=== PATIENT | female | born 1945 | race Caucasian/White ===

== ENCOUNTER 2024-02-08 17:16 | Emergency (ER) | payer MEDICARE, SELFPAY ==
[2024-02-08 17:19] VITALS: BP 188/59; PULSE 62; TEMP 36.7; O2SAT 97; BMI 28.9
--- NOTE | 2024-02-08 17:23 | CT_ITS ---
[facility] [id number] Patient Name: JUAN HERNANDEZ MRN: [id number] date: 1945 Sex: F Assigned Patient Location: ED.MAIN Current Patient Location: ED.MAIN Accession/Order Number: [id number] Exam Date: 02/08/2024 17:35 Report Date: 02/08/2024 18:24 At the request of: MELANIE LOGAN Procedure: CT abdomen pelvis wo con CT ABDOMEN/PELVIS WITHOUT IV CONTRAST. INDICATION: small bowel obstruction symptoms COMPARISON: There are no other studies available for comparison. TECHNIQUE: Contiguous axial images were obtained from the lung bases to the pelvic floor without intravenous or oral contrast. Coronal and sagittal reformations are provided. FINDINGS: Somewhat limited evaluation due to motion. LOWER LUNGS: Clear. LIVER/BILIARY TREE: No discrete lesion. No intrahepatic ductal dilatation. GALLBLADDER: No significant gallbladder wall thickening. No radiopaque stone. CBD: Normal CBD. SPLEEN: Normal in size. PANCREAS: No appreciable peripancreatic fluid. No pancreatic ductal dilatation. No discrete lesion. ADRENALS: Normal. KIDNEYS: No hydronephrosis. No radiopaque calculus. STOMACH AND BOWEL: There is a small hiatal hernia. No dilated bowel loops. No bowel wall thickening. There is oral contrast in the colon and rectum. APPENDIX: Not well-visualized. PERITONEAL CAVITY: No fluid. No fat stranding. ABDOMINAL WALL: No subcutaneous stranding. No subcutaneous fluid collection. LYMPH NODES: No mesenteric or retroperitoneal lymphadenopathy by CT criteria. ABDOMINAL AORTA: No aneurysm. PELVIS: No acute abnormality. Vaginal pessary noted. MUSCULOSKELETAL: No acute osseous abnormality. CT/CT abdomen pelvis wo con IMPRESSION: No acute abnormality in the abdomen or pelvis. No bowel obstruction. Electronically authenticated by: STEPHANI DODGE Date: 02/08/2024 18:24
--- NOTE | 2024-02-08 17:55 | ED.ABDPAIN1 ---
HPI - Abdominal Pain General Chief Complaint: Abdominal Pain Stated Complaint: NO BM 10 DAYS Time Seen by Provider: 02/08/24 17:23 Source: patient Mode of arrival: ambulance Limitations: no limitations History of Present Illness HPI narrative: Patient is coming to us with 10 days history of no bowel movement, he denies any abdominal pain she mentioned that she had a left upper and lower extremity weakness after she had a stroke in the last few months, and that is why she is in nursing home facility because she is bedbound, the patient have no chest pain no abdominal pain she had no nausea but she vomited once and she has been having sand sensation in her tongue as well as the food was regurgitating to her mouth, her last meal was few hours before arrival The patient denies any other complaint Related Data Home Medications ?Medication ?Instructions ?Recorded ?Confirmed Biotene Dry Mouth 1 spray Not Applicable QID 02/08/24 02/08/24 acetaminophen 325 mg capsule 650 mg PO .Q 8 hours 02/08/24 02/08/24 (Tylenol) aluminum-mag hydroxide-simethicone 10 ml PO Q6H PRN dyspepsia 02/08/24 02/08/24 200 mg-200 mg-20 mg/5 mL oral susp (Gretchen-Mox Antacid-Antigas) amlodipine 5 mg tablet 10 mg PO DAILY 02/08/24 02/08/24 aspirin 81 mg chewable tablet 81 mg PO DAILY 02/08/24 02/08/24 atorvastatin 40 mg tablet 40 mg PO DAILY 02/08/24 02/08/24 baclofen 10 mg tablet 10 mg PO BID 02/08/24 02/08/24 buspirone 5 mg tablet 5 mg PO BID 02/08/24 02/08/24 calcium carbonate (Antacid 200 mg PO TID PRN dyspepsia 02/08/24 02/08/24 (calcium carbonate)) chlorthalidone 25 mg tablet 25 mg PO DAILY 02/08/24 02/08/24 clopidogrel 75 mg tablet 75 mg PO DAILY 02/08/24 02/08/24 diclofenac sodium 1 % topical gel 2 g topical QID PRN pain 02/08/24 02/08/24 (Arthritis Pain (diclofenac)) docusate sodium 100 mg capsule 100 mg PO BID PRN constipation 02/08/24 02/08/24 (Colace) hydralazine 25 mg tablet 25 mg PO QID 02/08/24 02/08/24 levothyroxine 50 mcg tablet 50 mcg PO DAILY 02/08/24 02/08/24 (Euthyrox) lidocaine 4 % topical patch 2 patch topical DAILY 02/08/24 02/08/24 (Aspercreme (lidocaine)) losartan 100 mg tablet (Cozaar) 100 mg PO DAILY 02/08/24 02/08/24 melatonin 5 mg tablet 5 mg PO DAILY 02/08/24 02/08/24 ondansetron HCl 4 mg tablet 4 mg PO Q6H PRN nausea and vomiting 02/08/24 02/08/24 polyethylene glycol 3350 17 17 g PO DAILY 02/08/24 02/08/24 gram/dose oral powder (ClearLax) quaifenesin 600 mg PO BID PRN cough 02/08/24 02/08/24 tramadol 50 mg tablet 50 mg PO DAILY PRN pain 02/08/24 02/08/24 trazodone 50 mg tablet 50 mg PO DAILY PRN sleep 02/08/24 02/08/24 Previous Rx's ?Medication ?Instructions ?Recorded famotidine 20 mg tablet (Pepcid) 20 mg PO BID #20 tabs 02/08/24 nystatin 100,000 unit/mL oral 400,000 unit (4 mL) buccal QID 14 02/08/24 suspension days #224 mL pantoprazole 40 mg tablet,delayed 40 mg PO DAILY #30 tabs 02/08/24 release (Protonix) Allergies Allergy/AdvReac Type Severity Reaction Status Date / Time meperidine [From Demerol] Allergy Unknown Unknown Verified 02/08/24 17:50 Review of Systems ROS Status of ROS 10 or more systems reviewed and unremarkable except as noted in history and below Exam Narrative Exam Narrative: Nurses notes and vital signs reviewed and patient is not hypoxic. General: Well-appearing and in no apparent distress. Skin: Warm, dry, no pallor noted. No rash. Head: Normocephalic, atraumatic. Neck: Supple, non-tender. Eye: Pupils are equal, round and EOMI. No scleral icterus. Ears, Nose, Mouth, and Throat: TM are clear, no nasal mucosal hypertrophy. Dry mucous membrane with a mouth rash in the posterior of the pharynx as well as the tongue, no posterior oropharynx erythema, uvula is mid-line Cardiovascular: Regular Rate and Rhythm without murmur, gallop or rub. Respiratory: No accessory muscle use or respiratory distress. Lungs are clear to auscultation, no wheezing, rales or rhonchi Chest Wall: no tenderness Back: No midline thoracic or lumbar vertebral tenderness. No CVA tenderness Musculoskeletal: normal ROM, no calf or popliteal tenderness, no lower extremity edema/swelling GI: Abdomen is soft,,distended No masses appreciated. No tenderness to palpation. No rebound, guarding, or rigidity noted. Neurological: A&O x4. There is a left upper lower extremity weakness with atrophy of the left upper extremity and flexion, right upper and lower extremity shows no weakness Psychiatric: Cooperative and interactive. Normal mood and affect. Constitutional Vital Signs, click to edit/add: Last Vital Signs Temp 98.1 F 02/08/24 17:19 Pulse 62 02/08/24 17:19 Resp 18 02/08/24 17:19 BP 188/59 H 02/08/24 17:19 Pulse Ox 97 02/08/24 17:19 O2 Del Method Room Air 02/08/24 17:19 Course Vital Signs Vital signs: Vital Signs Temperature 98.1 F 02/08/24 17:19 Pulse Rate 62 02/08/24 17:19 Respiratory Rate 18 02/08/24 17:19 Blood Pressure 188/59 H 02/08/24 17:19 Pulse Oximetry 97 02/08/24 17:19 Oxygen Delivery Method Room Air 02/08/24 17:19 Temperature 98.1 F 02/08/24 17:19 Pulse Rate 62 02/08/24 17:19 Respiratory Rate 18 02/08/24 17:19 Blood Pressure 188/59 H 02/08/24 17:19 Pulse Oximetry 97 02/08/24 17:19 Oxygen Delivery Method Room Air 02/08/24 17:19 MDM - Abdominal Pain MDM Narrative Medical decision making narrative: The patient presented with a picture of possible small bowel obstruction or constipation Patient CBC and chemistry showed no acute pathology The patient CAT scan of the abdomen pelvis showed no acute pathology as well there is no significant amount of stool and the patient just had a study with contrast in the last few days and that why the CAT scan today without contrast showing stool with contrast The patient does have a mouth rash and she was started nystatin mouthwash Omeprazole was changed from 20 to 40 mg Pepcid was added Her constipation was getting treated with the Dulcolax as well as MiraLAX and that was adequate Mild thrush will be treated with nystatin the patient need to follow-up with gastroenterology as outpatient as well as evaluation for nutrition will be done in the care home The patient son was at the bedside and he understand the plan The patient is to follow up with primary care physician in next 2-3 days or to return to the emergency department should any of the signs or symptoms worsen or new symptoms develop. The patient agrees with the following Diagnosis and Treatment plan and the patient will be discharged home. Lab Data Labs: Lab Results 02/08/24 Range/Units 17:39 WBC 7.8 (4.0-11.0) 10^3/uL RBC 3.70 L (4.20-5.40) 10^6/uL Hgb 11.6 L (12.0-16.0) g/dL Hct 34.0 L (36.0-48.0) % MCV 91.9 (81.0-99.0) fL MCH 31.4 (26.7-34.0) pg MCHC 34.1 (29.9-35.2) g/dL RDW 13.1 (11.0-15.0) % Plt Count 309 (150-450) 10^3/uL MPV 10.2 (9.5-13.5) fL Neut % (Auto) 51.6 (43.0-75.0) % Lymph % (Auto) 34.7 (20.5-60.0) % Hancock % (Auto) 7.7 (1.7-12.0) % Eos % (Auto) 4.5 (0.9-7.0) % Baso % (Auto) 1.2 (0.2-2.0) % Neut # (Auto) 4.0 (1.4-6.5) 10^3/uL Lymph # (Auto) 2.7 (1.2-3.8) 10^3/uL Hancock # (Auto) 0.6 (0.3-0.8) 10^3/uL Eos # (Auto) 0.4 (0.0-0.7) 10^3/uL Baso # (Auto) 0.1 (0.0-0.1) 10^3/uL Abs Immat Gran (auto) 0.02 (0.00-0.03) 10^3/uL Imm/Tot Granulo (auto) 0.3 (0.0-0.5) % Sodium 139 (136-145) mmol/L Potassium 3.4 L (3.5-5.1) mmol/L Chloride 101 (98-107) mmol/L Carbon Dioxide 28.4 (21.0-32.0) mmol/L Anion Gap 13.0 BUN 45.0 H (7.0-18.0) mg/dL Creatinine 1.56 H (0.55-1.02) mg/dL Est GFR ( Amer) 39 L (>=60) Est GFR (Non-Af Amer) 32 L (>=60) BUN/Creatinine Ratio 28.8 Glucose 121 H (74-106) mg/dL Calcium 9.1 (8.5-10.1) mg/dL Total Bilirubin 0.5 (0.2-1.0) mg/dL AST 19 (15-37) U/L ALT 33 (14-59) U/L Alkaline Phosphatase 73 (46-116) U/L Total Protein 6.9 (6.4-8.2) g/dL Albumin 4.0 (3.4-5.0) g/dL Globulin 2.9 g/dL Albumin/Globulin Ratio 1.4 Discharge Plan Discharge Stand Alone Forms: Work/School Release, Portal Instructions Chief Complaint: Abdominal Pain Clinical Impression: Tabatha, oral, Constipation, Hiatal hernia with GERD Patient Disposition: Home, Self-Care Time of Disposition Decision: 19:04 Condition: Good Prescriptions / Home Meds: New pantoprazole [Protonix] 40 mg tablet,delayed release (DR/EC) 40 mg PO DAILY Qty: 30 0RF famotidine [Pepcid] 20 mg tablet 20 mg PO BID Qty: 20 0RF nystatin 100,000 unit/mL suspension 400,000 unit buccal QID 14 Days Qty: 224 0RF Rx Instructions: administer 1/2 of dose in each side of the mouth Discontinued omeprazole 20 mg capsule,delayed release(DR/EC) 20 mg PO DAILY No Action amlodipine 5 mg tablet 10 mg PO DAILY aspirin 81 mg tablet,chewable 81 mg PO DAILY atorvastatin 40 mg tablet 40 mg PO DAILY chlorthalidone 25 mg tablet 25 mg PO DAILY clopidogrel 75 mg tablet 75 mg PO DAILY hydralazine 25 mg tablet 25 mg PO QID acetaminophen [Tylenol] 325 mg capsule 650 mg PO .Q 8 hours levothyroxine [Euthyrox] 50 mcg tablet 50 mcg PO DAILY losartan [Cozaar] 100 mg tablet 100 mg PO DAILY melatonin 5 mg tablet 5 mg PO DAILY Rx Instructions: HS polyethylene glycol 3350 [ClearLax] 17 gram/dose powder 17 g PO DAILY lidocaine [Aspercreme (lidocaine)] 4 % adhesive patch,medicated 2 patch topical DAILY Rx Instructions: may leave on for up to 12 hrs calcium carbonate [Antacid (calcium carbonate)] 200 mg calcium (500 mg) tablet,chewable 200 mg PO TID PRN (Reason: dyspepsia) baclofen 10 mg tablet 10 mg PO BID buspirone 5 mg tablet 5 mg PO BID alum-mag hydroxide-simeth [Gretchen-Mox Antacid-Antigas] 200-200-20 mg/5 mL suspension 10 ml PO Q6H PRN (Reason: dyspepsia) Rx Instructions: 400-400-40 Biotene Dry Mouth 1 spray Not Applicable QID Rx Instructions: For dry mouth docusate sodium [Colace] 100 mg capsule 100 mg PO BID PRN (Reason: constipation) diclofenac sodium [Arthritis Pain (diclofenac)] 1 % gel 2 g topical QID PRN (Reason: pain) Rx Instructions: apply to single elbow, wrist or hand; for hand includes palm/fingers/back of hand trazodone 50 mg tablet 50 mg PO DAILY PRN (Reason: sleep) quaifenesin 600 mg PO BID PRN (Reason: cough) ondansetron HCl 4 mg tablet 4 mg PO Q6H PRN (Reason: nausea and vomiting) tramadol 50 mg tablet 50 mg PO DAILY PRN (Reason: pain) Rx Instructions: Pain 7-10 Print Language: Citizen Of [place] Instructions: Hiatal Hernia (DC), Constipation (ED), Oral Candidiasis (ED) Referrals: Physician,Non-Staff, MD [Primary Care Provider] - 1 week
[2024-02-08 18:19] LABS: Basophils Absolute Auto 0.1 10^3/uL (0.0-0.1); Basophils Percent Auto 1.2 % (0.2-2.0); Eosinophils Absolute Auto 0.4 10^3/uL (0.0-0.7); Eosinophils Percent Auto 4.5 % (0.9-7.0); Hemoglobin 11.6 g/dL (12.0-16.0); Immature Granulocytes Abs Auto 0.02 10^3/uL (0.00-0.03); Immature Granulocytes Pct Auto 0.3 % (0.0-0.5); Lymphocytes Absolute Auto 2.7 10^3/uL (1.2-3.8); Lymphocytes Percent Auto 34.7 % (20.5-60.0); Mean Corpuscular HGB Conc 34.1 g/dL (29.9-35.2); Mean Corpuscular Hemoglobin 31.4 pg (26.7-34.0); Mean Corpuscular Volume 91.9 fL (81.0-99.0); Mean Platelet Volume 10.2 fL (9.5-13.5); Monocytes Absolute Auto 0.6 10^3/uL (0.3-0.8); Monocytes Percent Auto 7.7 % (1.7-12.0); Neutrophils Percent Auto 51.6 % (43.0-75.0); Platelet Count 309 10^3/uL (150-450); Red Cell Distribution Width 13.1 % (11.0-15.0); White Blood Count 7.8 10^3/uL (4.0-11.0)
[2024-02-08 18:36] LABS: Alanine Aminotransferase 33 U/L (14-59); Albumin Globulin Ratio 1.4; Alkaline Phosphatase 73 U/L (46-116); Aspartate Amino Transferase 19 U/L (15-37); BUN Creatinine Ratio 28.8; Bilirubin Total 0.5 mg/dL (0.2-1.0); Calcium 9.1 mg/dL (8.5-10.1); Carbon Dioxide 28.4 mmol/L (21.0-32.0); Chloride 101 mmol/L (98-107); Estimated GFR (African America 39 (>=60); Estimated GFR (Non-African Ame 32 (>=60); Globulin 2.9 g/dL; Glucose 121 mg/dL (74-106); Potassium 3.4 mmol/L (3.5-5.1); Sodium 139 mmol/L (136-145); Total Protein 6.9 g/dL (6.4-8.2)
[2024-02-08] MEDS: FAMOTIDINE/PF 20 MG/2 ML VIAL IV (19:18)
[2024-02-08 19:54] VITALS: BP 161/68; O2SAT 96
--- NOTE | 2024-02-08 20:09 | PC.NURSE ---
Report called to the [facility] at this time
== END 2024-02-08 22:14 | disposition home or self-care (01) ==
PROVIDERS: Emergency Provider Emergency Medicine
DX: K59.00 Constipation, unspecified (principal); K21.9 Gastro-esophageal reflux disease without esophagitis; K44.9 Diaphragmatic hernia without obstruction or gangrene; B37.0 Candidal stomatitis; Z86.73 Personal history of transient ischemic attack (TIA), and cerebral infarction without residual deficits; Z74.01 Bed confinement status
CPT/HCPCS: 36415; 74176; 80053; 85025; 96374; 99285

== ENCOUNTER 2024-03-28 09:09 | Emergency (ER) | payer MEDICARE, SELFPAY ==
[2024-03-28 09:13] VITALS: BP 150/66; PULSE 65; TEMP 36.8; O2SAT 97; BMI 26.6
--- NOTE | 2024-03-28 09:21 | CT_ITS ---
[address] [id number] Patient Name: JUAN HERNANDEZ MRN: [facility]:[id number] date: 1945 Sex: F Assigned Patient Location: ER Current Patient Location: ER Accession/Order Number: [id number] Exam Date: 03/28/2024 09:57 Report Date: 03/28/2024 10:59 At the request of: MELANIE LOGAN Procedure: CT abdomen pelvis wo con EXAMINATION: CT abdomen pelvis wo con HISTORY: sbo concern COMPARISON: 02/08/2024 TECHNIQUE: Axial, Coronal, and Sagittal images were created without IV contrast. Dose reduction techniques were achieved by using automated exposure control and/or adjustment of mA and/or kV according to patient size and/or use of iterative reconstruction technique. FINDINGS: LUNG BASES: Scattered subcentimeter pulmonary nodules largest measuring 8 mm in the right lower lobe, axial image 4. LIVER: No enlargement, atrophy, abnormal density, or significant focal lesion. BILIARY: No dilatation or calcification. PANCREAS: No lesion, fluid collection, ductal dilatation, or atrophy. SPLEEN: No enlargement or focal lesion. ADRENALS: No mass or enlargement. KIDNEYS: No mass, obstruction, or calcification. BOWEL/MESENTERY: Moderate to large amount of stool identified throughout the colon and rectum with an overall nonobstructive bowel gas pattern. AORTA/VASCULAR: No aortic aneurysm. Moderate calcific atherosclerosis RETROPERITONEUM: No mass or adenopathy. LYMPH NODES: No adenopathy. URINARY BLADDER: No visible focal wall thickening, lesion, or calculus. PELVIC ORGANS: The uterus is prominent in size with coarse calcifications suggesting fibroids. Presence of a pessary. ABDOMINAL WALL: No mass or hernia. BONES: No bony lesion or fracture. OTHER: Negative. CT/CT abdomen pelvis wo con IMPRESSION: Moderate amount of stool throughout the colon and rectum with an overall nonobstructive bowel gas pattern Electronically authenticated by: PRADEEP GRAHAM Date: 03/28/2024 10:59
--- OUTSIDE RECORDS SUMMARY | 2024-03-28 09:44 | XMS_ITS | CCD ---
Author Organization [facility] Care Team Providers Care Tomb Maker Helper Name Role Phone Steve Heard MD Primary Care Provider YOLIS, SAROJ L Attending Unavailable YOLIS, SAROJ L Primary Care Unavailable PRESTON BRENNER Attending Unavailable TWIN BUI Admitting Unavailable PALLAVI MOYA Consulting Unavailable JUANITA KRAUS Consulting Unavailable ELIU NARANJO Referring Unavailable YOLIS, SAROJ L Primary Care Unavailable ABBEY FOWLER Referring Unavailable YOLIS, SAROJ L Primary Care Unavailable PRESZLERDAVID Referring Unavailable YOLIS, SAROJ L Primary Care Unavailable PRESZLERDAVID Referring Unavailable YOLIS, SAROJ L Primary Care Unavailable PRESZLER, DAVID Referring Unavailable YOLIS, SAROJ L Primary Care Unavailable PASCUAL PETERS Referring Unavailable YOLIS, SAROJ L Primary Care Unavailable TWIN BUI Attending Unavailable TWIN BUI Referring Unavailable YOLIS, SAROJ L Primary Care Unavailable PASCUAL PETERS Referring Unavailable YOLIS, SAROJ L Primary Care Unavailable USMAN BHARDWAJ Referring Unavailable YOLIS, SAROJ L Primary Care Unavailable SALMA MIJARES Referring Unavailable YOLIS, SAROJ L Primary Care Unavailable NO FAMILY, PHYSICIAN Primary Care Provider Unava ilable MD Kris Marquez Admit Provider MD Kris Marquez Attending Provider BEBO Fernandez Other Provider Unavailable BEBO Shi Other Provider Unavailable BEBO Love Other Provider Unavailable BEBO Milan Other Provider Unavailable BEBO Thurman Other Provider Unavailable MD Gilma Llanes Other Provider DO Edin Lomas Other Provider MD Jeff Hollis Other Provider DO Andrew Brown Other Provider MD Renzo Chin Other Provider MD Janine Rosa Other Provider MD Doug Avelar Other Provider Unavailable ODILON Moralez Other Provider MD Debora Crook Other Provider MD Brayan Matt Other Provider MD Abel Phan Other Provider MD Lyubov Aecvedo Other Provider DO Armando Miller Other Provider [phone] MD Dayna Leigh Other Provider MD Kristopher Hernandez Other Provider ANNA Berkowitz-C Jessica Guerrero Other Provider ODILON Reveles M Other Provider Unavailable MD Jon Alcala Other Provider MD Sonu Cherry Other Provider MD Stanford Romero Other Provider MD Amber Rothman Other Provider Unavailable MD Antione Cuevas Other Provider DO Joya Will Other Provider DO Kirby Wooten Other Provider ODILON Victor Other Provider DO Zay Jasmine Other Provider [phone] MD Paul Muse Other Provider ODILON Peraza Other Provider ODILON Rodrigues Other Provider MD Fatoumata Randhawa Other Provider MD Jose Roberto Neves Other Provider DO Davidson Esequiel T Other Provider GaudencioDO Siegel Other Provider MD Felix Romero P Other Provider MD Roger Fields Other Provider ODILON Hackett Other Provider MD Dada Horn Other Provider MD Keven Chaparro Other Provider BEBO Blank Other Provider Unavailable ODILON Walker Emergency Provider DO Jose Roberto Hernandez A Primary Care Provider [phone] MD Keven Chaparro Admit Provider MD Keven Chaparro Attending Provider [phone] ODILON Walker Emergency Provider DO Jose Roberto Hernandez A Primary Care Provider MD Keven Chaparro Admit Provider DO Di Trejo Other Provider [phone] MD Dada Horn Attending Provider Dada Cole Attending Unavailable JOSE ROBERTO HERNANDEZ Primary Care Physician YOLIS, SAROJ L Primary Care Unavailable MARCELLA, ELIU Attending Unavailable MARCELLA, ELIU Attending Unavailable MRACELLA, ELIU Referring Unavailable YOLIS, SAROJ L Primary Care Unavailable MARCELLA, ELIU Attending Unavailable MARCELLA, ELIU Referring Unavailable YOLIS, SAROJ L Primary Care Unavailable MARCELLA, ELIU Attending Unavailable MARCELLA, ELIU Referring Unavailable YOLIS, SAROJ L Primary Care Unavailable SADIE ESPINOSA Primary Care Unavailable Kris Marquez Admitting UnavailKris Vieira Attending Unavaila ble NO FAMILY, PHYSICIAN Primary Care Unavailable Serena Fernandez Consulting Unavailable Kaya Shi Consulting Unavailable Denslow, Ayah Consulting Unavailable Myrna Milan Consulting Unavailable Alexsandra Thurman Consulting Unavailable Gilma Llanes Consulting Unavailable Edin Lomas Consulting Unavailable Jeff Hollis Consulting Unavailable Andrew Brown Consulting UnavailRenzo Rebollar Consulting Unavailable Janine Rosa Consulting Unavailable Doug Avelar Consulting Unavailable Carlotta Moralez Consulting UnavailDebora Hodges Consulting Unavailable Brayan Matt Consulting Unavailable Abel Phan Consulting Unavailable Lyubov Acevedo Consulting Unavailable Armando Miller Consulting Unavailable Dayna Leigh Consulting Unavailable Kristopher Hernandez Consulting Unavailable Jessica Berkowitz Consulting Unavailable Annalee Reveles Consulting Unavailable Jon Alcala Consulting UnavailSonu Urrutia Consulting Unavailable Stanford Romero Consulting Unavailable Amber Rothman Consulting Unavailable Antione Cuevas Consulting Unavailable Joya Will Consulting Unavailable Kirby Wooten Consulting Unavailable ObAlysha hinds Consulting Unavailable Zay Jasmine Consulting Unavailable Daromar Obaytu Taylor Consulting Unavailable Airam Peraza Consulting Unavailable Emiliana Rodrigues Consulting Unavailable Fatoumata Randhawa Consulting Unavailable Jose Roberto Neves Consulting Unavailable Esequiel Cedeño Consulting Unavailable Christal Ratliff Consulting Unavailable Felix Romero Consulting Unavailable Roger Fields Consulting Unava ilable Felicita Hackett Consulting Unavailable Dada Horn Consulting Unavailable Keven Chaparro Consulting Unavailable Solange Blank Consulting Unavailable Dada Horn Attending Unavailable Di Trejo Consulting Unavailable Kveen Chaparro Admitting Unavailable Jose Roberto Hernandez Primary Care Unavailable DO SADIE ESPINOSA Attending Unavailable SADIE ESPINOSA Primary Care Unavailable Allergies Allergy Classification Reported Allergen(s) Allergy Type Date of Onset Reaction(s) Facility (5 sources) Meperidine; Translations: [MEPERIDINE] Drug Allergy 9 [facility] (1 source) Meperidine Drug Allergy 4 [facility] Repository (1 source) Meperidine; Translations: [Demerol] Drug Allergy [facility] Repository Medications Current Medications Medication Drug Class(es) Dates Sig (Normalized) Sig (Original) acetaminophen 325 mg oral tablet (3 sources) Start: 01-23-2024 take 2 tablets by mouth three times daily Acetaminophen (Tylenol) 325 mg Tablet Active 650 MG PO Three times daily 0 January 23, 2024 12:00am amLODIPine 10 mg oral tablet (6 sources) Dihydropyridine Calcium Channel Tracy Start: 01-04-2024 take 10 mg by mouth once daily Amlodipine Active 10 MG PO Daily January 04, 2024 12:00am Start: 08-03-2023 take 1 tablet by stacy th in the morning amLODIPine (NORVASC) 10 mg tablet Take 1 tablet (10 mg total) by mouth in the morning. 30 tablet 0 08/03/2023 Active Start: 05-16-2022 End: 08-03-2023 take 2 tablets by mouth in the morning amLODIPine (NORVASC) 5 mg tablet Take 2 tablets (10 mg total) by mouth in the morning. 180 tablet 2 05/16/2022 08/03/2023 Discontinued (Reorder) aspirin 81 mg delayed release oral tablet (3 sources) Platelet Aggregation Inhibitor, Nonsteroidal Anti-inflammatory Drug Start: 01-04-2024 take 1 tablet by mouth once daily Aspirin (Adult Aspirin Regimen) 81 mg tablet,delayed release (DR/EC) Active 81 MG PO Daily January 04, 2024 12:00am atorvastatin 40 mg oral tablet (3 sources) HMG-CoA Reductase Inhibitor Start: 01-04-2024 take 40 mg by mouth once daily Atorvastatin Active 40 MG PO Daily January 04, 2024 12:00am baclofen 10 mg oral tablet (2 sources) gamma-Aminobutyric Acid-ergic Agonist Start: 02-23-2024 take 10 mg by mouth twice daily Baclofen Active 10 MG PO Twice daily February 23, 2024 12:00am bisoprolol fumarate 5 mg oral tablet (2 sources) beta-Adrenergic Tracy Start: 05-08-2023 take 1 tablet by mouth in the morning bisoprolol (ZEBETA) 5 mg tablet Indications: Primary hypertension TAKE 1 TABLET(5 MG) BY MOUTH IN THE MORNING 30 tablet 0 05/08/2023 Active busPIRone hydrochloride 5 mg oral tablet (2 sources) Start: 02-23-2024 take 5 mg by mouth twice daily Buspirone Active 5 MG PO Twice daily February 23, 2024 12:00am chlorthalidone 25 mg oral tablet (3 sources) Thiazide-like Diuretic Start: 01-23-2024 take 25 mg by mouth once daily in the morning Chlorthalidone Active 25 MG PO Every morning 0 January 23, 2024 12:00am clopidogrel 75 mg oral tablet (5 sources) P2Y12 Platelet Inhibitor Start: 01-04-2024 take 75 mg by mouth once daily Clopidogrel Active 75 MG PO Daily January 04, 2024 12:00am Start: 10-17-2022 take 1 tablet by stacy th in the morning clopidogreL (PLAVIX) 75 mg tablet TAKE 1 TABLET(75 MG) BY MOUTH IN THE MORNING 90 tablet 0 10/17/2022 Active diclofenac sodium 0.01 mg/mg topical gel (3 sources) Nonsteroidal Anti-inflammatory Drug Start: 01-04-2024 apply 2 g topically four times daily Diclofenac Sodium Active 2 GM TOPICAL Four times daily January 04, 2024 12:00am apply to single elbow, wrist or hand; for hand includes palm/fingers/back of hand docusate sodium 100 mg oral capsule (5 sources) Start: 01-23-2024 End: 02-23-2024 take 1 capsule by mouth twice daily Docusate Sodium (Colace) 100 mg capsule Active 100 MG PO Twice daily February 23, 2024 12:00am estradiol 0.1 mg/ml vaginal cream (2 sources) Estrogen Start: 09-20-2022 estradioL (ESTRACE) 0.01 % (0.1 mg/gram) vaginal cream Indications: Uterovaginal prolapse, unspecified , Vaginal ulcer Insert 1 g into the vagina in the morning. 42.5 g 1 09/20/2022 Active famotidine 10 mg oral tablet (2 sources) Histamine-2 Receptor Antagonist Start: 02-23-2024 take 10 mg by mouth once daily Famotidine Active 10 MG PO Daily February 23, 2024 12:00am furosemide 40 mg oral tablet (2 sources) Loop Diuretic Start: 05-08-2023 take 1 tablet by mouth once daily as needed furosemide (LASIX) 40 mg tablet Indications: Leg edema TAKE 1 TABLET(40 MG) BY MOUTH DAILY NEEDED FOR LEG SWELLING 30 tablet 0 05/08/2023 Active hydrALAZINE hydrochloride 25 mg oral tablet (3 sources) Arteriolar Vasodilator Start: 01-23-2024 take 25 mg by mouth four times daily Hydralazine Active 25 MG PO Four times daily 0 January 23, 2024 12:00am levothyroxine sodium 0.05 mg oral tablet (3 sources) l-Thyroxine Start: 01-04-2024 take 50 ug by mouth once daily Levothyroxine Active 50 MCG PO Daily at 0630 January 04, 2024 12:00am lidocaine 0.04 mg/mg medicated patch (5 sources) Antiarrhythmic, Amide Local Anesthetic Start: 01-23-2024 End: 02-23-2024 apply 1 dose topically once daily Lidocaine (Aspercreme (Lidocaine)) 4 % adhesive patch,medicated Active 2 PATCH TOPICAL Daily February 23, 2024 12:00am may leave on for up to 12 hrs losartan potassium 100 mg oral tablet (3 sources) Angiotensin 2 Receptor Tracy Start: 01-04-2024 take 100 mg by mouth once daily Losartan Active 100 MG PO Daily January 04, 2024 12:00am melatonin 5 mg oral tablet (5 sources) Start: 01-23-2024 End: 02-23-2024 take 5 mg by mouth once daily at bedtime Melatonin Active 5 MG PO Daily at bedtime February 24, 2024 12:00am menthol 0.02 mg/mg topical gel (5 sources) Start: 01-23-2024 End: 02-23-2024 Menthol (Ice Blue Gel) 2 % gel Active 1 APPLIC TOPICAL Twice daily February 24, 2024 12:00am multivitamin capsule (2 sources) multivitamin cap desean Take 1 capsule by mouth in the morning. ESSENTIAL 1 . 0 Active NON FORMULARY (4 sources) NON FORMULARY Th yr aid 0 Active NON FORMULARY BP ACTIVATE 800MG 0 Active nystatin 306497 unt/ml oral suspension (2 sources) Polyene Antifungal Start: 02-24-2024 take 1 mL by mouth four times daily Nystatin Active 4 ML PO Four times daily February 24, 2024 12:00am ondansetron 4 mg disintegrating oral tablet (2 sources) Serotonin-3 Receptor Antagonist Start: 02-24-2024 take 4 mg by mouth every six hours Ondansetron Active 4 MG PO Every 6 hours February 24, 2024 12:00am pantoprazole 40 mg delayed release oral tablet (2 sources) Proton Pump Inhibitor Start: 02-24-2024 take 40 mg by mouth once daily Pantoprazole Active 40 MG PO Daily February 24, 2024 12:00am polyethylene glycol 3350 81154 mg powder for oral solution (5 sources) Osmotic Laxative Start: 01-04-2024 End: 02-23-2024 Polyethylene Glycol 3350 (Miralax) 17 gram/dose powder Active 17 GM PO Daily February 24, 2024 12:00am Saliva Stimulant Comb. No.3 (Biotene Moisturizing Mouth) spray,non-aerosol (2 sources) Start: 02-23-2024 take 1 spray(s) by mouth four times daily Saliva Stimulant Comb. No.3 (Biotene Moisturizing Mouth) spray,non-aerosol Active 1 APPLIC MUCOUS MEM Four times daily February 23, 2024 12:00am traZODone hydrochloride 50 mg oral tablet (5 sources) Serotonin Reuptake Inhibitor Start: 01-23-2024 End: 02-23-2024 take 50 mg by mouth at bedtime Trazodone Active 50 MG PO Bedtime February 24, 2024 12:00am UNABLE TO FIND (2 sources) take 1 tablet into the eye(s) twice daily UNABLE TO FIND Med Name: ULTIMATE EYE SUPPORT WITH ASTAXANTHIN TAKING 1 TABLET BID 0 Active Completed/Discontinued Medications Medication Drug Class(es) Dates Sig (Normalized) Sig (Original) 0.4 ml enoxaparin sodium 100 mg/ml prefilled syringe (3 sources) Low Molecular Weight Heparin Start: 01-23-2024 End: 02-23-2024 Enoxaparin (Lovenox) 40 mg/0.4 mL Syringe Discontinued 40 MG SUBCUT DAILY@1000 0 January 23, 2024 12:00am February 23, 2024 11:04pm 12 hr guaiFENesin 600 mg extended release oral tablet (3 sources) Start: 01-23-2024 End: 02-23-2024 take 1 tablet by mouth twice daily, then take 1 tablet by mouth every twelve hours Guaifenesin (Mucinex) 600 mg Tablet Extended Release 12hr Discontinued 600 MG PO Twice daily 0 January 23, 2024 12:00am February 23, 2024 11:04pm methocarbamol 500 mg oral tablet (3 sources) Muscle Relaxant Start: 01-04-2024 End: 02-23-2024 take 500 mg by mouth every eight hours Methocarbamol Discontinued 500 MG PO Every 8 hours January 04, 2024 12:00am February 23, 2024 11:04pm Problems Active Problems Problem Classification Problem Date Documented Da te Episodic/Chronic Abdominal pain (3 sources) Abdominal pain; Translations: [Unspecified abdominal pain] Onset: 4 02-24-2024 Episodic Acute and unspecified renal failure (3 sources) Acute renal failure syndrome; Translations: [Acute kidney failure, unspecified] Onset: 4 02-24-2024 Episodic Acute cerebrovascular disease (15 sources) Cerebrovascular accident; Translations: [Cerebral infarction, unspecified] Onset: 1 07-09-2020 Chronic Acute cerebrovascular disease (1 source) Acute cerebrovascular disease Onset: 4 Administrative/social admission (7 sources) Other reduced mobility; Translations: [Impaired mobility and activities of daily living] Onset: 4 01-05-2024 Episodic Chronic kidney disease (1 source) Chronic kidney disease, unspecified; Translations: [Chronic kidney disease, unspecified] Onset: 4 Chronic Diseases of white blood cells (3 sources) Leukocytosis; Translations: [Elevated white blood cell count, unspecified] Onset: 4 02-24-2024 Chronic Disorders of lipid metabolism (11 sources) Hypercholesterolemia; Translations: [Pure hypercholesterolemia, unspecified] Onset: 9 03-13-2019 Chronic Esophageal disorders (3 sources) Gastroesophageal reflux disease; Translations: [Gastro-esophageal reflux disease without esophagitis] Onset: 4 02-24-2024 Chronic Essential hypertension (11 sources) Hypertensive disorder; Translations: [Essential (primary) hypertension] Onset: 9 03-13-2019 Chronic Fluid and electrolyte disorders (4 sources) Dehydration; Translations: [Dehydration] 02-23-2024 Episodic Mycoses (10 sources) Candidiasis of mouth and esophagus; Translations: [Candidal esophagitis] Onset: 4 01-11-2024 Episodic Nonspecific chest pain (1 source) Chest pain, unspecified; Translations: [Chest pain, unspecified] Onset: 4 Episodic Nutritional deficiencies (1 source) Deficiency of macronutrients; Translations: [Unspecified severe protein-calorie malnutrition] 03-01-2024 Chronic Occlusion or stenosis of precerebral arteries (5 sources) Right carotid artery stenosis; Translations: [Occlusion and stenosis of right carotid artery] Onset: 1 07-30-2020 Chronic Other and ill-defined cerebrovascular disease (2 sources) Cerebrovascular disease; Translations: [Cerebrovascular disease, unspecified] Onset: 1 08-25-2020 Chronic Other and ill-defined cerebrovascular disease (1 source) Cerebrovascular disease, unspecified; Translations: [Cerebrovascular disease, unspecified] Onset: 1 Chronic Other circulatory disease (1 source) History of cerebrovascular accident; Translations: [Personal history of transient ischemic attack (TIA), and cerebral infarction without residual deficits] 02-24-2024 Episodic Other circulatory disease (2 sources) Personal history of transient ischemic attack (TIA), and cerebral infarction without residual deficits; Translations: [Personal history of transient ischemic attack (TIA), and cerebral infarction without residual deficits] Onset: 4 03-01-2024 Episodic Other connective tissue disease (1 source) Unspecified symptoms and signs involving the nervous system; Translations: [Unspecified symptoms and signs involving the nervous system] Onset: 4 Episodic Other gastrointestinal disorders (4 sources) Dysphagia; Translations: [Dysphagia, unspecified] Onset: 4 01-05-2024 Episodic Other gastrointestinal disorders (5 sources) Dysphagia, unspecified; Translations: [Dysphagia, unspecified] Onset: 4 01-23-2024 Episodic Other gastrointestinal disorders (3 sources) Constipation; Translations: [Constipation, unspecified] Onset: 4 02-23-2024 Episodic Other gastrointestinal disorders (4 sources) Constipation, unspecified; Translations: [Constipation, unspecified] Onset: 4 02-23-2024 Episodic Other gastrointestinal disorders (1 source) Other constipation; Translations: [Other constipation] Onset: 4 Episodic Other nutritional; endocrine; and metabolic disorders (2 sources) Body mass index 30+ - obesity; Translations: [Obesity, unspecified] Onset: 1 10-26-2020 Chronic Paralysis (10 sources) Right hemiparesis; Translations: [Hemiplegia, unspecified affecting right dominant side] Onset: 4 01-05-2024 Chronic Prolapse of female genital organs (2 sources) Uterovaginal prolapse; Translations: [Uterovaginal prolapse, unspecified] Onset: 0 06-27-2019 Chronic Residual codes; unclassified (3 sources) Congestion of throat; Translations: [Other general symptoms and signs] 01-19-2024 Episodic Residual codes; unclassified (4 sources) Other general symptoms and signs; Translations: [Other symptoms involving head and neck] Onset: 4 01-23-2024 Episodic Residual codes; unclassified (2 sources) Unable to perform personal care activity; Translations: [Other specified health status] 02-23-2024 Episodic Residual codes; unclassified (3 sources) Other specified health status; Translations: [Other specified conditions influencing health status] Onset: 4 02-23-2024 Episodic Residual codes; unclassified (1 source) Disturbance in sleep behavior; Translations: [Sleep disorder, unspecified] 02-24-2024 Episodic Residual codes; unclassified (1 source) Delirium; Translations: [Disorientation, unspecified] 02-24-2024 Episodic Residual codes; unclassified (2 sources) Disorientation, unspecified; Translations: [Other alteration of consciousness] Onset: 4 03-01-2024 Episodic Residual codes; unclassified (2 sources) Sleep disorder, unspecified; Translations: [Sleep disturbance, unspecified] Onset: 4 03-01-2024 Episodic Thyroid disorders (12 sources) Hypothyroidism; Translations: [Hypothyroidism, unspecified] Onset: 9 03-13-2019 Chronic Unclassified (1 source) Focal Motor Weakness Onset: 4 Unclassified (1 source) Facial Droop Onset: 4 Unclassified (1 source) 78 y/o Female Transfer from [place] Stroke Coming for CT perfusion and admission BP 188/81, Hr 56, 98% on RA Eta 10-12 mins Stroke alert [place] Dr. Crespo (stroke team) Juan Sueky 78F [address] perfusion recommended on arrival Coming by ground, ETA to [place] is 1 hour [facility] 2 - Onset: 4 Unclassified (1 source) Facial Droop, Slurred Speech Onset: 4 Past or Other Problems Problem Classification Problem Date Documented Da te Episodic/Chronic Mood disorders (2 sources) Mood disorders Onset: 02-21-2022 02-21-2022 Other and unspecified benign neoplasm (2 sources) Leiomyoma; Translations: [Benign neoplasm of connective and other soft tissue, unspecified] Onset: 03-13-2019 03-13-2019 Episodic Results Test Name Value Interpretation Reference Range Facility [facility] 03-25-2024 Outside Records [id number][facility] n 03-21-2024 XR ABDOMEN COMP DECUB ERECT XR ABDOMEN COMP DECUB ERECT EXAM: XR ABDOMEN COMP DECUB ERECT CLINICAL INFORMATION: constipation. COMPARISON: None. FINDINGS: There is a nonobstructive bowel gas pattern. There is no evidence of pneumatosis or free air. Fecal loading is noted within the colon; clinical correlation for symptoms attributable to constipation is recommended. IMPRESSION: 1. Nonobstructive bowel gas pattern. 2. Fecal loading is noted within the colon; clinical correlation for symptoms attributable to constipation is recommended. Finalized by Vijay Caputo MD on 03/21/2024 12:38 PM Normal [facility] 03-20-2024 Outside Records [id number]# [facility] [id number]# [facility] [id number]# [facility] [id number]# [facility] [id number]# [facility] [id number]# [facility] [id number]# 1.00[facility] Patient Handouton 03-20-2024 Patient Handout [id number]#1 .00[facility] Patient Provided Health Data on 03-20-2024 Patient Provided Health Data [id number]#1 .00[facility] Automated basophil %Ordered By: Keven Chaparro on 03-01-2024 Basophils/100 WBC (Bld) 1.2 % Normal . F [facility] Comment on above: Performed By: #### [address] #### [address] Automated basophil countOrde red By: Keven Chaparro on 03-01-2024 Basophils (Bld) [#/Vol] 0.1 10*3/uL Normal 0.0-0.2 [facility] Comment on above: Result Comment: PERF ORMED BY: [place] [address] PATHOLOGIST PHLEBOTOMIST SUPERVISOR/INSTRUCTOR KIERSTEN STEVEN M.D. Performed By: #### [address] #### [facility] [address] [place] [address] Automated blood monocyte cou ntOrdered By: Keven Chaparro on 03-01-2024 Monocytes (Bld) [#/Vol] 0.7 10*3/uL Normal 0.0-0.8 [facility] Comment on above: Performed By: #### [address] #### [facility] [address] Automated eosinophil %Ordere d By: Keven Chaparro on 03-01-2024 Eosinophils/100 WBC (Bld) 4.2 % Normal . [facility] Comment on above: Performed By: #### [address] #### [address] Automated eosinophil countOr dered By: Keven Chaparro on 03-01-2024 Eosinophils (Bld) [#/Vol] 0.2 10*3/uL Normal 0.0-0.45 [facility] Comment on above: Performed By: #### [address] #### [address] Automated monocyte %Ordered By: Keven Chaparro on 03-01-2024 Monocytes/100 WBC (Bld) 13.2 % Normal . F [facility] Comment on above: Performed By: #### [address] #### [address] Automated neutrophil %Ordere d By: Keven Chaparro on 03-01-2024 Neutrophils/100 WBC (Bld) 60.0 % Normal . [facility] Comment on above: Performed By: #### [address] #### [address] Complete Blood Count Auto Di ffon 03-01-2024 Mean Corpuscular HGB Conc 34.6 g/dL Normal 32.0-35.0 [facility] Comment on above: Performed By: #### [address] #### [address] NRBC% 0.1 /100{WBC} Normal 0-0.5 [facility] Comment on above: Performed By: #### [address] [address] #### [address] Erythrocyte distribution wid th [Ratio] by Automated countOrdered By: Keven Chaparro on 03-01-2024 Erythrocyte distribution width (RBC) [Ratio] 14.6 % Normal 11.9-15.3 [facility] Comment on above: Performed By: #### [address] #### [address] Erythrocytes [#/volume] in B lood by Automated countOrdered By: Keven Chaparro on 03-01-2024 RBC (Bld) [#/Vol] 3.23 10*6/uL Low 3.60-5.00 [facility] Comment on above: Performed By: #### C [address] #### [address] Hematocrit [Volume Fraction] of Blood by Automated countOrdered By: Keven Chaparro on 03-01-2024 Hematocrit (Bld) [Volume fraction] 29.6 % Low 34.0-46.4 [facility] Comment on above: Performed By: #### C [address] #### [address] Hemoglobin [Mass/volume] in BloodOrdered By: Keven Chaparro on 03-01-2024 Hemoglobin (Bld) [Mass/Vol] 10.2 g/dL Low 11.8-15.4 [facility] Comment on above: Performed By: #### C [address] #### [address] Leukocytes [#/volume] correc mary for nucleated erythrocytes in Blood by Automated counOrdered By: Keven Chaparro on 03-01-2024 WBC corrected for nucl RBC Auto (Bld) [#/Vol] 5.4 10*3/uL 3.8-11.6 [facility] Leukocytes [#/volume] in Blo od by Automated countOrdered By: Keven Chaparro on 03-01-2024 WBC (Bld) [#/Vol] 5.4 10*3/uL Normal 3.8-11.6 [facility] Comment on above: Performed By: #### C [address] #### [address] Lymphocytes [#/volume] in Bl ood by Automated countOrdered By: Keven Chaparro on 03-01-2024 Lymphocytes (Bld) [#/Vol] 1.2 10*3/uL Normal 1.00-4.8 [facility] Comment on above: Performed By: #### C [address] #### [address] Lymphocytes/100 leukocytes i n Blood by Automated countOrdered By: Keven Chaparro on 03-01-2024 Lymphocytes/100 WBC (Bld) 21.4 % Normal . [facility] Comment on above: Performed By: #### C OVID [address] [place] [address] #### [address] MCH [Entitic mass] by Automa mary countOrdered By: Keven Chaparro on 03-01-2024 MCH (RBC) [Entitic mass] 31.7 pg Normal 24.7-34.3 [facility] Comment on above: Performed By: #### C [address] #### [address] MCHC Auto (RBC) [Mass/Vol]Or dered By: Keven Chaparro on 03-01-2024 MCHC (RBC) [Mass/Vol] 34.6 g/dL 32.0-35.0 [facility] MCV [Entitic volume] by Auto mated countOrdered By: Keven Chaparro on 03-01-2024 MCV (RBC) [Entitic vol] 91.6 fL Normal 80-100 F [facility] Comment on above: Performed By: #### C [address] #### [address] Neutrophils [#/volume] in Bl ood by Automated countOrdered By: Keven Chaparro on 03-01-2024 Neutrophils (Bld) [#/Vol] 3.2 10*3/uL Normal 1.8-7.7 [facility] Comment on above: Performed By: #### C OVID [address] [place] [address] #### [address] Nucleated erythrocytes [Pres ence] in Blood by Automated countOrdered By: Keven Chaparro on 03-01-2024 Nucleated RBC Auto Ql (Bld) 0.1 /100{WBC} 0-0.5 [facility] Platelet mean volume [Entiti c volume] in Blood by Automated countOrdered By: Keven Chaparro on 03-01-2024 Platelet mean volume (Bld) [Entitic vol] 7.6 fL Normal 6.3-10.7 [facility] Comment on above: Performed By: #### C OVID 19 [facility] #### [address] Platelets [#/volume] in Bloo d by Automated countOrdered By: Keven Chaparro on 03-01-2024 Platelets (Bld) [#/Vol] 311 10*3/uL Normal 150-450 [facility] Comment on above: Performed By: #### C OVID 19 [facility] #### [address] Complete Blood Count Auto Di ffon 02-29-2024 Basophils (Bld) [#/Vol] 0.0 10*3/uL Normal 0.0-0.2 [facility] Comment on above: Result Comment: PERF ORMED BY: [place] [address] PATHOLOGIST PHLEBOTOMIST SUPERVISOR/INSTRUCTOR KIERSTEN STEVEN M.D. Performed By: #### C BC #### [address] Basophils/100 WBC (Bld) 0.9 % Normal . T mirtha [facility] Comment on above: Performed By: #### C BC #### [address] Eosinophils (Bld) [#/Vol] 0.2 10*3/uL Normal 0.0-0.45 [facility] Comment on above: Performed By: #### C BC #### [address] Eosinophils/100 WBC (Bld) 3.8 % Normal . [facility] Comment on above: Performed By: #### C BC #### [address] Erythrocyte distribution width (RBC) [Ratio] 14.4 % Normal 11.9-15.3 [facility] Comment on above: Performed By: #### C BC #### [address] Hematocrit (Bld) [Volume fraction] 30.5 % Low 34.0-46.4 [facility] Comment on above: Performed By: #### C BC #### [address] Hemoglobin (Bld) [Mass/Vol] 10.5 g/dL Low 11.8-15.4 [facility] Comment on above: Performed By: #### C BC #### [address] Lymphocytes (Bld) [#/Vol] 1.2 10*3/uL Normal 1.00-4.8 [facility] Comment on above: Performed By: #### C BC #### [address] Lymphocytes/100 WBC (Bld) 21.6 % Normal . [facility] Comment on above: Performed By: #### C BC #### [address] MCH (RBC) [Entitic mass] 31.9 pg Normal 24.7-34.3 [facility] Comment on above: Performed By: #### C BC #### [address] MCV (RBC) [Entitic vol] 92.7 fL Normal 80-100 [facility] Comment on above: Performed By: #### C BC #### [address] Mean Corpuscular HGB Conc 34.4 g/dL Normal 32.0-35.0 [facility] Comment on above: Performed By: #### C BC #### [address] Monocytes (Bld) [#/Vol] 0.7 10*3/uL Normal 0.0-0.8 [facility] Comment on above: Performed By: #### C BC #### [address] Monocytes/100 WBC (Bld) 12.2 % Normal . [facility] Comment on above: Performed By: #### C BC #### [facility] [address] [place] [address] [place] Neutrophils (Bld) [#/Vol] 3.4 10*3/uL Normal 1.8-7.7 [facility] Comment on above: Performed By: #### C BC #### [facility] [address] [place] [address] [place] Neutrophils/100 WBC (Bld) 61.5 % Normal . [facility] Comment on above: Performed By: #### C BC #### [facility] [address] [place] [address] [place] NRBC% 0.1 /100{WBC} Normal 0-0.5 [facility] Comment on above: Performed By: #### C BC #### [address] Platelet mean volume (Bld) [Entitic vol] 8.1 fL Normal 6.3-10.7 [facility] Comment on above: Performed By: #### C BC #### [place] [address] [place] Platelets (Bld) [#/Vol] 295 10*3/uL Normal 150-450 [facility] Comment on above: Performed By: #### C BC #### [place] [address] [place] RBC (Bld) [#/Vol] 3.29 10*6/uL Low 3.60-5.00 [facility] Comment on above: Performed By: #### C BC #### [place] [address] [place] WBC (Bld) [#/Vol] 5.4 10*3/uL Normal 3.8-11.6 [facility] Comment on above: Performed By: #### C BC #### [address] Complete Blood Count Auto Di ffon 02-28-2024 Basophils (Bld) [#/Vol] 0.1 10*3/uL Normal 0.0-0.2 [facility] Comment on above: Result Comment: PERF ORMED BY: [place] [address] PATHOLOGIST PHLEBOTOMIST SUPERVISOR/INSTRUCTOR KIERSTEN STEVEN M.D. Performed By: #### A DDONUAPLUS #### [place] [address] [place] Basophils/100 WBC (Bld) 0.9 % Normal . [facility] Comment on above: Performed By: #### A [address] #### [place] [address] [place] Eosinophils (Bld) [#/Vol] 0.3 10*3/uL Normal 0.0-0.45 [facility] Comment on above: Performed By: #### A [address] #### [place] [address] [place] Eosinophils/100 WBC (Bld) 3.6 % Normal . [facility] Comment on above: Performed By: #### A DDONUAPLUS #### [address] Erythrocyte distribution width (RBC) [Ratio] 14.6 % Normal 11.9-15.3 [facility] Comment on above: Performed By: #### A DDON[address]APLUS #### [address] Hematocrit (Bld) [Volume fraction] 30.2 % Low 34.0-46.4 [facility] Comment on above: Performed By: #### A DDONUAP[address]US #### [place] [address] [place] Hemoglobin (Bld) [Mass/Vol] 10.4 g/dL Low 11.8-15.4 [facility] Comment on above: Performed By: #### A DDON[address]APLUS #### [address] Lymphocytes (Bld) [#/Vol] 1.4 10*3/uL Normal 1.00-4.8 [facility] Comment on above: Performed By: #### A DDON[address]APLUS #### [address] Lymphocytes/100 WBC (Bld) 19.2 % Normal . [facility] Comment on above: Performed By: #### A DD[address]US #### [address] MCH (RBC) [Entitic mass] 31.9 pg Normal 24.7-34.3 [facility] Comment on above: Performed By: #### A DDON[address]APLUS #### [address] MCV (RBC) [Entitic vol] 92.7 fL Normal 80-100 T [facility] Comment on above: Performed By: #### A DDONUAPLUS #### [address] Mean Corpuscular HGB Conc 34.4 g/dL Normal 32.0-35.0 [facility] Comment on above: Performed By: #### A DD[address] #### [place] [address] [place] Monocytes (Bld) [#/Vol] 0.8 10*3/uL Normal 0.0-0.8 [facility] Comment on above: Performed By: #### A DD[address] #### [place] [address] [place] Monocytes/100 WBC (Bld) 10.0 % Normal . [facility] Comment on above: Performed By: #### A DDON[address]AP[place]US #### [place] [address] [place] Neutrophils (Bld) [#/Vol] 5.0 10*3/uL Normal 1.8-7.7 [facility] Comment on above: Performed By: #### A DDONUAPLUS #### [place] [address] [place] Neutrophils/100 WBC (Bld) 66.3 % Normal . [facility] Comment on above: Performed By: #### A DDONUAPLUS #### [address] NRBC% 0.1 /100{WBC} Normal 0-0.5 [facility] Comment on above: Performed By: #### A DDON[address]APLUS #### [address] Platelet mean volume (Bld) [Entitic vol] 8.0 fL Normal 6.3-10.7 [facility] Comment on above: Performed By: #### A DDONUAPLUS #### [address] Platelets (Bld) [#/Vol] 294 10*3/uL Normal 150-450 [facility] Comment on above: Performed By: #### A DDONUAPLUS #### [address] RBC (Bld) [#/Vol] 3.25 10*6/uL Low 3.60-5.00 [facility] Comment on above: Performed By: #### A DDON[address]APLUS #### [address] WBC (Bld) [#/Vol] 7.5 10*3/uL Normal 3.8-11.6 [facility] Comment on above: Performed By: #### A DDON[address]APLUS #### [place] [address] [place] XR KUBon 02-28-2024 XR KUB [facility] [place] [address] XRay Report Signed Patient: Juan Hernandez MR#: [id number] : 1945 Acct:[id number] Age/Sex: 78 / F ADM Date: 02/24/24 Loc: Room: [address] [place] [address] Type: ADM IN Attending Dr: Dada Horn MD Copies to: ODILON Flores MD Ordering Provider: Alysha Victor APRN Date of Service: 02/28/24 XR/XR KUB: Constipation KUB: CLINICAL INFORMATION: Constipation abdominal pain and nausea. COMPARISON: CT abdomen and pelvis 02/23/2024 FINDINGS: Previously given oral contrast is seen involving the transverse and left colons. Minimal retained oral contrast is seen within the right colon. No bowel obstruction or free air. Osseous structures demonstrate degenerative change. XR/XR KUB IMPRESSION: No acute process. Impression dictated by: Justino Mcknight Jr., D.OLeyda02/28/2024 7:47 PM Dictation Location: [place] [address] Transcribed By: [facility] 02/28/241946 Dictated By: Justino Mcknight Jr, DO 02/28/241945 Signed By: 02/28/241946 Normal [facility] Complete Blood Count Auto Di ffon 02-27-2024 Basophils (Bld) [#/Vol] 0.1 10*3/uL Normal 0.0-0.2 [facility] Comment on above: Result Comment: PERF ORMED BY: [place] [address] PATHOLOGIST PHLEBOTOMIST SUPERVISOR/INSTRUCTOR KIERSTEN STEVEN M.D. Performed By: #### C OVID19 FLU RSV, CEPHEID NEG #### [address] Basophils/100 WBC (Bld) 1.1 % Normal . T mirtha [facility] Comment on above: Performed By: #### C OVID19 FLU RSV, CEPHEID NEG #### [place] [address] [place] Eosinophils (Bld) [#/Vol] 0.2 10*3/uL Normal 0.0-0.45 [facility] Comment on above: Performed By: #### C OVID19 FLU RSV, CEPHEID NEG #### [place] [address] [place] Eosinophils/100 WBC (Bld) 1.8 % Normal . [facility] Comment on above: Performed By: #### C OVID19 FLU RSV, CEPHEID NEG #### [address] [address] [place] Erythrocyte distribution width (RBC) [Ratio] 14.8 % Normal 11.9-15.3 [facility] Comment on above: Performed By: #### C OVID19 FLU RSV, CEPHEID NEG #### [address] Hematocrit (Bld) [Volume fraction] 28.8 % Low 34.0-46.4 [facility] Comment on above: Performed By: #### C OVID19 FLU RSV, CEPHEID NEG #### [address] Hemoglobin (Bld) [Mass/Vol] 10.0 g/dL Low 11.8-15.4 [facility] Comment on above: Performed By: #### C OVID19 FLU RSV, CEPHEID NEG #### [address] Lymphocytes (Bld) [#/Vol] 1.0 10*3/uL Normal 1.00-4.8 [facility] Comment on above: Performed By: #### C OVID19 FLU RSV, CEPHEID NEG #### [address] Lymphocytes/100 WBC (Bld) 11.7 % Normal . [facility] Comment on above: Performed By: #### C OVID19 FLU RSV, CEPHEID NEG #### [address] MCH (RBC) [Entitic mass] 32.1 pg Normal 24.7-34.3 [facility] Comment on above: Performed By: #### C OVID19 FLU RSV, CEPHEID NEG #### [address] MCV (RBC) [Entitic vol] 92.3 fL Normal 80-100 [facility] Comment on above: Performed By: #### C OVID19 FLU RSV, CEPHEID NEG #### [address] Mean Corpuscular HGB Conc 34.8 g/dL Normal 32.0-35.0 [facility] Comment on above: Performed By: #### C OVID19 FLU RSV, CEPHEID NEG #### [address] Monocytes (Bld) [#/Vol] 0.9 10*3/uL High 0.0-0.8 [facility] Comment on above: Performed By: #### C OVID19 FLU RSV, CEPHEID NEG #### [place] [address] [place] Monocytes/100 WBC (Bld) 10.3 % Normal . [facility] Comment on above: Performed By: #### C OVID19 FLU RSV, CEPHEID NEG #### [address] Neutrophils (Bld) [#/Vol] 6.3 10*3/uL Normal 1.8-7.7 [facility] Comment on above: Performed By: #### C OVID19 FLU RSV, CEPHEID NEG #### [address] Neutrophils/100 WBC (Bld) 75.1 % Normal . [facility] Comment on above: Performed By: #### C OVID19 FLU RSV, CEPHEID NEG #### [address] NRBC% 0.1 /100{WBC} Normal 0-0.5 [facility] Comment on above: Performed By: #### C OVID19 FLU RSV, CEPHEID NEG #### [address] Platelet mean volume (Bld) [Entitic vol] 8.4 fL Normal 6.3-10.7 [facility] Comment on above: Performed By: #### C OVID19 FLU RSV, CEPHEID NEG #### [place] [address] [place] Platelets (Bld) [#/Vol] 243 10*3/uL Normal 150-450 [facility] Comment on above: Performed By: #### C OVID19 FLU RSV, CEPHEID NEG #### [facility] [address] [place] [address] [place] RBC (Bld) [#/Vol] 3.12 10*6/uL Low 3.60-5.00 [facility] Comment on above: Performed By: #### C OVID19 FLU RSV, CEPHEID NEG #### [facility] [address] WBC (Bld) [#/Vol] 8.3 10*3/uL Normal 3.8-11.6 [facility] Comment on above: Performed By: #### C OVID19 FLU RSV, CEPHEID NEG #### [address] Ferritin [Mass/volume] in Se rum or PlasmaOrdered By: Alysha Victor on 02-27-2024 Ferritin [Mass/Vol] 505.4 ng/mL High 11.0-306.8 [facility] Comment on above: Order Comment: Healt hcare Worker?: N Result Comment: PERF ORMED BY: [place] [address] PATHOLOGIST PHLEBOTOMIST SUPERVISOR/INSTRUCTOR KIERSTEN STEVEN M.D. Performed By: #### C OVID 19 [facility] #### [address] Iron [Mass/volume] in Serum or PlasmaOrdered By: Alysha Victor on 02-27-2024 Iron [Mass/Vol] 22 ug/dL Low 50-212 [facility] Comment on above: Order Comment: Healt hcare Worker?: N Performed By: #### C OVID 19 [facility] #### [address] Iron and TIBC Profileon 02-10 % Iron Saturation 12.1 % Low 20-50 [facility] Comment on above: Order Comment: Healt hcare Worker?: N Performed By: #### C OVID 19 [facility] #### [address] Total Iron Binding Capacity 182 ug/dL Low 255-450 [facility] Comment on above: Order Comment: Healt hcare Worker?: N Performed By: #### C [address] 19 [facility] #### [facility] [address] Iron binding capacity [Mass/ volume] in Serum or PlasmaOrdered By: Alysha Obika on 02-27-2024 Iron binding capacity [Mass/Vol] 182 ug/dL Low 255-450 [facility] Iron saturation [Mass Fracti on] in Serum or PlasmaOrdered By: Alysha Obika on 02-27-2024 Iron saturation [Mass fraction] 12.1 % Low 20-50 [facility] Transferrin [Mass/volume] in Serum or PlasmaOrdered By: Alysha Obika on 02-27-2024 Transferrin [Mass/Vol] 130 mg/dL Low 203-362 [facility] Comment on above: Order Comment: Healt hcare Worker?: N Performed By: #### C [address] #### [facility] [address] Basic Metabolic Panelon 02-10 Creatinine Clr Calc Pharmacy 46.02 Normal [facility] Comment on above: Result Comment: PERF ORMED BY: [place] [address] PATHOLOGIST PHLEBOTOMIST SUPERVISOR/INSTRUCTOR KIERSTEN STEVEN M.D. Performed By: #### C [address] 19 [facility] #### [address] GFR/1.73 sq M.predicted MDRD (S/P/Bld) [Vol rate/Area] mL/min/{1.73_m2} Normal [facility] Comment on above: Performed By: #### C [address] 19 [facility] #### [facility] [address] Calcium [Mass/volume] in Ser um or PlasmaOrdered By: Carlotta Moralez on 02-26-2024 Calcium [Mass/Vol] 8.5 mg/dL Low 8.6-10.3 [facility] Comment on above: Performed By: #### C [address] 19 [facility] #### [facility] [address] Capillary blood glucose fatou urement by glucometer (mass/volume)Ordered By: Zay Jasmine on 02-26-2024 Glucose [Mass/Vol] 72 mg/dL Normal [facility] Comment on above: Random Glucose Refer ence Range is dependent on time and content of last meal. Glucose of more than 200 mg/dL in a nonstressed, ambulatory subject supports the diagnosis of Diabetes Mellitus. Result Comment: [place] om Glucose Reference Range is dependent on time and content of last meal. Glucose of more than 200 mg/dL in a nonstressed, ambulatory subject supports the diagnosis of Diabetes Mellitus. PERFORMED BY: [place] [address] PATHOLOGIST PHLEBOTOMIST SUPERVISOR/INSTRUCTOR KIERSTEN STEVEN M.D. Performed By: #### C OVID19 FLU RSV, CEPHEID NEG #### [address] Carbon dioxide, total [Moles /volume] in Serum or PlasmaOrdered By: Carlotta Moralez on 02-26-2024 CO2 [Moles/Vol] 26.6 mmol/L Normal 21.0-31.0 [facility] Comment on above: Performed By: #### C OVID 19 [facility] #### [address] Chloride [Moles/volume] in S mila or PlasmaOrdered By: Carlotta Moralez on 02-26-2024 Chloride [Moles/Vol] 103 mmol/L Normal 98-107 [facility] [place] Comment on above: Performed By: #### C OVID 19 [facility] #### [address] Complete Blood Count Auto Di ffon 02-26-2024 Basophils (Bld) [#/Vol] 0.1 10*3/uL Normal 0.0-0.2 [facility] Comment on above: Result Comment: PERF ORMED BY: [place] [address] PATHOLOGIST PHLEBOTOMIST SUPERVISOR/INSTRUCTOR JIANLAN SUN M.D. Performed By: #### C BC #### [address] Basophils/100 WBC (Bld) 0.8 % Normal . T mirtha [facility] Comment on above: Performed By: #### C BC #### [address] Eosinophils (Bld) [#/Vol] 0.2 10*3/uL Normal 0.0-0.45 [facility] Comment on above: Performed By: #### C BC #### [address] Eosinophils/100 WBC (Bld) 2.3 % Normal . [facility] Comment on above: Performed By: #### C BC #### [address] Erythrocyte distribution width (RBC) [Ratio] 14.7 % Normal 11.9-15.3 [facility] Comment on above: Performed By: #### C BC #### [address] Hematocrit (Bld) [Volume fraction] 29.7 % Low 34.0-46.4 [facility] Comment on above: Performed By: #### C BC #### [address] Hemoglobin (Bld) [Mass/Vol] 10.3 g/dL Low 11.8-15.4 [facility] Comment on above: Performed By: #### C BC #### [address] Lymphocytes (Bld) [#/Vol] 1.4 10*3/uL Normal 1.00-4.8 [facility] Comment on above: Performed By: #### C BC #### [address] Lymphocytes/100 WBC (Bld) 15.7 % Normal . [facility] Comment on above: Performed By: #### C BC #### [address] MCH (RBC) [Entitic mass] 32.3 pg Normal 24.7-34.3 [facility] Comment on above: Performed By: #### C BC #### [address] MCV (RBC) [Entitic vol] 92.7 fL Normal 80-100 T [facility] Comment on above: Performed By: #### C BC #### [address] Mean Corpuscular HGB Conc 34.8 g/dL Normal 32.0-35.0 [facility] Comment on above: Performed By: #### C BC #### [address] Monocytes (Bld) [#/Vol] 0.6 10*3/uL Normal 0.0-0.8 [facility] Comment on above: Performed By: #### C BC #### [address] Monocytes/100 WBC (Bld) 6.4 % Normal . T [facility] Comment on above: Performed By: #### C BC #### [address] Neutrophils (Bld) [#/Vol] 6.8 10*3/uL Normal 1.8-7.7 [facility] Comment on above: Performed By: #### C BC #### [address] Neutrophils/100 WBC (Bld) 74.8 % Normal . [facility] Comment on above: Performed By: #### C BC #### [address] NRBC% 0.1 /100{WBC} Normal 0-0.5 [facility] Comment on above: Performed By: #### C BC #### [address] Platelet mean volume (Bld) [Entitic vol] 8.4 fL Normal 6.3-10.7 [facility] Comment on above: Performed By: #### C BC #### [facility] [address] Platelets (Bld) [#/Vol] 207 10*3/uL Normal 150-450 [facility] Comment on above: Performed By: #### C BC #### [facility] [address] RBC (Bld) [#/Vol] 3.20 10*6/uL Low 3.60-5.00 [facility] Comment on above: Performed By: #### C BC #### [facility] [address] WBC (Bld) [#/Vol] 9.0 10*3/uL Normal 3.8-11.6 [facility] Comment on above: Performed By: #### C BC #### [address] Creatinine [Mass/volume] in Serum or PlasmaOrdered By: Carlotta Moralez on 02-26-2024 Creatinine [Mass/Vol] 0.87 mg/dL Normal 0.60-1.20 [facility] Comment on above: Performed By: #### C OVID 19 [facility] #### [address] Glucose [Mass/volume] in Ser um or PlasmaOrdered By: Carlotta Moralez on 02-26-2024 Glucose [Mass/Vol] 59 mg/dL Low 70-100 [facility] Comment on above: ADA recommended refe rence rangeRandom Glucose Reference Range is dependent on time and content of last meal. Glucose of more than 200 mg/dL in a nonstressed, ambulatory subject supports the diagnosis of Diabetes Mellitus. Result Comment: [place] om Glucose Reference Range is dependent on time and content of last meal. Glucose of more than 200 mg/dL in a nonstressed, ambulatory subject supports the diagnosis of Diabetes Mellitus. ADA recommended reference range Performed By: #### C OVID 19 [facility] #### [address] No Panel InformationOrdered By: Carlotta Moralez on 02-26-2024 Estimated GFR (CKD-EPI) > 60.0 mL/Min [facility] Creatinine Clearance (Chem 46.02 [facility] Potassium [Moles/volume] in Serum or PlasmaOrdered By: Carlotta Moralez on 02-26-2024 Potassium [Moles/Vol] 3.6 mmol/L Normal 3.5-5.1 [facility] Comment on above: Performed By: #### C OVID 19 [facility] #### [facility] [address] Serum or plasma anion gap de terminationOrdered By: Carlotta Moralez on 02-26-2024 Anion gap [Moles/Vol] 14.0 mmol/L Normal 6.0-15.0 [facility] Comment on above: Performed By: #### C LAMONT 19 [facility] #### [facility] [address] [place] [address] [place] Sodium [Moles/volume] in Ser um or PlasmaOrdered By: aCrlotta Moralez on 02-26-2024 Sodium [Moles/Vol] 140 mmol/L Normal 136-145 [facility] Comment on above: Performed By: #### C LAMONT 19 [facility] [place] #### [place] [address] [place] Urea nitrogen [Mass/volume] in Serum or PlasmaOrdered By: Carlotta Moralez on 02-26-2024 Urea nitrogen [Mass/Vol] 24 mg/dL Normal 7-25 [facility] Comment on above: Performed By: #### C OVID 19 [facility] #### [place] [address] [place] Bacteria [Presence] in Urine by AutomatedOrdered By: Gilma Llanes on 02-25-2024 Bacteria Auto Ql (U) Rare [HPF] None Seen [facility] [place] Basic Metabolic Panelon 02-10 Anion gap [Moles/Vol] 11.1 mmol/L Normal 6.0-15.0 [facility] Comment on above: Performed By: #### A DDONUAPLUS #### [address] Calcium [Mass/Vol] 8.6 mg/dL Normal 8.6-10.3 [facility] Comment on above: Performed By: #### A DDONUAPLUS #### [address] Chloride [Moles/Vol] 103 mmol/L Normal 98-107 [facility] Comment on above: Performed By: #### A DDONUAPLUS #### [place] [address] [place] CO2 [Moles/Vol] 27.4 mmol/L Normal 21.0-31.0 [facility] Comment on above: Performed By: #### A DDONUAPLUS #### [place] [address] [place] Creatinine [Mass/Vol] 1.07 mg/dL Normal 0.60-1.20 [facility] Comment on above: Performed By: #### A DDONUAPLUS #### [place] [address] [place] Creatinine Clr Calc Pharmacy 37.42 Normal [facility] Comment on above: Result Comment: PERF ORMED BY: [place] [address] PATHOLOGIST PHLEBOTOMIST SUPERVISOR/INSTRUCTOR KIERSTEN STEVEN M.D. Performed By: #### A DDONUAPLUS #### [place] [address] [place] GFR/1.73 sq M.predicted MDRD (S/P/Bld) [Vol rate/Area] 53.168 mL/min/{1.73_m2} Normal [facility] Comment on above: Performed By: #### A DDONUAPLUS #### [address] Glucose [Mass/Vol] 91 mg/dL Normal 70-100 [facility] Comment on above: Result Comment: [place] Glucose Reference Range is dependent on time and content of last meal. Glucose of more than 200 mg/dL in a nonstressed, ambulatory subject supports the diagnosis of Diabetes Mellitus. ADA recommended reference range Performed By: #### A DDONUAPLUS #### [address] Potassium [Moles/Vol] 3.5 mmol/L Normal 3.5-5.1 [facility] Comment on above: Performed By: #### A DDONUAPLUS #### [address] Sodium [Moles/Vol] 138 mmol/L Normal 136-145 [facility] Comment on above: Performed By: #### A DDONUAPLUS #### [address] Urea nitrogen [Mass/Vol] 32 mg/dL High 7-25 [facility] Comment on above: Performed By: #### A DDONUAPLUS #### [address] Bilirubin Test strip Ql (U)O rdered By: Gilma Llanes on 02-25-2024 Bilirubin Ql (U) Negative Negative [facility] Color of Urine by AutoOrdere d By: Gilma Llanes on 02-25-2024 Color (U) Yellow Normal Yellow [facility] Comment on above: Order Comment: Healt hcare Worker?: N Performed By: #### C OVID 19 [facility] #### [address] Complete Blood Count Auto Di ffon 02-25-2024 Basophils (Bld) [#/Vol] 0.1 10*3/uL Normal 0.0-0.2 [facility] Comment on above: Result Comment: PERF ORMED BY: [place] [address] PATHOLOGIST PHLEBOTOMIST SUPERVISOR/INSTRUCTOR KIERSTEN STEVEN M.D. Performed By: #### A DDONUAPLUS #### [place] [address] [place] Basophils/100 WBC (Bld) 0.5 % Normal . T [facility] Comment on above: Performed By: #### A DDONUAPLUS #### [facility] [address] [place] [address] [place] Eosinophils (Bld) [#/Vol] 0.1 10*3/uL Normal 0.0-0.45 [facility] Comment on above: Performed By: #### A DDONUAPLUS #### [address] Eosinophils/100 WBC (Bld) 1.0 % Normal . [facility] Comment on above: Performed By: #### A DDONUAPLUS #### [address] Erythrocyte distribution width (RBC) [Ratio] 15.2 % Normal 11.9-15.3 [facility] Comment on above: Performed By: #### A DDONUAPLUS #### [address] Hematocrit (Bld) [Volume fraction] 30.9 % Low 34.0-46.4 [facility] Comment on above: Performed By: #### A DDONUAPLUS #### [address] Hemoglobin (Bld) [Mass/Vol] 10.5 g/dL Low 11.8-15.4 [facility] Comment on above: Performed By: #### A DDONUAPLUS #### [place] [address] [place] Lymphocytes (Bld) [#/Vol] 1.6 10*3/uL Normal 1.00-4.8 [facility] Comment on above: Performed By: #### A DDONUAPLUS #### [place] [address] [place] Lymphocytes/100 WBC (Bld) 11.4 % Normal . [facility] Comment on above: Performed By: #### A DDONUAPLUS #### [address] MCH (RBC) [Entitic mass] 31.6 pg Normal 24.7-34.3 [facility] Comment on above: Performed By: #### A DDONUAPLUS #### [address] MCV (RBC) [Entitic vol] 92.8 fL Normal 80-100 [facility] Comment on above: Performed By: #### A DDONUAPLUS #### [address] Mean Corpuscular HGB Conc 34.1 g/dL Normal 32.0-35.0 [facility] Comment on above: Performed By: #### A DDONUAPLUS #### [address] Monocytes (Bld) [#/Vol] 0.8 10*3/uL Normal 0.0-0.8 [facility] Comment on above: Performed By: #### A DDONUAPLUS #### [address] Monocytes/100 WBC (Bld) 5.4 % Normal . T [facility] Comment on above: Performed By: #### A DDONUAPLUS #### [address] Neutrophils (Bld) [#/Vol] 11.6 10*3/uL High 1.8-7.7 [facility] Comment on above: Performed By: #### A DDONUAPLUS #### [address] Neutrophils/100 WBC (Bld) 81.7 % Normal . [facility] Comment on above: Performed By: #### A DDONUAPLUS #### [address] NRBC% 0.0 /100{WBC} Normal 0-0.5 [facility] Comment on above: Performed By: #### A DDONUAPLUS #### [address] Platelet mean volume (Bld) [Entitic vol] 8.3 fL Normal 6.3-10.7 [facility] Comment on above: Performed By: #### A DDONUAPLUS #### [facility] [address] Platelets (Bld) [#/Vol] 232 10*3/uL Normal 150-450 [facility] Comment on above: Performed By: #### A DDONUAPLUS #### [address] RBC (Bld) [#/Vol] 3.33 10*6/uL Low 3.60-5.00 [facility] Comment on above: Performed By: #### A DDONUAPLUS #### [place] [address] [place] WBC (Bld) [#/Vol] 14.1 10*3/uL High 3.8-11.6 [facility] Comment on above: Performed By: #### A DDONUAPLUS #### [address] Crystals [Presence] in Urine by AutomatedOrdered By: Gilma Llanes on 02-25-2024 Crystals Auto Ql (U) Rare [HPF] [facility] [place] Dipstick and Microscopicon 0 02-25-2024 Bacteria,Urine Rare Normal None Seen [facility] Comment on above: Order Comment: Healt hcare Worker?: N Performed By: #### C OVID 19 [facility] #### [address] Bilirubin,Urine Negative Normal Negative [facility] Comment on above: Order Comment: Healt hcare Worker?: N Performed By: #### C OVID 19 [facility] #### [address] Glucose Ql (U) Normal Normal Normal [facility] Comment on above: Order Comment: Healt hcare Worker?: N Performed By: #### C OVID 19 [facility] #### [address] Hyaline Casts,Urine None Normal 0-8 [facility] Comment on above: Order Comment: Healt hcare Worker?: N Result Comment: PERF ORMED BY: [address] [place] [address] PATHOLOGIST PHLEBOTOMIST SUPERVISOR/INSTRUCTOR KIERSTEN STEVEN M.D. Performed By: #### C OVID 19 [facility] [place] #### [place] [address] [place] Nitrite,Urine Negative Normal Negative [facility] Comment on above: Order Comment: Healt hcare Worker?: N Performed By: #### C OVID 19 [facility] #### [place] [address] [place] Occult Blood,Urine Negative Normal Negative [facility] Comment on above: Order Comment: Healt hcare Worker?: N Result Comment: PERF ORMED BY: [place] [address] PATHOLOGIST PHLEBOTOMIST SUPERVISOR/INSTRUCTOR KIERSTEN STEVEN M.D. Performed By: #### C LAMONT 19 [facility] [place] #### [place] [address] [place] Othe Crystals,Urine Rare Normal [facility] Comment on above: Order Comment: Healt hcare Worker?: N Performed By: #### C OVID [address] [place] [address] #### [place] [address] [place] RBC,Urine 1-2 Normal 0-4 [facility] Comment on above: Order Comment: Healt hcare Worker?: N Performed By: #### C OVID 19 [facility] [place] #### [place] [address] [place] Specificy [place],Urine 1.024 Normal 1.001-1.030 [facility] Comment on above: Order Comment: Healt hcare Worker?: N Performed By: #### C OVID 19 [facility] [place] #### [place] [address] [place] Squamous Epithelial Cell,Urine 5-9 High 0-2 [facility] Comment on above: Order Comment: Healt hcare Worker?: N Performed By: #### C OVID 19 [facility] #### [place] [address] [place] Urobilinogen,Urine 2 mg/dL High Normal [facility] Comment on above: Order Comment: Healt hcare Worker?: N Performed By: #### C OVID 19 [facility] #### [facility] [address] WBC CLUMP, Urine Few High None Seen [facility] Comment on above: Order Comment: Healt hcare Worker?: N Performed By: #### C OVID 19 [facility] #### [facility] [address] [place] [address] [place] WBC,Urine 5-9 High 0-4 [facility] Comment on above: Order Comment: Healt hcare Worker?: N Performed By: #### C OVID 19 [facility] #### [facility] [address] Epithelial cells.squamous [# /area] in Urine sediment by Automated countOrdered By: Gilma Llanes on 02-25-2024 Epithelial cells.squamous Auto (Urine sed) [#/Area] 5-9 [HPF] High 0-2 [facility] Erythrocytes [#/area] in Uri ne sediment by Automated countOrdered By: Gilma Llanes on 02-25-2024 RBC Auto (Urine sed) [#/Area] 1-2 [HPF] 0-4 [facility] Glucose [Mass/volume] in Uri ne by Test stripOrdered By: Gilma Llanes on 02-25-2024 Glucose Test strip (U) [Mass/Vol] Normal mg/dL Normal [facility] Hemoglobin Test strip Ql (U) Ordered By: Gilma Llanes on 02-25-2024 Hemoglobin Ql (U) Negative Negative [facility] Hyaline casts [#/area] in Ur ine sediment by Automated countOrdered By: Gilma Llanes on 02-25-2024 Hyaline casts Auto (Urine sed) [#/Area] None [LPF] 0-8 [facility] Ketones [Presence] in Urine by Test stripOrdered By: Gilma Llanes on 02-25-2024 Ketones Ql (U) 1+ High Negative [facility] Comment on above: Order Comment: Healt hcare Worker?: N Performed By: #### C OVID 19 [facility] #### [place] [address] [place] Leukocyte clumps [Presence] in Urine by AutomatedOrdered By: Gilma Llanes on 02-25-2024 Leukocyte clumps Auto Ql (U) Few [LPF] High None Seen [facility] Leukocyte esterase [Presence ] in Urine by Test stripOrdered By: Gilma Llanes on 02-25-2024 Leukocyte esterase Test strip Ql (U) 3+ High Negative [facility] Comment on above: Order Comment: Healt hcare Worker?: N Performed By: #### C OVID 19 [facility] #### [place] [address] [place] Leukocytes [#/area] in Urine sediment by Automated countOrdered By: Gilma Llanes on 02-25-2024 WBC Auto (Urine sed) [#/Area] 5-9 [HPF] High 0-4 [facility] Nitrite Test strip Ql (U)Ord ered By: Gilma Llanes on 02-25-2024 Nitrite Ql (U) Negative Negative [facility] Protein [Mass/volume] in Uri ne by Test stripOrdered By: Gilma Llanes on 02-25-2024 Protein (U) [Mass/Vol] 20 mg/dL High Negative [facility] Comment on above: Order Comment: Healt hcare Worker?: N Performed By: #### C OVID 19 [facility] [place] #### [place] [address] [place] Specific gravity Test strip (U) [Rel density]Ordered By: Gilma Llanes on 02-25-2024 Specific gravity (U) [Rel density] 1.024 1.001-1.030 [facility] Urine Cultureon 02-25-2024 Bacteria identified Cx Nom (U) 75,000 colonies/ml mixed bacterial skin contaminants 2 Days PERFORMED BY: [place] [address] PATHOLOGIST PHLEBOTOMIST SUPERVISOR/INSTRUCTOR KIERSTEN STEVEN M.D. Normal [facility] Comment on above: Performed By: #### C OVID 19 [facility] #### [address] Urine appearanceOrdered By: Gilma Llanes on 02-25-2024 Appearance (U) Clear Normal Clear [facility] Comment on above: Order Comment: Healt hcare Worker?: N Performed By: #### C OVID 19 [facility] #### [address] Urine culture routineOrdered By: Gilma Llanes on 02-25-2024 Bacteria identified Cx Nom (U) 2 Days [facility] Urobilinogen Test strip (U) [Mass/Vol]Ordered By: Gilma Llanes on 02-25-2024 Urobilinogen (U) [Mass/Vol] 2 mg/dL High Normal [facility] pH of Urine by Test stripOrd ered By: Gilma Llanes on 02-25-2024 pH (U) 6.5 [pH] Normal 5.0-9.0 [facility] Comment on above: Order Comment: Healt hcare Worker?: N Performed By: #### C OVID 19 [facility] #### [address] A1C with Estimated Average G luon 02-24-2024 Glucose [Mass/Vol] 137 mg/dL Normal [facility] Comment on above: Result Comment: PERF ORMED BY: [place] [address] PATHOLOGIST PHLEBOTOMIST SUPERVISOR/INSTRUCTOR KIERSTEN STEVEN M.D. Performed By: #### C OVID19 FLU RSV, CEPHEID NEG #### [facility] [address] [place] [address] [place] Alanine aminotransferase [En zymatic activity/volume] in Serum or PlasmaOrdered By: Keven Chaparro on 02-24-2024 ALT [Catalytic activity/Vol] 17 U/L Normal 7-52 [facility] Comment on above: Performed By: #### A DDONUAPLUS #### [place] [address] [place] Albumin [Mass/volume] in Ser um or Plasma by Bromocresol green (BCG) dye binding methoOrdered By: Keven Chaparro on 02-24-2024 Albumin BCG dye [Mass/Vol] 3.8 g/dL 3.5-5.7 [facility] Alkaline phosphatase [Enzyma tic activity/volume] in Serum or PlasmaOrdered By: Keven Chaparro on 02-24-2024 ALP [Catalytic activity/Vol] 56 U/L Normal 34-104 [facility] Comment on above: Performed By: #### A DDONUAPLUS #### [facility] [address] Aspartate aminotransferase [ Enzymatic activity/volume] in Serum or PlasmaOrdered By: Keven Chaparro on 02-24-2024 AST [Catalytic activity/Vol] 28 U/L Normal 13-39 [facility] Comment on above: Performed By: #### A DDONUAPLUS #### [address] Bilirubin.total [Mass/volume ] in Serum or PlasmaOrdered By: Keven Chaparro on 02-24-2024 Bilirubin [Mass/Vol] 0.8 mg/dL Normal 0.3-1.0 [facility] [place] Comment on above: Performed By: #### A DDONUAPLUS #### [facility] [address] [place] [address] Cholesterol [Mass/volume] in Serum or PlasmaOrdered By: Keven Chaparro on 02-24-2024 Cholesterol [Mass/Vol] 99 mg/dL Low 140-200 [facility] Comment on above: Chol less than 200 m g/dl low riskChol 201-239 mg/dl borderline riskChol 240 mg/dl and greater high risk Result Comment: Chol less than 200 mg/dl low risk Chol 201-239 mg/dl borderline risk Chol 240 mg/dl and greater high risk Performed By: #### C OVID19 FLU RSV, CEPHEID NEG #### [facility] [address] [place] [address] [place] Cholesterol in LDL Calc [Mas s/Vol]Ordered By: Keven Chaparro on 02-24-2024 Cholesterol in LDL [Mass/Vol] 40 mg/dL 0-100 [facility] Comment on above: LDL ATP III CLASSIFI CATIONLDL less than 100 mg/dL OptimalLDL 100-129 mg/dL Near or above optimalLDL 130-159 mg/dL Borderline highLDL 160-189 mg/dL HighLDL greater than 189 mg/dL Very high Cholesterol in VLDL Calc [Ma ss/Vol]Ordered By: Keven Chaparro on 02-24-2024 Cholesterol in VLDL [Mass/Vol] 19 mg/dL [facility] Comprehensive Metabolic Pane gilberto 02-24-2024 Albumin [Mass/Vol] 3.8 g/dL Normal 3.5-5.7 [facility] Comment on above: Performed By: #### A DDONUAPLUS #### [facility] [address] Anion gap [Moles/Vol] 12.5 mmol/L Normal 6.0-15.0 [facility] Comment on above: Performed By: #### A DDONUAPLUS #### [facility] [address] [place] [address] [place] Calcium [Mass/Vol] 9.0 mg/dL Normal 8.6-10.3 [facility] Comment on above: Performed By: #### A DDONUAPLUS #### [place] [address] [place] Chloride [Moles/Vol] 102 mmol/L Normal 98-107 [facility] Comment on above: Performed By: #### A DDONUAPLUS #### [facility] [address] [place] [address] [place] CO2 [Moles/Vol] 26.6 mmol/L Normal 21.0-31.0 [facility] Comment on above: Performed By: #### A DDONUAPLUS #### [facility] [address] [place] [id number] [place] Creatinine [Mass/Vol] 1.48 mg/dL High 0.60-1.20 [facility] Comment on above: Performed By: #### A DDONUAPLUS #### [facility] [address] [place] [id number] [place] Creatinine Clr Calc Pharmacy 27.05 Normal [facility] Comment on above: Performed By: #### A DDONUAPLUS #### [place] [id number] [place] GFR/1.73 sq M.predicted MDRD (S/P/Bld) [Vol rate/Area] 36.024 mL/min/{1.73_m2} Normal [facility] Comment on above: Performed By: #### A DDONUAPLUS #### [address] Glucose [Mass/Vol] 136 mg/dL High 70-100 [facility] Comment on above: Result Comment: [facility] [place] Glucose Reference Range is dependent on time and content of last meal. Glucose of more than 200 mg/dL in a nonstressed, ambulatory subject supports the diagnosis of Diabetes Mellitus. ADA recommended reference range Performed By: #### A DDONUAPLUS #### [address] Potassium [Moles/Vol] 4.1 mmol/L Normal 3.5-5.1 [facility] Comment on above: Performed By: #### A DDONUAPLUS #### [address] Sodium [Moles/Vol] 137 mmol/L Normal 136-145 [facility] Comment on above: Performed By: #### A DDONUAPLUS #### [address] Urea nitrogen [Mass/Vol] 37 mg/dL High 7-25 [facility] Comment on above: Performed By: #### A DDONUAPLUS #### [place] [address] [place] Glucose Poct Glucometerson 0 02-24-2024 Glucose [Mass/Vol] 110 mg/dL Normal [facility] Comment on above: Result Comment: [facility] [place] Glucose Reference Range is dependent on time and content of last meal. Glucose of more than 200 mg/dL in a nonstressed, ambulatory subject supports the diagnosis of Diabetes Mellitus. PERFORMED BY: [place] [address] PATHOLOGIST PHLEBOTOMIST SUPERVISOR/INSTRUCTOR KIERSTEN STEVEN M.D. Performed By: #### A DDONUAPLUS #### [address] Glucose mean value [Mass/vol ume] in Blood Estimated from glycated hemoglobinOrdered By: Keven Chaparro on 02-24-2024 Average glucose Estimated from glycated hemoglobin (Bld) [Mass/Vol] 137 mg/dL [facility] Hemoglobin A1c percentageOrd ered By: Keven Chaparro on 02-24-2024 HbA1c (Bld) [Mass fraction] 6.4 % High 4.3-5.6 [facility] Comment on above: Increased risk for d iabetes: 5.7 - 6.4diabetes: >6.4glycemic control for adults with diabetes: <7.0 Result Comment: Incr eased risk for diabetes: 5.7 - 6.4 diabetes: >6.4 glycemic control for adults with diabetes: <7.0 Performed By: #### C OVID19 FLU RSV, CEPHEID NEG #### [address] Lipid Panelon 02-24-2024 LDL Cholesterol,Calculated 40 mg/dL Normal 0-100 [facility] Comment on above: Result Comment: LDL ATP III CLASSIFICATION LDL less than 100 mg/dL Optimal LDL 100-129 mg/dL Near or above optimal LDL 130-159 mg/dL Borderline high LDL 160-189 mg/dL High LDL greater than 189 mg/dL Very high Performed By: #### C OVID19 FLU RSV, CEPHEID NEG #### [address] Triglyceride w/Reflex 96 mg/dL Normal 0-149 [facility] Comment on above: Result Comment: TRIG ATP III CLASSIFICATION TRIG less than 150 mg/dL Normal TRIG 150-199 mg/dL Borderline high TRIG 200-500 mg/dL High TRIG greater than 500 mg/dL Very high Standard traceable to the Center for Disease Conrtrol and Prevention (CDC) test method. Performed By: #### C OVID19 FLU RSV, CEPHEID NEG #### [address] VLDL CHOLESTEROL 19 mg/dL Normal [facility] Comment on above: Performed By: #### C OVID19 FLU RSV, CEPHEID NEG #### [address] [place] [address] [place] Magnesium [Mass/volume] in S mila or PlasmaOrdered By: Keven Chaparro on 02-24-2024 Magnesium [Mass/Vol] 2.4 mg/dL Normal 1.9-2.7 [facility] [place] Comment on above: Performed By: #### C OVID19 FLU RSV, CEPHEID NEG #### [address] Phosphate [Mass/volume] in S mila or PlasmaOrdered By: Keven Chaparro on 02-24-2024 Phosphate [Mass/Vol] 4.7 mg/dL High 2.5-4.5 [facility] [place] Comment on above: Performed By: #### C OVID19 FLU RSV, CEPHEID NEG #### [address] Platelet adequacy [Presence] in Blood by Light microscopyOrdered By: Keven Chaparro on 02-24-2024 Platelets LM Ql (Bld) Normal Normal [facility] Platelet morphology finding [Identifier] in BloodOrdered By: Keven Chaparro on 02-24-2024 Platelet morphology finding Nom (Bld) Normal Normal [facility] Protein [Mass/volume] in Ser um or PlasmaOrdered By: Keven Chaparro on 02-24-2024 Protein [Mass/Vol] 6.4 g/dL Normal 6.4-8.9 [facility] Comment on above: Performed By: #### A DDONUAPLUS #### [address] RBC morphologyOrdered By: Angelo Chaparro on 02-24-2024 RBC morphology finding Nom (Bld) Normal Normal Normal [facility] Comment on above: Performed By: #### C OVID19 FLU RSV, CEPHEID NEG #### [facility] [address] [place] [address] Scan and CBCon 02-24-2024 Basophils (Bld) [#/Vol] 0.0 10*3/uL Normal 0.0-0.2 [facility] Comment on above: Performed By: #### C OVID19 FLU RSV, CEPHEID NEG #### [address] Basophils/100 WBC (Bld) 0.1 % Normal . T mirtha [facility] Comment on above: Performed By: #### C OVID19 FLU RSV, CEPHEID NEG #### [address] Eosinophils (Bld) [#/Vol] 0.0 10*3/uL Normal 0.0-0.45 [facility] Comment on above: Performed By: #### C OVID19 FLU RSV, CEPHEID NEG #### [address] Eosinophils/100 WBC (Bld) 0.0 % Normal . [facility] Comment on above: Performed By: #### C OVID19 FLU RSV, CEPHEID NEG #### [address] Erythrocyte distribution width (RBC) [Ratio] 14.8 % Normal 11.9-15.3 [facility] Comment on above: Performed By: #### C OVID19 FLU RSV, CEPHEID NEG #### [address] Hematocrit (Bld) [Volume fraction] 35.7 % Normal 34.0-46.4 [facility] Comment on above: Performed By: #### C OVID19 FLU RSV, CEPHEID NEG #### [address] Hemoglobin (Bld) [Mass/Vol] 12.0 g/dL Normal 11.8-15.4 [facility] Comment on above: Performed By: #### C OVID19 FLU RSV, CEPHEID NEG #### [address] Lymphocytes (Bld) [#/Vol] 0.8 10*3/uL Low 1.00-4.8 [facility] Comment on above: Performed By: #### C OVID19 FLU RSV, CEPHEID NEG #### [address] Lymphocytes/100 WBC (Bld) 4.1 % Normal . [facility] Comment on above: Performed By: #### C OVID19 FLU RSV, CEPHEID NEG #### [address] MCH (RBC) [Entitic mass] 31.4 pg Normal 24.7-34.3 [facility] Comment on above: Performed By: #### C OVID19 FLU RSV, CEPHEID NEG #### [address] MCV (RBC) [Entitic vol] 93.3 fL Normal 80-100 [facility] Comment on above: Performed By: #### C OVID19 FLU RSV, CEPHEID NEG #### [address] Mean Corpuscular HGB Conc 33.7 g/dL Normal 32.0-35.0 [facility] Comment on above: Performed By: #### C OVID19 FLU RSV, CEPHEID NEG #### [address] Monocytes (Bld) [#/Vol] 1.6 10*3/uL High 0.0-0.8 [facility] Comment on above: Performed By: #### C OVID19 FLU RSV, CEPHEID NEG #### [address] Monocytes/100 WBC (Bld) 8.2 % Normal . [facility] Comment on above: Performed By: #### C OVID19 FLU RSV, CEPHEID NEG #### [place] [address] [place] Neutrophils (Bld) [#/Vol] 16.9 10*3/uL High 1.8-7.7 [facility] Comment on above: Performed By: #### C OVID19 FLU RSV, CEPHEID NEG #### [address] Neutrophils/100 WBC (Bld) 87.6 % Normal . [facility] Comment on above: Performed By: #### C OVID19 FLU RSV, CEPHEID NEG #### [address] NRBC% 0.0 /100{WBC} Normal 0-0.5 [facility] Comment on above: Performed By: #### C OVID19 FLU RSV, CEPHEID NEG #### [address] Platelet Estimate Normal Normal Normal [facility] Comment on above: Performed By: #### C OVID19 FLU RSV, CEPHEID NEG #### [address] Platelet mean volume (Bld) [Entitic vol] 8.2 fL Normal 6.3-10.7 [facility] Comment on above: Performed By: #### C OVID19 FLU RSV, CEPHEID NEG #### [address] Platelet Morphology Normal Normal Normal [facility] Comment on above: Result Comment: PERF ORMED BY: [place] [address] PATHOLOGIST PHLEBOTOMIST SUPERVISOR/INSTRUCTOR KIERSTEN STEVEN M.D. Performed By: #### C OVID19 FLU RSV, CEPHEID NEG #### [address] Platelets (Bld) [#/Vol] 270 10*3/uL Normal 150-450 [facility] Comment on above: Performed By: #### C OVID19 FLU RSV, CEPHEID NEG #### [address] RBC (Bld) [#/Vol] 3.82 10*6/uL Normal 3.60-5.00 [facility] Comment on above: Performed By: #### C OVID19 FLU RSV, CEPHEID NEG #### [address] WBC (Bld) [#/Vol] 19.3 10*3/uL High 3.8-11.6 [facility] Comment on above: Performed By: #### C OVID19 FLU RSV, CEPHEID NEG #### [address] Serum globulin measurement b y calculation (mass/volume)Ordered By: Keven Chaparro on 02-24-2024 Globulin (S) [Mass/Vol] 2.6 g/dL Normal F [facility] Comment on above: Performed By: #### A DDONUAPLUS #### [address] Serum or plasma albumin/glob ulin mass ratioOrdered By: Keven Chaparro on 02-24-2024 Albumin/Globulin [Mass ratio] 1.5 {ratio} Normal [facility] Comment on above: Performed By: #### A DDONUAPLUS #### [address] Serum or plasma high density lipoprotein (HDL) cholesterol measurementOrdered By: Keven Chaparro on 02-24-2024 Cholesterol in HDL [Mass/Vol] 40 mg/dL Normal 23-92 [facility] Comment on above: HDL CHOL ATP-III CLA SSIFICATION Cardiovascular RiskHDL > or equal to 60 mg/dL LOWHDL < 40 mg/dL HIGH Result Comment: HDL CHOL ATP-III CLASSIFICATION Cardiovascular Risk HDL > or equal to 60 mg/dL LOW HDL < 40 mg/dL HIGH Performed By: #### C OVID19 FLU RSV, CEPHEID NEG #### [address] Serum or plasma total choles terol/high density lipoprotein (HDL) cholesterol mass ratOrdered By: Keven Chaparro on 02-24-2024 Cholesterol.total/Sherri sterol in HDL [Mass ratio] 2.5 {ratio} Normal <5.0 [facility] Comment on above: Result Comment: PERF ORMED BY: [place] [address] PATHOLOGIST PHLEBOTOMIST SUPERVISOR/INSTRUCTOR KIERSTEN STEVEN M.D. Performed By: #### C OVID19 FLU RSV, CEPHEID NEG #### [address] Triglyceride [Mass/volume] i n Serum or PlasmaOrdered By: Keven Chaparro on 02-24-2024 Triglyceride [Mass/Vol] 96 mg/dL 0-149 F [facility] Comment on above: TRIG ATP III CLASSIF ICATIONTRIG less than 150 mg/dL NormalTRIG 150-199 mg/dL Borderline highTRIG 200-500 mg/dL High TRIG greater than 500 mg/dL Very highStandard traceable to the Center for Disease Conrtrol and Prevention (CDC) test method. XR chest 1V portableon 02-23 XR chest 1V portable [facility] [place] [address] [place] [address] XRay Report Signed Patient: Juan Hernandez MR#: [id number] : 1945 Acct:[id number] Age/Sex: 78 / F ADM Date: 02/23/24 Loc: Room: [address] [place] [address] Type: ADM INOo Attending Dr: Zay Jasmine DO Copies to: ODILON Hayden DO Ordering Provider: Carlotta Moralez APRN Date of Service: 02/24/24 XR/XR chest 1V portable: leukocytosis Plain film chest Single view HISTORY: Leukocytosis. COMPARISON: 01/15/24 FINDINGS: SUPPORT DEVICES: None POSTSURGICAL CHANGES: None HEART: Within normal limits PULMONARY SHANNEN: Within normal limits MEDIASTINUM: Unremarkable LUNGS AND PLEURA: No acute lung process, pleural effusion or pneumothorax identified. BONY STRUCTURES: Intact ADDITIONAL FINDINGS None XR/XR chest 1V portable IMPRESSION: No acute process. Impression dictated by: Felipe Echols M.D.02/24/2024 10:01 AM Dictation Location: [place] [address] Transcribed By: [facility] 02/24/24 1001 Dictated By: Felipe Echols DO 02/24/24 1001 Signed By: 02/24/24 1001 Normal [facility] Alanine aminotransferase [En zymatic activity/volume] in Serum or PlasmaOrdered By: Gabby Walker on 02-23-2024 ALT [Catalytic activity/Vol] 19 U/L Normal 7-52 [facility] Comment on above: Performed By: #### C OVID19 FLU RSV, CEPHEID NEG #### [facility] [address] [place] [address] Albumin [Mass/volume] in Ser um or Plasma by Bromocresol green (BCG) dye binding methoOrdered By: Gabby Walker on 02-23-2024 Albumin BCG dye [Mass/Vol] 4.4 g/dL 3.5-5.7 [facility] Alkaline phosphatase [Enzyma tic activity/volume] in Serum or PlasmaOrdered By: Gabby Walker on 02-23-2024 ALP [Catalytic activity/Vol] 65 U/L Normal 34-104 [facility] Comment on above: Performed By: #### C OVID19 FLU RSV, CEPHEID NEG #### [address] Aspartate aminotransferase [ Enzymatic activity/volume] in Serum or PlasmaOrdered By: Gabby Walker on 02-23-2024 AST [Catalytic activity/Vol] 22 U/L Normal 13-39 [facility] Comment on above: Performed By: #### C OVID19 FLU RSV, CEPHEID NEG #### [address] Automated basophil %Ordered By: Gabby Walker on 02-23-2024 Basophils/100 WBC (Bld) 0.4 % Normal . [facility] Comment on above: Performed By: #### C OVID19 FLU RSV, CEPHEID NEG #### [address] Automated basophil countOrde red By: Gabby Walker on 02-23-2024 Basophils (Bld) [#/Vol] 0.1 10*3/uL Normal 0.0-0.2 [facility] Comment on above: Result Comment: PERF ORMED BY: [place] [address] PATHOLOGIST PHLEBOTOMIST SUPERVISOR/INSTRUCTOR KIERSTEN STEVEN M.D. Performed By: #### C OVID19 FLU RSV, CEPHEID NEG #### [address] Automated blood monocyte cou ntOrdered By: Gabby Walker on 02-23-2024 Monocytes (Bld) [#/Vol] 0.7 10*3/uL Normal 0.0-0.8 [facility] Comment on above: Performed By: #### C OVID19 FLU RSV, CEPHEID NEG #### [facility] [address] Automated eosinophil %Ordere d By: Gabby Nestorallan on 02-23-2024 Eosinophils/100 WBC (Bld) 0.4 % Normal . [facility] Comment on above: Performed By: #### C OVID19 FLU RSV, CEPHEID NEG #### [facility] [address] Automated eosinophil countOr dered By: Gabby Nestorallan on 02-23-2024 Eosinophils (Bld) [#/Vol] 0.1 10*3/uL Normal 0.0-0.45 [facility] Comment on above: Performed By: #### C OVID19 FLU RSV, CEPHEID NEG #### [address] Automated monocyte %Ordered By: Gabby Nestorallan on 02-23-2024 Monocytes/100 WBC (Bld) 4.4 % Normal . [facility] Comment on above: Performed By: #### C OVID19 FLU RSV, CEPHEID NEG #### [address] Automated neutrophil %Ordere d By: Gabby Nestorallan on 02-23-2024 Neutrophils/100 WBC (Bld) 90.0 % Normal . [facility] Comment on above: Performed By: #### C OVID19 FLU RSV, CEPHEID NEG #### [address] Bacteria [Presence] in Urine by AutomatedOrdered By: Gabby Walker on 02-23-2024 Bacteria Auto Ql (U) Rare [HPF] None Seen [facility] Bilirubin Test strip Ql (U)O rdered By: Gabby Walker on 02-23-2024 Bilirubin Ql (U) 1+ High Negative [facility] Bilirubin.total [Mass/volume ] in Serum or PlasmaOrdered By: Gabby Walker on 02-23-2024 Bilirubin [Mass/Vol] 0.9 mg/dL Normal 0.3-1.0 [facility] Comment on above: Performed By: #### C OVID19 FLU RSV, CEPHEID NEG #### [facility] [address] abdomen pelvis wo conon 0 02-23-2024 CT abdomen pelvis wo con [facility] [place] [address] [place] [address] CT Scan Report Signed Patient: Juan Hernandez MR#: [id number] : 1945 Acct:[id number] Age/Sex: 78 / F ADM Date: 02/23/24 Loc: ER Room: Type: [facility] ER Attending Dr: Copies to: Gabby Walker APRN Ordering Provider: Gabby Walker APRN Date of Service: 02/23/24 CT/CT abdomen pelvis wo con: abd pain CT Abdomen and Pelvis withoutcontrast TECHNIQUE: Axial imaging with 2-D reconstruction. . The CT exam was performed using one or more the following dose reduction techniques: Automated exposure control, adjustment of the MA and/or Kv according to patient size, or use of the iterative reconstruction technique. COMPARISON: None History: Abdominal pain with nausea LIMITATIONS: None LOWER THORAX mild atelectasis. Small pericardial effusion. Coronary artery calcification. LIVER: Unremarkable GALLBLADDER: Mild gallbladder distention. No calcified stone. No adjacent inflammation. BILE DUCTS: No dilatation SPLEEN: Unremarkable PANCREAS: Unremarkable ADRENAL GLANDS: Adenomatous changes of the adrenal glands KIDNEYS:Unremarkable AORTA: No abdominal aortic aneurysm identified. RETROPERITONEUM: No significant retroperitoneal abnormalities identified. MESENTERY:Unremarkabl e SMALL BOWEL: The small bowel loops are nondistended. APPENDIX: The appendix is normal. COLON: Moderate constipation. No colitis or diverticulitis. URINARY BLADDER: Urinary bladder is unremarkable. REPRODUCTIVE SYSTEM: Enlarged fibroid uterus. Pessary device present. PNEUMOPERITONEUM: None PERITONEAL FLUID:None BONY STRUCTURES: Unremarkable ABDOMINAL WALL: Unremarkable CT/CT abdomen pelvis wo con IMPRESSION: Mild constipation. No acute abdominal or pelvic findings. Mild gallbladder distention. Small pericardial effusion. Fibroid uterus. Impression dictated by: Felipe Echols M.D.02/23/2024 6:20 PM Dictation Location: [place] [address] Transcribed By: [facility] 02/23/241819 Dictated By: Felipe Echols DO 02/23/241813 Signed By: 02/23/241819 Normal [facility] CT head/brain wo conon 02-22 CT head/brain wo con [facility] [place] [address] [place] [address] CT Scan Report Signed Patient: Juan Hernandez MR#: [id number] : 1945 Acct:[id number] Age/Sex: 78 / F ADM Date: 02/23/24 Loc: Room: [address] [place] [address] Type: ADM INOo Attending Dr: Keven Chaparro MD Copies to: MD Gabby Lawrence APRN Ordering Provider: Gabby Walker APRN Date of Service: 02/23/24 CT/CT head/brain wo con: ams Unenhanced head CT TECHNIQUE: Contiguous axial imaging of the head. The CT exam was performed using one or more the following dose reduction techniques: Automated exposure control, adjustment of the MA and/or Kv according to patient size, or use of the iterative reconstruction technique. COMPARISON: None HISTORY: Altered mental status VENTRICLES: Within normal limits ATROPHY: Mild atrophy BRAIN PARENCHYMA: Decreased density of the white matter is most consistent with chronic small vessel disease. 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 No focal round infarction of the LEFT occipital lobe. Remote lacunar infarction identified in the dipti. HEMORRHAGE: None HERNIATION: No mass effect or herniation INFARCTION: No recent vascular distribution infarction is seen. EXTRA-AXIAL FLUID COLLECTIONS None MIDBRAIN: Unremarkable DIPTI: Unremarkable MEDULLA: Unremarkable SINUSES: Unremarkable ORBITS: Grossly unremarkable MASTOIDS: Unremarkable BONY STRUCTURES Intact ADDITIONAL FINDINGS: CT/CT head/brain wo con IMPRESSION: No acute findings. Diffuse atrophy, chronic small vessel ischemic changes and remote lacunar type infarctions. Impression dictated by: Felipe Echols M.D.02/23/2024 11:26 PM Dictation Location: [place] [address] Transcribed By: [facility] 02/23/242325 Dictated By: Felipe Echols DO 02/23/242323 Signed By: 02/23/242325 Normal [facility] Calcium [Mass/volume] in Ser um or PlasmaOrdered By: Gabby Walker on 02-23-2024 Calcium [Mass/Vol] 9.9 mg/dL Normal 8.6-10.3 [facility] Comment on above: Performed By: #### C OVID19 FLU RSV, CEPHEID NEG #### [place] [address] [place] Carbon dioxide, total [Moles /volume] in Serum or PlasmaOrdered By: Gabby Walker on 02-23-2024 CO2 [Moles/Vol] 27.1 mmol/L Normal 21.0-31.0 [facility] Comment on above: Performed By: #### C OVID19 FLU RSV, CEPHEID NEG #### [place] [address] [place] Chloride [Moles/volume] in S mila or PlasmaOrdered By: Gabby Walker on 02-23-2024 Chloride [Moles/Vol] 96 mmol/L Low 98-107 [facility] Comment on above: Performed By: #### C OVID19 FLU RSV, CEPHEID NEG #### [place] [address] [place] Color of Urine by AutoOrdere d By: Gabby Walker on 02-23-2024 Color (U) [place] Critically abnormal Yellow [facility] Comment on above: Order Comment: Name Collection Type:: Straight Catheter Performed By: #### A DDONUAPLUS #### [place] [address] [place] Complete Blood Count Auto Di ffon 02-23-2024 Mean Corpuscular HGB Conc 33.7 g/dL Normal 32.0-35.0 [facility] Comment on above: Performed By: #### C OVID19 FLU RSV, CEPHEID NEG #### [address] [place] [address] [place] Monocytes/100 WBC (Bld) 19.32 % Normal 0.00-20.00 [facility] Comment on above: Performed By: #### C OVID19 FLU RSV, CEPHEID NEG #### [address] NRBC% 0.0 /100{WBC} Normal 0-0.5 [facility] Comment on above: Performed By: #### C OVID19 FLU RSV, CEPHEID NEG #### [address] Comprehensive Metabolic Pane gilberto 02-23-2024 Albumin [Mass/Vol] 4.4 g/dL Normal 3.5-5.7 [facility] Comment on above: Performed By: #### C OVID19 FLU RSV, CEPHEID NEG #### [address] Creatinine Clr Calc Pharmacy 26.28 Normal [facility] Comment on above: Performed By: #### C OVID19 FLU RSV, CEPHEID NEG #### [place] [address] [place] GFR/1.73 sq M.predicted MDRD (S/P/Bld) [Vol rate/Area] 28.867 mL/min/{1.73_m2} Normal [facility] Comment on above: Performed By: #### C OVID19 FLU RSV, CEPHEID NEG #### [place] [address] [place] Creatinine [Mass/volume] in Serum or PlasmaOrdered By: Gabby Walker on 02-23-2024 Creatinine [Mass/Vol] 1.78 mg/dL High 0.60-1.20 [facility] Comment on above: Performed By: #### C OVID19 FLU RSV, CEPHEID NEG #### [place] [address] [place] Dipstick and Microscopicon 0 02-23-2024 Bacteria,Urine Rare Normal None Seen [facility] Comment on above: Order Comment: Name Collection Type:: Straight Catheter Performed By: #### A DDONUAPLUS #### [facility] [address] [place] [address] [place] Bilirubin,Urine 1+ High Negative [facility] Comment on above: Order Comment: Name Collection Type:: Straight Catheter Performed By: #### A DDONUAPLUS #### [address] Glucose Ql (U) Normal Normal Normal [facility] Comment on above: Order Comment: Name Collection Type:: Straight Catheter Performed By: #### A DDONUAPLUS #### [place] [address] [place] Hyaline Casts,Urine 9-19 High 0-8 [facility] Comment on above: Order Comment: Name Collection Type:: Straight Catheter Performed By: #### A DDONUAPLUS #### [address] Mucus,Urine Rare Normal [facility] Comment on above: Order Comment: Name Collection Type:: Straight Catheter Result Comment: PERF ORMED BY: [place] [address] PATHOLOGIST PHLEBOTOMIST SUPERVISOR/INSTRUCTOR KIERSTEN STEVEN M.D. Performed By: #### A DDONUAPLUS #### [address] Nitrite,Urine Negative Normal Negative [facility] Comment on above: Order Comment: Name Collection Type:: Straight Catheter Performed By: #### A DDONUAPLUS #### [address] Occult Blood,Urine Negative Normal Negative [facility] Comment on above: Order Comment: Name Collection Type:: Straight Catheter Result Comment: PERF ORMED BY: [place] [address] PATHOLOGIST PHLEBOTOMIST SUPERVISOR/INSTRUCTOR KIERSTEN STEVEN M.D. Performed By: #### A DDONUAPLUS #### [place] [address] [place] RBC,Urine 3-4 Normal 0-4 [facility] Comment on above: Order Comment: Name Collection Type:: Straight Catheter Performed By: #### A DDONUAPLUS #### [address] Specificy [place],Urine 1.030 Normal 1.001-1.030 [facility] Comment on above: Order Comment: Name Collection Type:: Straight Catheter Performed By: #### A DDONUAPLUS #### [address] Squamous Epithelial Cell,Urine 1-2 Normal 0-2 [facility] Comment on above: Order Comment: Name Collection Type:: Straight Catheter Performed By: #### A DDONUAPLUS #### [address] Urobilinogen,Urine 12 mg/dL High Normal [facility] Comment on above: Order Comment: Name Collection Type:: Straight Catheter Performed By: #### A DDONUAPLUS #### [address] WBC,Urine 1-2 Normal 0-4 [facility] Comment on above: Order Comment: Name Collection Type:: Straight Catheter Performed By: #### A DDONUAPLUS #### [address] Epithelial cells.squamous [# /area] in Urine sediment by Automated countOrdered By: Gabby Walker on 02-23-2024 Epithelial cells.squamous Auto (Urine sed) [#/Area] 1-2 [HPF] 0-2 [facility] Erythrocyte distribution wid th [Ratio] by Automated countOrdered By: Gabby Walker on 02-23-2024 Erythrocyte distribution width (RBC) [Ratio] 14.6 % Normal 11.9-15.3 [facility] Comment on above: Performed By: #### C OVID19 FLU RSV, CEPHEID NEG #### [address] Erythrocytes [#/area] in Uri ne sediment by Automated countOrdered By: Gabby Walker on 02-23-2024 RBC Auto (Urine sed) [#/Area] 3-4 [HPF] 0-4 [facility] Erythrocytes [#/volume] in B lood by Automated countOrdered By: Gabby Walker on 02-23-2024 RBC (Bld) [#/Vol] 4.16 10*6/uL Normal 3.60-5.00 [facility] Comment on above: Performed By: #### C OVID19 FLU RSV, CEPHEID NEG #### [facility] [address] [place] [address] [place] Glucose [Mass/volume] in Ser um or PlasmaOrdered By: Gabby Walker on 02-23-2024 Glucose [Mass/Vol] 190 mg/dL High 70-100 [facility] Comment on above: ADA recommended refe rence rangeRandom Glucose Reference Range is dependent on time and content of last meal. Glucose of more than 200 mg/dL in a nonstressed, ambulatory subject supports the diagnosis of Diabetes Mellitus. Result Comment: [place] om Glucose Reference Range is dependent on time and content of last meal. Glucose of more than 200 mg/dL in a nonstressed, ambulatory subject supports the diagnosis of Diabetes Mellitus. ADA recommended reference range Performed By: #### C OVID19 FLU RSV, CEPHEID NEG #### [facility] [address] [place] [address] [place] Glucose [Mass/volume] in Uri ne by Test stripOrdered By: Gabby Walker on 02-23-2024 Glucose Test strip (U) [Mass/Vol] Normal mg/dL Normal [facility] Hematocrit [Volume Fraction] of Blood by Automated countOrdered By: Gabby Walker on 02-23-2024 Hematocrit (Bld) [Volume fraction] 38.4 % Normal 34.0-46.4 [facility] Comment on above: Performed By: #### C OVID19 FLU RSV, CEPHEID NEG #### [facility] [address] [place] [id number] [facility] Hemoglobin Test strip Ql (U) Ordered By: Gabby Walker on 02-23-2024 Hemoglobin Ql (U) Negative Negative [facility] Hemoglobin [Mass/volume] in BloodOrdered By: Gabby Walker on 02-23-2024 Hemoglobin (Bld) [Mass/Vol] 12.9 g/dL Normal 11.8-15.4 [facility] Comment on above: Performed By: #### C OVID19 FLU RSV, CEPHEID NEG #### [facility] [address] [place] [address] [place] Hyaline casts [#/area] in Ur ine sediment by Automated countOrdered By: Gabby Walker on 02-23-2024 Hyaline casts Auto (Urine sed) [#/Area] 9-19 [LPF] High 0-8 [facility] Ketones [Presence] in Urine by Test stripOrdered By: Gabby Walker on 02-23-2024 Ketones Ql (U) Negative Normal Negative [facility] Comment on above: Order Comment: Name Collection Type:: Straight Catheter Performed By: #### A DDONUAPLUS #### [facility] [address] [place] [address] Leukocyte esterase [Presence ] in Urine by Test stripOrdered By: Gabby Walker on 02-23-2024 Leukocyte esterase Test strip Ql (U) Negative Normal Negative [facility] Comment on above: Order Comment: Name Collection Type:: Straight Catheter Performed By: #### A DDONUAPLUS #### [facility] [address] [place] [address] [place] Leukocytes [#/area] in Urine sediment by Automated countOrdered By: Gabby Walker on 02-23-2024 WBC Auto (Urine sed) [#/Area] 1-2 [HPF] 0-4 [facility] Leukocytes [#/volume] correc mary for nucleated erythrocytes in Blood by Automated counOrdered By: Gabby Walker on 02-23-2024 WBC corrected for nucl RBC Auto (Bld) [#/Vol] 15.5 10*3/uL High 3.8-11.6 [facility] Leukocytes [#/volume] in Blo od by Automated countOrdered By: Gabby Walker on 02-23-2024 WBC (Bld) [#/Vol] 15.5 10*3/uL High 3.8-11.6 [facility] Comment on above: Performed By: #### C OVID19 FLU RSV, CEPHEID NEG #### [address] Lipase [Enzymatic activity/v olume] in Serum or PlasmaOrdered By: Gabby Walker on 02-23-2024 Lipase [Catalytic activity/Vol] 22.0 U/L Normal 11.0-82.0 [facility] Comment on above: Result Comment: PERF ORMED BY: [place] [address] PATHOLOGIST PHLEBOTOMIST SUPERVISOR/INSTRUCTOR KIERSTEN STEVEN M.D. Performed By: #### C OVID19 FLU RSV, CEPHEID NEG #### [address] Lymphocytes [#/volume] in Bl ood by Automated countOrdered By: Gabby Walker on 02-23-2024 Lymphocytes (Bld) [#/Vol] 0.7 10*3/uL Low 1.00-4.8 [facility] Comment on above: Performed By: #### C OVID19 FLU RSV, CEPHEID NEG #### [address] Lymphocytes/100 leukocytes i n Blood by Automated countOrdered By: Gabby Walker on 02-23-2024 Lymphocytes/100 WBC (Bld) 4.8 % Normal . [facility] Comment on above: Performed By: #### C OVID19 FLU RSV, CEPHEID NEG #### [place] [address] [place] MCH [Entitic mass] by Automa mary countOrdered By: Gabby Walker on 02-23-2024 MCH (RBC) [Entitic mass] 31.1 pg Normal 24.7-34.3 [facility] Comment on above: Performed By: #### C OVID19 FLU RSV, CEPHEID NEG #### [address] MCHC Auto (RBC) [Mass/Vol]Or dered By: Gabby Walker on 02-23-2024 MCHC (RBC) [Mass/Vol] 33.7 g/dL 32.0-35.0 [facility] MCV [Entitic volume] by Auto mated countOrdered By: Gabby Walker on 02-23-2024 MCV (RBC) [Entitic vol] 92.3 fL Normal 80-100 F [facility] Comment on above: Performed By: #### C OVID19 FLU RSV, CEPHEID NEG #### [facility] [address] [place] [address] [place] Monocyte distribution width [Entitic volume] in Blood by AutomatedOrdered By: Gabby Walker on 02-23-2024 Monocyte distribution width Auto (Bld) [Entitic vol] 19.32 % 0.00-20.00 [facility] Mucus [Presence] in Urine by AutomatedOrdered By: Gabby Walker on 02-23-2024 Mucus Auto Ql (U) Rare [LPF] [facility] Neutrophils [#/volume] in Bl ood by Automated countOrdered By: Gabby Walker on 02-23-2024 Neutrophils (Bld) [#/Vol] 13.9 10*3/uL High 1.8-7.7 [facility] Comment on above: Performed By: #### C OVID19 FLU RSV, CEPHEID NEG #### [facility] [address] [place] [address] Nitrite Test strip Ql (U)Ord ered By: Gabby Walker on 02-23-2024 Nitrite Ql (U) Negative Negative [facility] No Panel InformationOrdered By: Gabby Walker on 02-23-2024 Estimated GFR (CKD-EPI) 28.867 mL/Min [facility] Creatinine Clearance (Chem 26.28 [facility] Nucleated erythrocytes [Pres ence] in Blood by Automated countOrdered By: Gabby Walker on 02-23-2024 Nucleated RBC Auto Ql (Bld) 0.0 /100{WBC} 0-0.5 [facility] Platelet mean volume [Entiti c volume] in Blood by Automated countOrdered By: Gabby Walker on 02-23-2024 Platelet mean volume (Bld) [Entitic vol] 8.5 fL Normal 6.3-10.7 [facility] Comment on above: Performed By: #### C OVID19 FLU RSV, CEPHEID NEG #### [facility] [address] [place] [address] [place] Platelets [#/volume] in Bloo d by Automated countOrdered By: Gabby Walker on 02-23-2024 Platelets (Bld) [#/Vol] 306 10*3/uL Normal 150-450 [facility] Comment on above: Performed By: #### C OVID19 FLU RSV, CEPHEID NEG #### [place] [address] [place] Potassium [Moles/volume] in Serum or PlasmaOrdered By: Gabby Walker on 02-23-2024 Potassium [Moles/Vol] 3.4 mmol/L Low 3.5-5.1 [facility] Comment on above: Performed By: #### C OVID19 FLU RSV, CEPHEID NEG #### [place] [address] [place] Protein [Mass/volume] in Ser um or PlasmaOrdered By: Gabby Walker on 02-23-2024 Protein [Mass/Vol] 7.2 g/dL Normal 6.4-8.9 [facility] Comment on above: Performed By: #### C OVID19 FLU RSV, CEPHEID NEG #### [place] [address] [place] Protein [Mass/volume] in Uri ne by Test stripOrdered By: Gabby Walker on 02-23-2024 Protein (U) [Mass/Vol] 30 mg/dL High Negative [facility] Comment on above: Order Comment: Name Collection Type:: Straight Catheter Performed By: #### A DDONUAPLUS #### [place] [address] [place] Serum globulin measurement b y calculation (mass/volume)Ordered By: Gabby Walker on 02-23-2024 Globulin (S) [Mass/Vol] 2.8 g/dL Normal [facility] Comment on above: Performed By: #### C OVID19 FLU RSV, CEPHEID NEG #### [address] Serum or plasma albumin/glob ulin mass ratioOrdered By: Gabby Walker on 02-23-2024 Albumin/Globulin [Mass ratio] 1.6 {ratio} Normal [facility] Comment on above: Performed By: #### C OVID19 FLU RSV, CEPHEID NEG #### [address] Serum or plasma anion gap de terminationOrdered By: Gabby Walker on 02-23-2024 Anion gap [Moles/Vol] 15.3 mmol/L High 6.0-15.0 [facility] Comment on above: Performed By: #### C OVID19 FLU RSV, CEPHEID NEG #### [address] Sodium [Moles/volume] in Ser um or PlasmaOrdered By: Gabby Walker on 02-23-2024 Sodium [Moles/Vol] 135 mmol/L Low 136-145 [facility] Comment on above: Performed By: #### C OVID19 FLU RSV, CEPHEID NEG #### [address] Specific gravity Test strip (U) [Rel density]Ordered By: Gabby Walker on 02-23-2024 Specific gravity (U) [Rel density] 1.030 1.001-1.030 [facility] Urea nitrogen [Mass/volume] in Serum or PlasmaOrdered By: Gabby Walker on 02-23-2024 Urea nitrogen [Mass/Vol] 33 mg/dL High 7-25 [facility] Comment on above: Performed By: #### C OVID19 FLU RSV, CEPHEID NEG #### [address] Urine appearanceOrdered By: Gabby Walker on 02-23-2024 Appearance (U) Cloudy Critically abnormal Clear [facility] Comment on above: Order Comment: Name Collection Type:: Straight Catheter Performed By: #### A DDONUAPLUS #### [address] [place] [address] [place] Urobilinogen Test strip (U) [Mass/Vol]Ordered By: Gabbychrissie Walker on 02-23-2024 Urobilinogen (U) [Mass/Vol] 12 mg/dL High Normal [facility] pH of Urine by Test stripOrd ered By: Gabby Baezallan on 02-23-2024 pH (U) 5.0 [pH] Normal 5.0-9.0 [facility] Comment on above: Order Comment: Name Collection Type:: Straight Catheter Performed By: #### A DDONUAPLUS #### [address] Automated basophil %Ordered By: Kris Marquez on 01-21-2024 Basophils/100 WBC (Bld) 1.4 % Normal . [facility] Comment on above: Performed By: #### C OVID 19 [facility] #### [address] Automated basophil countOrde red By: Kris Marquez on 01-21-2024 Basophils (Bld) [#/Vol] 0.1 10*3/uL Normal 0.0-0.2 [facility] Comment on above: Result Comment: PERF ORMED BY: [place] [address] PATHOLOGIST PHLEBOTOMIST SUPERVISOR/INSTRUCTOR KIERSTEN STEVEN M.D. Performed By: #### C OVID 19 [facility] #### [address] Automated blood monocyte cou ntOrdered By: Kris Marquez on 01-21-2024 Monocytes (Bld) [#/Vol] 0.5 10*3/uL Normal 0.0-0.8 [facility] Comment on above: Performed By: #### C OVID 19 [facility] #### [address] Automated eosinophil %Ordere d By: Kris Marquez on 01-21-2024 Eosinophils/100 WBC (Bld) 6.5 % Normal . [facility] Comment on above: Performed By: #### C [address] #### [address] Automated eosinophil countOr dered By: Kris Marquez on 01-21-2024 Eosinophils (Bld) [#/Vol] 0.3 10*3/uL Normal 0.0-0.45 [facility] Comment on above: Performed By: #### C [address] #### [address] Automated monocyte %Ordered By: Kris Marquez on 01-21-2024 Monocytes/100 WBC (Bld) 10.4 % Normal . [facility] Comment on above: Performed By: #### C [address] #### [address] Automated neutrophil %Ordere d By: Kris Marquez on 01-21-2024 Neutrophils/100 WBC (Bld) 43.4 % Normal . [facility] Comment on above: Performed By: #### C [address] #### [address] Basic Metabolic Panelon 01-10 Creatinine Clr Calc Pharmacy 43.73 Normal [facility] Comment on above: Result Comment: PERF ORMED BY: [place] [address] PATHOLOGIST PHLEBOTOMIST SUPERVISOR/INSTRUCTOR KIERSTEN STEVEN M.D. Performed By: #### C [address] #### [address] GFR/1.73 sq M.predicted MDRD (S/P/Bld) [Vol rate/Area] 53.168 mL/min/{1.73_m2} Normal [facility] Comment on above: Performed By: #### C [address] #### [address] Calcium [Mass/volume] in Ser um or PlasmaOrdered By: Kris Marquez on 01-21-2024 Calcium [Mass/Vol] 9.0 mg/dL Normal 8.6-10.3 [facility] Comment on above: Performed By: #### C LAMONT 19 [facility] #### [address] Carbon dioxide, total [Moles /volume] in Serum or PlasmaOrdered By: Kris Marquez on 01-21-2024 CO2 [Moles/Vol] 25.9 mmol/L Normal 21.0-31.0 [facility] Comment on above: Performed By: #### C [address] #### [address] Chloride [Moles/volume] in S mila or PlasmaOrdered By: Kris Marquez on 01-21-2024 Chloride [Moles/Vol] 105 mmol/L Normal 98-107 [facility] Comment on above: Performed By: #### C [address] #### [address] Complete Blood Count Auto Di ffon 01-21-2024 Mean Corpuscular HGB Conc 34.4 g/dL Normal 32.0-35.0 [facility] Comment on above: Performed By: #### C [address] #### [address] NRBC% 0.1 /100{WBC} Normal 0-0.5 [facility] Comment on above: Performed By: #### C [address] #### [address] Creatinine [Mass/volume] in Serum or PlasmaOrdered By: Kris Marquez on 01-21-2024 Creatinine [Mass/Vol] 1.07 mg/dL Normal 0.60-1.20 [facility] Comment on above: Performed By: #### C [address] #### [address] Erythrocyte distribution wid th [Ratio] by Automated countOrdered By: Kris Marquez on 01-21-2024 Erythrocyte distribution width (RBC) [Ratio] 13.6 % Normal 11.9-15.3 [facility] Comment on above: Performed By: #### C [address] #### [facility] [address] [place] [address] [place] Erythrocytes [#/volume] in B lood by Automated countOrdered By: Kris Marquez on 01-21-2024 RBC (Bld) [#/Vol] 3.56 10*6/uL Low 3.60-5.00 [facility] Comment on above: Performed By: #### C [address] #### [facility] [address] [place] [address] [place] Glucose [Mass/volume] in Ser um or PlasmaOrdered By: Kris Marquez on 01-21-2024 Glucose [Mass/Vol] 101 mg/dL High 70-100 [facility] Comment on above: ADA recommended refe rence rangeRandom Glucose Reference Range is dependent on time and content of last meal. Glucose of more than 200 mg/dL in a nonstressed, ambulatory subject supports the diagnosis of Diabetes Mellitus. Result Comment: [place] Glucose Reference Range is dependent on time and content of last meal. Glucose of more than 200 mg/dL in a nonstressed, ambulatory subject supports the diagnosis of Diabetes Mellitus. ADA recommended reference range Performed By: #### C [address] #### [place] [address] [place] Hematocrit [Volume Fraction] of Blood by Automated countOrdered By: Kris Marquez on 01-21-2024 Hematocrit (Bld) [Volume fraction] 32.9 % Low 34.0-46.4 [facility] Comment on above: Performed By: #### C [address] #### [facility] [address] [place] [address] [place] Hemoglobin [Mass/volume] in BloodOrdered By: Kris Marquez on 01-21-2024 Hemoglobin (Bld) [Mass/Vol] 11.3 g/dL Low 11.8-15.4 [facility] Comment on above: Performed By: #### C [address] #### [address] [address] [place] Leukocytes [#/volume] correc mary for nucleated erythrocytes in Blood by Automated counOrdered By: Kris Marquez on 01-21-2024 WBC corrected for nucl RBC Auto (Bld) [#/Vol] 5.1 10*3/uL 3.8-11.6 [facility] Leukocytes [#/volume] in Blo od by Automated countOrdered By: Kris Marquez on 01-21-2024 WBC (Bld) [#/Vol] 5.1 10*3/uL Normal 3.8-11.6 [facility] Comment on above: Performed By: #### C OVID 19 [facility] #### [facility] [address] [place] [address] Lymphocytes [#/volume] in Bl ood by Automated countOrdered By: Kris Marquez on 01-21-2024 Lymphocytes (Bld) [#/Vol] 2.0 10*3/uL Normal 1.00-4.8 [facility] Comment on above: Performed By: #### C OVID 19 [facility] #### [facility] [address] [place] [address] Lymphocytes/100 leukocytes i n Blood by Automated countOrdered By: Kris Marquez on 01-21-2024 Lymphocytes/100 WBC (Bld) 38.3 % Normal . [facility] Comment on above: Performed By: #### C OVID 19 [facility] #### [facility] [address] [place] [address] [place] MCH [Entitic mass] by Automa mary countOrdered By: Kris Marquez on 01-21-2024 MCH (RBC) [Entitic mass] 31.7 pg Normal 24.7-34.3 [facility] Comment on above: Performed By: #### C OVID 19 [facility] #### [address] MCHC Auto (RBC) [Mass/Vol]Or dered By: Kris Marquez on 01-21-2024 MCHC (RBC) [Mass/Vol] 34.4 g/dL 32.0-35.0 [facility] MCV [Entitic volume] by Auto mated countOrdered By: Kris Marquez on 01-21-2024 MCV (RBC) [Entitic vol] 92.2 fL Normal 80-100 F [facility] Comment on above: Performed By: #### C OVID [address] [place] [address] #### [address] Neutrophils [#/volume] in Bl ood by Automated countOrdered By: Kris Marquez on 01-21-2024 Neutrophils (Bld) [#/Vol] 2.2 10*3/uL Normal 1.8-7.7 [facility] Comment on above: Performed By: #### C LAMONT 19 [facility] #### [address] No Panel InformationOrdered By: Kris Marquez on 01-21-2024 Estimated GFR (CKD-EPI) 53.168 mL/Min [facility] Creatinine Clearance (Chem 43.73 [facility] Nucleated erythrocytes [Pres ence] in Blood by Automated countOrdered By: Kris Marquez on 01-21-2024 Nucleated RBC Auto Ql (Bld) 0.1 /100{WBC} 0-0.5 [facility] Platelet mean volume [Entiti c volume] in Blood by Automated countOrdered By: Kris Marquez on 01-21-2024 Platelet mean volume (Bld) [Entitic vol] 8.5 fL Normal 6.3-10.7 [facility] Comment on above: Performed By: #### C OVID 19 [facility] #### [address] Platelets [#/volume] in Bloo d by Automated countOrdered By: Kris Marquez on 01-21-2024 Platelets (Bld) [#/Vol] 242 10*3/uL Normal 150-450 [facility] Comment on above: Performed By: #### C OVID [address] [place] [address] #### [address] Potassium [Moles/volume] in Serum or PlasmaOrdered By: Kris Marquez on 01-21-2024 Potassium [Moles/Vol] 3.9 mmol/L Normal 3.5-5.1 [facility] Comment on above: Performed By: #### C [address] #### [facility] [address] Serum or plasma anion gap de terminationOrdered By: Kris Marquez on 01-21-2024 Anion gap [Moles/Vol] 11.0 mmol/L Normal 6.0-15.0 [facility] Comment on above: Performed By: #### C [address] #### [address] Sodium [Moles/volume] in Ser um or PlasmaOrdered By: Kris Marquez on 01-21-2024 Sodium [Moles/Vol] 138 mmol/L Normal 136-145 [facility] Comment on above: Performed By: #### C [address] #### [address] Urea nitrogen [Mass/volume] in Serum or PlasmaOrdered By: Kris Marquez on 01-21-2024 Urea nitrogen [Mass/Vol] 34 mg/dL High 7-25 [facility] Comment on above: Performed By: #### C [address] #### [address] Basic Metabolic Panelon 080 Anion gap [Moles/Vol] 10.2 mmol/L Normal 6.0-15.0 [facility] Comment on above: Performed By: #### C [address] #### [address] Calcium [Mass/Vol] 8.6 mg/dL Normal 8.6-10.3 [facility] Comment on above: Performed By: #### C [address] #### [place] [address] [place] Chloride [Moles/Vol] 106 mmol/L Normal 98-107 [facility] Comment on above: Performed By: #### C [address] #### [facility] [address] CO2 [Moles/Vol] 25.8 mmol/L Normal 21.0-31.0 [facility] Comment on above: Performed By: #### C [address] #### [facility] [address] [place] [address] [place] Creatinine [Mass/Vol] 0.93 mg/dL Normal 0.60-1.20 [facility] Comment on above: Performed By: #### C [address] #### [place] [address] [place] Creatinine Clr Calc Pharmacy 50.46 Normal [facility] Comment on above: Result Comment: PERF ORMED BY: [place] [address] PATHOLOGIST PHLEBOTOMIST SUPERVISOR/INSTRUCTOR KIERSTEN STEVEN M.D. Performed By: #### C [address] #### [place] [address] [place] GFR/1.73 sq M.predicted MDRD (S/P/Bld) [Vol rate/Area] mL/min/{1.73_m2} Normal [facility] Comment on above: Performed By: #### C [address] #### [address] Glucose [Mass/Vol] 101 mg/dL High 70-100 [facility] Comment on above: Result Comment: [place] Glucose Reference Range is dependent on time and content of last meal. Glucose of more than 200 mg/dL in a nonstressed, ambulatory subject supports the diagnosis of Diabetes Mellitus. ADA recommended reference range Performed By: #### C [address] #### [place] [address] [place] Potassium [Moles/Vol] 4.0 mmol/L Normal 3.5-5.1 [facility] Comment on above: Result Comment: Hemo lysis is present at a level that could interfere with the result. Contact lab if redraw is required Performed By: #### C [address] #### [address] Sodium [Moles/Vol] 138 mmol/L Normal 136-145 [facility] Comment on above: Performed By: #### C LAMONT 19 [facility] #### [facility] [address] Urea nitrogen [Mass/Vol] 33 mg/dL High 7-25 [facility] Comment on above: Performed By: #### C [address] #### [address] Complete Blood Count Auto Di ffon 01-16-2024 Basophils (Bld) [#/Vol] 0.1 10*3/uL Normal 0.0-0.2 [facility] Comment on above: Result Comment: PERF ORMED BY: [place] [address] PATHOLOGIST PHLEBOTOMIST SUPERVISOR/INSTRUCTOR KIERSTEN STEVEN M.D. Performed By: #### C OVID19 FLU RSV, CEPHEID NEG #### [address] Basophils/100 WBC (Bld) 1.4 % Normal . [facility] Comment on above: Performed By: #### C OVID19 FLU RSV, CEPHEID NEG #### [address] Eosinophils (Bld) [#/Vol] 0.2 10*3/uL Normal 0.0-0.45 [facility] Comment on above: Performed By: #### C OVID19 FLU RSV, CEPHEID NEG #### [address] Eosinophils/100 WBC (Bld) 3.3 % Normal . [facility] Comment on above: Performed By: #### C OVID19 FLU RSV, CEPHEID NEG #### [address] Erythrocyte distribution width (RBC) [Ratio] 13.5 % Normal 11.9-15.3 [facility] Comment on above: Performed By: #### C OVID19 FLU RSV, CEPHEID NEG #### [address] Hematocrit (Bld) [Volume fraction] 33.9 % Low 34.0-46.4 [facility] Comment on above: Performed By: #### C OVID19 FLU RSV, CEPHEID NEG #### [address] Hemoglobin (Bld) [Mass/Vol] 11.5 g/dL Low 11.8-15.4 [facility] Comment on above: Performed By: #### C OVID19 FLU RSV, CEPHEID NEG #### [address] Lymphocytes (Bld) [#/Vol] 1.9 10*3/uL Normal 1.00-4.8 [facility] Comment on above: Performed By: #### C OVID19 FLU RSV, CEPHEID NEG #### [address] Lymphocytes/100 WBC (Bld) 38.5 % Normal . [facility] Comment on above: Performed By: #### C OVID19 FLU RSV, CEPHEID NEG #### [address] MCH (RBC) [Entitic mass] 31.1 pg Normal 24.7-34.3 [facility] Comment on above: Performed By: #### C OVID19 FLU RSV, CEPHEID NEG #### [address] MCV (RBC) [Entitic vol] 91.7 fL Normal 80-100 [facility] Comment on above: Performed By: #### C OVID19 FLU RSV, CEPHEID NEG #### [address] Mean Corpuscular HGB Conc 33.9 g/dL Normal 32.0-35.0 [facility] Comment on above: Performed By: #### C OVID19 FLU RSV, CEPHEID NEG #### [address] [place] [address] [place] Monocytes (Bld) [#/Vol] 0.5 10*3/uL Normal 0.0-0.8 [facility] Comment on above: Performed By: #### C OVID19 FLU RSV, CEPHEID NEG #### [address] Monocytes/100 WBC (Bld) 10.5 % Normal . [facility] Comment on above: Performed By: #### C OVID19 FLU RSV, CEPHEID NEG #### [address] Neutrophils (Bld) [#/Vol] 2.2 10*3/uL Normal 1.8-7.7 [facility] Comment on above: Performed By: #### C OVID19 FLU RSV, CEPHEID NEG #### [address] Neutrophils/100 WBC (Bld) 46.3 % Normal . [facility] Comment on above: Performed By: #### C OVID19 FLU RSV, CEPHEID NEG #### [address] NRBC% 0.1 /100{WBC} Normal 0-0.5 [facility] Comment on above: Performed By: #### C OVID19 FLU RSV, CEPHEID NEG #### [address] Platelet mean volume (Bld) [Entitic vol] 8.4 fL Normal 6.3-10.7 [facility] Comment on above: Performed By: #### C OVID19 FLU RSV, CEPHEID NEG #### [place] [address] [place] Platelets (Bld) [#/Vol] 245 10*3/uL Normal 150-450 [facility] Comment on above: Performed By: #### C OVID19 FLU RSV, CEPHEID NEG #### [place] [address] [place] RBC (Bld) [#/Vol] 3.70 10*6/uL Normal 3.60-5.00 [facility] Comment on above: Performed By: #### C OVID19 FLU RSV, CEPHEID NEG #### [address] WBC (Bld) [#/Vol] 4.8 10*3/uL Normal 3.8-11.6 [facility] Comment on above: Performed By: #### C OVID19 FLU RSV, CEPHEID NEG #### [address] Bacteria [Presence] in Urine by AutomatedOrdered By: Dali Davis on 01-15-2024 Bacteria Auto Ql (U) None seen [HPF] None Seen [facility] Basic Metabolic Panelon Anion gap [Moles/Vol] 13.5 mmol/L Normal 6.0-15.0 [facility] Comment on above: Order Comment: pt in therapy Performed By: #### C OVID19 FLU RSV, CEPHEID NEG #### [address] Calcium [Mass/Vol] 9.1 mg/dL Normal 8.6-10.3 [facility] Comment on above: Order Comment: pt in therapy Performed By: #### C OVID19 FLU RSV, CEPHEID NEG #### [address] Chloride [Moles/Vol] 101 mmol/L Normal 98-107 [facility] Comment on above: Order Comment: pt in therapy Performed By: #### C OVID19 FLU RSV, CEPHEID NEG #### [address] CO2 [Moles/Vol] 25.5 mmol/L Normal 21.0-31.0 [facility] Comment on above: Order Comment: pt in therapy Performed By: #### C OVID19 FLU RSV, CEPHEID NEG #### [address] Creatinine [Mass/Vol] 1.28 mg/dL High 0.60-1.20 [facility] Comment on above: Order Comment: pt in therapy Performed By: #### C OVID19 FLU RSV, CEPHEID NEG #### [address] Creatinine Clr Calc Pharmacy 36.67 Normal [facility] Comment on above: Order Comment: pt in therapy Result Comment: PERF ORMED BY: [place] [address] PATHOLOGIST PHLEBOTOMIST SUPERVISOR/INSTRUCTOR KIERSTEN STEVEN M.D. Performed By: #### C OVID19 FLU RSV, CEPHEID NEG #### [address] GFR/1.73 sq M.predicted MDRD (S/P/Bld) [Vol rate/Area] 42.880 mL/min/{1.73_m2} Normal [facility] Comment on above: Order Comment: pt in therapy Performed By: #### C OVID19 FLU RSV, CEPHEID NEG #### [address] Glucose [Mass/Vol] 193 mg/dL High 70-100 [facility] Comment on above: Order Comment: pt in therapy Result Comment: [place] Glucose Reference Range is dependent on time and content of last meal. Glucose of more than 200 mg/dL in a nonstressed, ambulatory subject supports the diagnosis of Diabetes Mellitus. ADA recommended reference range Performed By: #### C OVID19 FLU RSV, CEPHEID NEG #### [address] Potassium [Moles/Vol] 4.0 mmol/L Normal 3.5-5.1 [facility] Comment on above: Order Comment: pt in therapy Performed By: #### C OVID19 FLU RSV, CEPHEID NEG #### [place] [address] [place] Sodium [Moles/Vol] 136 mmol/L Normal 136-145 [facility] Comment on above: Order Comment: pt in therapy Performed By: #### C OVID19 FLU RSV, CEPHEID NEG #### [place] [address] [place] Urea nitrogen [Mass/Vol] 38 mg/dL High 7-25 [facility] Comment on above: Order Comment: pt in therapy Performed By: #### C OVID19 FLU RSV, CEPHEID NEG #### [facility] [address] Bilirubin Test strip Ql (U)O rdered By: Dali Davis on 01-15-2024 Bilirubin Ql (U) Negative Negative [facility] [place] SARS-CoV-2 (COVID-19) RNA TED+probe Ql (Unsp spec) Negative Normal Negative [facility] Comment on above: Order Comment: Healt hcare Worker?: N Result Comment: Testing for SARS-CoV-2 by RT-PCR This test was developed and its performance characteristics determined by [employer] [place] and validated at the [facility]. This test has not been FDA cleared or approved. This test has been authorized by FDA under an Emergency Use Authorization (EUA). This test has been validated in accordance with the FDA's Guidance Document (Policy for Diagnostics Testing in Laboratories Certified to Perform High Complexity Testing under CLIA prior to Emergency Use Authorization for Coronavirus Disease-2019 during the Public Health Emergency) issued on September 12, 2019. This test is only authorized for the duration of time the declaration that circumstances exist justifying the authorization of the emergency use of in vitro diagnostic tests for detection of SARS-CoV-2 virus and/or diagnosis of COVID-19 infection under section 564(b)(1) of the Act, 21 U.S.C. 360bbb-3(b)(1), unless the authorization is terminated or revoked sooner. PERFORMED BY: [place] [address] PATHOLOGIST PHLEBOTOMIST SUPERVISOR/INSTRUCTOR KIERSTEN STEVEN M.D. Performed By: #### C OVID 19 [facility] [place] #### [place] [id number] [facility] COVID-19 Positive/NegativeOr dered By: Dali Davis on 01-15-2024 SARS-CoV-2 (COVID-19) N gene TED+probe Ql (Resp) Negative Negative [facility] Comment on above: Testing for SARS-CoV -2 by RT-PCRThis test was developed and its performance characteristics determined by [employer] and validated at the [facility]. This test has not been FDA cleared or approved. This test has been authorized by FDA under an Emergency Use Authorization (EUA). This test has been validated in accordance with the FDA's Guidance Document (Policy for Diagnostics Testing in Laboratories Certified to Perform High Complexity Testing under CLIA prior to Emergency Use Authorization for Coronavirus Disease-2019 during the Public Health Emergency) issued on September 12, 2019. This test is only authorized for the duration of time the declaration that circumstances exist justifying the authorization of the emergency use of in vitro diagnostic tests for detection of SARS-CoV-2 virus and/or diagnosis of COVID-19 infection under section 564(b)(1) of the Act, 21 U.S.C. 360bbb-3(b)(1), unless the authorization is terminated or revoked sooner. Color of Urine by AutoOrdere d By: Dali Davis on 01-15-2024 Color (U) Yellow Normal Yellow [facility] Comment on above: Order Comment: Name Collection Type:: Straight Catheter Performed By: #### A DDONUAPLUS #### [address] Dipstick and Microscopicon 0 01-15-2024 Bacteria,Urine None Seen Normal None Seen [facility] Comment on above: Order Comment: Name Collection Type:: Straight Catheter Performed By: #### A DDONUAPLUS #### [facility] [address] [place] [address] [place] Bilirubin,Urine Negative Normal Negative [facility] Comment on above: Order Comment: Name Collection Type:: Straight Catheter Performed By: #### A DDONUAPLUS #### [facility] [address] [place] [address] [place] Glucose Ql (U) Normal Normal Normal [facility] Comment on above: Order Comment: Name Collection Type:: Straight Catheter Performed By: #### A DDONUAPLUS #### [facility] [address] [place] [address] [place] Hyaline Casts,Urine 50-100 High 0-8 [facility] Comment on above: Order Comment: Name Collection Type:: Straight Catheter Performed By: #### A DDONUAPLUS #### [place] [address] [place] Mucus,Urine Rare Normal [facility] Comment on above: Order Comment: Name Collection Type:: Straight Catheter Result Comment: PERF ORMED BY: [place] [address] PATHOLOGIST PHLEBOTOMIST SUPERVISOR/INSTRUCTOR KIERSTEN STEVEN M.D. Performed By: #### A DDONUAPLUS #### [address] Nitrite,Urine Negative Normal Negative [facility] Comment on above: Order Comment: Name Collection Type:: Straight Catheter Performed By: #### A DDONUAPLUS #### [address] Occult Blood,Urine Negative Normal Negative [facility] Comment on above: Order Comment: Name Collection Type:: Straight Catheter Result Comment: PERF ORMED BY: [place] [address] PATHOLOGIST PHLEBOTOMIST SUPERVISOR/INSTRUCTOR KIERSTEN STEVEN M.D. Performed By: #### A DDONUAPLUS #### [address] RBC,Urine 1-2 Normal 0-4 [facility] Comment on above: Order Comment: Name Collection Type:: Straight Catheter Performed By: #### A DDONUAPLUS #### [address] Specificy [place],Urine 1.026 Normal 1.001-1.030 [facility] Comment on above: Order Comment: Name Collection Type:: Straight Catheter Performed By: #### A DDONUAPLUS #### [address] Squamous Epithelial Cell,Urine 1-2 Normal 0-2 [facility] Comment on above: Order Comment: Name Collection Type:: Straight Catheter Performed By: #### A DDONUAPLUS #### [address] [place] [address] [place] Urobilinogen,Urine 2 mg/dL High Normal [facility] Comment on above: Order Comment: Name Collection Type:: Straight Catheter Performed By: #### A DDONUAPLUS #### [facility] [address] [place] [address] [place] WBC,Urine 1-2 Normal 0-4 [facility] Comment on above: Order Comment: Name Collection Type:: Straight Catheter Performed By: #### A DDONUAPLUS #### [facility] [address] Epithelial cells.squamous [# /area] in Urine sediment by Automated countOrdered By: Dali Davis on 01-15-2024 Epithelial cells.squamous Auto (Urine sed) [#/Area] 1-2 [HPF] 0-2 [facility] Erythrocytes [#/area] in Uri ne sediment by Automated countOrdered By: Dali Davis on 01-15-2024 RBC Auto (Urine sed) [#/Area] 1-2 [HPF] 0-4 [facility] Glucose [Mass/volume] in Uri ne by Test stripOrdered By: Dali Davis on 01-15-2024 Glucose Test strip (U) [Mass/Vol] Normal mg/dL Normal [facility] Hemoglobin Test strip Ql (U) Ordered By: Dali Davis on 01-15-2024 Hemoglobin Ql (U) Negative Negative [facility] Hyaline casts [#/area] in Ur ine sediment by Automated countOrdered By: Dali Davis on 01-15-2024 Hyaline casts Auto (Urine sed) [#/Area] 50-100 [LPF] High 0-8 [facility] Ketones [Presence] in Urine by Test stripOrdered By: Dali Davis on 01-15-2024 Ketones Ql (U) Negative Normal Negative [facility] Comment on above: Order Comment: Name Collection Type:: Straight Catheter Performed By: #### A DDONUAPLUS #### [facility] [address] [place] [id number] [place] Leukocyte esterase [Presence ] in Urine by Test stripOrdered By: Dali Davis on 01-15-2024 Leukocyte esterase Test strip Ql (U) Negative Normal Negative [facility] Comment on above: Order Comment: Name Collection Type:: Straight Catheter Performed By: #### A DDONUAPLUS #### [address] Leukocytes [#/area] in Urine sediment by Automated countOrdered By: Dali Davis on 01-15-2024 WBC Auto (Urine sed) [#/Area] 1-2 [HPF] 0-4 [facility] Mucus [Presence] in Urine by AutomatedOrdered By: Dali Davis on 01-15-2024 Mucus Auto Ql (U) Rare [LPF] [facility] Nitrite Test strip Ql (U)Ord ered By: Dali Davis on 01-15-2024 Nitrite Ql (U) Negative Negative [facility] Protein [Mass/volume] in Uri ne by Test stripOrdered By: Dali Davis on 01-15-2024 Protein (U) [Mass/Vol] 20 mg/dL High Negative [facility] Comment on above: Order Comment: Name Collection Type:: Straight Catheter Performed By: #### A DDONUAPLUS #### [address] Specific gravity Test strip (U) [Rel density]Ordered By: Dali Davis on 01-15-2024 Specific gravity (U) [Rel density] 1.026 1.001-1.030 [facility] Urine appearanceOrdered By: Dali Davis on 01-15-2024 Appearance (U) Clear Normal Clear [facility] Comment on above: Order Comment: Name Collection Type:: Straight Catheter Performed By: #### A DDONUAPLUS #### [address] Urobilinogen Test strip (U) [Mass/Vol]Ordered By: Dali Davis on 01-15-2024 Urobilinogen (U) [Mass/Vol] 2 mg/dL High Normal [facility] XR chest 1V portableon 01-14 XR chest 1V portable [facility] [address] [place] [address] XRay Report Signed Patient: Juan Hernandez MR#: [id number] : 1945 Acct:[id number] Age/Sex: 78 / F ADM Date: 01/04/24 Loc: Room: [address] [place] [address] Type: ADM IN Attending Dr: Kris Marquez MD Copies to: MD Dali Xavier APRN Ordering Provider: Dali Davis APRN Date of Service: 01/15/24 XR/XR chest 1V portable: cough SINGLE VIEW CHEST CLINICAL HISTORY: Cough. COMPARISON: Chest 07/01/2023 FINDINGS: Heart normal size. Lungs are clear. No free air. XR/XR chest 1V portable IMPRESSION: NO ACUTE FINDINGS Impression dictated by: Justino Mcknight Jr., D.O.01/15/2024 3:23 PM Dictation Location: [place] [address] Transcribed By: [facility] 01/15/24 1523 Dictated By: Justino Mcknight Jr, DO 01/15/24 1520 Signed By: 01/15/24 1523 Normal [facility] pH of Urine by Test stripOrd ered By: Dali Davis on 01-15-2024 pH (U) 5.5 [pH] Normal 5.0-9.0 [facility] Comment on above: Order Comment: Name Collection Type:: Straight Catheter Performed By: #### A DDONUAPLUS #### [address] Basic Metabolic Panelon 080 Anion gap [Moles/Vol] Not performed Normal 6.0-15.0 [facility] Comment on above: Performed By: #### C OVID19 FLU RSV, CEPHEID NEG #### [address] Calcium [Mass/Vol] 9.1 mg/dL Normal 8.6-10.3 [facility] Comment on above: Performed By: #### C OVID19 FLU RSV, CEPHEID NEG #### [address] Chloride [Moles/Vol] 107 mmol/L Normal 98-107 [facility] Comment on above: Performed By: #### C OVID19 FLU RSV, CEPHEID NEG #### [address] CO2 [Moles/Vol] 25.1 mmol/L Normal 21.0-31.0 [facility] Comment on above: Performed By: #### C OVID19 FLU RSV, CEPHEID NEG #### [address] Creatinine [Mass/Vol] 0.72 mg/dL Normal 0.60-1.20 [facility] Comment on above: Performed By: #### C OVID19 FLU RSV, CEPHEID NEG #### [address] Creatinine Clr Calc Pharmacy 60.75 Normal [facility] Comment on above: Result Comment: PERF ORMED BY: [place] [address] PATHOLOGIST PHLEBOTOMIST SUPERVISOR/INSTRUCTOR KIERSTEN STEVEN M.D. Performed By: #### C OVID19 FLU RSV, CEPHEID NEG #### [address] GFR/1.73 sq M.predicted MDRD (S/P/Bld) [Vol rate/Area] mL/min/{1.73_m2} Normal [facility] Comment on above: Performed By: #### C OVID19 FLU RSV, CEPHEID NEG #### [address] Glucose [Mass/Vol] 106 mg/dL High 70-100 [facility] Comment on above: Result Comment: [place] Glucose Reference Range is dependent on time and content of last meal. Glucose of more than 200 mg/dL in a nonstressed, ambulatory subject supports the diagnosis of Diabetes Mellitus. ADA recommended reference range Performed By: #### C OVID19 FLU RSV, CEPHEID NEG #### [address] Potassium Normal 3.5-5.1 [facility] Comment on above: Result Comment: Spec imen hemolyzed, redraw requested Performed By: #### C OVID19 FLU RSV, CEPHEID NEG #### [address] Sodium [Moles/Vol] 140 mmol/L Normal 136-145 [facility] Comment on above: Performed By: #### C OVID19 FLU RSV, CEPHEID NEG #### [address] Urea nitrogen [Mass/Vol] 28 mg/dL High 7-25 [facility] Comment on above: Performed By: #### C OVID19 FLU RSV, CEPHEID NEG #### [address] Complete Blood Count Auto Di ffon 01-12-2024 Basophils (Bld) [#/Vol] 0.1 10*3/uL Normal 0.0-0.2 [facility] Comment on above: Result Comment: PERF ORMED BY: [place] [address] PATHOLOGIST PHLEBOTOMIST SUPERVISOR/INSTRUCTOR KIERSTEN STEVEN M.D. Performed By: #### C OVID19 FLU RSV, CEPHEID NEG #### [place] [address] [place] Basophils/100 WBC (Bld) 1.2 % Normal . [facility] Comment on above: Performed By: #### C OVID19 FLU RSV, CEPHEID NEG #### [place] [address] [place] Eosinophils (Bld) [#/Vol] 0.2 10*3/uL Normal 0.0-0.45 [facility] Comment on above: Performed By: #### C OVID19 FLU RSV, CEPHEID NEG #### [place] [address] [place] Eosinophils/100 WBC (Bld) 3.1 % Normal . [facility] Comment on above: Performed By: #### C OVID19 FLU RSV, CEPHEID NEG #### [address] Erythrocyte distribution width (RBC) [Ratio] 13.5 % Normal 11.9-15.3 [facility] Comment on above: Performed By: #### C OVID19 FLU RSV, CEPHEID NEG #### [address] Hematocrit (Bld) [Volume fraction] 34.2 % Normal 34.0-46.4 [facility] Comment on above: Performed By: #### C OVID19 FLU RSV, CEPHEID NEG #### [address] Hemoglobin (Bld) [Mass/Vol] 11.6 g/dL Low 11.8-15.4 [facility] Comment on above: Performed By: #### C OVID19 FLU RSV, CEPHEID NEG #### [address] Lymphocytes (Bld) [#/Vol] 2.0 10*3/uL Normal 1.00-4.8 [facility] Comment on above: Performed By: #### C OVID19 FLU RSV, CEPHEID NEG #### [address] Lymphocytes/100 WBC (Bld) 32.9 % Normal . [facility] Comment on above: Performed By: #### C OVID19 FLU RSV, CEPHEID NEG #### [address] MCH (RBC) [Entitic mass] 31.3 pg Normal 24.7-34.3 [facility] Comment on above: Performed By: #### C OVID19 FLU RSV, CEPHEID NEG #### [address] MCV (RBC) [Entitic vol] 92.0 fL Normal 80-100 [facility] Comment on above: Performed By: #### C OVID19 FLU RSV, CEPHEID NEG #### [address] Mean Corpuscular HGB Conc 34.1 g/dL Normal 32.0-35.0 [facility] Comment on above: Performed By: #### C OVID19 FLU RSV, CEPHEID NEG #### [address] Monocytes (Bld) [#/Vol] 0.6 10*3/uL Normal 0.0-0.8 [facility] Comment on above: Performed By: #### C OVID19 FLU RSV, CEPHEID NEG #### [address] Monocytes/100 WBC (Bld) 10.0 % Normal . [facility] Comment on above: Performed By: #### C OVID19 FLU RSV, CEPHEID NEG #### [address] Neutrophils (Bld) [#/Vol] 3.2 10*3/uL Normal 1.8-7.7 [facility] Comment on above: Performed By: #### C OVID19 FLU RSV, CEPHEID NEG #### [address] Neutrophils/100 WBC (Bld) 52.8 % Normal . [facility] Comment on above: Performed By: #### C OVID19 FLU RSV, CEPHEID NEG #### [address] NRBC% 0.1 /100{WBC} Normal 0-0.5 [facility] Comment on above: Performed By: #### C OVID19 FLU RSV, CEPHEID NEG #### [address] Platelet mean volume (Bld) [Entitic vol] 8.6 fL Normal 6.3-10.7 [facility] Comment on above: Performed By: #### C OVID19 FLU RSV, CEPHEID NEG #### [place] [address] [place] Platelets (Bld) [#/Vol] 263 10*3/uL Normal 150-450 [facility] Comment on above: Performed By: #### C OVID19 FLU RSV, CEPHEID NEG #### [address] RBC (Bld) [#/Vol] 3.72 10*6/uL Normal 3.60-5.00 [facility] Comment on above: Performed By: #### C OVID19 FLU RSV, CEPHEID NEG #### [address] WBC (Bld) [#/Vol] 6.1 10*3/uL Normal 3.8-11.6 [facility] Comment on above: Performed By: #### C OVID19 FLU RSV, CEPHEID NEG #### [address] Redraw Potassiumon 4 Potassium [Moles/Vol] 3.7 mmol/L Normal 3.5-5.1 [facility] Comment on above: Order Comment: pt in therapy Result Comment: PERF ORMED BY: [place] [address] PATHOLOGIST PHLEBOTOMIST SUPERVISOR/INSTRUCTOR KIERSTEN STEVEN M.D. Performed By: #### C OVID19 FLU RSV, CEPHEID NEG #### [address] XR chest 2V*on 01-11-2024 XR chest 2V* [facility] [place] [address] [place] [address] XRay Report Signed Patient: Juan Hernandez MR#: [id number] : 1945 Acct:[id number] Age/Sex: 78 / F ADM Date: 01/04/24 Loc: Room: [address] [place] [address] Type: ADM IN Attending Dr: Kris Marquez MD Copies to: Kris Marquez MD Ordering Provider: Kris Marquez MD Date of Service: 01/11/24 XR/XR chest 2V*: shortness of breath Plain film chest 2 view HISTORY: Shortness of breath COMPARISON: None FINDINGS: SUPPORT DEVICES: None POSTSURGICAL CHANGES: None HEART: Borderline cardiomegaly PULMONARY SHANNEN: Within normal limits MEDIASTINUM: Unremarkable LUNGS AND PLEURA: No acute lung process, pleural effusion or pneumothorax identified. BONY STRUCTURES: Degenerative change ADDITIONAL FINDINGS None XR/XR chest 2V* IMPRESSION: No acute process. Borderline cardiomegaly Impression dictated by: Felipe Echols M.D.01/11/2024 4:10 PM Dictation Location: [place] [address] Transcribed By: [facility] 01/11/24 1610 Dictated By: Felipe Echols DO 01/11/24 1609 Signed By: 01/11/24 1610 Normal [facility] Basic Metabolic Panelon 12-11 Anion gap [Moles/Vol] 9.0 mmol/L Normal 6.0-15.0 [facility] Comment on above: Performed By: #### C OVID19 FLU RSV, CEPHEID NEG #### [facility] [address] [place] [address] [place] Calcium [Mass/Vol] 8.9 mg/dL Normal 8.6-10.3 [facility] Comment on above: Performed By: #### C OVID19 FLU RSV, CEPHEID NEG #### [facility] [address] [place] [id number] [place] Chloride [Moles/Vol] 106 mmol/L Normal 98-107 [facility] Comment on above: Performed By: #### C OVID19 FLU RSV, CEPHEID NEG #### [facility] [address] [place] [id number] [place] CO2 [Moles/Vol] 26.8 mmol/L Normal 21.0-31.0 [facility] Comment on above: Performed By: #### C OVID19 FLU RSV, CEPHEID NEG #### [facility] [address] [place] [id number] [place] Creatinine [Mass/Vol] 0.89 mg/dL Normal 0.60-1.20 [facility] Comment on above: Performed By: #### C OVID19 FLU RSV, CEPHEID NEG #### [facility] [address] [place] [id number] [place] Creatinine Clr Calc Pharmacy 54.61 Normal [facility] Comment on above: Result Comment: PERF ORMED BY: [place] [address] PATHOLOGIST PHLEBOTOMIST SUPERVISOR/INSTRUCTOR KIERSTEN STEVEN M.D. Performed By: #### C OVID19 FLU RSV, CEPHEID NEG #### [place] [address] [place] GFR/1.73 sq M.predicted MDRD (S/P/Bld) [Vol rate/Area] mL/min/{1.73_m2} Normal [facility] Comment on above: Performed By: #### C OVID19 FLU RSV, CEPHEID NEG #### [place] [address] [place] Glucose [Mass/Vol] 138 mg/dL High 70-100 [facility] Comment on above: Result Comment: [place] Glucose Reference Range is dependent on time and content of last meal. Glucose of more than 200 mg/dL in a nonstressed, ambulatory subject supports the diagnosis of Diabetes Mellitus. ADA recommended reference range Performed By: #### C OVID19 FLU RSV, CEPHEID NEG #### [place] [address] [place] Potassium [Moles/Vol] 3.8 mmol/L Normal 3.5-5.1 [facility] Comment on above: Performed By: #### C OVID19 FLU RSV, CEPHEID NEG #### [place] [address] [place] Sodium [Moles/Vol] 138 mmol/L Normal 136-145 [facility] Comment on above: Performed By: #### C OVID19 FLU RSV, CEPHEID NEG #### [place] [address] [place] Urea nitrogen [Mass/Vol] 35 mg/dL High 7-25 [facility] Comment on above: Performed By: #### C OVID19 FLU RSV, CEPHEID NEG #### [place] [address] [place] Complete Blood Count Auto Di ffon 01-07-2024 Basophils (Bld) [#/Vol] 0.1 10*3/uL Normal 0.0-0.2 [facility] Comment on above: Result Comment: PERF ORMED BY: [place] [address] PATHOLOGIST PHLEBOTOMIST SUPERVISOR/INSTRUCTOR KIERSTEN STEVEN M.D. Performed By: #### C OVID19 FLU RSV, CEPHEID NEG #### [address] Basophils/100 WBC (Bld) 1.3 % Normal . [facility] Comment on above: Performed By: #### C OVID19 FLU RSV, CEPHEID NEG #### [address] Eosinophils (Bld) [#/Vol] 0.1 10*3/uL Normal 0.0-0.45 [facility] Comment on above: Performed By: #### C OVID19 FLU RSV, CEPHEID NEG #### [address] Eosinophils/100 WBC (Bld) 1.9 % Normal . [facility] Comment on above: Performed By: #### C OVID19 FLU RSV, CEPHEID NEG #### [address] Erythrocyte distribution width (RBC) [Ratio] 13.7 % Normal 11.9-15.3 [facility] Comment on above: Performed By: #### C OVID19 FLU RSV, CEPHEID NEG #### [address] Hematocrit (Bld) [Volume fraction] 37.8 % Normal 34.0-46.4 [facility] Comment on above: Performed By: #### C OVID19 FLU RSV, CEPHEID NEG #### [address] Hemoglobin (Bld) [Mass/Vol] 12.8 g/dL Normal 11.8-15.4 [facility] Comment on above: Performed By: #### C OVID19 FLU RSV, CEPHEID NEG #### [place] [address] Lymphocytes (Bld) [#/Vol] 1.6 10*3/uL Normal 1.00-4.8 [facility] Comment on above: Performed By: #### C OVID19 FLU RSV, CEPHEID NEG #### [address] Lymphocytes/100 WBC (Bld) 29.8 % Normal . [facility] Comment on above: Performed By: #### C OVID19 FLU RSV, CEPHEID NEG #### [address] MCH (RBC) [Entitic mass] 31.2 pg Normal 24.7-34.3 [facility] Comment on above: Performed By: #### C OVID19 FLU RSV, CEPHEID NEG #### [address] MCV (RBC) [Entitic vol] 92.4 fL Normal 80-100 [facility] Comment on above: Performed By: #### C OVID19 FLU RSV, CEPHEID NEG #### [address] Mean Corpuscular HGB Conc 33.8 g/dL Normal 32.0-35.0 [facility] Comment on above: Performed By: #### C OVID19 FLU RSV, CEPHEID NEG #### [address] Monocytes (Bld) [#/Vol] 0.6 10*3/uL Normal 0.0-0.8 [facility] Comment on above: Performed By: #### C OVID19 FLU RSV, CEPHEID NEG #### [place] [address] [place] Monocytes/100 WBC (Bld) 10.3 % Normal . [facility] Comment on above: Performed By: #### C OVID19 FLU RSV, CEPHEID NEG #### [address] Neutrophils (Bld) [#/Vol] 3.1 10*3/uL Normal 1.8-7.7 [facility] Comment on above: Performed By: #### C OVID19 FLU RSV, CEPHEID NEG #### [address] Neutrophils/100 WBC (Bld) 56.7 % Normal . [facility] Comment on above: Performed By: #### C OVID19 FLU RSV, CEPHEID NEG #### [address] NRBC% 0.1 /100{WBC} Normal 0-0.5 [facility] Comment on above: Performed By: #### C OVID19 FLU RSV, CEPHEID NEG #### [address] Platelet mean volume (Bld) [Entitic vol] 8.4 fL Normal 6.3-10.7 [facility] Comment on above: Performed By: #### C OVID19 FLU RSV, CEPHEID NEG #### [address] Platelets (Bld) [#/Vol] 266 10*3/uL Normal 150-450 [facility] Comment on above: Performed By: #### C OVID19 FLU RSV, CEPHEID NEG #### [address] RBC (Bld) [#/Vol] 4.09 10*6/uL Normal 3.60-5.00 [facility] Comment on above: Performed By: #### C OVID19 FLU RSV, CEPHEID NEG #### [address] WBC (Bld) [#/Vol] 5.5 10*3/uL Normal 3.8-11.6 [facility] Comment on above: Performed By: #### C OVID19 FLU RSV, CEPHEID NEG #### [address] COVID CepheidOrdered By: Félix Marquez on 01-06-2024 SARS-CoV-2 (COVID-19) Ab [place] Ql Negative Negative [facility] Comment on above: This is a duplicate Cepheid Xpert Xpress CoV-2/Flu/RSV Plus RNA by RT-PCR result to be used for statistical tracking purpose only. SARS-CoV-2 (COVID-19) RNA TED+probe Ql (Unsp spec) [facility] COVID-19 / Flu A/B / RSV PCR on 01-06-2024 SARS-CoV-2 (COVID-19) RNA TED+probe Ql (Unsp spec) COVID-19 Cepheid Result Negative for SARS-CoV-2 RNA by RT-PCR Flu A Cepheid Result Negative for Flu A RNA by RT-PCR Flu B Cepheid Result Negative for Flu B RNA by RT-PCR RSV Cepheid Result Negative for RSV RNA by RT-PCR COVID19 Blank Space Reference: Negative COVID19 Blank Space Cepheid Disclaimer The Cepheid Xpert Xpress CoV-2/Flu/RSV Plus has Cepheid Disclaimer not been FDA cleared or approved; this test has Cepheid Disclaimer been authorized by FDA under an EUA for use by Cepheid Disclaimer authorized laboratories; this test has been Cepheid Disclaimer authorized only for the simultaneous qualitative Cepheid Disclaimer detection and differentiation of nucleic acids from Cepheid Disclaimer SARS-CoV-2, influenza A, influenza B, and Cepheid Disclaimer respiratory syncytial virus (RSV), and not for any Cepheid Disclaimer other viruses or pathogens; and this test is only Cepheid Disclaimer authorized for the duration of the declaration that Cepheid Disclaimer circumstances exist justifying the authorization of Cepheid Disclaimer emergency use of in vitro diagnostic tests for Cepheid Disclaimer detection and/or diagnosis of COVID-19 under Cepheid Disclaimer Section 564(b)(1) of the Act, 21 U.S.C. 360bbb- Cepheid Disclaimer 3(b)(1), unless the authorization is terminated or Cepheid Disclaimer revoked sooner. PERFORMED BY: [place] [address] PATHOLOGIST PHLEBOTOMIST SUPERVISOR/INSTRUCTOR KIERSTEN STEVEN M.D. Normal [facility] Comment on above: Performed By: #### C OVID19 FLU RSV, CEPHEID NEG #### [address] Cepheid COVID PCR Negativeon 01-06-2024 SARS-CoV-2 (COVID-19) RNA TED+probe Ql (Unsp spec) Negative Normal Negative [facility] Comment on above: Result Comment: This is a duplicate Cepheid Xpert Xpress CoV-2/Flu/RSV Plus RNA by RT-PCR result to be used for statistical tracking purpose only. PERFORMED BY: [place] [address] PATHOLOGIST PHLEBOTOMIST SUPERVISOR/INSTRUCTOR KIERSTEN STEVEN M.D. Performed By: #### C OVID19 FLU RSV, CEPHEID NEG #### [address] Alanine aminotransferase [En zymatic activity/volume] in Serum or PlasmaOrdered By: Kris Marquez on 01-05-2024 ALT [Catalytic activity/Vol] 58 U/L High 7-52 [facility] Comment on above: Performed By: #### P AB, CBC, CMP #### [place] [id number] [place] Albumin [Mass/volume] in Ser um or Plasma by Bromocresol green (BCG) dye binding methoOrdered By: Kris Marquez on 01-05-2024 Albumin BCG dye [Mass/Vol] 3.8 g/dL 3.5-5.7 [facility] Alkaline phosphatase [Enzyma tic activity/volume] in Serum or PlasmaOrdered By: Kris Marquez on 01-05-2024 ALP [Catalytic activity/Vol] 65 U/L Normal 34-104 [facility] Comment on above: Performed By: #### P AB, CBC, CMP #### [address] Aspartate aminotransferase [ Enzymatic activity/volume] in Serum or PlasmaOrdered By: Kris Marquez on 01-05-2024 AST [Catalytic activity/Vol] 31 U/L Normal 13-39 [facility] Comment on above: Performed By: #### P AB, CBC, CMP #### [address] Bilirubin.total [Mass/volume ] in Serum or PlasmaOrdered By: Kris Marquez on 01-05-2024 Bilirubin [Mass/Vol] 0.5 mg/dL Normal 0.3-1.0 [facility] Comment on above: Performed By: #### P AB, CBC, CMP #### [address] Complete Blood Count Auto Di ffon 01-05-2024 Basophils (Bld) [#/Vol] 0.1 10*3/uL Normal 0.0-0.2 [facility] Comment on above: Result Comment: PERF ORMED BY: [place] [address] PATHOLOGIST PHLEBOTOMIST SUPERVISOR/INSTRUCTOR KIERSTEN STEVEN M.D. Performed By: #### P AB, CBC, CMP #### [address] Basophils/100 WBC (Bld) 1.1 % Normal . T mirtha [facility] Comment on above: Performed By: #### P AB, CBC, CMP #### [address] Eosinophils (Bld) [#/Vol] 0.2 10*3/uL Normal 0.0-0.45 [facility] Comment on above: Performed By: #### P AB, CBC, CMP #### [address] Eosinophils/100 WBC (Bld) 2.9 % Normal . [facility] Comment on above: Performed By: #### P AB, CBC, CMP #### [address] Erythrocyte distribution width (RBC) [Ratio] 13.4 % Normal 11.9-15.3 [facility] Comment on above: Performed By: #### P AB, CBC, CMP #### [address] Hematocrit (Bld) [Volume fraction] 36.8 % Normal 34.0-46.4 [facility] Comment on above: Performed By: #### P AB, CBC, CMP #### [address] Hemoglobin (Bld) [Mass/Vol] 12.6 g/dL Normal 11.8-15.4 [facility] Comment on above: Performed By: #### P AB, CBC, CMP #### [address] Lymphocytes (Bld) [#/Vol] 2.0 10*3/uL Normal 1.00-4.8 [facility] Comment on above: Performed By: #### P AB, CBC, CMP #### [address] Lymphocytes/100 WBC (Bld) 33.1 % Normal . [facility] Comment on above: Performed By: #### P AB, CBC, CMP #### [address] MCH (RBC) [Entitic mass] 31.2 pg Normal 24.7-34.3 [facility] Comment on above: Performed By: #### P AB, CBC, CMP #### [address] MCV (RBC) [Entitic vol] 91.6 fL Normal 80-100 [facility] Comment on above: Performed By: #### P AB, CBC, CMP #### [address] Mean Corpuscular HGB Conc 34.1 g/dL Normal 32.0-35.0 [facility] Comment on above: Performed By: #### P AB, CBC, CMP #### [facility] [address] [place] [address] [place] Monocytes (Bld) [#/Vol] 0.8 10*3/uL Normal 0.0-0.8 [facility] Comment on above: Performed By: #### P AB, CBC, CMP #### [facility] [address] [place] [address] [place] Monocytes/100 WBC (Bld) 12.6 % Normal . [facility] Comment on above: Performed By: #### P AB, CBC, CMP #### [facility] [address] Neutrophils (Bld) [#/Vol] 3.1 10*3/uL Normal 1.8-7.7 [facility] Comment on above: Performed By: #### P AB, CBC, CMP #### [address] Neutrophils/100 WBC (Bld) 50.3 % Normal . [facility] Comment on above: Performed By: #### P AB, CBC, CMP #### [address] NRBC% 0.2 /100{WBC} Normal 0-0.5 [facility] Comment on above: Performed By: #### P AB, CBC, CMP #### [place] [address] [place] Platelet mean volume (Bld) [Entitic vol] 8.3 fL Normal 6.3-10.7 [facility] Comment on above: Performed By: #### P AB, CBC, CMP #### [facility] [address] [place] [address] [place] Platelets (Bld) [#/Vol] 258 10*3/uL Normal 150-450 [facility] Comment on above: Performed By: #### P AB, CBC, CMP #### [place] [address] [place] RBC (Bld) [#/Vol] 4.02 10*6/uL Normal 3.60-5.00 [facility] Comment on above: Performed By: #### P AB, CBC, CMP #### [address] WBC (Bld) [#/Vol] 6.1 10*3/uL Normal 3.8-11.6 [facility] Comment on above: Performed By: #### P AB, CBC, CMP #### [address] Comprehensive Metabolic Pane [facility] 01-05-2024 Albumin [Mass/Vol] 3.8 g/dL Normal 3.5-5.7 [facility] Comment on above: Performed By: #### P AB, CBC, CMP #### [address] Anion gap [Moles/Vol] 10.6 mmol/L Normal 6.0-15.0 [facility] Comment on above: Performed By: #### P AB, CBC, CMP #### [address] Calcium [Mass/Vol] 9.1 mg/dL Normal 8.6-10.3 [facility] Comment on above: Performed By: #### P AB, CBC, CMP #### [address] Chloride [Moles/Vol] 109 mmol/L High 98-107 [facility] Comment on above: Performed By: #### P AB, CBC, CMP #### [address] CO2 [Moles/Vol] 26.8 mmol/L Normal 21.0-31.0 [facility] Comment on above: Performed By: #### P AB, CBC, CMP #### [address] Creatinine [Mass/Vol] 1.03 mg/dL Normal 0.60-1.20 [facility] Comment on above: Performed By: #### P AB, CBC, CMP #### [address] [address] [place] Creatinine Clr Calc Pharmacy 45.50 Normal [facility] Comment on above: Performed By: #### P AB, CBC, CMP #### [place] [address] [place] GFR/1.73 sq M.predicted MDRD (S/P/Bld) [Vol rate/Area] 55.655 mL/min/{1.73_m2} Normal [facility] Comment on above: Performed By: #### P AB, CBC, CMP #### [address] Glucose [Mass/Vol] 103 mg/dL High 70-100 [facility] Comment on above: Result Comment: [place] Glucose Reference Range is dependent on time and content of last meal. Glucose of more than 200 mg/dL in a nonstressed, ambulatory subject supports the diagnosis of Diabetes Mellitus. ADA recommended reference range Performed By: #### P AB, CBC, CMP #### [address] Potassium [Moles/Vol] 4.4 mmol/L Normal 3.5-5.1 [facility] Comment on above: Performed By: #### P AB, CBC, CMP #### [address] Sodium [Moles/Vol] 142 mmol/L Normal 136-145 [facility] Comment on above: Performed By: #### P AB, CBC, CMP #### [address] Urea nitrogen [Mass/Vol] 42 mg/dL High 7-25 [facility] Comment on above: Performed By: #### P AB, CBC, CMP #### [address] Prealbumin [Mass/volume] in Serum or PlasmaOrdered By: Kris Marquez on 01-05-2024 Prealbumin [Mass/Vol] 22.6 mg/dL Normal 17.0-34.0 [facility] Comment on above: Result Comment: PERF ORMED BY: [place] [address] PATHOLOGIST PHLEBOTOMIST SUPERVISOR/INSTRUCTOR KIERSTEN STEVEN M.D. Performed By: #### P AB, CBC, CMP #### [address] Protein [Mass/volume] in Ser um or PlasmaOrdered By: Kris Marquez on 01-05-2024 Protein [Mass/Vol] 6.1 g/dL Low 6.4-8.9 [facility] Comment on above: Performed By: #### P AB, CBC, CMP #### [address] Serum globulin measurement b y calculation (mass/volume)Ordered By: Kris Marquez on 01-05-2024 Globulin (S) [Mass/Vol] 2.3 g/dL Normal F [facility] Comment on above: Performed By: #### P AB, CBC, CMP #### [facility] [address] [place] [address] Serum or plasma albumin/glob ulin mass ratioOrdered By: Kris Marquez on 01-05-2024 Albumin/Globulin [Mass ratio] 1.7 {ratio} Normal [facility] Comment on above: Performed By: #### P AB, CBC, CMP #### [address] THYROID PROFILEon 01-04-2024 Free T4 [Mass/Vol] 0.81 ng/dL Normal 0.61-1.60 [facility] Comment on above: Performed By: #### T HYR ####[facility] ([id number])[address], [place] [address] TSH 44.55 uIU/mL High 0.49-4.[address] [facility] Comment on above: Performed By: #### T HYR ####[facility] ([id number])[address], [place] [address] CRP [Mass/Vol]on 07-23-2024 C REACTIVE PROTEIN 0.2 mg/dL Normal 0.000-0.744 [facility] Comment on above: Performed By: #### 1 988-5 ####[facility] ([id number])[address] [address] ESR Photometric method (Bld) [Velocity]on 01-02-2024 ESR, ERYTHROCYTE SEDIMENTATION RATE 17 mm/h Normal 0-[address] [facility] Comment on above: Performed By: #### 8 2477-1 ####[facility] ([id number])[address] [address] Neutrophil cytoplasmic Ab pa tiffani IF (S)on 01-02-2024 c-ANCA Negative Normal Negative [facility] Comment on above: Performed By: #### 1 988-5 ####[facility] ([id number])[address] [address] p-ANCA Negative Normal Negative [facility] Comment on above: Result Comment: NOTE Negative for cANCA and pANCA patterns by immunofluorescence. ADDITIONAL INFORMATION This test was developed and its performance characteristics determined by [facility] in a manner consistent with CLIA requirements. This test has not been cleared or approved by the U.S. Food and Drug Administration. Test Performed by: [facility] [address] [place] [address] Head Tennis Coach: Rain Clemente Ph.D.; CLIA# [id number] Performed By: #### 1 988-5 ####[facility] ([id number])[address] [address] BASIC METABOLIC PANLon 12-29 Anion gap [Moles/Vol] 7 mmol/L Normal 5-15 [facility] Comment on above: Performed By: #### B MP ####[facility] ([id number])[address] [address], [place] [address] Calcium [Mass/Vol] 8.5 mg/dL Normal 8.5-10.5 [facility] Comment on above: Performed By: #### B MP ####[facility] ([id number])[address] [address] [place] [address] Chloride [Moles/Vol] 112 mmol/L High 98-109 [facility] Comment on above: Performed By: #### B MP ####[facility] ([id number])[address] [address] [place] [address] CO2 [Moles/Vol] 24 mmol/L Normal 22-[address] [facility] Comment on above: Performed By: #### B MP ####[facility] ([id number])[address] [address] [place] [address] Creatinine [Mass/Vol] 0.88 mg/dL Normal 0.40-1.00 [facility] Comment on above: Result Comment: METH OD TRACEABLE TO IDMS STANDARD Performed By: #### B MP ####[facility] ([id number])[address] [address], [place] [address] GFR/1.73 sq M.predicted among non-blacks MDRD (S/P/Bld) [Vol rate/Area] 67 mL/min/{1.73_m2} Normal >[address] [facility] Comment on above: Result Comment: Reported eGFR is based on the CKD-EPI 1 equation that does not use a race coefficient. Performed By: #### B MP ####[facility] ([id number])[address] [address] [address] Glucose [Mass/Vol] 140 mg/dL High 65-99 [facility] Comment on above: Performed By: #### B MP ####[facility] ([id number])[address], [place] [address] Potassium [Moles/Vol] 3.9 mmol/L Normal 3.5-5.0 [facility] Comment on above: Performed By: #### B MP ####[facility] ([id number])[address], [place] [address] Sodium [Moles/Vol] 143 mmol/L Normal 134-146 [facility] Comment on above: Performed By: #### B MP ####[facility] ([id number])[address], [place] [address] Urea nitrogen [Mass/Vol] 33 mg/dL High 5-[address] [facility] Comment on above: Performed By: #### B MP ####[facility] ([id number])[address], [place] [address] BASIC METABOLIC PANLon 12-28 Anion gap [Moles/Vol] 10 mmol/L Normal 5-15 [facility] Comment on above: Performed By: #### Duc SHANNON, 81758-1 ####[facility] ([id number])[address], [place] [address] Calcium [Mass/Vol] 8.9 mg/dL Normal 8.5-10.5 [facility] Comment on above: Performed By: #### Duc SHANNON, 06431-0 ####[facility] ([id number])[address], [place] [address] Chloride [Moles/Vol] 106 mmol/L Normal 98-109 [facility] Comment on above: Performed By: #### Duc SHANNON, 00799-3 ####[facility] ([id number])[address], [place] [address] CO2 [Moles/Vol] 25 mmol/L Normal 22-[address] [facility] Comment on above: Performed By: #### B SHIVA, 65112-8 ####[facility] ([id number])[address] [address], [place] [address] Creatinine [Mass/Vol] 1.03 mg/dL High 0.40-1.00 [facility] Comment on above: Result Comment: METH OD TRACEABLE TO IDMS STANDARD Performed By: #### Duc SHANNON, 78558-5 ####[facility] ([id number])[address] [address], [place] [address] GFR/1.73 sq M.predicted among non-blacks MDRD (S/P/Bld) [Vol rate/Area] 56 mL/min/{1.73_m2} Low >[address] [facility] Comment on above: Result Comment: Reported eGFR is based on the CKD-EPI 2020 equation that does not use a race coefficient. Performed By: #### Duc SHANNON, 92564-6 ####[facility] ([id number])[address] [address], [place] [address] Glucose [Mass/Vol] 131 mg/dL High 65-99 [facility] Comment on above: Performed By: #### Duc SHANNON, 08233-9 ####[facility] ([id number])[address] [address], [place] [address] Potassium [Moles/Vol] 3.7 mmol/L Normal 3.5-5.0 [facility] Comment on above: Performed By: #### Duc SHANNON, 76252-6 ####[facility] ([id number])[address] [address], [place] [address] Sodium [Moles/Vol] 141 mmol/L Normal 134-146 [facility] Comment on above: Performed By: #### Duc SHANNON, 41945-5 ####[facility] ([id number])[address] [address], [place] [address] Urea nitrogen [Mass/Vol] 36 mg/dL High 5-[address] [facility] Comment on above: Performed By: #### B , 43895-8 ####[facility] ([id number])2[address] [facility], [address] [place] [address] FL SWALLOW MOTILITY FUNCTION on 12-29-2023 FL SWALLOW MOTILITY FUNCTION FL SWALLOW MOTILITY FUNCTION FL SWALLOW MOTILITY FUNCTION HISTORY: Oropharyngeal dysphagia COMPARISON: 12/26/2023 TECHNIQUE: Video fluoroscopic swallow study was performed in conjunction with speech pathologist. Barium contrast materials of varying consistencies administered. FINDINGS: Dose: 4.5 mGy reference air kerma Thin: No penetration or aspiration. Applesauce: No penetration or aspiration. Fruit: No penetration or aspiration. IMPRESSION: 1. Unremarkable study. 2. Please correlate with dedicated speech pathology report for additional details and recommendations. Approved by Resident: Christiano Kessler MD on 12/29/2023 10:56 AM IGeoff MD have personally reviewed the image(s) and agree with and/or edited the report Finalized by Geoff Mckeon MD on 12/29/2023 10:[address] [facility] Glucose Glucometer (BldC) [M ass/Vol]on 12-29-2023 Glucose [Mass/Vol] 134 mg/dL High 65-99 [facility] Glucose [Mass/Vol] 108 mg/dL High 65-99 [facility] Glucose [Mass/Vol] 160 mg/dL High 65-99 [facility] Troponin I.cardiac High sens itivity method [Mass/Vol]on 12-29-2023 1 HOUR TROP I, HIGH SENSITIVITY 26 ng/L High <[address] [facility] Comment on above: Result Comment: Elevations of hs-Troponin may be due to causes other than myocardial ischemia. Recommend serial hs-Troponin testing be performed. For the initial evaluation and management of chest pain patients, refer to the algorithms linked below. Emergency Patient: [email or web address] Inpatient: [email or web address] Performed By: #### 8 9579-7 ####[facility] ([id number])[address] [place] [address] TROPONIN I, HIGH SENSITIVITY 27 ng/L High <[address] [facility] Comment on above: Result Comment: Elevations of hs-Troponin may be due to causes other than myocardial ischemia. Recommend serial hs-Troponin testing be performed. For the initial evaluation and management of chest pain patients, refer to the algorithms linked below. Emergency Patient: [email or web address] Inpatient: [email or web address] Performed By: #### 8 9579-7 ####[facility] ([id number])[address], [address] [place] [address] XR CHEST 2 VWSon 12-29-2023 XR CHEST 2 VWS XR CHEST 2 VWS Chest 2 views History: Shortness of breath pt states she's having difficulty inflating right lung/breathing. Comparison: 07/08/2020 Findings: Chest 2 views. Stable cardia mediastinal silhouette. No focal opacity, effusion or pneumothorax. Degenerative changes of the thoracic spine. Impression: No evident acute cardiopulmonary process. Finalized by Armando Winchester MD on 12/29/2023 2:[address] [facility] aPTT Coag (PPP) [Time]on aPTT Coag (Bld) [Time] 29 s Normal 26-37 [facility] Comment on above: Performed By: #### [place], 91966-6 ####[facility] ([id number])[address], [address] [place] [address] BASIC METABOLIC PANLon 12-27 Anion gap [Moles/Vol] 8 mmol/L Normal 5-15 [facility] Comment on above: Performed By: #### C BCA, BMP ####[facility] ([id number])[address] [address] [place] [address] Calcium [Mass/Vol] 9.1 mg/dL Normal 8.5-10.5 [facility] Comment on above: Performed By: #### C BCA, BMP ####[facility] ([id number])[address] [address], [place] [address] Chloride [Moles/Vol] 106 mmol/L Normal 98-109 [facility] Comment on above: Performed By: #### C BCA, BMP ####[facility] ([id number])[address] [address] [place] [address] CO2 [Moles/Vol] 28 mmol/L Normal 22-[address] [facility] Comment on above: Performed By: #### C BCA, BMP ####[facility] ([id number])[address] [address] [place] [address] Creatinine [Mass/Vol] 1.07 mg/dL High 0.40-1.00 [facility] Comment on above: Result Comment: METH OD TRACEABLE TO IDMS STANDARD Performed By: #### C BCA, BMP ####[facility] ([id number])[address] [address] GFR/1.73 sq M.predicted among non-blacks MDRD (S/P/Bld) [Vol rate/Area] 53 mL/min/{1.73_m2} Low >[address] [facility] Comment on above: Result Comment: Reported eGFR is based on the CKD-EPI 2020 equation that does not use a race coefficient. Performed By: #### C BCA, BMP ####[facility] ([id number])[address] [address] [place] [address] Glucose [Mass/Vol] 130 mg/dL High 65-99 [facility] Comment on above: Performed By: #### C BCA, BMP ####[facility] ([id number])[address], [place] [address] Potassium [Moles/Vol] 3.6 mmol/L Normal 3.5-5.0 [facility] Comment on above: Performed By: #### C BCA, BMP ####[facility] ([id number])[address], [place] [address] Sodium [Moles/Vol] 142 mmol/L Normal 134-146 [facility] Comment on above: Performed By: #### C BCA, BMP ####[facility] ([id number])[address], [address] [place] [address] Urea nitrogen [Mass/Vol] 31 mg/dL High 5-[address] [facility] Comment on above: Performed By: #### C BCA, BMP ####[facility] ([id number])[address], [address] [place] [address] CBC AND AUTO DIFFon 18-20 24 ABSOLUTE BASOPHIL 0.1 X10E9/L Normal 0.0-0.2 [facility] Comment on above: Performed By: #### C BCA, BMP ####[facility] ([id number])[address], [place] [address] ABSOLUTE NEUTROPHIL 3.8 X10E9/L Normal 1.5-6.6 [facility] Comment on above: Performed By: #### C BCA, BMP ####[facility] ([id number])[address], [address] [place] [address] Basophils/100 WBC (Bld) 1.1 % Normal P [facility] Comment on above: Performed By: #### C BCA, BMP ####[facility] ([id number])[address] [address] [place] [address] Eosinophils (Bld) [#/Vol] 0.2 10*3/uL Normal 0.0-0.[address] [facility] Comment on above: Performed By: #### C ALISON, BMP ####[facility] ([id number])[address], [address] [place] [address] Eosinophils/100 WBC (Bld) 2.7 % Normal [facility] Comment on above: Performed By: #### C ALISON, BMP ####[facility] ([id number])[address], [address] [address] Erythrocyte distribution width (RBC) [Ratio] 13.4 % Normal 11.5-15.[address] [facility] Comment on above: Performed By: #### C ALISON, BMP ####[facility] ([id number])[address], [address] [place] [address] Hematocrit (Bld) [Volume fraction] 39.5 % Normal 35-[address] [facility] Comment on above: Performed By: #### C ALISNO, BMP ####[facility] ([id number])[address], [address] [place] [address] Hemoglobin (Bld) [Mass/Vol] 13.5 g/dL Normal 11.7-15.[address] [facility] Comment on above: Performed By: #### C ALISON, BMP ####[facility] ([id number])[address] [address] [address] Lymphocytes (Bld) [#/Vol] 1.9 10*3/uL Normal 1.0-3.[address] [facility] Comment on above: Performed By: #### C ALISON, BMP ####[facility] ([id number])[address] [address] [place] [address] Lymphocytes/100 WBC (Bld) 28.6 % Normal [facility] Comment on above: Performed By: #### C ALISON, BMP ####[facility] ([id number])[address], [address] [place] [address] MCH (RBC) [Entitic mass] 31.5 pg Normal 27-[address] [facility] Comment on above: Performed By: #### C ALISON, BMP ####[facility] ([id number])[address], [address] [place] [address] MCHC (RBC) [Mass/Vol] 34.3 g/dL Normal 32-36 [facility] Comment on above: Performed By: #### C ALISON, BMP ####[facility] ([id number])[address], [address] [place] [address] MCV (RBC) [Entitic vol] 92 fL Normal 80-100 [facility] Comment on above: Performed By: #### C ALISON, BMP ####[facility] ([id number])[address] [place] [address] Monocytes (Bld) [#/Vol] 0.8 10*3/uL Normal 0-0.[address] [facility] Comment on above: Performed By: #### C ALISON, BMP ####[facility] ([id number])[address] [place] [address] Monocytes/100 WBC (Bld) 11.3 % Normal [facility] Comment on above: Performed By: #### C ALISON, BMP ####[facility] ([id number])[address] [address] [place] [address] Neutrophils/100 WBC (Bld) 56.3 % Normal [facility] Comment on above: Performed By: #### C ALISON, BMP ####[facility] ([id number])[address], [address] [place] [address] Platelet mean volume (Bld) [Entitic vol] 8.0 fL Normal 7-[address] [facility] Comment on above: Performed By: #### C BCA, BMP ####[facility] ([id number])[address], [address] [place] [address] Platelets (Bld) [#/Vol] 258 10*3/uL Normal 150-[address] [facility] Comment on above: Performed By: #### C BCA, BMP ####[facility] ([id number])[address], [address] [place] [address] RBC COUNT 4.30 X10E12/L Normal 3.80-5.[address] [facility] Comment on above: Performed By: #### C BCA, BMP ####[facility] ([id number])[address], [address] [place] [address] WBC (Bld) [#/Vol] 6.8 10*3/uL Normal 4.0-11.0 [facility] Comment on above: Performed By: #### C BCA, BMP ####[facility] ([id number])[address], [address] [place] [address] Glucose Glucometer (BldC) [M ass/Vol]on 12-28-2023 Glucose [Mass/Vol] 108 mg/dL High 65-99 [facility] Glucose [Mass/Vol] 130 mg/dL High 65-99 [facility] Glucose [Mass/Vol] 157 mg/dL High 65-99 [facility] BASIC METABOLIC PANLon 12-26 Anion gap [Moles/Vol] 9 mmol/L Normal 5-15 [facility] Comment on above: Performed By: #### H A1C #### [facility] ([id number]) [address], [address] [place] [address] Calcium [Mass/Vol] 9.0 mg/dL Normal 8.5-10.5 [facility] Comment on above: Performed By: #### H A1C #### [facility] ([id number]) [address], [address] [place] [address] Chloride [Moles/Vol] 102 mmol/L Normal 98-109 [facility] Comment on above: Performed By: #### H A1C #### [facility] ([id number]) [address], [address] [place] [address] CO2 [Moles/Vol] 29 mmol/L Normal 22-[address] [facility] Comment on above: Performed By: #### H A1C #### [facility] ([id number]) [address] [address] [place] [address] Creatinine [Mass/Vol] 0.86 mg/dL Normal 0.40-1.00 [facility] Comment on above: Result Comment: METH OD TRACEABLE TO IDMS STANDARD Performed By: #### H A1C #### [facility] ([id number]) [address], [address] [place] [address] GFR/1.73 sq M.predicted among non-blacks MDRD (S/P/Bld) [Vol rate/Area] 69 mL/min/{1.73_m2} Normal >[address] [facility] Comment on above: Result Comment: Reported eGFR is based on the CKD-EPI 2020 equation that does not use a race coefficient. Performed By: #### H A1C #### [facility] ([id number]) [address], [address] [place] [address] Glucose [Mass/Vol] 123 mg/dL High 65-99 [facility] Comment on above: Performed By: #### H A1C #### [facility] ([id number]) [address] [address] [place] [address] Potassium [Moles/Vol] 3.8 mmol/L Normal 3.5-5.0 [facility] Comment on above: Performed By: #### H A1C #### [facility] ([id number]) [address] [place] [address] Sodium [Moles/Vol] 140 mmol/L Normal 134-146 [facility] Comment on above: Performed By: #### H A1C #### [facility] ([id number]) [address], [address] [place] [address] Urea nitrogen [Mass/Vol] 19 mg/dL Normal 5-[address] [facility] Comment on above: Performed By: #### H A1C #### [facility] ([id number]) [address], [address] [place] [address] CBC AND AUTO DIFFon 12-27-19 24 ABSOLUTE BASOPHIL 0.0 X10E9/L Normal 0.0-0.2 [facility] Comment on above: Performed By: #### H A1C #### [facility] ([id number]) [address], [address] [place] [address] ABSOLUTE NEUTROPHIL 6.1 X10E9/L Normal 1.5-6.6 [facility] Comment on above: Performed By: #### H A1C #### [facility] ([id number]) [address], [address] [place] [address] Basophils/100 WBC (Bld) 0.5 % Normal [facility] Comment on above: Performed By: #### H A1C #### [facility] ([id number]) [address], [address] [place] [address] Eosinophils (Bld) [#/Vol] 0.1 10*3/uL Normal 0.0-0.[address] [facility] Comment on above: Performed By: #### H A1C #### [facility] ([id number]) [address], [address] [place] [address] Eosinophils/100 WBC (Bld) 0.9 % Normal [facility] Comment on above: Performed By: #### H A1C #### [facility] ([id number]) [address], [address] [place] [address] Erythrocyte distribution width (RBC) [Ratio] 13.8 % Normal 11.5-15.[address] [facility] Comment on above: Performed By: #### H A1C #### [facility] ([id number]) [address], [address] [place] [address] Hematocrit (Bld) [Volume fraction] 41.4 % Normal 35-[address] [facility] Comment on above: Performed By: #### H A1C #### [facility] ([id number]) [address], [address] [place] [address] Hemoglobin (Bld) [Mass/Vol] 13.9 g/dL Normal 11.7-15.[address] [facility] Comment on above: Performed By: #### H A1C #### [facility] ([id number]) [address], [address] [place] [address] Lymphocytes (Bld) [#/Vol] 2.2 10*3/uL Normal 1.0-3.[address] [facility] Comment on above: Performed By: #### H A1C #### [facility] ([id number]) [address] [place] [address] Lymphocytes/100 WBC (Bld) 23.8 % Normal [facility] Comment on above: Performed By: #### H A1C #### [facility] ([id number]) [address] [place] [address] MCH (RBC) [Entitic mass] 30.8 pg Normal 27-[address] [facility] Comment on above: Performed By: #### H A1C #### [facility] ([id number]) [address] [place] [address] MCHC (RBC) [Mass/Vol] 33.4 g/dL Normal 32-36 [facility] Comment on above: Performed By: #### H A1C #### [facility] ([id number]) [address], [address] [place] [address] MCV (RBC) [Entitic vol] 92 fL Normal 80-100 [facility] Comment on above: Performed By: #### H A1C #### [facility] ([id number]) [address], [address] [place] [address] Monocytes (Bld) [#/Vol] 0.7 10*3/uL Normal 0-0.[address] [facility] Comment on above: Performed By: #### H A1C #### [facility] ([id number]) [address] [place] [address] Monocytes/100 WBC (Bld) 7.7 % Normal [facility] Comment on above: Performed By: #### H A1C #### [facility] ([id number]) [address] [place] [address] Neutrophils/100 WBC (Bld) 67.1 % Normal [facility] Comment on above: Performed By: #### H A1C #### [facility] ([id number]) [address] [place] [address] Platelet mean volume (Bld) [Entitic vol] 8.0 fL Normal 7-[address] [facility] Comment on above: Performed By: #### H A1C #### [facility] ([id number]) [address] [place] [address] Platelets (Bld) [#/Vol] 267 10*3/uL Normal 150-[address] [facility] Comment on above: Performed By: #### H A1C #### [facility] ([id number]) [address], [address] [place] [address] RBC COUNT 4.50 X10E12/L Normal 3.80-5.[address] [facility] Comment on above: Performed By: #### H A1C #### [facility] ([id number]) [address] [place] [address] WBC (Bld) [#/Vol] 9.1 10*3/uL Normal 4.0-11.0 [facility] Comment on above: Performed By: #### H A1C #### [facility] ([id number]) [address] [place] [address] MR BRAIN WO CONTon MR BRAIN WO CONT MR BRAIN WO CONT STUDY: MR BRAIN WO CONT INDICATION: Neuro deficit, acute, stroke suspected. TECHNIQUE: * Routine multiplanar multisequence MR imaging of the brain was performed without intravenous contrast. FINDINGS: Large acute right basal ganglia/centrum semiovale infarct. Tiny region of susceptibility along the inferior aspect of this infarct is nonspecific but a petechial hemorrhage or congestive vessel is not excluded. Additional punctate infarct in the left centrum semiovale. Slight mass effect and partial effacement of the right lateral ventricle. Sequela of remote infarct in the left occipital lobe with associated encephalomalacia and gliosis. Brain volume, ventricles and sulci are otherwise unremarkable. Bilateral lens replacement. Paranasal sinuses and mastoid air cells are clear. Remote ischemic changes in the right thalamus and dipti. IMPRESSION: * Acute right striatocapsular infarct; tiny region of susceptibility artifact in this region may reflect a congested vessel or petechial hemorrhage. * Additional punctate acute infarct in the left centrum semiovale. * Remote infarct in the left occipital lobe, right thalamus and dipti. THIS REPORT CONTAINS A SIGNIFICANT RESULT AND/OR RECOMMENDATION, WHICH REQUIRES THE ATTENTION OF THE LICENSED CAREGIVER RESPONSIBLE FOR THIS PATIENT. THEREFORE, I SPECIFICALLY DESIGNATED THIS REPORT TO BE TELEPHONED BY THE RADIOLOGY DEPARTMENT. FINDINGS WERE INSTRUCTED TO BE CALLED TO THE CLINICAL SERVICE ON 12/27/2023 3:24 PM Finalized by Herbert Elena on 12/27/2023 3:[address] [facility] BASIC METABOLIC PANLon 12-25 Anion gap [Moles/Vol] 9 mmol/L Normal 5-15 [facility] Comment on above: Performed By: #### C BCA, BMP, 61563-5, THYR #### [facility] ([id number]) [address] [place] [address] Calcium [Mass/Vol] 8.9 mg/dL Normal 8.5-10.5 [facility] Comment on above: Performed By: #### C BCA, BMP, 06025-7, THYR #### [facility] ([id number]) [address] [place] [address] Chloride [Moles/Vol] 102 mmol/L Normal 98-109 [facility] Comment on above: Performed By: #### C BCA, BMP, 84647-9, THYR #### [facility] ([id number]) [address] [place] [address] CO2 [Moles/Vol] 28 mmol/L Normal 22-[address] [facility] Comment on above: Performed By: #### C BCA, BMP, 99377-7, THYR #### [facility] ([id number]) [address], [address] [place] [address] Creatinine [Mass/Vol] 0.79 mg/dL Normal 0.40-1.00 [facility] Comment on above: Result Comment: METH OD TRACEABLE TO IDMS STANDARD Performed By: #### C BCA, BMP, 76217-9, THYR #### [facility] ([id number]) [address], [address] [place] [address] GFR/1.73 sq M.predicted among non-blacks MDRD (S/P/Bld) [Vol rate/Area] 77 mL/min/{1.73_m2} Normal >[address] [facility] Comment on above: Result Comment: Reported eGFR is based on the CKD-EPI 2020 equation that does not use a race coefficient. Performed By: #### C BCA, BMP, 73969-8, THYR #### [facility] ([id number]) [address], [address] [place] [address] Glucose [Mass/Vol] 118 mg/dL High 65-99 [facility] Comment on above: Performed By: #### C BCA, BMP, 19973-1, THYR #### [facility] ([id number]) [address] [place] [address] Potassium [Moles/Vol] 3.5 mmol/L Normal 3.5-5.0 [facility] Comment on above: Performed By: #### C BCA, BMP, 02512-7, THYR #### [facility] ([id number]) [address] [place] [address] Sodium [Moles/Vol] 139 mmol/L Normal 134-146 [facility] Comment on above: Performed By: #### C BCA, BMP, 07039-4, THYR #### [facility] ([id number]) [address] [place] [address] Urea nitrogen [Mass/Vol] 16 mg/dL Normal 5-[address] [facility] Comment on above: Performed By: #### C BCA, BMP, 59524-4, THYR #### [facility] ([id number]) [address], [address] [place] [address] CBC AND AUTO DIFFon 12-26-19 24 ABSOLUTE BASOPHIL 0.1 X10E9/L Normal 0.0-0.2 [facility] Comment on above: Performed By: #### C BCA, BMP, 06867-0, THYR #### [facility] ([id number]) [address] [place] [address] ABSOLUTE NEUTROPHIL 5.3 X10E9/L Normal 1.5-6.6 [facility] Comment on above: Performed By: #### C BCA, BMP, 40083-6, THYR #### [facility] ([id number]) [address], [address] [place] [address] Basophils/100 WBC (Bld) 0.8 % Normal [facility] Comment on above: Performed By: #### C ALISON BMP, 70568-1, THYR #### [facility] ([id number]) [address] [place] [address] Eosinophils (Bld) [#/Vol] 0.0 10*3/uL Normal 0.0-0.[address] [facility] Comment on above: Performed By: #### C ALISON, BMP, 90832-9, THYR #### [facility] ([id number]) [address], [address] [place] [address] Eosinophils/100 WBC (Bld) 0.4 % Normal [facility] Comment on above: Performed By: #### C ALISON, BMP, 43505-8, THYR #### [facility] ([id number]) [address] [place] [address] Erythrocyte distribution width (RBC) [Ratio] 13.4 % Normal 11.5-15.[address] [facility] Comment on above: Performed By: #### C ALISON, BMP, 26285-1, THYR #### [facility] ([id number]) [address] [address] [place] [address] Hematocrit (Bld) [Volume fraction] 37.6 % Normal 35-[address] [facility] Comment on above: Performed By: #### C ALISON, BMP, 83184-3, THYR #### [facility] ([id number]) [address] [place] [address] Hemoglobin (Bld) [Mass/Vol] 12.6 g/dL Normal 11.7-15.[address] [facility] Comment on above: Performed By: #### C ALISON, BMP, 84543-3, THYR #### [facility] ([id number]) [address] [address] [place] [address] Lymphocytes (Bld) [#/Vol] 1.7 10*3/uL Normal 1.0-3.[address] [facility] Comment on above: Performed By: #### C ALISON BMP, 22376-1, THYR #### [facility] ([id number]) [address] [address] [place] [address] Lymphocytes/100 WBC (Bld) 21.9 % Normal [facility] Comment on above: Performed By: #### C ALISON, BMP, 91204-9, THYR #### [facility] ([id number]) [address] [address] [place] [address] MCH (RBC) [Entitic mass] 30.2 pg Normal 27-[address] [facility] Comment on above: Performed By: #### C ALISON BMP, 73361-7, THYR #### [facility] ([id number]) [address] [facility] [address] [place] [address] MCHC (RBC) [Mass/Vol] 33.5 g/dL Normal 32-36 [facility] Comment on above: Performed By: #### C ALISON, BMP, 51637-5, THYR #### [facility] ([id number]) [address] [address] [place] [address] MCV (RBC) [Entitic vol] 90 fL Normal 80-100 [facility] Comment on above: Performed By: #### C ALISON, BMP, 79337-3, THYR #### [facility] ([id number]) [address] [address] [place] [address] Monocytes (Bld) [#/Vol] 0.6 10*3/uL Normal 0-0.[address] [facility] Comment on above: Performed By: #### C ALISON, BMP, 72204-9, THYR #### [facility] ([id number]) [address] [address] [place] [address] Monocytes/100 WBC (Bld) 7.7 % Normal [facility] Comment on above: Performed By: #### C BCA, BMP, 68321-7, THYR #### [facility] ([id number]) [address] [place] [address] Neutrophils/100 WBC (Bld) 69.2 % Normal [facility] Comment on above: Performed By: #### C BCA, BMP, 65391-6, THYR #### [facility] ([id number]) [address] [place] [address] Platelet mean volume (Bld) [Entitic vol] 7.9 fL Normal 7-[address] [facility] Comment on above: Performed By: #### C ALISON, BMP, 93548-4, THYR #### [facility] ([id number]) [address] [place] [address] Platelets (Bld) [#/Vol] 256 10*3/uL Normal 150-[address] [facility] Comment on above: Performed By: #### C BCA, BMP, 93327-0, THYR #### [facility] ([id number]) [address] [place] [address] RBC COUNT 4.17 X10E12/L Normal 3.80-5.[address] [facility] Comment on above: Performed By: #### C BCA, BMP, 51664-4, THYR #### [facility] ([id number]) [address] [place] [address] WBC (Bld) [#/Vol] 7.6 10*3/uL Normal 4.0-11.0 [facility] Comment on above: Performed By: #### C BCA, BMP, 16652-5, THYR #### [facility] ([id number]) [address], [address] [place] [address] CT BRAIN WO CONTon CT BRAIN WO CONT CT BRAIN WO CONT CT BRAIN WO CONT HISTORY: Acute neurological deficit, facial droop, acute stroke suspected. COMPARISON: Same day CTA head. TECHNIQUE: CT head was performed and images obtained without the use of intravenous contrast. Quantitative brain tissue characterization with automated hyperdensity volume assessment was performed utilizing [employer] hyperdensity software for data processing and calculation. FINDINGS: Hypoattenuating right basal ganglia with reduction of reynoso-white differentiation. Likely old left basal ganglia stroke. Old left occipital stroke. Periventricular hypoattenuation suggestive chronic microvascular ischemia. No acute hemorrhage. Ventricular system is normal in size for the patient's age. Brainstem and cerebellum are unremarkable. Bilateral lens replacements, intraorbital contents otherwise unremarkable paranasal sinuses are clear. Mastoid air cells are clear. No acute osseous process process.d no CT evidence of intracranial hemorrhage. IMPRESSION: * Right basal ganglia hypoattenuation with reduced reynoso-white differentiation which is concerning for subacute ischemia. MRI recommended for further evaluation. All CT scans at this facility use dose modulation, iterative reconstruction, and/or weight based dosing when appropriate to reduce radiation dose to as low as reasonably achievable. Approved by Resident Jeffrey Tillman MD on 12/26/2023 6:40 AM IArmando MD have personally reviewed the image(s) and agree with and/or edited the report Finalized by Armando Winchester MD on 12/26/2023 7:[address] [facility] CT CEREBRAL PERF ANALYSISon 12-26-[address]IS [address] CEREBRAL PERF ANALYSIS History: Stroke, CVA, TIA, left-sided neurologic deficit, acute neurologic deficit Comparison: 12/25/2023 Procedure: CT brain perfusion study performed using IV contrast without complication. Examination was performed with postprocessing in the 3-D lab under concurrent supervision on an independent workstation. Parametric maps generated included mean transit time, cerebral blood volume and cerebral blood flow. Contrast: 40 mL IV Omnipaque 350 Findings: Image quality: Adequate Arterial input function ISAK selected: Left MCA Venous outflow function ISAK: Torcula CT perfusion characteristics: Cerebral blood flow: Symmetric Mean transit time: Symmetric Cerebral blood volume: Symmetric Vascular territory involved: Symmetric Tissue involved: None Impression: Symmetric perfusion indices. Right basal ganglial and MCA distribution low attenuation which may represent evolving subacute or prior infarct. All CT scans at this facility use dose modulation, iterative reconstruction, and/or weight based dosing when appropriate to reduce radiation dose to as low as reasonably achievable. Finalized by Armando Winchester MD on 12/26/2023 7:[address] [facility] CT CTA CAROTIDon 12-26-[address] CTA CAROTID CLINICAL INFORMATION: Acute neurological deficit. Facial droop. TECHNIQUE: CT angiogram performed following intravenous administration of nonionic intravenous contrast. Coronal and sagittal and 3-D volume rendered maximum intensity projection images generated and reviewed under concurrent physician supervision. Automated exposure control utilized. The [place] Symptomatic Carotid Endarterectomy Trial (NASCET) method for calculating the degree of stenosis was utilized for stenosis measurements. All CT scans at this facility use dose modulation, iterative reconstruction, and/or weight based dosing when appropriate to reduce radiation dose to as low as reasonably achievable. COMPARISON: CTA neck 12/25/2023 and 07/08/2020 FINDINGS: Thoracic aorta is nonaneurysmal. Conventional branching of the aortic arch. Brachiocephalic, right subclavian, left subclavian arteries are patent. There vertebral arteries arise from the subclavian arteries. Normal course and caliber of the bilateral cervical segment vertebral arteries. Normal course and caliber of the bilateral common carotid arteries. Calcified and noncalcified plaque of the right carotid bulb resulting in moderate narrowing of the right external carotid artery origin. Additional long segment atherosclerosis of the proximal right internal carotid artery results in approximately 75 % stenosis per NASCET criteria. Multifocal areas of narrowing involving the proximal left internal carotid artery are noted resulting in up to 50% stenosis near the origin. The distal cervical segment internal carotid arteries are within normal limits. Nonvascular findings: Deep dental caries. Degenerative changes of the cervical spine. Mosaic attenuation of the lungs is nonspecific but can be seen in the setting of air trapping. IMPRESSION: * No acute change since 12/25/2023. * Similar long segment of severe stenosis involving the proximal right internal carotid artery and moderate stenosis of the proximal left internal carotid artery. Finalized by Beck Bhardwaj MD on 12/26/2023 8:[address] [facility] CT CTA HEADon 12-26-[address] CTA HEAD CT CTA HEAD CLINICAL INFORMATION: Acute neurological deficit. Facial droop. COMPARISON: CT head 12/25/2023. TECHNIQUE/PROCEDURE: CT angiography of the head obtained during intravenous administration of contrast. Automated exposure control was utilized. Arterial blood flow was measured to assist the stroke clinical team in the diagnosis of large vessel occlusion in patients undergoing screening for acute ischemic stroke using Rapid AI software when clinically indicated. In addition, MIP and/or 3-D reformatted images were constructed under concurrent physician supervision on an independent workstation for evaluation of the the cerebral arteries to better define anatomy and possible pathology. FINDINGS: Unchanged appearance of the intracranial internal carotid arteries. Irregular atherosclerotic plaque of the right greater than left cavernous segment internal carotid arteries resulting in mild to moderate narrowing on the right and mild narrowing on the left. Anterior cerebral arteries are unremarkable. Mild narrowing of the right M1 segment. Severe stenosis/near occlusion of the right M2/M3 branch vessel (series 309 image 130). Moderate narrowing of the left M2 branches, similar to recent prior exam. Vertebral arteries and basilar artery are unchanged with no new high-grade areas of focal stenosis or occlusion. There is severe narrowing of the bilateral proximal posterior cerebral arteries which may be reconstituted distally, evaluation compromised due to venous contamination. No visible intracranial aneurysm. IMPRESSION: * Multifocal areas of intracranial arterial stenosis similar to recent examination from 12/25/2023. No new high-grade areas of focal stenosis or occlusion. All CT scans at this facility use dose modulation, iterative reconstruction, and/or weight based dosing when appropriate to reduce radiation dose to as low as reasonably achievable. Finalized by Beck Bhardwaj MD on 12/26/2023 7:35 AM [facility] FL SWALLOW MOTILITY FUNCTION on 12-26-2023 FL SWALLOW MOTILITY FUNCTION FL SWALLOW MOTILITY FUNCTION FL SWALLOW MOTILITY FUNCTION HISTORY: Oropharyngeal dysphagia COMPARISON: None TECHNIQUE: Video fluoroscopic swallow study was performed in conjunction with speech pathologist. Barium contrast materials of varying consistencies administered. FINDINGS: Dose: 2.20 mGy reference air kerma Thin: No penetration or aspiration. Applesauce: No penetration or aspiration. Fruit: No penetration or aspiration. Cracker: No penetration or aspiration. IMPRESSION: 1. Unremarkable study. 2. Please correlate with dedicated speech pathology report for additional details and recommendations. Approved by Resident: Christiano Kessler MD on 12/26/2023 1:34 PM Beck Garay MD have personally reviewed the image(s) and agree with and/or edited the report Finalized by Beck Bhardwaj MD on 12/26/2023 2:[address] [facility] Glucose Glucometer (BldC) [M ass/Vol]on 12-26-2023 Glucose [Mass/Vol] 134 mg/dL High 65-99 [facility] Glucose [Mass/Vol] 139 mg/dL High 65-99 [facility] Glucose [Mass/Vol] 120 mg/dL High 65-99 [facility] Glucose [Mass/Vol] 154 mg/dL High 65-99 [facility] Lipid 1996 panelon Cholesterol [Mass/Vol] 219 mg/dL High 150-200 [facility] Comment on above: Performed By: #### C ALISON, CUCA, 33250-1, THYR #### [facility] ([id number]) [address], [address] [place] [address] Cholesterol in HDL [Mass/Vol] 46 mg/dL Normal >[address] [facility] Comment on above: Result Comment: HDL <40 mg/dL - High Risk HDL > or = 40mg/dL- Desirable HDL >60 mg/dL - Negative Risk Performed By: #### C ALISON, CUCA, 38693-2, THYR #### [facility] ([id number]) [address], [address] [place] [address] Cholesterol in LDL [Mass/Vol] 154 mg/dL High <[address] [facility] Comment on above: Result Comment: LDL <100 mg/dL - Desirable LDL >160 mg/dL - High Risk Performed By: #### C ALISON BMP, 83132-9, THYR #### [facility] ([id number]) [address], [facility] [address] [place] [address] Cholesterol in VLDL [Mass/Vol] 19 mg/dL Normal 0-[address] [facility] Comment on above: Performed By: #### C ALISON BMP, 17738-7, THYR #### [facility] ([id number]) [address] [address] CHOLESTEROL:HDL 4.8 Normal 1.0-5.[address] [facility] Comment on above: Performed By: #### C ALISON BMP, 11546-2, THYR #### [facility] ([id number]) [address] [address] [place] [address] Triglyceride [Mass/Vol] 95 mg/dL Normal 27-150 [facility] Comment on above: Performed By: #### C CUCA ROSAS, 10770-0, THYR #### [facility] ([id number]) [address] [address] THYROID PROFILEon 12-26-2023 Free T4 [Mass/Vol] 0.45 ng/dL Low 0.61-1.60 [facility] Comment on above: Performed By: #### C ALISON BMP, 85932-9, THYR #### [facility] ([id number]) [address] [address] TSH 29.03 uIU/mL High 0.49-4.[address] [facility] Comment on above: Performed By: #### C ALISON, BMP, 45670-7, THYR #### [facility] ([id number]) [address] [address] [place] [address] CBC AND AUTO DIFFon 12-25-19 24 ABSOLUTE BASOPHIL 0.1 X10E9/L Normal 0.0-0.2 [facility] Comment on above: Performed By: #### C BCA, CMP, 77495-3, 66903-6, 215-6, PINR, 44271-3, 96372-8 #### [facility] ([id number]) [address] [place] [address] ABSOLUTE NEUTROPHIL 4.5 X10E9/L Normal 1.5-6.6 [facility] Comment on above: Performed By: #### C BCA, CMP, 16655-0, 27980-1, 2156-6, PINR, 77129-1, 67696-2 #### [facility] ([id number]) [address] [place] [address] Basophils/100 WBC (Bld) 0.8 % Normal [facility] Comment on above: Performed By: #### C BCA, CMP, 32845-9, 65174-2, 6, PINR, 84280-9, 12393-2 #### [facility] ([id number]) [address] [place] [address] Eosinophils (Bld) [#/Vol] 0.1 10*3/uL Normal 0.0-0.4 [facility] Comment on above: Performed By: #### C BCA, CMP, 53271-1, 46812-1, 2156-6, PINR, 68522-4, 86332-2 #### [facility] ([id number]) [address] [place] [address] Eosinophils/100 WBC (Bld) 1.1 % Normal [facility] Comment on above: Performed By: #### C BCA, CMP, 45122-6, 08408-3, 2156-6, PINR, 29545-7, 40093-4 #### [facility] ([id number]) [address] [place] [address] Erythrocyte distribution width (RBC) [Ratio] 13.5 % Normal 11.5-15.0 [facility] Comment on above: Performed By: #### C BCA, CMP, 84597-9, 21591-7, 2157-6, PINR, 72955-3, 44087-3 #### [facility] ([id number]) [address] [place] [address] Hematocrit (Bld) [Volume fraction] 38.2 % Normal 35-47 [facility] Comment on above: Performed By: #### C BCA, CMP, 50391-2, 41743-3, 2157-6, PINR, 30951-0, 86255-4 #### [facility] ([id number]) [address] [place] [address] Hemoglobin (Bld) [Mass/Vol] 13.1 g/dL Normal 11.7-15.5 [facility] Comment on above: Performed By: #### C BCA, CMP, 11385-6, 03694-8, 2157-6, PINR, 11017-7, 91516-0 #### [facility] ([id number]) [address] [place] [address] Lymphocytes (Bld) [#/Vol] 2.2 10*3/uL Normal 1.0-3.5 [facility] Comment on above: Performed By: #### C BCA, CMP, 17135-0, 55056-9, 2157-6, PINR, 25666-1, 64087-5 #### [facility] ([id number]) [address] [place] [address] Lymphocytes/100 WBC (Bld) 28.8 % Normal [facility] Comment on above: Performed By: #### C BCA, CMP, 57703-3, 04992-1, 2157-6, PINR, 21547-7, 52111-2 #### [facility] ([id number]) [address] [place] [address] 29864 MCH (RBC) [Entitic mass] 30.9 pg Normal 27-34 [facility] Comment on above: Performed By: #### C BCA, CMP, 37064-8, 46175-8, 2157-6, PINR, 06804-1, 47231-5 #### [facility] ([id number]) [address] [place] [address]41 MCHC (RBC) [Mass/Vol] 34.2 g/dL Normal 32-36 [facility] Comment on above: Performed By: #### C BCA, CMP, 17702-7, 18014-9, 2156-6, PINR, 93828-5, 92193-9 #### [facility] ([id number]) [address] [place] [address]2002 MCV (RBC) [Entitic vol] 90 fL Normal 80-100 [facility] Comment on above: Performed By: #### C BCA, CMP, 95185-3, 58018-6, 2157-6, PINR, 63033-6, 54696-0 #### [facility] ([id number]) [address] [place] [address]22 Monocytes (Bld) [#/Vol] 0.7 10*3/uL Normal 0-0.9 [facility] Comment on above: Performed By: #### C BCA, CMP, 91669-8, 24827-1, 2156-6, PINR, 66838-4, 98712-9 #### [facility] ([id number]) [address] [place] [address] 89919 Monocytes/100 WBC (Bld) 9.8 % Normal [facility] Comment on above: Performed By: #### C BCA, CMP, 70911-9, 68832-9, 215-6, PINR, 97325-2, 57609-4 #### [facility] ([id number]) [address] [place] [address]14 Neutrophils/100 WBC (Bld) 59.5 % Normal [facility] Comment on above: Performed By: #### C BCA, CMP, 36298-6, 58242-8, 2157-6, PINR, 25925-5, 37071-6 #### [facility] ([id number]) [address] [place] [address]42 Platelet mean volume (Bld) [Entitic vol] 7.2 fL Normal 7-12 [facility] Comment on above: Performed By: #### C BCA, CMP, 93695-8, 22769-8, 2157-6, PINR, 02785-1, 74916-4 #### [facility] ([id number]) [address] [place] [address] 26478 Platelets (Bld) [#/Vol] 279 10*3/uL Normal 150-450 [facility] Comment on above: Performed By: #### C BCA, CMP, 70741-2, 18720-0, 2157-6, PINR, 15113-6, 72378-8 #### [facility] ([id number]) [address] [place] [address] 40782 RBC COUNT 4.23 X10E12/L Normal 3.80-5.20 [facility] Comment on above: Performed By: #### C BCA, CMP, 11091-4, 09243-4, 2157-6, PINR, 82829-6, 05870-3 #### [facility] ([id number]) [address] [place] [address]30 WBC (Bld) [#/Vol] 7.5 10*3/uL Normal 4.0-11.0 [facility] Comment on above: Performed By: #### C BCA, CMP, 41149-7, 54153-5, 2157-6, PINR, 74781-1, 96604-1 #### [facility] ([id number]) [address] [place] [address]99 CK [Catalytic activity/Vol]o n 12-25-2023 CPK 363 U/L High 24-170 [facility] Comment on above: Performed By: #### C BCA, CMP, 37758-2, 53055-2, 2157-6, PINR, 56334-6, 71740-1 #### [facility] ([id number]) [address] [place] [address] COMPREHENSIVE METABOLIC PANE Gilberto 12-25-2023 Albumin [Mass/Vol] 4.5 g/dL Normal 3.2-5.3 [facility] Comment on above: Performed By: #### C BCA, CMP, 10776-7, 34515-8, 2156-6, PINR, 85169-8, 21120-3 #### [facility] ([id number]) [address] [place] [address] 12146 ALP [Catalytic activity/Vol] 83 U/L Normal 39-130 [facility] Comment on above: Performed By: #### C BCA, CMP, 86576-1, 73215-5, 215-6, PINR, 60291-2, 03674-9 #### [facility] ([id number]) [address] [place] [address] 05317 ALT [Catalytic activity/Vol] 24 U/L Normal 0-31 [facility] Comment on above: Performed By: #### C BCA, CMP, 06031-6, 20776-4, 2157-6, PINR, 68836-1, 57897-5 #### [facility] ([id number]) [address] [place] [address] 11738 Anion gap [Moles/Vol] 10 mmol/L Normal 5-15 [facility] Comment on above: Performed By: #### C BCA, CMP, 81781-6, 30077-3, 2157-6, PINR, 88700-1, 47994-2 #### [facility] ([id number]) [address] [place] [address] 86352 AST [Catalytic activity/Vol] 26 U/L Normal 0-41 [facility] Comment on above: Performed By: #### C BCA, CMP, 88306-2, 18433-8, 2157-6, PINR, 79381-4, 66831-6 #### [facility] ([id number]) [address] [place] [address] 22499 Bilirubin [Mass/Vol] 0.9 mg/dL Normal 0.3-1.2 [facility] Comment on above: Performed By: #### C BCA, CMP, 53001-2, 88809-8, 2157-6, PINR, 28624-6, 29084-8 #### [facility] ([id number]) [address] [place] [address] 30963 Calcium [Mass/Vol] 8.9 mg/dL Normal 8.5-10.5 [facility] Comment on above: Performed By: #### C BCA, CMP, 33980-4, 36503-9, 2157-6, PINR, 13716-8, 15691-0 #### [facility] ([id number]) [address] [place] [address] 29275 Chloride [Moles/Vol] 102 mmol/L Normal 98-109 [facility] Comment on above: Performed By: #### C BCA, CMP, 38905-4, 31398-1, 2157-6, PINR, 48325-2, 03721-6 #### [facility] ([id number]) [address] [place] [address] 86699 CO2 [Moles/Vol] 25 mmol/L Normal 22-32 [facility] Comment on above: Performed By: #### C BCA, CMP, 20531-1, 39832-4, 2157-6, PINR, 21693-2, 62668-0 #### [facility] ([id number]) [address] [place] [address] 75990 Creatinine [Mass/Vol] 1.02 mg/dL High 0.40-1.00 [facility] Comment on above: Result Comment: METH OD TRACEABLE TO IDMS STANDARD Performed By: #### C BCA, CMP, 63818-0, 17245-2, 2157-6, PINR, 80149-3, 44383-0 #### [facility] ([id number]) [address] [place] [address] 74283 GFR/1.73 sq M.predicted among non-blacks MDRD (S/P/Bld) [Vol rate/Area] 56 mL/min/{1.73_m2} Low >59 [facility] Comment on above: Result Comment: Reported eGFR is based on the CKD-EPI 2020 equation that does not use a race coefficient. Performed By: #### C BCA, CMP, 91598-2, 24664-1, 2157-6, PINR, 30289-6, 22243-0 #### [facility] ([id number]) [address] [place] [address] 39373 Glucose [Mass/Vol] 108 mg/dL High 65-99 [facility] Comment on above: Performed By: #### C BCA, CMP, 38615-1, 54135-5, 2157-6, PINR, 94246-7, 75271-7 #### [facility] ([id number]) [address] [place] [address] 38372 Potassium [Moles/Vol] 3.7 mmol/L Normal 3.5-5.0 [facility] Comment on above: Performed By: #### C BCA, CMP, 54347-1, 86200-7, 2157-6, PINR, 19442-5, 52993-5 #### [facility] ([id number]) [address] [place] [address] 13635 Protein [Mass/Vol] 7.6 g/dL Normal 6.0-8.0 [facility] Comment on above: Performed By: #### C BCA, CMP, 81351-9, 03549-5, 2157-6, PINR, 29119-4, 01664-0 #### [facility] ([id number]) [address] [place] [address] 59107 Sodium [Moles/Vol] 137 mmol/L Normal 134-146 [facility] Comment on above: Performed By: #### C BCA, CMP, 03151-0, 29145-3, 2157-6, PINR, 75298-1, 71737-3 #### [facility] ([id number]) [address] [place] [address] 42326 Urea nitrogen [Mass/Vol] 21 mg/dL Normal 5-27 [facility] Comment on above: Performed By: #### C BCA, CMP, 71804-7, 07774-6, 2157-6, PINR, 43135-0, 71801-4 #### [facility] ([id number]) [address] [place] [address] BRAIN WO CONT STROKE ALER [facility] 12-25-2023 CT BRAIN WO CONT STROKE ALERT CT BRAIN WO CONT STROKE ALERT STUDY: CT BRAIN WO CONT STROKE ALERT INDICATION: Neuro deficit, acute, stroke suspected. TECHNIQUE: * CT head was performed without intravenous contrast using the standard protocol. Automated exposure control was utilized. * All CT scans at this facility use dose modulation, iterative reconstruction, and/or weight based dosing when appropriate to reduce radiation dose to as low as reasonably achievable. FINDINGS: No acute hemorrhage, mass effect, midline shift or extra-axial fluid collection. Probably nonacute ischemic changes in the left occipital lobe, new from 2020. Additional probable chronic microvascular ischemic changes in the bilateral basal ganglia, deep white matter and brainstem. Brain volume, ventricles and sulci are otherwise age-appropriate. Bilateral lens replacement. Paranasal sinuses and mastoid air cells are clear. Intracranial atherosclerosis. IMPRESSION: * Probable nonacute ischemic change in the left occipital lobe, new from 2020. Superimposed acute ischemia is better assessed on MRI if clinically warranted. * Probable chronic microvascular ischemic changes. * No acute hemorrhage or mass effect. Finalized by Herbert Elena on 12/25/2023 2:56 PM Normal [facility] CT CEREBRAL PERF ANALYSISon 12-25-[address] CEREBRAL PERF ANALYSIS EXAM: CT CEREBRAL PERF ANALYSIS INDICATION: Neuro deficit, acute, stroke suspected COMPARISON: Same day imaging TECHNIQUE/PROTOCOL: 1. Dynamic CT perfusion was performed of the brain with contrast. Data was sent to [email or web address] for analysis. CONTRAST: 40mL Omnipaque IV. CT BRAIN PERFUSION FINDINGS: Significantly elevated Tmax and mean transit time within the left occipital observation on same day CT of the head. There is corresponding significantly decreased CBV and CBF. This favors chronic ischemic change. Otherwise There were no asymmetries in the mean transit times, cerebral blood flow or cerebral blood volume to suggest an autoregulatory compromise. AIF/VOF Placement: Technically Adequate Stroke Location: Not applicable CBF<30% volume (mL): 0 Tmax>6.0s volume (mL): 0 Mismatch volume (mL): 0 Mismatch ratio: None Hypoperfusion Intensity Ratio (HIR) [Tmax>10.0s volume/Tmax>6.0s volume]: NA Please note that CT perfusion parameters can have variable inter-reader reliability; ?as with any imaging study, clinical decisions should be undertaken in consultation with physicians who are part of the stroke treatment team. IMPRESSION: 1. No core infarct or tissue at risk on qualitative or quantitative RAPID analysis. 2. Left occipital finding on same day CT of the head is favored to be chronic. MRI may be considered for more definitive evaluation. Finalized by Armando Ireland on 12/25/2023 7:[address] [facility] CT CTA CAROTIDon 12-25-[address] CTA CAROTID History: Neuro deficit, acute, stroke suspected. Exam/Technique: CT angiogram performed following intravenous administration of 100 mL of Omnipaque 350. Coronal and sagittal and 3-D volume rendered maximum intensity projection images generated and reviewed under concurrent physician supervision. Automated exposure control utilized. The [place] Symptomatic Carotid Endarterectomy Trial (NASCET) method for calculating the degree of stenosis was utilized for stenosis measurements. CT does automated exposure control was utilized. Comparison: 07/08/2020 Findings: Aortic arch is grossly patent. Right innominate artery is widely patent. Right common carotid artery is patent and of adequate course and caliber. There is 1.7 cm long segment of severe stenosis at the proximal right internal carotid artery secondary to heavily calcified intimal plaque. The remaining cervical segment is unremarkable. There is severe stenosis at the origin of the external carotid artery. The remaining carotid arteries unremarkable. Right subclavian artery is widely patent. Right vertebral artery is widely patent and grossly unremarkable. Left common carotid artery is widely patent and grossly unremarkable. There is 1.8 cm long segment of moderate stenosis at the internal carotid artery origin secondary to intimal plaque. The remaining cervical segment is unremarkable. External carotid artery is patent. Left subclavian artery is patent. There is short segment of moderate to severe stenosis at the V3 segment of the left vertebral artery. The remaining vertebral artery is unremarkable. IMPRESSION: Grossly stable 1.7 cm long segment of severe stenosis at the proximal right internal carotid artery origin with severe stenosis of the external carotid artery origin on the right. Grossly stable moderate 1.8 cm long stenotic segment at the left internal carotid artery origin. Stable moderate to severe stenotic segment at the left V3/V4 segment. All CT scans at this facility use dose modulation, iterative reconstruction, and/or weight based dosing when appropriate to reduce radiation dose to as low as reasonably achievable. Finalized by Josie Salazar MD on 12/25/2023 3:26 PM Normal [facility] CT CTA HEADon 12-25-[address] CTA HEAD Indication: CVA neurologic deficit. TECHNIQUE: Enhanced CTA of the head is performed utilizing 100 mL IV Omnipaque 350 contrast medium. Multiple 3-D maximum intensity projection images are rendered and reviewed. Comparison made to prior exam dated 07/08/2020. Findings: Mild to moderate areas of narrowing noted within intracranial left vertebral artery in multiple locations. Right intracranial vertebral artery is patent. Basilar artery appears small. Intracranial internal carotid arteries are patent. Narrowing of superior left M2 segment noted. High-grade narrowing proximal left posterior cerebral artery new since prior exam. Occlusion proximal right posterior cerebral artery with reconstitution similar to prior exam. Venous dural sinuses enhance normally. High-grade stenosis right M3 segment sagittal mip image 31 and 89 negative since prior exam. No abnormal parenchymal enhancement identified. IMPRESSION: 1. 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 2. New areas of high-grade stenosis within superior right M2 segment and proximal left posterior cerebral artery. 3. New area of high-grade stenosis superior right M3 branch. 4. No new large vessel occlusion. 5. Multiple mild to moderate areas of stenosis within intracranial left vertebral artery. All CT scans at this facility use dose modulation, iterative reconstruction, and/or weight based dosing when appropriate to reduce radiation dose to as low as reasonably achievable. Finalized by Kaya La MD on 12/25/2023 3:23 PM Normal [facility] Glucose Glucometer (BldC) [M ass/Vol]on 12-25-2023 Glucose [Mass/Vol] 133 mg/dL High 65-99 [facility] Glucose [Mass/Vol] 91 mg/dL Normal 65-99 [facility] HGB A1C (GLYCO-HGB)on 2023 Glucose [Mass/Vol] 134 mg/dL Normal [facility] Comment on above: Performed By: #### H A1C #### [facility] ([id number]) [address], [address] [place] [address] HbA1c (Bld) [Mass fraction] 6.3 % High 4.4-5.[address] [facility] Comment on above: Result Comment: NOTE ADA Guidelines Result HgbA1c Normal : less than 5.7 % Prediabetes : 5.7 % to 6.4 % Diabetes : > 6.4 % Use with caution in patients with abnormal hemoglobin variants as the half-life of red blood cells and in vivo glycation rates are affected. Performed By: #### H A1C #### [facility] ([id number]) [address], [address] [place] [address] Lactate (P lynette) [Moles/Vol]o n 12-25-2023 LACTATE W/REFLEX 0.8 mmol/L Normal 0.4-2.0 [facility] Comment on above: Result Comment: Result did not trigger repeat Lactate, re-order if needed. Performed By: #### C BCA, CMP, 62310-9, 66333-9, 2157-6, PINR, 07363-1, 93298-1 #### [facility] ([id number]) [address] [place] [id number] MAGNESIUMon 12-25-2023 Magnesium [Mass/Vol] 2.1 mg/dL Normal 1.8-2.6 [facility] Comment on above: Performed By: #### C ALISON, SIMÓN, 90010-9, 47893-9, 2156-6, PINR, 81190-4, 62216-9 #### [facility] ([id number]) [address] [place] [address] [id number] PROTIME AND INRon 12-25-2023 INR Coag (PPP) [Relative time] 1.0 {INR} Normal 0.8-1.1 [facility] Comment on above: Performed By: #### C ALISON, SIMÓN, 43377-1, 66117-8, 7-6, PINR, 79725-7, 10883-9 #### [facility] ([id number]) [address] [place] [address] [id number] PT Coag (PPP) [Time] 12.0 s Normal 9.8-13.2 [facility] Comment on above: Result Comment: NEW REFERENCE RANGE Performed By: #### C ALISON, CMP, 69818-1, 17924-6, 7-6, PINR, 75422-5, 47237-1 #### [facility] ([id number]) [address] [place] [address] [id number] Troponin I.cardiac High sens itivity method [Mass/Vol]on 12-25-2023 1 HOUR TROP I, HIGH SENSITIVITY 16 ng/L High <16 [facility] Comment on above: Result Comment: Elevations of hs-Troponin may be due to causes other than myocardial ischemia. Recommend serial hs-Troponin testing be performed. For the initial evaluation and management of chest pain patients, refer to the algorithms linked below. Emergency Patient: [email or web address] &uh=[email or web address] Inpatient: [email or web address] &uh=acaea Performed By: #### 8 9579-7 ####[facility] ([id number])[address] [place] [id number] TROPONIN I, HIGH SENSITIVITY 16 ng/L High <16 [facility] Comment on above: Result Comment: Elevations of hs-Troponin may be due to causes other than myocardial ischemia. Recommend serial hs-Troponin testing be performed. For the initial evaluation and management of chest pain patients, refer to the algorithms linked below. Emergency Patient: [email or web address] &uh=[email or web address] Inpatient: [email or web address] &uh=acaea Performed By: #### C BCA, CMP, 63428-1, 67401-8, 2156-6, PINR, 01311-5, 55588-4 #### [facility] ([id number]) [address] [place] [address]808 aPTT Coag (PPP) [Time]on aPTT Coag (Bld) [Time] 32 s Normal 26-37 [facility] Comment on above: Result Comment: NEW REFERENCE RANGE Performed By: #### C BCA, CMP, 75979-8, 20247-3, 2156-6, PINR, 85644-7, 08568-9 #### [facility] ([id number]) [address] [place] [address], [place] [address] Vital Signs Date Time Vital Sign Value Performing Clinician Homero valdez 03-01-2024 12:00-0400 Body temperature 97.4 [degF] PHYSICIAN NO [facility] 03-01-2024 12:00-0400 Diastolic blood pressure 70 mm[Hg] PHYSICIAN NO [facility] 03-01-2024 12:00-0400 Heart rate 60 /min PHYSICIAN NO [facility] 03-01-2024 12:00-0400 Respiratory rate 16 /min PHYSICIAN NO [facility] 03-01-2024 12:00-0400 SaO2% (BldA) [Mass fraction] 98 % PHYSICIAN NO [facility] 03-01-2024 12:00-0400 Systolic blood pressure 184 mm[Hg] PHYSICIAN NO [facility] 03-01-2024 05:41-0400 Body weight 76.4 kg PHYSICIAN NO [facility] 02-29-2024 14:04-0400 Body height 172.72 cm PHYSICIAN NO [facility] 02-24-2024 00:35-0400 Diastolic blood pressure 58 mm[Hg] PHYSICIAN NO [facility] 02-24-2024 00:35-0400 Heart rate 76 /min PHYSICIAN NO [facility] 02-24-2024 00:35-0400 Respiratory rate 18 /min PHYSICIAN NO [facility] 02-24-2024 00:35-0400 SaO2% (BldA) [Mass fraction] 95 % PHYSICIAN NO [facility] 02-24-2024 00:35-0400 Systolic blood pressure 127 mm[Hg] PHYSICIAN NO [facility] 02-23-2024 19:41-0400 Body temperature 97.8 [degF] PHYSICIAN NO [facility] 02-23-2024 15:37-0400 Body height 172.72 cm PHYSICIAN NO [facility] 02-23-2024 15:37-0400 Body weight 75.7 kg PHYSICIAN NO [facility] 01-23-2024 05:57-0400 Body temperature 97.4 [degF] PHYSICIAN NO [facility] 01-23-2024 05:57-0400 Diastolic blood pressure 63 mm[Hg] PHYSICIAN NO [facility] 01-23-2024 05:57-0400 Heart rate 52 /min PHYSICIAN NO [facility] 01-23-2024 05:57-0400 Respiratory rate 16 /min PHYSICIAN NO [facility] 01-23-2024 05:57-0400 SaO2% (BldA) [Mass fraction] 98 % PHYSICIAN NO [facility] 01-23-2024 05:57-0400 Systolic blood pressure 151 mm[Hg] PHYSICIAN NO [facility] 01-21-2024 04:37-0400 Body weight 81.2 kg PHYSICIAN NO [facility] 01-18-2024 12:15-0400 Body height 160.02 cm PHYSICIAN NO [facility] Encounters Encounter Date Encounter Type Care Provider Facility Start: 03-21-2024 End: 03-21-2024 Emergency department patient visit [facility] Start: 03-18-2024 End: 03-18-2024 ambulatory DO SADIE Thorne [place] Facility:[facility] Start: 03-07-2024 ambulatory Dada Cole [facility] Start: 03-07-2024 End: 03-07-2024 Patient encounter procedure Dada Cole [facility] Start: 02-24-2024 Non-patient / Non-visit PHYSICIAN NO [facility] Work Phone: Start: 02-24-2024 End: 03-01-2024 Evaluation and management of inpatient PHYSICIAN NO [facility] Work Phone: Start: 02-23-2024 Evaluation and management of inpatient PHYSICIAN NO [facility] Work Phone: Start: 02-23-2024 observation encounter PHYSICIAN NO Kati [facility] Work Phone: Start: 02-15-2024 ambulatory Dada Cole Facilit y:Derrek EVANS Start: 01-23-2024 Non-patient / Non-visit PHYSICIAN NO [facility] Work Phone: Start: 01-15-2024 Non-patient / Non-visit PHYSICIAN NO [facility] Work Phone: Start: 01-05-2024 Non-patient / Non-visit PHYSICIAN NO [facility] Work Phone: Start: 01-04-2024 End: 01-23-2024 Evaluation and management of inpatient PHYSICIAN NO [facility] Work Phone: Start: 12-29-2023 End: 01-04-2024 Evaluation and management of inpatient KRYSTYNANASRA MIJARES [facility] Start: 12-29-2023 End: 01-04-2024 Evaluation and management of inpatient USMAN BHARDWAJ [facility] Start: 12-27-2023 End: 01-04-2024 Evaluation and management of inpatient PASCUAL PETERS [facility] Start: 12-26-2023 End: 12-26-2023 ambulatory ELIU NARANJO [facility] Start: 12-26-2023 End: 01-04-2024 Evaluation and management of inpatient TWIN Domingo BUI [facility] Start: 12-26-2023 End: 01-04-2024 Evaluation and management of inpatient DAVID ROWE [facility] Start: 12-25-2023 End: 01-04-2024 Emergency department patient visit ABBEY JANETH [facility] Start: 12-25-2023 End: 01-04-2024 Evaluation and management of inpatient SAROJ LAGOS [facility] Start: 12-25-2023 End: 12-26-2023 Emergency department patient visit ELIU [facility] Start: 12-25-2023 End: 12-26-2023 Emergency department patient visit LEIU SANDOVALDERICK [facility] Start: 10-02-2023 End: 10-02-2023 ambulatory SAROJ Cross [facility] Start: 08-03-2023 Telephone encounter Mary narayan [facility] Comment on above: Med Refill Procedures Date Procedure Procedure Detail Performing Clinician Start: 02-28-2024 Diagnostic radiograp hy of abdomen PHYSICIAN NO FAMILY Start: 02-25-2024 Urine culture PHYSICIAN NO FAMILY Start: 02-24-2024 Plain chest X-ray PHYSI GRICELDA NO FAMILY Start: 02-23-2024 CT of head without contrast PHYSICIAN NO FAMILY Start: 02-23-2024 CT of abdomen and pe lvis without contrast PHYSICIAN NO FAMILY Start: 01-15-2024 Plain chest X-ray PHYSI GRICELDA NO [facility] Start: 01-11-2024 Plain chest X-ray PHYSI GRICELDA NO [facility] Start: 01-06-2024 SARS-CoV-2, Influenz a & RSV (PCR) PHYSICIAN NO FAMILY Start: 02-21-2022 Adult depression scr eening assessment Mary Bell CMA Plan of Treatment Date Care Activity Detail Author Start: 04-04-2024 Adult BMI Screening Adult BMI Screening [facility] Start: 04-04-2024 Tobacco Screening Tobacco Screening [facility] Start: 03-04-2024 [facility] Start: 03-03-2024 [facility] Start: 03-02-2024 [facility] Start: 03-01-2024 End: 03-01-2024 [facility] Start: 02-29-2024 [facility] Start: 02-28-2024 [facility] Start: 02-27-2024 [facility] Start: 02-26-2024 Administration of prophylactic treatment [facility] Start: 02-26-2024 End: 02-26-2024 [facility] Start: 02-25-2024 [facility] Start: 02-24-2024 Referral to vulcanized fiber unit operator [facility] Start: 02-24-2024 [facility] Start: 02-23-2024 Physical therapy procedure [facility] Start: 02-23-2024 Referral to occupational therapist [facility] Start: 02-23-2024 [facility] Start: 02-23-2024 Hospital admission [facility] Start: 01-23-2024 [facility] Start: 01-09-2024 Administration of prophylactic treatment [facility] Start: 01-08-2024 [facility] Start: 01-07-2024 [facility] Start: 01-04-2024 Hospital admission [facility] Start: 01-04-2024 Referral to clinical manometer technician [facility] Start: 01-04-2024 [facility] Start: 02-21-2023 Depression Screening Depression Screening [facility] Start: 02-21-2023 Fall [facility] Start: 02-21-2023 Medicare Annual Wellness Visit Medicare Annual Wellness Visit [facility] Start: 02-10-2023 COVID-19 Vaccine ( season) COVID-19 Vaccine ( season) [facility] Start: 02-10-2023 Influenza vaccination Influenza Vaccine [facility] Start: 1995 Administration of varicella zoster vaccine Zoster (Shingles) Vaccine (1 of 2) [facility] Start: 1964 DTaP,Tdap and Td Vaccines (1 - Tdap) DTaP,Tdap and Td Vaccines (1 - Tdap) [facility] Start: 1963 Adult BMI Follow Up Plan Adult BMI Follow Up Plan [facility] Albumin/Globulin ratio [facility] Anion gap measurement [facility] Basophils [#/volume] in Blood by Automated count [facility] Basophils/100 leukoc ytes in Blood by Automated count [facility] Calculated LDL sherri sterol level [facility] Cholesterol.total/Ch olesterol in HDL [Mass Ratio] in Serum or Plasma [facility] Eosinophils/100 leuk ocytes in Blood by Automated count [facility] Erythrocyte distribu tion width [Ratio] by Automated count [facility] Erythrocytes [#/volu me] in Blood [facility] Globulin [Mass/volum e] in Serum [facility] Glucose measurement estimated from glycated hemoglobin [facility] Hematocrit [Volume F raction] of Blood [facility] Hemoglobin [Mass/vol ume] in Blood [facility] Leukocytes [#/volume ] corrected for nucleated erythrocytes in Blood by Automated coun [facility] Leukocytes [#/volume ] in Blood [facility] Lymphocytes [#/volum e] in Blood by Automated count [facility] Lymphocytes/100 leuk ocytes in Blood by Automated count [facility] MCH [Entitic mass] b y Automated count [facility] MCHC [Mass/volume] b y Automated count [facility] MCV [Entitic volume] by Automated count [facility] Monocytes [#/volume] in Blood by Automated count [facility] Monocytes/100 leukoc ytes in Blood by Automated count [facility] Neutrophils [#/volum e] in Blood by Automated count [facility] Neutrophils/100 leuk ocytes in Blood by Automated count [facility] Nucleated erythrocyt es [Presence] in Blood by Automated count [facility] Patient referral [facility] Work Phone: Platelet mean volume [Entitic volume] in Blood by Automated count [facility] Platelets [#/volume] in Blood [facility] VLDL cholesterol measurement [facility] Immunizations Immunization Date Immunization Notes Care Provider Fa michelet 03-26-2017 influenza, injectabl e, quadrivalent, preservative free Mary Bell [facility] 03-26-2017 influenza virus vaccine, unspecified formulation Mary Bell [facility] Payers Date Payer Category Payer Medicare [id number] 2024 Self-pay 2023 Medicare [id number] 2023 Private Health Insurance [id number] 2021 Medicare MEDICARE HMO MED ICARE HMO/PPO - GENERIC PLAN [id number] 2021-Present [phone] [id number] [place] [address] [id number]. [id number] 1945 Unknown [id number] 2.16.840.1.235011.3.579.2. 1285 1945 Unknown [id number] 2.16.840.1.075828.3.579.2. 1285 1945 Unknown [id number] 2.16.840.1.040814.3.579.2. 1285 1945 Unknown [id number] 2.16.840.1.414381.3.579.2. 1285 1945 Unknown [id number] 2.16.840.1.780367.3.579.2. 1285 1945 Unknown [id number] 2.16.840.1.410549.3.579.2. 1285 1945 Unknown [id number] 2.16.840.1.289601.3.579.2. 1285 1945 Unknown [id number] 2.16.840.1.827445.3.579.2. 1285 1945 Unknown [id number] 2.16.840.1.668395.3.579.2. 1285 1945 Unknown [id number] 2.16.840.1.499857.3.579.2. 128 1945 Unknown [id number] 2.16.840.1.875376.3.579.2. 1285 1945 Unknown [id number] 2.16.840.1.754066.3.579.2. 1285 1945 Unknown [id number] 2.16.840.1.951630.3.579.2. 1285 1945 Unknown [id number] 2.16.840.1.975647.3.579.2. 727 1945 Unknown [id number] 2.16.840.1.823573.3.579.2. 1285 1945 Unknown [id number] 2.16.840.1.112440.3.579.2. 1285 1945 Unknown [id number] 2.16.840.1.344902.3.579.2. 1285 1945 Unknown [id number] 2.16.840.1.243722.3.579.2. 1285 1945 Unknown [id number] 2.16.840.1.262977.3.579.2. 1285 1945 Unknown [id number] 2.16.840.1.570497.3.579.2. 1285 1945 Unknown [id number] 2.16.840.1.695318.3.579.2. 718 Unknown [id number] 2.16.840.1.680881.3.579.2. 531 Unknown [id number] 2.16.840.1.272683.3.579.2. 531 Social History Date Type Detail Facility Start: 04-11-2022 End: 01-05-2024 Tobacco smoking status [facility] Ex-smoker [facility] History of tobacco use Current smoker [facility] Start: 04-11-2022 Tobacco use and exposure Smoke less tobacco non-user [facility] Start: 04-04-2023 Alcohol intake Ex-drinker (finding) [facility] Start: 07-09-2020 End: 04-04-2023 History of Social function [facility] Start: 07-09-2020 End: 04-04-2023 Social connection and isolation panel [facility] Do you belong to any clubs or organizations such as buddhist groups, unions, fraternal or athletic groups, or school groups? No [facility] Are you now , , , , never or living with a partner? Never [facility] How hard is it for y ou to pay for the very basics like food, housing, medical care, and heating Not hard at all [facility] Do you feel stress - tense, restless, nervous, or anxious, or unable to sleep at night because your mind is troubled all the time - these days [OSQ] Not at all [facility] Start: 04-11-2022 Tobacco Comment quit in 1985 [facility] Start: 1945 Sex Assigned At Not on file P [facility] Start: 1945 Sex Assigned At Female F [facility] Start: 02-23-2024 End: 02-24-2024 Tobacco smoking status NHIS Never smoked tobacco (finding) [facility] Tobacco smoking status No Smokin g Status Entered [facility] Goals Date Patient Goal Desired Activity /State Personal health goal Comment on above: Formatting of this n ote might be different from the original. Evaluation of progress towards goal: safe transition home with self care Functional Status Date Assessment Result Facility 03-01-2024 Functional status Patient Not at Baseline [facility] Work Phone: 01-23-2024 Functional status Patient Not at Baseline [facility] Work Phone: Mental Status Date Assessment Result Facility 03-01-2024 Cognitive function Cognitive Sta tus Patient Not at Baseline [facility] Work Phone: 01-23-2024 Cognitive function Cognitive Sta tus Patient at Baseline [facility] Work Phone: Clinical Notes 08-03-2023 to 03-01-2024 Note Date & Type Note Facility 03-01-2024 Progress note Note Date/Time February 29, 2024 12:09pm [facility] [address] [place] [id number] Hospitalist Progress Note Signed Patient: Juan Hernandez MR#: [id number] : 1945 Acct:[id number] Age/Sex: 78 / F Adm Date: 4 Loc: 4N Room: 7Q9895-3 Type: ADM IN Attending Dr: Dada Horn MD Copies to: ~ Date of Service: 02/29/2024 Subjective Subjective Narrative: Patient seen and examined, resting comfortably in bed, more awake and alert today, bedside nurse administering medications. Reports that she ate her breakfast well, with no abdominal pain nausea/vomiting. Remains stable Exam Physical Exam Vital Signs: Temp Pulse Resp BP Pulse Ox O2 Del Method 97.3 F L 56 L 16 156/64 H 98 Room Air 02/29/24 11:18 02/29/24 11:18 02/29/24 11:18 02/29/24 11:18 02/29/24 11:18 02/29/24 11:18 Narrative: CONST-alert, awake sitting up in chair CARDIAC?normal rate, regular rhythm, normal S1 & S2. PULM?diminished without wheeze or rhonchi, RA, no accessory muscle use or cough noted ABD ? Soft. Bowel sounds are normal. No distention No tenderness EXTREM?no edema BLE calves nontender SKIN? W/D good turgor Objective Lab Results 02/29/24 05:23 02/26/24 05:22 Meds Allergies and Active Meds Allergies meperidine [From Demerol] Adverse Reaction (Verified 01/04/24 18:31) Hallucinating Active Meds: Active Medications Generic Name Dose Route Start Last Admin Trade Name Freq PRN Reason Stop Dose Admin Acetaminophen 650 mg 02/23/24 23:11 02/29/24 10:10 Acetaminophen 325 Mg Tablet PO 02/22/25 23:10 650 mg Q6HR PRN Administration Pain Scale 1 - 3 or fever Amlodipine Besylate 10 mg 02/24/24 09:00 02/29/24 10:11 Amlodipine 10 Mg Tablet PO 02/23/25 08:59 10 mg DAILY MARY Administration Aspirin 81 mg 02/24/24 09:00 02/29/24 10:10 Aspirin 81 Mg Tablet. PO 02/23/25 08:59 81 mg DAILY MARY Administration Atorvastatin Calcium 40 mg 02/24/24 09:00 02/29/24 10:11 Atorvastatin 40 Mg Tablet PO 02/23/25 08:59 40 mg DAILY MARY Administration Baclofen 10 mg 02/24/24 09:00 02/29/24 10:10 Baclofen 10 Mg Tablet PO 02/23/25 08:59 10 mg BID MARY Administration Buspirone HCl 5 mg 02/24/24 09:00 02/29/24 10:10 Buspirone 5 Mg Tablet PO 02/23/25 08:59 5 mg BID MARY Administration Clopidogrel Bisulfate 75 mg 02/24/24 09:00 02/29/24 10:10 Clopidogrel Bisulfate 75 Mg Tablet PO 02/23/25 08:59 75 mg DAILY MARY Administration Diclofenac Sodium 2 gm 02/23/24 23:09 Diclofenac Sodium 1% Gel 100 Gm Tube TOPICAL 02/22/25 23:08 QID PRN muscle pain Docusate Sodium 100 mg 02/24/24 09:00 02/29/24 10:11 Docusate 100 Mg Capsule PO 02/23/25 08:59 100 mg BID MARY Administration Enoxaparin Sodium 40 mg 02/28/24 10:00 02/29/24 10:09 Enoxaparin 40 Mg/0.4 Ml Syringe SUBCUT 02/23/25 09:59 40 mg DAILY@10 MARY Administration Famotidine 10 mg 02/24/24 09:00 02/29/24 10:10 Famotidine 20 Mg Tablet PO 02/23/25 08:59 10 mg DAILY MARY Administration Hydralazine HCl 10 mg 02/24/24 12:04 02/26/24 08:14 Hydralazine 20 Mg/Ml Vial IV-PUSH 02/23/25 12:03 10 mg Q4H PRN Administration Hypertension Hydralazine HCl 50 mg 02/28/24 14:00 02/29/24 10:11 Hydralazine 50 Mg Tablet PO 02/27/25 13:59 50 mg TID MARY Administration Levothyroxine Sodium 50 mcg 02/24/24 06:30 02/29/24 06:24 Levothyroxine 50 Mcg Tablet PO 02/23/25 06:29 50 mcg DAILY.0630 MARY Administration Lidocaine 2 patch 02/24/24 09:00 02/29/24 10:09 Lidocaine 4% Adh..Patch TOPICAL 02/23/25 08:59 2 patch DAILY MARY Administration Losartan Potassium 100 mg 02/24/24 09:00 02/29/24 10:11 Losartan 50 Mg Tablet PO 02/23/25 08:59 100 mg DAILY MARY Administration Melatonin 5 mg 02/24/24 22:00 02/28/24 21:43 Melatonin 5 Mg Tablet PO 02/23/25 21:59 5 mg QHS MARY Administration Menthol 1 applic 02/24/24 10:00 02/29/24 10:11 Menthol 2% Gel 226.8 Gm Jar TOPICAL 02/23/25 09:59 1 applic BID MARY Administration Nystatin 500,000 unit 02/24/24 14:00 02/29/24 10:10 Nystatin Susp 500,000 Unit/5 Ml Udc PO 02/23/25 13:59 500,000 unit QID MARY Administration Ondansetron HCl 4 mg 02/25/24 12:30 02/29/24 04:17 Ondansetron 4 Mg/2 Ml Vial IV-PUSH 02/24/25 12:29 4 mg Q8H MARY Administration Pantoprazole Sodium 40 mg 02/24/24 12:00 02/29/24 10:10 Pantoprazole 40 Mg Vial IV-PUSH 02/23/25 11:59 40 mg BID MARY Administration Polyethylene Glycol 17 gm 02/24/24 09:00 02/29/24 10:09 Polyethylene Glycol 3350 17 Gm Powd.Pack PO 02/23/25 08:59 17 gm DAILY MARY Administration Saliva Substitute 44.3 ml 02/24/24 10:54 Saliva Stimulant Agents Comb.3 44.3 Ml [place] MUCOUS MEM 02/23/25 10:53 QID PRN dry mouth Sennosides 2 tab 02/27/24 12:15 02/29/24 10:12 Sennosides 8.6 Mg Tablet PO 02/26/25 12:14 2 tab BID MARY Administration Sodium Chloride 0 ml 02/23/24 15:40 02/29/24 10:12 Sodium Chloride 0.9 % 10 Ml Syringe IV-PUSH 02/22/25 15:39 10 ml PRN PRN Administration Flush Sodium Chloride 10 ml 02/24/24 11:45 02/29/24 10:11 Sodium Chloride 0.9 % 10 Ml Vial.Pf INJECTION 02/23/25 11:44 10 ml PRN PRN Administration Dilution Sodium Chloride 10 ml 02/24/24 11:45 Sodium Chloride 0.9 % 10 Ml Syringe IV-PUSH 02/23/25 11:44 PRN PRN Flush Trazodone HCl 50 mg 02/26/24 20:21 02/26/24 21:35 Trazodone 50 Mg Tablet PO 02/25/25 20:20 50 mg QHS PRN Administration Insomnia A&P - Hospitalist Assessment/Plan (1) Unable to care for self: (2) Constipation: (3) Hyperlipidemia: (4) Hypothyroidism: (5) Hypertension: (6) Abdominal pain: (7) Leukocytosis: (8) Acute kidney injury superimposed on CKD: (9) Delirium: (10) Sleep disturbance: (11) Dysphagia: (12) Left hemiparesis: (13) Thrush: (14) GERD (gastroesophageal reflux disease): (15) History of stroke: Plan Thrush with suspicion for darwin esophagitis Abdominal pain, constipation, reported no BM in over a week at SNF, multiple BMsin ED on admission Leukocytosis?resolved Dysphagia GERD Weight loss Denies any abdominal pain,no nausea or vomiting, tolerating diet well. * Gastroenterology consulted, patient deferring EGD for now. Recommended PPIs twice daily, empirically treating for esophageal Darwin, repeat swallow eval. Following along as needed * Speech consulted status post swallow evaluation and recommended mechanical soft diet, thin liquids and barium swallow to follow. * On pantoprazole 40 mg IV twice daily * On nystatin, has had multiple courses of nystatin and fluconazole previously while on rehab. * Continue bowel regiment with scheduled Colace and MiraLAX, will give suppository today and enema to follow if no results * Abd/pelvis- mild constipation, mild gallbladder distention without inflammation, fibroid uterus with presence of pessary, small pericardial effusion. Nonacute * UA noninfectious, CXR nonacute. Leukocytosis could be reactive with constipation Normocytic anemia * Hemoglobin 10.0, 12.0 on admission no overt bleeding noted * Will check iron panel and continue to monitor H&H LINDA on CKD3, resolved Delirium vs metabolic encephalopathy Sleep disturbance -CT head- nonacute, diffuse atrophy, chronic small vessel ischemic changes, remote lacunar infarctions -consider med for sleep Recent Right basal ganglia and left central semiovale punctate infarct 12/25, left hemiparesis, dysphagia -therapy evals -was in process of being discharged from [facility] having plateaued intherapy. Family desires different facility -aspirin, clopidogrel, atorvastatin for secondary stroke prevention. Baclofen for muscle spasms Chronic Conditions 1. Hypertension- losartan. PRN hydralazine. Trend 2. Hyperlipidemia- atorvastatin. Chol 99, LDL 40 3. Anxiety- buspirone 4. Hypothyroid- levothyroxine CODE STATUS: Full code DVT prophylaxis:will DC Lovenox and start SCDs due to low hemoglobin Discharge disposition: Medically stable, preceptor SNF pending Documented By: Alysha Victor APRN 02/29/24 1209 Signed By: <Electronically signed by ODILON Victor> 02/29/24 1723 <Electronically signed by Dada Horn MD> 03/01/24 1222 [facility] Work Phone: [phone]) 812-979209-20-2024 Progress note Author Dada Horn [facility] March 01, 2024 12:22pm Note Date/Time March 01, 2024 9:58am [facility] [address] [place] [address] Hospitalist Progress Note Signed Patient: Juan Hernandez MR#: [id number] : 1945 Acct:[id number] Age/Sex: 78 / F Adm Date: 4 Loc: Room: [address] [place] [address] Type: ADM IN Attending Dr: Dada Horn MD Copies to: ~ Date of Service: 03/01/2024 Subjective Subjective Narrative: Patient seen and examined, remains stable, out of bed and sitting up in chair having breakfast. No abdominal pain, nausea/vomiting. Complaining of right foot pain. No fever or chills, remains medically stable waiting for placement. Exam Physical Exam Vital Signs: Temp Pulse Resp BP Pulse Ox O2 Del Method 97.0 F L 51 L 16 122/66 97 Room Air 03/01/24 08:00 03/01/24 08:00 03/01/24 08:00 03/01/24 08:00 03/01/24 08:00 03/01/24 08:00 Narrative: CONST-alert, awake sitting up in chair CARDIAC?normal rate, regular rhythm, normal S1 & S2. PULM?diminished without wheeze or rhonchi, RA, no accessory muscle use or cough noted ABD ? Soft. Bowel sounds are normal. No distention No tenderness EXTREM?no edema BLE calves nontender SKIN? W/D good turgor Objective Lab Results 03/01/24 06:46 02/26/24 05:22 Meds Allergies and Active Meds Allergies meperidine [From Demerol] Adverse Reaction (Verified 01/04/24 18:31) Hallucinating Active Meds: Active Medications Generic Name Dose Route Start Last Admin Trade Name Abisaiq PRN Reason Stop Dose Admin Acetaminophen 650 mg 02/23/24 23:11 03/01/24 04:34 Acetaminophen 325 Mg Tablet PO 02/22/25 23:10 650 mg Q6HR PRN Administration Pain Scale 1 - 3 or fever Amlodipine Besylate 10 mg 02/24/24 09:00 02/29/24 10:11 Amlodipine 10 Mg Tablet PO 02/23/25 08:59 10 mg DAILY MARY Administration Aspirin 81 mg 02/24/24 09:00 02/29/24 10:10 Aspirin 81 Mg Tablet.Dr PO 02/23/25 08:59 81 mg DAILY MARY Administration Atorvastatin Calcium 40 mg 02/24/24 09:00 02/29/24 10:11 Atorvastatin 40 Mg Tablet PO 02/23/25 08:59 40 mg DAILY MARY Administration Baclofen 10 mg 02/24/24 09:00 02/29/24 21:23 Baclofen 10 Mg Tablet PO 02/23/25 08:59 10 mg BID MARY Administration Buspirone HCl 5 mg 02/24/24 09:00 02/29/24 21:33 Buspirone 5 Mg Tablet PO 02/23/25 08:59 5 mg BID MARY Administration Clopidogrel Bisulfate 75 mg 02/24/24 09:00 02/29/24 10:10 Clopidogrel Bisulfate 75 Mg Tablet PO 02/23/25 08:59 75 mg DAILY MARY Administration Diclofenac Sodium 2 gm 02/23/24 23:09 Diclofenac Sodium 1% Gel 100 Gm Tube TOPICAL 02/22/25 23:08 QID PRN muscle pain Docusate Sodium 100 mg 02/24/24 09:00 02/29/24 21:23 Docusate 100 Mg Capsule PO 02/23/25 08:59 100 mg BID MARY Administration Enoxaparin Sodium 40 mg 02/28/24 10:00 02/29/24 10:09 Enoxaparin 40 Mg/0.4 Ml Syringe SUBCUT 02/23/25 09:59 40 mg DAILY@10 MARY Administration Famotidine 10 mg 02/24/24 09:00 02/29/24 10:10 Famotidine 20 Mg Tablet PO 02/23/25 08:59 10 mg DAILY MARY Administration Hydralazine HCl 10 mg 02/24/24 12:04 02/26/24 08:14 Hydralazine 20 Mg/Ml Vial IV-PUSH 02/23/25 12:03 10 mg Q4H PRN Administration Hypertension Hydralazine HCl 50 mg 02/28/24 14:00 02/29/24 21:23 Hydralazine 50 Mg Tablet PO 02/27/25 13:59 50 mg TID MARY Administration Levothyroxine Sodium 50 mcg 02/24/24 06:30 03/01/24 05:42 Levothyroxine 50 Mcg Tablet PO 02/23/25 06:29 50 mcg DAILY.0630 MARY Administration Lidocaine 2 patch 02/24/24 09:00 02/29/24 10:09 Lidocaine 4% Adh..Patch TOPICAL 02/23/25 08:59 2 patch DAILY MARY Administration Losartan Potassium 100 mg 02/24/24 09:00 02/29/24 10:11 Losartan 50 Mg Tablet PO 02/23/25 08:59 100 mg DAILY MARY Administration Melatonin 5 mg 02/24/24 22:00 02/29/24 21:23 Melatonin 5 Mg Tablet PO 02/23/25 21:59 5 mg QHS MARY Administration Menthol 1 applic 02/24/24 10:00 02/29/24 21:23 Menthol 2% Gel 226.8 Gm Jar TOPICAL 02/23/25 09:59 1 applic BID MARY Administration Nystatin 500,000 unit 02/24/24 14:00 02/29/24 21:24 Nystatin Susp 500,000 Unit/5 Ml Udc PO 02/23/25 13:59 500,000 unit QID MARY Administration Ondansetron HCl 4 mg 02/25/24 12:30 03/01/24 04:35 Ondansetron 4 Mg/2 Ml Vial IV-PUSH 02/24/25 12:29 4 mg Q8H MARY Administration Pantoprazole Sodium 40 mg 02/24/24 12:00 02/29/24 21:23 Pantoprazole 40 Mg Vial IV-PUSH 02/23/25 11:59 40 mg BID MARY Administration Polyethylene Glycol 17 gm 02/24/24 09:00 02/29/24 10:09 Polyethylene Glycol 3350 17 Gm Powd.Pack PO 02/23/25 08:59 17 gm DAILY MARY Administration Saliva Substitute 44.3 ml 02/24/24 10:54 Saliva Stimulant Agents Comb.3 44.3 Ml [place] MUCOUS MEM 02/23/25 10:53 QID PRN dry mouth Sennosides 2 tab 02/27/24 12:15 02/29/24 21:23 Sennosides 8.6 Mg Tablet PO 02/26/25 12:14 2 tab BID MARY Administration Sodium Chloride 0 ml 02/23/24 15:40 02/29/24 10:12 Sodium Chloride 0.9 % 10 Ml Syringe IV-PUSH 02/22/25 15:39 10 ml PRN PRN Administration Flush Sodium Chloride 10 ml 02/24/24 11:45 02/29/24 10:11 Sodium Chloride 0.9 % 10 Ml Vial.Pf INJECTION 02/23/25 11:44 10 ml PRN PRN Administration Dilution Sodium Chloride 10 ml 02/24/24 11:45 Sodium Chloride 0.9 % 10 Ml Syringe IV-PUSH 02/23/25 11:44 PRN PRN Flush Trazodone HCl 50 mg 02/26/24 20:21 02/26/24 21:35 Trazodone 50 Mg Tablet PO 02/25/25 20:20 50 mg QHS PRN Administration Insomnia A&P - Hospitalist Assessment/Plan (1) Unable to care for self: (2) Constipation: (3) Hyperlipidemia: (4) Hypothyroidism: (5) Hypertension: (6) Abdominal pain: (7) Leukocytosis: (8) Acute kidney injury superimposed on CKD: (9) Delirium: (10) Sleep disturbance: (11) Dysphagia: (12) Left hemiparesis: (13) Thrush: (14) GERD (gastroesophageal reflux disease): (15) History of stroke: Plan Thrush with suspicion for darwin esophagitis Abdominal pain, constipation, reported no BM in over a week at SNF, multiple BMsin ED on admission Leukocytosis?resolved Dysphagia GERD Weight loss Denies any abdominal pain,no nausea or vomiting, tolerating diet well. * Gastroenterology consulted, patient deferring EGD for now. Recommended PPIs twice daily, empirically treating for esophageal Darwin, repeat swallow eval. Following along as needed * Speech consulted status post swallow evaluation and barium swallow, recommended pur?ed soft diet, thin liquids * On pantoprazole 40 mg IV twice daily * On nystatin, has had multiple courses of nystatin and fluconazole previously while on rehab. * Continue bowel regiment with scheduled Colace and MiraLAX, will give suppository today and enema to follow if no results * Abd/pelvis- mild constipation, mild gallbladder distention without inflammation, fibroid uterus with presence of pessary, small pericardial effusion. Nonacute * UA noninfectious, CXR nonacute. Leukocytosis could be reactive with constipation Normocytic anemia * Hemoglobin 10.0, 12.0 on admission no overt bleeding noted * Iron 22, TIBC 182, iron saturation 12, ferritin 505 * Stool for guaiac pending LINDA on CKD3, resolved Delirium vs metabolic encephalopathy Sleep disturbance -CT head- nonacute, diffuse atrophy, chronic small vessel ischemic changes, remote lacunar infarctions -consider med for sleep Recent Right basal ganglia and left central semiovale punctate infarct 12/25, left hemiparesis, dysphagia -was in process of being discharged from [facility] having plateaued intherapy. Family desires different facility -aspirin, clopidogrel, atorvastatin for secondary stroke prevention. Baclofen for muscle spasms ?PT/OT recommending SNF Chronic Conditions 1. Hypertension- losartan. PRN hydralazine. Trend 2. Hyperlipidemia- atorvastatin. Chol 99, LDL 40 3. Anxiety- buspirone 4. Hypothyroid- levothyroxine CODE STATUS: Full code DVT prophylaxis:will DC Lovenox and start SCDs due to low hemoglobin Discharge disposition: Medically stable, preceptor SNF pending, on appeal and will take up to 3 calendar days Documented By: Alysha Victor APRN 03/01/24 4946 Signed By: <Electronically signed by ODILON Victor> 03/01/24 1119 <Electronically signed by Dada Horn MD> 03/01/24 1222 [facility] Work Phone: 1([phone]) 281-469809-20-2024 Progress note Author Dada Horn [facility] March 01, 2024 12:21pm Note Date/Time February 27, 2024 12:01pm [facility] [address] [place] [address] Hospitalist Progress Note Signed Patient: Juan Hernandez MR#: [id number] : 1945 Acct:[id number] Age/Sex: 78 / F Adm Date: 4 Loc: 4N Room: 2L9198-2 Type: ADM IN Attending Dr: Dada Horn MD Copies to: ~ Date of Service: 02/27/2024 Subjective Subjective Narrative: Patient seen and examined, no acute events over nights. Sleeping, arousable, no abdominal pain, denies any nausea and vomiting. Tolerating diet well, medicallystable. Ready for discharge when pre-CERT is approved Exam Physical Exam Vital Signs: Temp Pulse Resp BP Pulse Ox O2 Del Method 98.1 F 61 14 135/66 93 L Room Air 02/27/24 08:00 02/27/24 09:37 02/27/24 05:01 02/27/24 08:00 02/27/24 09:37 02/27/24 09:37 Narrative: CONST-alert, awake sitting up in chair CARDIAC?normal rate, regular rhythm, normal S1 & S2. PULM?diminished without wheeze or rhonchi, RA, no accessory muscle use or cough noted ABD ? Soft. Bowel sounds are normal. No distention No tenderness EXTREM?no edema BLE calves nontender SKIN? W/D good turgor Objective Lab Results 02/27/24 06:20 02/26/24 05:22 Microbiology Results Microbiology 02/25/24 03:40 Urine - Clean-Voided Midstream Urine Culture - Final 75,000 colonies/ml mixed bacterial skin contaminants 2 Days Meds Allergies and Active Meds Allergies meperidine [From Demerol] Adverse Reaction (Verified 01/04/24 18:31) Hallucinating Active Meds: Active Medications Generic Name Dose Route Start Last Admin Trade Name Freq PRN Reason Stop Dose Admin Acetaminophen 650 mg 02/23/24 23:11 02/26/24 11:31 Acetaminophen 325 Mg Tablet PO 02/22/25 23:10 650 mg Q6HR PRN Administration Pain Scale 1 - 3 or fever Amlodipine Besylate 10 mg 02/24/24 09:00 02/27/24 09:40 Amlodipine 10 Mg Tablet PO 02/23/25 08:59 10 mg DAILY MARY Administration Aspirin 81 mg 02/24/24 09:00 02/27/24 09:40 Aspirin 81 Mg Tablet.Dr PO 02/23/25 08:59 81 mg DAILY MARY Administration Atorvastatin Calcium 40 mg 02/24/24 09:00 02/27/24 09:40 Atorvastatin 40 Mg Tablet PO 02/23/25 08:59 40 mg DAILY MARY Administration Baclofen 10 mg 02/24/24 09:00 02/27/24 09:39 Baclofen 10 Mg Tablet PO 02/23/25 08:59 10 mg BID MARY Administration Buspirone HCl 5 mg 02/24/24 09:00 02/27/24 09:39 Buspirone 5 Mg Tablet PO 02/23/25 08:59 5 mg BID MARY Administration Clopidogrel Bisulfate 75 mg 02/24/24 09:00 02/27/24 09:40 Clopidogrel Bisulfate 75 Mg Tablet PO 02/23/25 08:59 75 mg DAILY MARY Administration Diclofenac Sodium 2 gm 02/23/24 23:09 Diclofenac Sodium 1% Gel 100 Gm Tube TOPICAL 02/22/25 23:08 QID PRN muscle pain Docusate Sodium 100 mg 02/24/24 09:00 02/27/24 09:40 Docusate 100 Mg Capsule PO 02/23/25 08:59 100 mg BID MARY Administration Enoxaparin Sodium 30 mg 02/24/24 10:00 02/27/24 09:42 Enoxaparin 30 Mg/0.3 Ml Syringe SUBCUT 02/23/25 09:59 30 mg DAILY@10 MAYR Administration Famotidine 10 mg 02/24/24 09:00 02/27/24 09:39 Famotidine 20 Mg Tablet PO 02/23/25 08:59 10 mg DAILY MARY Administration Hydralazine HCl 25 mg 02/24/24 09:00 02/27/24 09:39 Hydralazine 25 Mg Tablet PO 02/23/25 08:59 25 mg QID MARY Administration Hydralazine HCl 10 mg 02/24/24 12:04 02/26/24 08:14 Hydralazine 20 Mg/Ml Vial IV-PUSH 02/23/25 12:03 10 mg Q4H PRN Administration Hypertension Dextrose 1,000 mls @ 50 mls/hr 02/26/24 10:45 02/26/24 11:31 5 % Dextrose In Water IV 02/25/25 10:44 50 mls/hr .Q20H MARY Administration Levothyroxine Sodium 50 mcg 02/24/24 06:30 02/27/24 05:41 Levothyroxine 50 Mcg Tablet PO 02/23/25 06:29 50 mcg DAILY.0630 MARY Administration Lidocaine 2 patch 02/24/24 09:00 02/27/24 09:40 Lidocaine 4% Adh..Patch TOPICAL 02/23/25 08:59 2 patch DAILY MARY Administration Losartan Potassium 100 mg 02/24/24 09:00 02/27/24 09:40 Losartan 50 Mg Tablet PO 02/23/25 08:59 100 mg DAILY MARY Administration Melatonin 5 mg 02/24/24 22:00 02/26/24 21:35 Melatonin 5 Mg Tablet PO 02/23/25 21:59 5 mg QHS MARY Administration Menthol 1 applic 02/24/24 10:00 02/27/24 09:41 Menthol 2% Gel 226.8 Gm Jar TOPICAL 02/23/25 09:59 1 applic BID MARY Administration Nystatin 500,000 unit 02/24/24 14:00 02/26/24 21:35 Nystatin Susp 500,000 Unit/5 Ml Udc PO 02/23/25 13:59 500,000 unit QID MARY Administration Ondansetron HCl 4 mg 02/25/24 12:30 02/27/24 05:30 Ondansetron 4 Mg/2 Ml Vial IV-PUSH 02/24/25 12:29 4 mg Q8H MARY Administration Pantoprazole Sodium 40 mg 02/24/24 12:00 02/27/24 09:42 Pantoprazole 40 Mg Vial IV-PUSH 02/23/25 11:59 40 mg BID MARY Administration Polyethylene Glycol 17 gm 02/24/24 09:00 02/27/24 09:42 Polyethylene Glycol 3350 17 Gm Powd.Pack PO 02/23/25 08:59 17 gm DAILY MARY Administration Saliva Substitute 44.3 ml 02/24/24 10:54 Saliva Stimulant Agents Comb.3 44.3 Ml [place] MUCOUS MEM 02/23/25 10:53 QID PRN dry mouth Sennosides 2 tab 02/27/24 11:55 Sennosides 8.6 Mg Tablet PO 02/26/25 11:54 BID MARY Sodium Chloride 0 ml 02/23/24 15:40 02/26/24 08:15 Sodium Chloride 0.9 % 10 Ml Syringe IV-PUSH 02/22/25 15:39 10 ml PRN PRN Administration Flush Sodium Chloride 10 ml 02/24/24 11:45 02/26/24 08:14 Sodium Chloride 0.9 % 10 Ml Vial.Pf INJECTION 02/23/25 11:44 10 ml PRN PRN Administration Dilution Sodium Chloride 10 ml 02/24/24 11:45 Sodium Chloride 0.9 % 10 Ml Syringe IV-PUSH 02/23/25 11:44 PRN PRN Flush Trazodone HCl 50 mg 02/26/24 20:21 02/26/24 21:35 Trazodone 50 Mg Tablet PO 02/25/25 20:20 50 mg QHS PRN Administration Insomnia A&P - Hospitalist Assessment/Plan (1) Unable to care for self: (2) Constipation: (3) Hyperlipidemia: (4) Hypothyroidism: (5) Hypertension: (6) Abdominal pain: (7) Leukocytosis: (8) Acute kidney injury superimposed on CKD: (9) Delirium: (10) Sleep disturbance: (11) Dysphagia: (12) Left hemiparesis: (13) Thrush: (14) GERD (gastroesophageal reflux disease): (15) History of stroke: Plan Thrush with suspicion for darwin esophagitis Abdominal pain, constipation, reported no BM in over a week at SNF, multiple BMsin ED on admission Leukocytosis?resolved Dysphagia GERD Weight loss Denies any abdominal pain,no nausea or vomiting, tolerating diet well. * Gastroenterology consulted, patient deferring EGD for now. Recommended PPIs twice daily, empirically treating for esophageal Darwin, repeat swallow eval. Following along as needed * Speech consulted status post swallow evaluation and recommended mechanical soft diet, thin liquids and barium swallow to follow. * On pantoprazole 40 mg IV twice daily * On nystatin, has had multiple courses of nystatin and fluconazole previously while on rehab. * Continue bowel regiment with scheduled Colace and MiraLAX * Abd/pelvis- mild constipation, mild gallbladder distention without inflammation, fibroid uterus with presence of pessary, small pericardial effusion. Nonacute * UA noninfectious, CXR nonacute. Leukocytosis could be reactive with constipation Normocytic anemia * Hemoglobin 10.0, 12.0 on admission no overt bleeding noted * Will check iron panel and continue to monitor H&H LINDA on CKD3, resolved Delirium vs metabolic encephalopathy Sleep disturbance -CT head- nonacute, diffuse atrophy, chronic small vessel ischemic changes, remote lacunar infarctions -consider med for sleep however currently NPO Recent Right basal ganglia and left central semiovale punctate infarct 12/25, left hemiparesis, dysphagia -therapy evals -was in process of being discharged from [facility] having plateaued intherapy. Family desires different facility -aspirin, clopidogrel, atorvastatin for secondary stroke prevention. Baclofen for muscle spasms Chronic Conditions 1. Hypertension- losartan. PRN hydralazine. Trend 2. Hyperlipidemia- atorvastatin. Chol 99, LDL 40 3. Anxiety- buspirone 4. Hypothyroid- levothyroxine CODE STATUS: Full code DVT prophylaxis:will DC Lovenox and start SCDs due to low hemoglobin Discharge disposition: Medically stable, preceptor SNF pending Documented By: Alysha Victor APRN 02/27/24 1200 Signed By: <Electronically signed by ODILON Victor> 02/27/24 1542 <Electronically signed by Dada Horn MD> 03/01/24 1221 [facility] Work Phone: 1(775) 671-842709-20-2024 Progress note Author Dada Horn [facility] March 01, 2024 12:21pm Note Date/Time February 28, 2024 11:42am [facility] [address] [place] [address] Hospitalist Progress Note Signed Patient: Juan Hernandez MR#: [id number] : 1945 Acct:[id number] Age/Sex: 78 / F Adm Date: 4 Loc: 4N Room: 0H8457-5 Type: ADM IN Attending Dr: Dada Horn MD Copies to: ~ Date of Service: 02/28/2024 Subjective Subjective Narrative: Patient seen and examined, resting comfortably in bed, slight nausea without vomiting, reports to earlier, denies abdominal pain.Reports last bowel movement 02/23, will administer suppository today and follow-up with a fleets enema if no results. No fevers or chills noted. Exam Physical Exam Vital Signs: Temp Pulse Resp BP Pulse Ox O2 Del Method 97.9 F 55 L 15 161/70 H 94 L Room Air 02/28/24 08:44 02/28/24 08:44 02/28/24 08:44 02/28/24 08:44 02/28/24 08:44 02/28/24 08:44 Narrative: CONST-alert, awake sitting up in chair CARDIAC?normal rate, regular rhythm, normal S1 & S2. PULM?diminished without wheeze or rhonchi, RA, no accessory muscle use or cough noted ABD ? Soft. Bowel sounds are normal. No distention No tenderness EXTREM?no edema BLE calves nontender SKIN? W/D good turgor Objective Lab Results 02/28/24 04:50 02/26/24 05:22 Microbiology Results Microbiology 02/25/24 03:40 Urine - Clean-Voided Midstream Urine Culture - Final 75,000 colonies/ml mixed bacterial skin contaminants 2 Days Meds Allergies and Active Meds Allergies meperidine [From Demerol] Adverse Reaction (Verified 01/04/24 18:31) Hallucinating Active Meds: Active Medications Generic Name Dose Route Start Last Admin Trade Name Freq PRN Reason Stop Dose Admin Acetaminophen 650 mg 02/23/24 23:11 02/26/24 11:31 Acetaminophen 325 Mg Tablet PO 02/22/25 23:10 650 mg Q6HR PRN Administration Pain Scale 1 - 3 or fever Amlodipine Besylate 10 mg 02/24/24 09:00 02/28/24 10:03 Amlodipine 10 Mg Tablet PO 02/23/25 08:59 10 mg DAILY MARY Administration Aspirin 81 mg 02/24/24 09:00 02/28/24 10:03 Aspirin 81 Mg Tablet. PO 02/23/25 08:59 81 mg DAILY MARY Administration Atorvastatin Calcium 40 mg 02/24/24 09:00 02/28/24 10:02 Atorvastatin 40 Mg Tablet PO 02/23/25 08:59 40 mg DAILY MARY Administration Baclofen 10 mg 02/24/24 09:00 02/28/24 10:03 Baclofen 10 Mg Tablet PO 02/23/25 08:59 10 mg BID MARY Administration Buspirone HCl 5 mg 02/24/24 09:00 02/28/24 10:02 Buspirone 5 Mg Tablet PO 02/23/25 08:59 5 mg BID MARY Administration Clopidogrel Bisulfate 75 mg 02/24/24 09:00 02/28/24 10:02 Clopidogrel Bisulfate 75 Mg Tablet PO 02/23/25 08:59 75 mg DAILY MARY Administration Diclofenac Sodium 2 gm 02/23/24 23:09 Diclofenac Sodium 1% Gel 100 Gm Tube TOPICAL 02/22/25 23:08 QID PRN muscle pain Docusate Sodium 100 mg 02/24/24 09:00 02/28/24 10:03 Docusate 100 Mg Capsule PO 02/23/25 08:59 100 mg BID MARY Administration Enoxaparin Sodium 40 mg 02/28/24 10:00 02/28/24 10:09 Enoxaparin 40 Mg/0.4 Ml Syringe SUBCUT 02/23/25 09:59 40 mg DAILY@10 MARY Administration Famotidine 10 mg 02/24/24 09:00 02/28/24 10:08 Famotidine 20 Mg Tablet PO 02/23/25 08:59 10 mg DAILY MARY Administration Hydralazine HCl 25 mg 02/24/24 09:00 02/28/24 10:02 Hydralazine 25 Mg Tablet PO 02/23/25 08:59 25 mg QID MARY Administration Hydralazine HCl 10 mg 02/24/24 12:04 02/26/24 08:14 Hydralazine 20 Mg/Ml Vial IV-PUSH 02/23/25 12:03 10 mg Q4H PRN Administration Hypertension Levothyroxine Sodium 50 mcg 02/24/24 06:30 02/28/24 05:39 Levothyroxine 50 Mcg Tablet PO 02/23/25 06:29 50 mcg DAILY.0630 MARY Administration Lidocaine 2 patch 02/24/24 09:00 02/28/24 10:06 Lidocaine 4% Adh..Patch TOPICAL 02/23/25 08:59 2 patch DAILY MARY Administration Losartan Potassium 100 mg 02/24/24 09:00 02/28/24 10:03 Losartan 50 Mg Tablet PO 02/23/25 08:59 100 mg DAILY MARY Administration Melatonin 5 mg 02/24/24 22:00 02/27/24 22:33 Melatonin 5 Mg Tablet PO 02/23/25 21:59 5 mg QHS MARY Administration Menthol 1 applic 02/24/24 10:00 02/28/24 10:08 Menthol 2% Gel 226.8 Gm Jar TOPICAL 02/23/25 09:59 1 applic BID MARY Administration Nystatin 500,000 unit 02/24/24 14:00 02/28/24 10:03 Nystatin Susp 500,000 Unit/5 Ml Udc PO 02/23/25 13:59 500,000 unit QID MARY Administration Ondansetron HCl 4 mg 02/25/24 12:30 02/28/24 05:39 Ondansetron 4 Mg/2 Ml Vial IV-PUSH 02/24/25 12:29 4 mg Q8H MARY Administration Pantoprazole Sodium 40 mg 02/24/24 12:00 02/28/24 10:02 Pantoprazole 40 Mg Vial IV-PUSH 02/23/25 11:59 40 mg BID MARY Administration Polyethylene Glycol 17 gm 02/24/24 09:00 02/28/24 10:09 Polyethylene Glycol 3350 17 Gm Powd.Pack PO 02/23/25 08:59 17 gm DAILY MARY Administration Saliva Substitute 44.3 ml 02/24/24 10:54 Saliva Stimulant Agents Comb.3 44.3 Ml [place] MUCOUS MEM 02/23/25 10:53 QID PRN dry mouth Sennosides 2 tab 02/27/24 12:15 02/28/24 10:03 Sennosides 8.6 Mg Tablet PO 02/26/25 12:14 2 tab BID MARY Administration Sodium Chloride 0 ml 02/23/24 15:40 02/26/24 08:15 Sodium Chloride 0.9 % 10 Ml Syringe IV-PUSH 02/22/25 15:39 10 ml PRN PRN Administration Flush Sodium Chloride 10 ml 02/24/24 11:45 02/28/24 10:02 Sodium Chloride 0.9 % 10 Ml Vial.Pf INJECTION 02/23/25 11:44 10 ml PRN PRN Administration Dilution Sodium Chloride 10 ml 02/24/24 11:45 Sodium Chloride 0.9 % 10 Ml Syringe IV-PUSH 02/23/25 11:44 PRN PRN Flush Trazodone HCl 50 mg 02/26/24 20:21 02/26/24 21:35 Trazodone 50 Mg Tablet PO 02/25/25 20:20 50 mg QHS PRN Administration Insomnia A&P - Hospitalist Assessment/Plan (1) Unable to care for self: (2) Constipation: (3) Hyperlipidemia: (4) Hypothyroidism: (5) Hypertension: (6) Abdominal pain: (7) Leukocytosis: (8) Acute kidney injury superimposed on CKD: (9) Delirium: (10) Sleep disturbance: (11) Dysphagia: (12) Left hemiparesis: (13) Thrush: (14) GERD (gastroesophageal reflux disease): (15) History of stroke: Plan Thrush with suspicion for darwin esophagitis Abdominal pain, constipation, reported no BM in over a week at SNF, multiple BMsin ED on admission Leukocytosis?resolved Dysphagia GERD Weight loss Denies any abdominal pain,no nausea or vomiting, tolerating diet well. * Gastroenterology consulted, patient deferring EGD for now. Recommended PPIs twice daily, empirically treating for esophageal Darwin, repeat swallow eval. Following along as needed * Speech consulted status post swallow evaluation and recommended mechanical soft diet, thin liquids and barium swallow to follow. * On pantoprazole 40 mg IV twice daily * On nystatin, has had multiple courses of nystatin and fluconazole previously while on rehab. * Continue bowel regiment with scheduled Colace and MiraLAX, will give suppository today and enema to follow if no results * Abd/pelvis- mild constipation, mild gallbladder distention without inflammation, fibroid uterus with presence of pessary, small pericardial effusion. Nonacute * UA noninfectious, CXR nonacute. Leukocytosis could be reactive with constipation Normocytic anemia * Hemoglobin 10.0, 12.0 on admission no overt bleeding noted * Will check iron panel and continue to monitor H&H LINDA on CKD3, resolved Delirium vs metabolic encephalopathy Sleep disturbance -CT head- nonacute, diffuse atrophy, chronic small vessel ischemic changes, remote lacunar infarctions -consider med for sleep however currently NPO Recent Right basal ganglia and left central semiovale punctate infarct 12/25, left hemiparesis, dysphagia -therapy evals -was in process of being discharged from [facility] having plateaued intherapy. Family desires different facility -aspirin, clopidogrel, atorvastatin for secondary stroke prevention. Baclofen for muscle spasms Chronic Conditions 1. Hypertension- losartan. PRN hydralazine. Trend 2. Hyperlipidemia- atorvastatin. Chol 99, LDL 40 3. Anxiety- buspirone 4. Hypothyroid- levothyroxine CODE STATUS: Full code DVT prophylaxis:will DC Lovenox and start SCDs due to low hemoglobin Discharge disposition: Medically stable, preceptor SNF pending Documented By: Alysha Victor APRN 02/28/24 1141 Signed By: <Electronically signed by ODILON Victor> 02/28/24 1708 <Electronically signed by Dada Horn MD> 03/01/24 1221 [facility] Work Phone: 1(621) 610-809509-20-2024 Progress note Author Dada Horn [facility] March 01, 2024 12:19pm Note Date/Time February 26, 2024 12:13pm [facility] [address] [place] [address] Hospitalist Progress Note Signed Patient: Juan Hernandez MR#: [id number] : 1945 Acct:[id number] Age/Sex: 78 / F Adm Date: 4 Loc: 4N Room: [address] [place] [address] Type: ADM IN Attending Dr: Dada Horn MD Copies to: ~ Date of Service: 02/26/2024 Subjective Subjective Narrative: Patient seen and examined, out of bed and sitting in chair. Reports mild nauseawith applesauce, no nausea and no abdominal pain. Does reporting having severe acid reflux at times. Denies any dysuria, frequency or urgency. No fevers or chills. Went over plan as discussed with gastroenterology, patient agreeable. Exam Physical Exam Vital Signs: Temp Pulse Resp BP Pulse Ox O2 Del Method 97.7 F 68 14 160/68 H 97 Room Air 02/26/24 08:00 02/26/24 11:15 02/26/24 11:15 02/26/24 11:15 02/26/24 11:15 02/26/24 11:15 Narrative: CONST-alert, awake sitting up in chair CARDIAC?normal rate, regular rhythm, normal S1 & S2. PULM?diminished without wheeze or rhonchi, RA, no accessory muscle use or cough noted ABD ? Soft. Bowel sounds are normal. No distention No tenderness EXTREM?no edema BLE calves nontender SKIN? W/D good turgor Objective Lab Results 02/26/24 05:22 02/26/24 05:22 Microbiology Results Microbiology 02/25/24 03:40 Urine - Clean-Voided Midstream Urine Culture - Preliminary 75,000 colonies/ml mixed bacterial skin contaminants 1 Day Meds Allergies and Active Meds Allergies meperidine [From Demerol] Adverse Reaction (Verified 01/04/24 18:31) Hallucinating Active Meds: Active Medications Generic Name Dose Route Start Last Admin Trade Name Nam PRN Reason Stop Dose Admin Acetaminophen 650 mg 02/23/24 23:11 02/26/24 11:31 Acetaminophen 325 Mg Tablet PO 02/22/25 23:10 650 mg Q6HR PRN Administration Pain Scale 1 - 3 or fever Amlodipine Besylate 10 mg 02/24/24 09:00 02/26/24 11:32 Amlodipine 10 Mg Tablet PO 02/23/25 08:59 10 mg DAILY MARY Administration Aspirin 81 mg 02/24/24 09:00 02/26/24 11:32 Aspirin 81 Mg Tablet.Dr PO 02/23/25 08:59 81 mg DAILY MARY Administration Atorvastatin Calcium 40 mg 02/24/24 09:00 02/26/24 11:32 Atorvastatin 40 Mg Tablet PO 02/23/25 08:59 40 mg DAILY MARY Administration Baclofen 10 mg 02/24/24 09:00 02/26/24 11:32 Baclofen 10 Mg Tablet PO 02/23/25 08:59 10 mg BID MARY Administration Buspirone HCl 5 mg 02/24/24 09:00 02/26/24 11:32 Buspirone 5 Mg Tablet PO 02/23/25 08:59 5 mg BID MARY Administration Clopidogrel Bisulfate 75 mg 02/24/24 09:00 02/26/24 11:32 Clopidogrel Bisulfate 75 Mg Tablet PO 02/23/25 08:59 75 mg DAILY MARY Administration Diclofenac Sodium 2 gm 02/23/24 23:09 Diclofenac Sodium 1% Gel 100 Gm Tube TOPICAL 02/22/25 23:08 QID PRN muscle pain Diphenhydramine HCl 50 mg 02/25/24 22:00 02/25/24 21:43 Diphenhydramine 50 Mg/Ml Vial IV-PUSH 02/24/25 21:59 50 mg HS MARY Administration Docusate Sodium 100 mg 02/24/24 09:00 02/26/24 11:32 Docusate 100 Mg Capsule PO 02/23/25 08:59 100 mg BID MARY Administration Enoxaparin Sodium 30 mg 02/24/24 10:00 02/26/24 11:33 Enoxaparin 30 Mg/0.3 Ml Syringe SUBCUT 02/23/25 09:59 Not Given DAILY@10 MARY Famotidine 10 mg 02/24/24 09:00 02/26/24 11:32 Famotidine 20 Mg Tablet PO 02/23/25 08:59 10 mg DAILY MARY Administration Hydralazine HCl 25 mg 02/24/24 09:00 02/26/24 11:31 Hydralazine 25 Mg Tablet PO 02/23/25 08:59 25 mg QID MARY Administration Hydralazine HCl 10 mg 02/24/24 12:04 02/26/24 08:14 Hydralazine 20 Mg/Ml Vial IV-PUSH 02/23/25 12:03 10 mg Q4H PRN Administration Hypertension Dextrose 1,000 mls @ 50 mls/hr 02/26/24 10:45 02/26/24 11:31 5 % Dextrose In Water IV 02/25/25 10:44 50 mls/hr .Q20H MARY Administration Levothyroxine Sodium 50 mcg 02/24/24 06:30 02/26/24 11:32 Levothyroxine 50 Mcg Tablet PO 02/23/25 06:29 50 mcg DAILY.0630 MARY Administration Lidocaine 2 patch 02/24/24 09:00 02/26/24 08:29 Lidocaine 4% Adh..Patch TOPICAL 02/23/25 08:59 2 patch DAILY MARY Administration Losartan Potassium 100 mg 02/24/24 09:00 02/26/24 11:31 Losartan 50 Mg Tablet PO 02/23/25 08:59 100 mg DAILY MARY Administration Melatonin 5 mg 02/24/24 22:00 02/25/24 21:58 Melatonin 5 Mg Tablet PO 02/23/25 21:59 Not Given QHS MARY Menthol 1 applic 02/24/24 10:00 02/26/24 08:26 Menthol 2% Gel 226.8 Gm Jar TOPICAL 02/23/25 09:59 1 applic BID MARY Administration Nystatin 500,000 unit 02/24/24 14:00 02/26/24 11:33 Nystatin Susp 500,000 Unit/5 Ml Udc PO 02/23/25 13:59 500,000 unit QID MARY Administration Ondansetron HCl 4 mg 02/25/24 12:30 02/26/24 11:33 Ondansetron 4 Mg/2 Ml Vial IV-PUSH 02/24/25 12:29 4 mg Q8H MARY Administration Pantoprazole Sodium 40 mg 02/24/24 12:00 02/26/24 08:14 Pantoprazole 40 Mg Vial IV-PUSH 02/23/25 11:59 40 mg BID MARY Administration Polyethylene Glycol 17 gm 02/24/24 09:00 02/26/24 11:33 Polyethylene Glycol 3350 17 Gm Powd.Pack PO 02/23/25 08:59 17 gm DAILY MARY Administration Saliva Substitute 44.3 ml 02/24/24 10:54 Saliva Stimulant Agents Comb.3 44.3 Ml [place] MUCOUS MEM 02/23/25 10:53 QID PRN dry mouth Sodium Chloride 0 ml 02/23/24 15:40 02/26/24 08:15 Sodium Chloride 0.9 % 10 Ml Syringe IV-PUSH 02/22/25 15:39 10 ml PRN PRN Administration Flush Sodium Chloride 10 ml 02/24/24 11:45 02/26/24 08:14 Sodium Chloride 0.9 % 10 Ml Vial.Pf INJECTION 02/23/25 11:44 10 ml PRN PRN Administration Dilution Sodium Chloride 10 ml 02/24/24 11:45 Sodium Chloride 0.9 % 10 Ml Syringe IV-PUSH 02/23/25 11:44 PRN PRN Flush A&P - Hospitalist Assessment/Plan (1) Unable to care for self: (2) Constipation: (3) Hyperlipidemia: (4) Hypothyroidism: (5) Hypertension: (6) Abdominal pain: (7) Leukocytosis: (8) Acute kidney injury superimposed on CKD: (9) Delirium: (10) Sleep disturbance: (11) Dysphagia: (12) Left hemiparesis: (13) Thrush: (14) GERD (gastroesophageal reflux disease): (15) History of stroke: Plan Thrush with suspicion for darwin esophagitis Abdominal pain, constipation, reported no BM in over a week at SNF, multiple BMsin ED on admission Leukocytosis?resolved Dysphagia GERD Weight loss Denies any abdominal pain, slight nausea this morning with applesauce * Gastroenterology consulted, patient deferring EGD for now. Recommended PPIs twice daily, empirically treating for esophageal Darwin, repeat swallow eval. Following along as needed * Speech consulted status post swallow evaluation and recommended mechanical soft diet, thin liquids and barium swallow to follow. * On pantoprazole 40 mg IV twice daily * On nystatin, has had multiple courses of nystatin and fluconazole previously while on rehab. * Continue bowel regiment with scheduled Colace and MiraLAX * - abd/pelvis- mild constipation, mild gallbladder distention without inflammation, fibroid uterus with presence of pessary, small pericardial effusion. Nonacute * UA noninfectious, CXR nonacute. Leukocytosis could be reactive with constipation LINDA on CKD3, probably secondary to poor intake -IVF, trend lab. Recent poor intake -admitting Cr 1.78, baseline 0.8-1.0 Delirium vs metabolic encephalopathy Sleep disturbance -CT head- nonacute, diffuse atrophy, chronic small vessel ischemic changes, remote lacunar infarctions -consider med for sleep however currently NPO Recent Right basal ganglia and left central semiovale punctate infarct 12/25, left hemiparesis, dysphagia -therapy evals -was in process of being discharged from [facility] having plateaued intherapy. Family desires different facility -aspirin, clopidogrel, atorvastatin for secondary stroke prevention. Baclofen for muscle spasms Chronic Conditions 1. Hypertension- losartan. PRN hydralazine. Trend 2. Hyperlipidemia- atorvastatin. Chol 99, LDL 40 3. Anxiety- buspirone 4. Hypothyroid- levothyroxine Documented By: Alysha Victor APRN 02/26/24 1213 Signed By: <Electronically signed by ODILON Victor> 02/26/24 1443 <Electronically signed by Dada Horn MD> 03/01/24 1219 [facility] Work Phone: 1(428) 418-286309-15-2024 Progress note Author Zay Jasmine [facility] February 25, 2024 7:03pm Note Date/Time February 24, 2024 11:15am [facility] [address] [place] [address] Hospitalist Progress Note Signed Patient: Juan Hernandez MR#: [id number] : 1945 Acct:[id number] Age/Sex: 78 / F Adm Date: 4 Loc: 4N Room: [address] [place] [address] Type: ADM IN Attending Dr: Zay Jasmine DO Copies to: ~ Date of Service: 02/24/2024 Subjective Subjective Narrative: Patient seen and examined. Son Soto just arrived. Updates me on events of discharge from facility. He indicates facility was conflicted on last BM 1wk ago vs 3wk ago. Son reports poor intake and sleep recently, this is not her baseline. Had been on pureed with thin liquid most recently at [facility], however with throat/ esophagus burning she has developed some aversions to food per son update. [facility] for concern for strictures. Has hadmultiple courses of treatment for thrush. Currently she is in the chair and talking endlessly, repeats and perseverates especially if overhears any numbers. She does indicates still some central abdominal pain and presternal tenderness with palpation. Exam Physical Exam Vital Signs: Temp Pulse Resp BP Pulse Ox O2 Del Method 99.9 F H 71 18 135/70 96 Room Air 02/24/24 08:00 02/24/24 08:00 02/24/24 08:00 02/24/24 08:00 02/24/24 08:00 02/24/24 08:00 Narrative: CONST- alert, in chair, elderly female, oriented but continuous verbalization and perseveration on numbers- not her baseline CARD- RRR no abnormal heart tones PULM- dimin without wheeze or rhonchi, RA ABD- S/NT, NABS, EXTREM- no edema BLE, calves nontender MS- left hemiparesis, gross motor movement LLE antigravity LUE +shrug, no grasp or push pull on left Objective Lab Results 02/25/24 06:34 02/25/24 06:34 Meds Allergies and Active Meds Allergies meperidine [From Demerol] Adverse Reaction (Verified 01/04/24 18:31) Hallucinating Active Meds: Active Medications Generic Name Dose Route Start Last Admin Trade Name Freq PRN Reason Stop Dose Admin Acetaminophen 650 mg 02/23/24 23:11 Acetaminophen 325 Mg Tablet PO 02/22/25 23:10 Q6HR PRN Pain Scale 1 - 3 or fever Amlodipine Besylate 10 mg 02/24/24 09:00 02/24/24 09:24 Amlodipine 10 Mg Tablet PO 02/23/25 08:59 Not Given DAILY MARY Aspirin 81 mg 02/24/24 09:00 02/24/24 09:24 Aspirin 81 Mg Tablet.Dr PO 02/23/25 08:59 Not Given DAILY [facility] Atorvastatin Calcium 40 mg 02/24/24 09:00 02/24/24 09:25 Atorvastatin 40 Mg Tablet PO 02/23/25 08:59 Not Given DAILY [facility] Baclofen 10 mg 02/24/24 09:00 02/24/24 09:25 Baclofen 10 Mg Tablet PO 02/23/25 08:59 Not Given BID [facility] Buspirone HCl 5 mg 02/24/24 09:00 02/24/24 09:25 Buspirone 5 Mg Tablet PO 02/23/25 08:59 Not Given BID [facility] Clopidogrel Bisulfate 75 mg 02/24/24 09:00 02/24/24 09:25 Clopidogrel Bisulfate 75 Mg Tablet PO 02/23/25 08:59 Not Given DAILY [facility] Diclofenac Sodium 2 gm 02/23/24 23:09 Diclofenac Sodium 1% Gel 100 Gm Tube TOPICAL 02/22/25 23:08 QID PRN muscle pain Docusate Sodium 100 mg 02/24/24 09:00 02/24/24 09:25 Docusate 100 Mg Capsule PO 02/23/25 08:59 Not Given BID [facility] Enoxaparin Sodium 30 mg 02/24/24 10:00 02/24/24 09:23 Enoxaparin 30 Mg/0.3 Ml Syringe SUBCUT 02/23/25 09:59 30 mg DAILY@10 MARY Administration Famotidine 10 mg 02/24/24 09:00 02/24/24 09:25 Famotidine 20 Mg Tablet PO 02/23/25 08:59 Not Given DAILY [facility] Hydralazine HCl 25 mg 02/24/24 09:00 02/24/24 09:34 Hydralazine 25 Mg Tablet PO 02/23/25 08:59 Not Given QID [facility] Lactated Ringer's 1,000 mls @ 75 mls/hr 02/24/24 04:00 02/24/24 04:05 Lactated Ringers IV 02/25/24 06:39 75 mls/hr .[id number] MARY Administration Levothyroxine Sodium 50 mcg 02/24/24 06:30 02/24/24 06:52 Levothyroxine 50 Mcg Tablet PO 02/23/25 06:29 Not Given DAILY.0630 [facility] Lidocaine 2 patch 02/24/24 09:00 Lidocaine 4% Adh..Patch TOPICAL 02/23/25 08:59 DAILY [facility] Losartan Potassium 100 mg 02/24/24 09:00 02/24/24 09:25 Losartan 50 Mg Tablet PO 02/23/25 08:59 Not Given DAILY MARY Melatonin 5 mg 02/24/24 22:00 Melatonin 5 Mg Tablet PO 02/23/25 21:59 QHS MARY Menthol 1 applic 02/24/24 10:00 Menthol 2% Gel 226.8 Gm Jar TOPICAL 02/23/25 09:59 BID MARY Nystatin unit 02/24/24 14:00 Nystatin Susp 500,000 Unit/5 Ml Udc PO 02/23/25 13:59 QID MARY Pantoprazole Sodium 40 mg 02/24/24 09:00 02/24/24 09:34 Pantoprazole 40 Mg Tablet. PO 02/23/25 08:59 Not Given DAILY MARY Polyethylene Glycol 17 gm 02/24/24 09:00 02/24/24 09:34 Polyethylene Glycol 3350 17 Gm Powd.Pack PO 02/23/25 08:59 Not Given DAILY MARY Saliva Substitute ml 02/24/24 10:54 Saliva Stimulant Agents Comb.3 44.3 Ml [place] MUCOUS MEM 02/23/25 10:53 QID PRN dry mouth Sodium Chloride 0 ml 02/23/24 15:40 Sodium Chloride 0.9 % 10 Ml Syringe IV-PUSH 02/22/25 15:39 PRN PRN Flush A&P - Hospitalist Assessment/Plan (1) Unable to care for self: (2) Constipation: (3) Hyperlipidemia: (4) Hypothyroidism: (5) Hypertension: (6) Abdominal pain: (7) Leukocytosis: (8) Acute kidney injury superimposed on CKD: (9) Delirium: (10) Sleep disturbance: (11) Dysphagia: (12) Left hemiparesis: (13) Thrush: (14) GERD (gastroesophageal reflux disease): (15) History of stroke: Plan Abdominal pain, constipation Leukocytosis -WBC 15 on admit and elevated to 19. Mild temperature elevation -CT abd/pelvis- mild constipation, mild gallbladder distention without inflammation, fibroid uterus with presence of pessary, small pericardial effusion. Nonacute -multiple BMs in ED, reported no BM in over a week at SNF -UA noninfectious, CXR nonacute. Leukocytosis could be reactive with constipation -currently NPO with dysphagia, see below LINDA on CKD3, probably secondary to poor intake -IVF, trend lab. Recent poor intake -admitting Cr 1.78, baseline 0.8-1.0 Delirium vs metabolic encephalopathy Sleep disturbance -CT head- nonacute, diffuse atrophy, chronic small vessel ischemic changes, remote lacunar infarctions -consider med for sleep however currently NPO Thrush with suspicion for darwin esophagitis GERD Dysphagia Weight loss -multiple courses of Nystatin and had Fluconazole previously while on rehab, saliva substitute and Nystatin continue -will consult GI- was supposed to see outpatient in [place] 02/[address] for strictures -CURRENTLY NPO, ST following. Gentle IV hydration -Pantoprazole IV -dietitian Recent Right basal ganglia and left central semiovale punctate infarct 12/25, left hemiparesis, dysphagia -therapy evals -was in process of being discharged from [facility] having plateaued intherapy. Family desires different facility -aspirin, clopidogrel, atorvastatin for secondary stroke prevention. Baclofen for muscle spasms Chronic Conditions 1. Hypertension- losartan. PRN hydralazine. Trend 2. Hyperlipidemia- atorvastatin. Chol 99, LDL 40 3. Anxiety- buspirone 4. Hypothyroid- levothyroxine I reviewed the history, formulated the plan of care and confirmed the Nurse Practitioner's assessment and plan after discussion with her about the case. - Zay Jasmine DO Documented By: Carlotta Moralez APRN 02/10 10/03 1115 Signed By: <Electronically signed by ODILON Moralez> 02/24/24 1219 <Electronically signed by Zay Jasmine DO> 02/25/24 1903 [facility] Work Phone: 1(810) 654-176209-15-2024 Progress note Author Zay Jasmine [facility] February 25, 2024 7:01pm Note Date/Time February 25, 2024 12:20pm [facility] [address] [place] [address] Hospitalist Progress Note Signed Patient: Juan Hernandez MR#: [id number] : 1945 Acct:[id number] Age/Sex: 78 / F Adm Date: 4 Loc: 4N Room: [id number] Type: ADM IN Attending Dr: Zay Jasmine DO Copies to: ~ Date of Service: 02/25/2024 Subjective Subjective Narrative: Patient seen and examined. Up in chair watching her tablet. States she slept poorly overnight due to nausea ongoing. She appears able to follow cues better today, cooperative with exam. Endorses ongoing bilateral lower abdominal discomfort. States she does not want to have endoscopy when I inquired about GIphysician visit. Remains NPO today Exam Physical Exam Vital Signs: Temp Pulse Resp BP Pulse Ox O2 Del Method 98.6 F 73 18 166/64 H 94 L Room Air 02/25/24 11:06 02/25/24 11:06 02/25/24 11:06 02/25/24 11:06 02/25/24 11:06 02/25/24 11:06 Narrative: CONST- alert, in chair, elderly female, oriented, flat affect, more appropriate today CARD- RRR no abnormal heart tones PULM- dimin without wheeze or rhonchi, RA ABD- Soft generalized tenderness with palpation, NABS EXTREM- no edema BLE, calves nontender MS- left hemiparesis, gross motor movement LLE antigravity LUE +shrug, no grasp or push pull on left. Left wrist contracture Objective Lab Results 02/25/24 06:34 02/25/24 06:34 Meds Allergies and Active Meds Allergies meperidine [From Demerol] Adverse Reaction (Verified 01/04/24 18:31) Hallucinating Active Meds: Active Medications Generic Name Dose Route Start Last Admin Trade Name Freq PRN Reason Stop Dose Admin Acetaminophen 650 mg 02/23/24 23:11 Acetaminophen 325 Mg Tablet PO 02/22/25 23:10 Q6HR PRN Pain Scale 1 - 3 or fever Amlodipine Besylate 10 mg 02/24/24 09:00 02/25/24 09:22 Amlodipine 10 Mg Tablet PO 02/23/25 08:59 Not Given DAILY [facility] Aspirin 81 mg 02/24/24 09:00 02/25/24 09:22 Aspirin 81 Mg Tablet.Dr REYNA 02/23/25 08:59 Not Given DAILY [facility] Atorvastatin Calcium 40 mg 02/24/24 09:00 02/25/24 09:22 Atorvastatin 40 Mg Tablet PO 02/23/25 08:59 Not Given DAILY [facility] Baclofen 10 mg 02/24/24 09:00 02/25/24 09:22 Baclofen 10 Mg Tablet PO 02/23/25 08:59 Not Given BID [facility] Buspirone HCl 5 mg 02/24/24 09:00 02/25/24 09:22 Buspirone 5 Mg Tablet PO 02/23/25 08:59 Not Given BID [facility] Clopidogrel Bisulfate 75 mg 02/24/24 09:00 02/25/24 09:22 Clopidogrel Bisulfate 75 Mg Tablet PO 02/23/25 08:59 Not Given DAILY [facility] Diclofenac Sodium 2 gm 02/23/24 23:09 Diclofenac Sodium 1% Gel 100 Gm Tube TOPICAL 02/22/25 23:08 QID PRN muscle pain Docusate Sodium 100 mg 02/24/24 09:00 02/25/24 09:22 Docusate 100 Mg Capsule PO 02/23/25 08:59 Not Given BID [facility] Enoxaparin Sodium 30 mg 02/24/24 10:00 02/25/24 09:08 Enoxaparin 30 Mg/0.3 Ml Syringe SUBCUT 02/23/25 09:59 30 mg DAILY@10 [facility] Administration Famotidine 10 mg 02/24/24 09:00 02/25/24 09:22 Famotidine 20 Mg Tablet PO 02/23/25 08:59 Not Given DAILY [facility] Hydralazine HCl 25 mg 02/24/24 09:00 02/25/24 09:23 Hydralazine 25 Mg Tablet PO 02/23/25 08:59 Not Given QID [facility] Hydralazine HCl 10 mg 02/24/24 12:04 Hydralazine 20 Mg/Ml Vial IV-PUSH 02/23/25 12:03 Q4H PRN Hypertension Levothyroxine Sodium 50 mcg 02/24/24 06:30 02/25/24 06:17 Levothyroxine 50 Mcg Tablet PO 02/23/25 06:29 Not Given DAILY.0630 [facility] Lidocaine 2 patch 02/24/24 09:00 02/25/24 09:23 Lidocaine 4% Adh..Patch TOPICAL 02/23/25 08:59 2 patch DAILY MARY Administration Losartan Potassium 100 mg 02/24/24 09:00 02/25/24 09:23 Losartan 50 Mg Tablet PO 02/23/25 08:59 Not Given DAILY MARY Melatonin 5 mg 02/24/24 22:00 02/24/24 22:34 Melatonin 5 Mg Tablet PO 02/23/25 21:59 Not Given QHS MARY Menthol 1 applic 02/24/24 10:00 02/25/24 09:08 Menthol 2% Gel 226.8 Gm Jar TOPICAL 02/23/25 09:59 1 applic BID MARY Administration Nystatin 500,000 unit 02/24/24 14:00 02/25/24 09:23 Nystatin Susp 500,000 Unit/5 Ml Udc PO 02/23/25 13:59 Not Given QID MARY Pantoprazole Sodium 40 mg 02/24/24 12:00 02/25/24 09:23 Pantoprazole 40 Mg Vial IV-PUSH 02/23/25 11:59 40 mg BID MARY Administration Polyethylene Glycol 17 gm 02/24/24 09:00 02/25/24 09:24 Polyethylene Glycol 3350 17 Gm Powd.Pack PO 02/23/25 08:59 Not Given DAILY MARY Saliva Substitute 44.3 ml 02/24/24 10:54 Saliva Stimulant Agents Comb.3 44.3 Ml [place] MUCOUS MEM 02/23/25 10:53 QID PRN dry mouth Sodium Chloride 0 ml 02/23/24 15:40 02/24/24 20:04 Sodium Chloride 0.9 % 10 Ml Syringe IV-PUSH 02/22/25 15:39 10 ml PRN PRN Administration Flush Sodium Chloride 10 ml 02/24/24 11:45 Sodium Chloride 0.9 % 10 Ml Vial.Pf INJECTION 02/23/25 11:44 PRN PRN Dilution Sodium Chloride 10 ml 02/24/24 11:45 Sodium Chloride 0.9 % 10 Ml Syringe IV-PUSH 02/23/25 11:44 PRN PRN Flush A&P - Hospitalist Assessment/Plan (1) Unable to care for self: (2) Constipation: (3) Hyperlipidemia: (4) Hypothyroidism: (5) Hypertension: (6) Abdominal pain: (7) Leukocytosis: (8) Acute kidney injury superimposed on CKD: (9) Delirium: (10) Sleep disturbance: (11) Dysphagia: (12) Left hemiparesis: (13) Thrush: (14) GERD (gastroesophageal reflux disease): (15) History of stroke: Plan Abdominal pain, constipation Leukocytosis, improved -WBC 15 on admit and elevated to 19. Mild temperature elevation resolved -CT abd/pelvis- mild constipation, mild gallbladder distention without inflammation, fibroid uterus with presence of pessary, small pericardial effusion. Nonacute -multiple BMs in ED, reported no BM in over a week at SNF -UA noninfectious, CXR nonacute. Leukocytosis could be reactive with constipation -currently NPO with dysphagia, see below LINDA on CKD3, probably secondary to poor intake. Resolved -IVF, trend lab. Recent poor intake -admitting Cr 1.78, baseline 0.8-1.0 Delirium vs metabolic encephalopathy - improved Sleep disturbance -CT head- nonacute, diffuse atrophy, chronic small vessel ischemic changes, remote lacunar infarctions -consider med for sleep however currently NPO, added IV Diphenhydramine for now at Thrush with suspicion for darwin esophagitis GERD Nausea Dysphagia Weight loss -multiple courses of Nystatin and had Fluconazole previously while on rehab, saliva substitute and Nystatin continue -will consult GI- was supposed to see outpatient in [place] 02/[address] for strictures. GI notes indicates pt declined EGD option -CURRENTLY NPO, ST following. Gentle IV hydration -Pantoprazole IV, scheduled Ondansetron IV since NPO -dietitian Recent Right basal ganglia and left central semiovale punctate infarct 12/25, left hemiparesis, dysphagia -therapy evals -was in process of being discharged from [facility] having plateaued intherapy. Family desires different facility -aspirin, clopidogrel, atorvastatin for secondary stroke prevention. Baclofen for muscle spasms (note NPO) Chronic Conditions 1. Hypertension- losartan (note NPO). PRN hydralazine. Trend 2. Hyperlipidemia- atorvastatin (note NPO). Chol 99, LDL 40 3. Anxiety- buspirone (note NPO) 4. Hypothyroid- levothyroxine (note NPO) I reviewed the history, formulated the plan of care and confirmed the Nurse Practitioner's assessment and plan after discussion with her about the case. - Zay Jasmine, Documented By: Carlotta Moralez, ROUTE SALESPERSON 02/10 11/02 1200 Signed By: <Electronically signed by ODILON Moralez> 02/25/24 1232 <Electronically signed by Zay Jasmine DO> 02/25/24 1901 [facility] Work Phone: [phone] Consult note Author Di Trejo [facility] February 24, 2024 3:48pm Note Date/Time February 24, 2024 1:16pm [facility] [address] [place] [address] Gastroenterology Consult Note Signed with Addenda Patient: Juan Hernandez MR#: [id number] : 1945 Acct:[id number] Age/Sex: 78 / F Adm Date: 4 Loc: 4N Room: [address] [place] [address] Type: ADM INOo Attending Dr: Zay Jasmine DO Copies to: DO Jose Roberto Ho DO Shawn J Warner, DO~ ADDENDUM1 Diflucan interacts with her Plavix. Would continue statin as already ordered. Also patient needs to be on an aggressive bowel regimen on discharge. Addendum Documented By: Di Trejo DO 02/24/24 1548 Addendum Signed By: <Electronically signed by Di Trejo DO> 02/24/24 1548 HPI Data of Consult Date of Consultation: 02/24/24 Requesting Physician: Zay Jasmine DO Consult Narrative Reason for consult: abd pain, GERD, dysphagia History of present illness: Ms. Hernandez is a 78 year old female with PMH HTN, HLD, GERD, hypothyroid, hx ofleft sided CVA in 2020, rt basal ganglia infarct 4 weeks ago who presented to EDwith abd pain and nausea which began just prior to presentation. Unclear when her last BM was prior to presentation. No fevers, chills, vomiting, sob, cp, palpitations, diarrhea, signs of bleeding, reported. Apparently per son, pt hashad some worsening GERD and not eating much do to this. She has a history of oral thrush. Has outpt appt later this month for dysphagia with GI or surgeon at outside hospital per son. ED course, labs and imaging reviewed. Pt apparently had a bm with improvement in her symptoms. There was some concern for change in mental status prior to d/c. CT head was negative. Son does not feel he can care for her at home so pt was admitted for further management. GI has been consulted for GERD, dysphagia. Patient reports since having a bowel movement her symptoms have improved. cc:: CC: Zay Jasmine DO Review of Systems Review of Systems Review of systems: Pertinent positives per HPI. All others reviewed and negative. General: Denies chills, sweats. Eyes: Denies irritation, discharge. Ears/Nose/Throat: Denies earache, ear discharge, tinnitus. Cardiovascular: Denies palpitations, dyspnea on exertion. Respiratory: Denies cough, dyspnea. Gastrointestinal: As per HPI Genitourinary: Denies hematuria, discharge. Musculoskeletal: Denies joint pain, joint swelling. Skin: Denies rash, itching. Neurologic: Denies weakness, paresthesias, seizures. Endocrine: Denies polydipsia, polyphagia. Heme/Lymphatic: Denies abnormal bruising, bleeding. Allergic/Immunologic: Denies urticaria, hay fever. [facility] Medical History (Updated 02/24/24 @ 15:43 by Di Trejo DO) Hyperlipidemia Hypertension Hypothyroidism Cerebrovascular accident (CVA) of left thalamus Social History Smoking Status: Never smoker Substance Use Type: None Meds Medications and Allergies Allergies meperidine [From Demerol] Adverse Reaction (Verified 01/04/24 18:31) Hallucinating Home Medications amlodipine 10 mg tablet 10 mg PO DAILY 01/04/24 [History Confirmed 02/23/24] aspirin 81 mg tablet,delayed release (Adult Aspirin Regimen) 81 mg PO DAILY 01/04/24 [History Confirmed 02/23/24] atorvastatin 40 mg tablet 40 mg PO DAILY 01/04/24 [History Confirmed 02/23/24] clopidogrel 75 mg tablet 75 mg PO DAILY 01/04/24 [History Confirmed 02/23/24] diclofenac sodium 1 % topical gel 2 g topical QID PRN muscle pain 01/04/24 [History Confirmed 02/23/24] levothyroxine 50 mcg tablet 50 mcg PO DAILY.0630 01/04/24 [History Confirmed 02/23/24] losartan 100 mg tablet 100 mg PO DAILY 01/04/24 [History Confirmed 02/23/24] acetaminophen 325 mg tablet (Tylenol) 650 mg (2 x 325 mg) PO TID #0 tabs 01/23/24 [Rx Confirmed 02/23/24] chlorthalidone 25 mg tablet 25 mg PO QAM #0 tabs 01/23/24 [Rx Confirmed 02/23/24] hydralazine 25 mg tablet 25 mg PO QID #0 tabs 01/23/24 [Rx Confirmed 02/23/24] baclofen 10 mg tablet 10 mg PO BID 02/23/24 [History Confirmed 02/23/24] buspirone 5 mg tablet 5 mg PO BID 02/23/24 [History Confirmed 02/23/24] docusate sodium 100 mg capsule (Colace) 100 mg PO BID 02/23/24 [History Confirmed 02/23/24] famotidine 10 mg tablet 10 mg PO DAILY 02/23/24 [History Confirmed 02/23/24] lidocaine 4 % topical patch (Aspercreme (lidocaine)) 2 patch topical DAILY 02/23/24 [History Confirmed 02/23/24] saliva stimulant comb. no.3 (Biotene Moisturizing Mouth mucosal spray) 1 applic mucous membrane QID PRN dry mouth 02/23/24 [History Confirmed 02/23/24] melatonin 5 mg tablet 5 mg PO QHS 02/24/24 [History Confirmed 02/24/24] menthol 2 % topical gel (Ice Blue Gel) 1 applic topical BID 02/24/24 [History Confirmed 02/24/24] nystatin 100,000 unit/mL oral suspension 4 ml PO QID 02/24/24 [History Confirmed 02/24/24] ondansetron 4 mg disintegrating tablet 4 mg PO Q6HR PRN n/v 02/24/24 [History Confirmed 02/24/24] pantoprazole 40 mg tablet,delayed release 40 mg PO DAILY 02/24/24 [History Confirmed 02/24/24] polyethylene glycol 3350 17 gram/dose oral powder (Miralax) 17 g PO DAILY 02/24/24 [History Confirmed 02/24/24] trazodone 50 mg tablet 50 mg PO HS PRN sleep 02/24/24 [History Confirmed 02/24/24] Exam Physical Exam Vital Signs: Temp Pulse Resp BP Pulse Ox O2 Del Method 99.9 F H 64 18 135/70 96 Room Air 02/24/24 08:00 02/24/24 12:30 02/24/24 08:00 02/24/24 08:00 02/24/24 08:00 02/24/24 08:00 Narrative: General appearance: Pleasant, cooperative, A&Ox3, NAD Skin: No jaundice, no rash or lesions Head: NC/AT Eyes: Anicteric, EOMI Neck: Supple, nontender Heart: normal S1 and S2 Lungs: Normal respiratory effort, no use of accessory muscles Abdomen: Soft, nondistended, no TTP, bs present, no r/r/g Ext: no edema or tenderness. Results - Gastroenterology Labs Labs: Laboratory Results - last 24 hr 02/23/24 02/24/24 02/24/24 17:01 06:54 06:55 Corrected WBC 15.5 H 19.3 H Uncorrected WBC Count 15.5 H 19.3 H RBC 4.16 3.82 Hgb 12.9 12.0 Hct 38.4 35.7 MCV 92.3 93.3 MCH 31.1 31.4 MCHC 33.7 33.7 RDW 14.6 14.8 Plt Count 306 270 MPV 8.5 8.2 Neut % (Auto) 90.0 87.6 Lymph % (Auto) 4.8 4.1 Barton % (Auto) 4.4 8.2 Eos % (Auto) 0.4 0.0 Baso % (Auto) 0.4 0.1 Nucleat RBC Rel Count 0.0 0.0 Neut # (Auto) 13.9 H 16.9 H Lymph # (Auto) 0.7 L 0.8 L Barton # (Auto) 0.7 1.6 H Eos # (Auto) 0.1 0.0 Baso # (Auto) 0.1 0.0 Monocyte Dist Width 19.32 Platelet Estimate Normal Plt Morphology Comment Normal RBC Morphology Normal PHA Creatinine Clear 26.28 27.05 Sodium 135 L 137 Potassium 3.4 L 4.1 Chloride 96 L 102 Carbon Dioxide 27.1 26.6 Anion Gap 15.3 H 12.5 BUN 33 H 37 H Creatinine 1.78 H 1.48 H Est GFR (CKD-EPI) 28.867 36.024 Glucose 190 H 136 H POC Glucose Estimat Average Glucose 137 Hemoglobin A1c 6.4 H Calcium 9.9 9.0 Phosphorus 4.7 H Magnesium 2.4 Total Bilirubin 0.9 0.8 AST 22 28 ALT 19 17 Alkaline Phosphatase 65 56 Total Protein 7.2 6.4 Albumin 4.4 3.8 Globulin 2.8 2.6 Albumin/Globulin Ratio 1.6 1.5 Triglycerides 96 Cholesterol 99 L LDL Cholesterol, Calc 40 VLDL Cholesterol 19 HDL Cholesterol 40 Cholesterol/HDL Ratio 2.5 Lipase 22.0 Urine Color [place] A Urine Appearance Cloudy A Urine pH 5.0 Ur Specific [place] 1.030 Urine Protein 30 H Urine Glucose (UA) Normal Urine Ketones Negative Urine Occult Blood Negative Urine Nitrite Negative Urine Bilirubin 1+ H Urine Urobilinogen 12 H Ur Leukocyte Esterase Negative Urine RBC 3-4 Urine WBC 1-2 Ur Squamous Epith Cells 1-2 Urine Bacteria Rare Hyaline Casts 9-19 H Urine Mucus Rare 02/24/24 12:21 Corrected WBC Uncorrected WBC Count RBC Hgb Hct MCV MCH MCHC RDW Plt Count MPV Neut % (Auto) Lymph % (Auto) Barton % (Auto) Eos % (Auto) Baso % (Auto) Nucleat RBC Rel Count Neut # (Auto) Lymph # (Auto) Barton # (Auto) Eos # (Auto) Baso # (Auto) Monocyte Dist Width Platelet Estimate Plt Morphology Comment RBC Morphology PHA Creatinine Clear Sodium Potassium Chloride Carbon Dioxide Anion Gap BUN Creatinine Est GFR (CKD-EPI) Glucose POC Glucose 110 Estimat Average Glucose Hemoglobin A1c Calcium Phosphorus Magnesium Total Bilirubin AST ALT Alkaline Phosphatase Total Protein Albumin Globulin Albumin/Globulin Ratio Triglycerides Cholesterol LDL Cholesterol, Calc VLDL Cholesterol HDL Cholesterol Cholesterol/HDL Ratio Lipase Urine Color Urine Appearance Urine pH Ur Specific [place] Urine Protein Urine Glucose (UA) Urine Ketones Urine Occult Blood Urine Nitrite Urine Bilirubin Urine Urobilinogen Ur Leukocyte Esterase Urine RBC Urine WBC Ur Squamous Epith Cells Urine Bacteria Hyaline Casts Urine Mucus A&P - Gastroenterology Assessment/Plan (1) GERD (gastroesophageal reflux disease): Qualifiers: Esophagitis presence: esophagitis presence not specified Qualified Code(s): K21.9 - Gastro-esophageal reflux disease without esophagitis (2) History of stroke: (3) Thrush: (4) Dysphagia: Qualifiers: Dysphagia type: unspecified Qualified Code(s): R13.10 - Dysphagia, unspecified (5) Constipation: Qualifiers: Constipation type: other constipation type Qualified Code(s): K59.09 - Other constipation Plan Ms. Hernandez is a 78 year old female with PMH HTN, HLD, GERD, hypothyroid, hx ofleft sided CVA in 2020, rt basal ganglia infarct 4 weeks ago who presented to EDwith abd pain and nausea which began just prior to presentation. She also reported constipation for 1 to 3 weeks, worsening GERD, dysphagia, decreased appetite. ED course reviewed. Patient was admitted for further management. Many of her symptoms improved after a good bowel movement. -We discussed an EGD without dilation secondary to patient on Plavix on Monday, however patient does not wish to proceed with anything invasive at this time andwould like to hold off. -Will increase her PPI to twice daily -Will treat empirically for esophageal Darwin -If she wishes to pursue EGD at a later date, this can be done as an outpatient -Repeat swallow eval tomorrow. Diet based on those findings -Will follow along as needed. Please call with any further acute GI issues Documented By: Di Trejo DO 02/24/24 1312 Signed By: <Electronically signed by Di Trejo DO> 02/24/24 1115 [facility] Work Phone: [phone] 489-322809-14-2024 History and physical note Author Keven Chaparro [facility] February 23, 2024 11:31pm Note Date/Time February 23, 2024 11:28pm [facility] [address] [place] [address] Hospitalist H&P Signed Patient: Juan Hernandez MR#: [id number] : 1945 Acct:[id number] Age/Sex: 78 / F Adm Date: 4 Loc: Room: [address] [place] [address] Type: ADM INOo Attending Dr: Keven Chaparro MD Copies to: MD Jose Roberto Lawrence, ~ HPI DATE OF EXAMINATION: 02/23/24 CHIEF COMPLAINT: Abdominal pain HISTORY OF PRESENT ILLNESS: Ms. Hernandez is a 78 year old female with PMH HTN, hyperlipidemia, left sided CVA in 2020 and right basal ganglia infarct 4 weeks ago was discharged to a group home facility and was transferred here on her day of discharge for abdominal pain. Her abdominal pain is in the right lower abdomen 2 hours beforepresentation with some nausea but denies any vomiting fever chills or any loose stools. In the ED she was given bowel regimen and had multiple bowel movements with improved her symptoms. Her son was bedside mentions to the ED provider that he cannot take care of her at home so wants help with disposition. Review of Systems Review of Systems All other systems reviewed & are negative unless noted below or in HPI [facility] Medical History (Updated 02/23/24 @ 22:47 by Gabby Walker APRN) Hypertension Hypothyroidism Cerebrovascular accident (CVA) of left thalamus Social History Smoking Status: Never smoker Substance Use Type: None Meds Medications and Allergies Allergies meperidine [From Demerol] Adverse Reaction (Verified 01/04/24 18:31) Hallucinating Home Medications amlodipine 10 mg tablet 10 mg PO DAILY 01/04/24 [History Confirmed 02/23/24] aspirin 81 mg tablet,delayed release (Adult Aspirin Regimen) 81 mg PO DAILY 01/04/24 [History Confirmed 02/23/24] atorvastatin 40 mg tablet 40 mg PO DAILY 01/04/24 [History Confirmed 02/23/24] clopidogrel 75 mg tablet 75 mg PO DAILY 01/04/24 [History Confirmed 02/23/24] diclofenac sodium 1 % topical gel 2 g topical QID PRN muscle pain 01/04/24 [History Confirmed 02/23/24] levothyroxine 50 mcg tablet 50 mcg PO DAILY.0630 01/04/24 [History Confirmed 02/23/24] losartan 100 mg tablet 100 mg PO DAILY 01/04/24 [History Confirmed 02/23/24] acetaminophen 325 mg tablet (Tylenol) 650 mg (2 x 325 mg) PO TID #0 tabs 01/23/24 [Rx Confirmed 02/23/24] chlorthalidone 25 mg tablet 25 mg PO QAM #0 tabs 01/23/24 [Rx Confirmed 02/23/24] hydralazine 25 mg tablet 25 mg PO QID #0 tabs 01/23/24 [Rx Confirmed 02/23/24] baclofen 10 mg tablet 10 mg PO BID 02/23/24 [History Confirmed 02/23/24] buspirone 5 mg tablet 5 mg PO BID 02/23/24 [History Confirmed 02/23/24] docusate sodium 100 mg capsule (Colace) 100 mg PO BID 02/23/24 [History Confirmed 02/23/24] famotidine 10 mg tablet 10 mg PO DAILY 02/23/24 [History Confirmed 02/23/24] lidocaine 4 % topical patch (Aspercreme (lidocaine)) 2 patch topical DAILY 02/23/24 [History Confirmed 02/23/24] saliva stimulant comb. no.3 (Biotene Moisturizing Mouth mucosal spray) 1 applic mucous membrane QID PRN dry mouth 02/23/24 [History Confirmed 02/23/24] Exam Physical Exam Vital Signs: Temp Pulse Resp BP Pulse Ox O2 Del Method 97.8 F 76 18 148/75 H 95 Room Air 02/23/24 19:41 02/23/24 21:27 02/23/24 21:27 02/23/24 21:27 02/23/24 21:27 02/23/24 21:27 Narrative: General: Awake alert, no acute distress HEENT: head atraumatic, normocephalic, moist mucous membranes Neck: supple no masses, no lymphadenopathy CVS: regular rate and rhythm, no murmurs or gallops Respiratory: clear to auscultation bilaterally, no wheezing or crackles, symmetric expansion GI: soft, nondistended, obese, nontender, positive bowel sounds with no organomegaly Extremity: moves all extremities, no restrictions of movements, no calf tenderness Neuro: AOx3, CN II-VII intact. Moves all extremities in all planes of motion. Skin: dry, intact no rashes or lesions Results - Hospitalist H&P Lab Results Labs: Laboratory Last Values Corrected WBC 15.5 X10E3/uL (3.8-11.6) H 02/23/24 17:01 Uncorrected WBC Count 15.5 x10E3/uL (3.8-11.6) H 02/23/24 17:01 RBC 4.16 X10E6/uL (3.60-5.00) 02/23/24 17:01 Hgb 12.9 g/dL (11.8-15.4) 02/23/24 17:01 Hct 38.4 % (34.0-46.4) 02/23/24 17:01 MCV 92.3 fl (80-100) 02/23/24 17:01 MCH 31.1 pg (24.7-34.3) 02/23/24 17:01 MCHC 33.7 g/dL (32.0-35.0) 02/23/24 17:01 RDW 14.6 % (11.9-15.3) 02/23/24 17:01 Plt Count 306 x10E3/uL (150-450) 02/23/24 17:01 MPV 8.5 fl (6.3-10.7) 02/23/24 17:01 Neut % (Auto) 90.0 % (.) 02/23/24 17:01 Lymph % (Auto) 4.8 % (.) 02/23/24 17:01 Barton % (Auto) 4.4 % (.) 02/23/24 17:01 Eos % (Auto) 0.4 % (.) 02/23/24 17:01 Baso % (Auto) 0.4 % (.) 02/23/24 17:01 Nucleat RBC Rel Count 0.0 /100 WBC (0-0.5) 02/23/24 17:01 Neut # (Auto) 13.9 x10E3/uL (1.8-7.7) H 02/23/24 17:01 Lymph # (Auto) 0.7 x10E3/uL (1.00-4.8) L 02/23/24 17:01 Barton # (Auto) 0.7 x10E3/uL (0.0-0.8) 02/23/24 17:01 Eos # (Auto) 0.1 x10E3/uL (0.0-0.45) 02/23/24 17:01 Baso # (Auto) 0.1 x10E3/uL (0.0-0.2) 02/23/24 17:01 Monocyte Dist Width 19.32 % (0.00-20.00) 02/23/24 17:01 PHA Creatinine Clear 26.28 02/23/24 17:01 Sodium 135 mmol/L (136-145) L 02/23/24 17:01 Potassium 3.4 mmol/L (3.5-5.1) L 02/23/24 17:01 Chloride 96 mmol/L (98-107) L 02/23/24 17:01 Carbon Dioxide 27.1 mmol/L (21.0-31.0) 02/23/24 17:01 Anion Gap 15.3 mEq/L (6.0-15.0) H 02/23/24 17:01 BUN 33 mg/dL (7-25) H 02/23/24 17:01 Creatinine 1.78 mg/dL (0.60-1.20) H 02/23/24 17:01 Est GFR (CKD-EPI) 28.867 mL/Min 02/23/24 17:01 Glucose 190 mg/dL (70-100) H 02/23/24 17:01 Calcium 9.9 mg/dL (8.6-10.3) 02/23/24 17:01 Total Bilirubin 0.9 mg/dl (0.3-1.0) 02/23/24 17:01 AST 22 U/L (13-39) 02/23/24 17:01 ALT 19 U/L (7-52) 02/23/24 17:01 Alkaline Phosphatase 65 U/L (34-104) 02/23/24 17:01 Total Protein 7.2 gm/dL (6.4-8.9) 02/23/24 17:01 Albumin 4.4 gm/dL (3.5-5.7) 02/23/24 17:01 Globulin 2.8 gm/dL 02/23/24 17:01 Albumin/Globulin Ratio 1.6 02/23/24 17:01 Lipase 22.0 U/L (11.0-82.0) 02/23/24 17:01 Urine Color [place] (Yellow) A 02/23/24 17:01 Urine Appearance Cloudy (Clear) A 02/23/24 17:01 Urine pH 5.0 (5.0-9.0) 02/23/24 17:01 Ur Specific [place] 1.030 (1.001-1.030) 02/23/24 17:01 Urine Protein 30 mg/dL (Negative) H 02/23/24 17:01 Urine Glucose (UA) Normal mg/dL (Normal) 02/23/24 17: Urine Ketones Negative (Negative) 02/23/24 17: Urine Occult Blood Negative (Negative) 02/23/24 17: Urine Nitrite Negative (Negative) 02/23/24 17: Urine Bilirubin 1+ (Negative) H 02/23/24 17: Urine Urobilinogen 12 mg/dL (Normal) H 02/23/24 17:01 Ur Leukocyte Esterase Negative (Negative) 02/23/24 17:01 Urine RBC 3-4 /HPF (0-4) 02/23/24 17:01 Urine WBC 1-2 /HPF (0-4) 02/23/24 17:01 Ur Squamous Epith Cells 1-2 /HPF (0-2) 02/23/24 17:01 Urine Bacteria Rare /HPF (None Seen) 02/23/24 17:01 Hyaline Casts 9-19 /LPF (0-8) H 02/23/24 17:01 Urine Mucus Rare /LPF 02/23/24 17:01 Assessment & Plan Assessment/Plan (1) Unable to care for self: (2) Constipation: (3) Hyperlipidemia: (4) Hypothyroidism: (5) Hypertension: (6) Stroke of right basal ganglia: Plan Plan: -Continue on bowel regimen -Continue POA medication.- Aspirin, Plavix, Lipitor, baclofen, amlodipine, losartan -PT and OT consulted Full code -Lovenox for DVT prophylaxis -Heartedly diet IP vs OBS Justification Based on differential dx, clinical care plan, and risk of adverse events, if untreated, in my clinical judgement this patient requires an acute care setting as: OBSERVATION because of an expectation of an under 2 midnight stay. Estimated length of stay (# of days): 1 Documented By: Keven Chaparro MD 02/23/242319 Signed By: <Electronically signed by Keven Chaparro MD> 02/23/24 2331 [facility] Work Phone: 1([phone] 110-102009-14-2024 History and physical note Author Keven Chaparro [facility] February 23, 2024 11:31pm Note Date/Time February 23, 2024 11:28pm [facility] [address] [place] [address] Hospitalist H&P Signed Patient: Juan Hernandez MR#: [id number] : 1945 Acct:[id number] Age/Sex: 78 / F Adm Date: 4 Loc: Room: [address] [place] [address] Type: ADM INOo Attending Dr: Keven Chaparro MD Copies to: MD Jose Roberto Lawrence DO~ HPI DATE OF EXAMINATION: 02/23/24 CHIEF COMPLAINT: Abdominal pain HISTORY OF PRESENT ILLNESS: Ms. Hernandez is a 78 year old female with PMH HTN, hyperlipidemia, left sided CVA in 2020 and right basal ganglia infarct 4 weeks ago was discharged to a group home facility and was transferred here on her day of discharge for abdominal pain. Her abdominal pain is in the right lower abdomen 2 hours beforepresentation with some nausea but denies any vomiting fever chills or any loose stools. In the ED she was given bowel regimen and had multiple bowel movements with improved her symptoms. Her son was bedside mentions to the ED provider that he cannot take care of her at home so wants help with disposition. Review of Systems Review of Systems All other systems reviewed & are negative unless noted below or in HPI [facility] Medical History (Updated 02/23/24 @ 22:47 by Gabby Walker, ROUTE SALESPERSON) Hypertension Hypothyroidism Cerebrovascular accident (CVA) of left thalamus Social History Smoking Status: Never smoker Substance Use Type: None Meds Medications and Allergies Allergies meperidine [From Demerol] Adverse Reaction (Verified 01/04/24 18:31) Hallucinating Home Medications amlodipine 10 mg tablet 10 mg PO DAILY 01/04/24 [History Confirmed 02/23/24] aspirin 81 mg tablet,delayed release (Adult Aspirin Regimen) 81 mg PO DAILY 01/04/24 [History Confirmed 02/23/24] atorvastatin 40 mg tablet 40 mg PO DAILY 01/04/24 [History Confirmed 02/23/24] clopidogrel 75 mg tablet 75 mg PO DAILY 01/04/24 [History Confirmed 02/23/24] diclofenac sodium 1 % topical gel 2 g topical QID PRN muscle pain 01/04/24 [History Confirmed 02/23/24] levothyroxine 50 mcg tablet 50 mcg PO DAILY.0630 01/04/24 [History Confirmed 02/23/24] losartan 100 mg tablet 100 mg PO DAILY 01/04/24 [History Confirmed 02/23/24] acetaminophen 325 mg tablet (Tylenol) 650 mg (2 x 325 mg) PO TID #0 tabs 01/23/24 [Rx Confirmed 02/23/24] chlorthalidone 25 mg tablet 25 mg PO QAM #0 tabs 01/23/24 [Rx Confirmed 02/23/24] hydralazine 25 mg tablet 25 mg PO QID #0 tabs 01/23/24 [Rx Confirmed 02/23/24] baclofen 10 mg tablet 10 mg PO BID 02/23/24 [History Confirmed 02/23/24] buspirone 5 mg tablet 5 mg PO BID 02/23/24 [History Confirmed 02/23/24] docusate sodium 100 mg capsule (Colace) 100 mg PO BID 02/23/24 [History Confirmed 02/23/24] famotidine 10 mg tablet 10 mg PO DAILY 02/23/24 [History Confirmed 02/23/24] lidocaine 4 % topical patch (Aspercreme (lidocaine)) 2 patch topical DAILY 02/23/24 [History Confirmed 02/23/24] saliva stimulant comb. no.3 (Biotene Moisturizing Mouth mucosal spray) 1 applic mucous membrane QID PRN dry mouth 02/23/24 [History Confirmed 02/23/24] Exam Physical Exam Vital Signs: Temp Pulse Resp BP Pulse Ox O2 Del Method 97.8 F 76 18 148/75 H 95 Room Air 02/23/24 19:41 02/23/24 21:27 02/23/24 21:27 02/23/24 21:27 02/23/24 21:27 02/23/24 21:27 Narrative: General: Awake alert, no acute distress HEENT: head atraumatic, normocephalic, moist mucous membranes Neck: supple no masses, no lymphadenopathy CVS: regular rate and rhythm, no murmurs or gallops Respiratory: clear to auscultation bilaterally, no wheezing or crackles, symmetric expansion GI: soft, nondistended, obese, nontender, positive bowel sounds with no organomegaly Extremity: moves all extremities, no restrictions of movements, no calf tenderness Neuro: AOx3, CN II-VII intact. Moves all extremities in all planes of motion. Skin: dry, intact no rashes or lesions Results - Hospitalist H&P Lab Results Labs: Laboratory Last Values Corrected WBC 15.5 X10E3/uL (3.8-11.6) H 02/23/24 17:01 Uncorrected WBC Count 15.5 x10E3/uL (3.8-11.6) H 02/23/24 17:01 RBC 4.16 X10E6/uL (3.60-5.00) 02/23/24 17:01 Hgb 12.9 g/dL (11.8-15.4) 02/23/24 17:01 Hct 38.4 % (34.0-46.4) 02/23/24 17: MCV 92.3 fl (80-100) 02/23/24 17:01 MCH 31.1 pg (24.7-34.3) 02/23/24 17: MCHC 33.7 g/dL (32.0-35.0) 02/23/24 17:01 RDW 14.6 % (11.9-15.3) 02/23/24 17:01 Plt Count 306 x10E3/uL (150-450) 02/23/24 17: MPV 8.5 fl (6.3-10.7) 02/23/24 17:01 Neut % (Auto) 90.0 % (.) 02/23/24 17: Lymph % (Auto) 4.8 % (.) 02/23/24 17: Barton % (Auto) 4.4 % (.) 02/23/24 17:01 Eos % (Auto) 0.4 % (.) 02/23/24 17:01 Baso % (Auto) 0.4 % (.) 02/23/24 17: Nucleat RBC Rel Count 0.0 /100 WBC (0-0.5) 02/23/24 17:01 Neut # (Auto) 13.9 x10E3/uL (1.8-7.7) H 02/23/24 17:01 Lymph # (Auto) 0.7 x10E3/uL (1.00-4.8) L 02/23/24 17:01 [place] # (Auto) 0.7 x10E3/uL (0.0-0.8) 02/23/24 17:01 Eos # (Auto) 0.1 x10E3/uL (0.0-0.45) 02/23/24 17:01 Baso # (Auto) 0.1 x10E3/uL (0.0-0.2) 02/23/24 17:01 Monocyte Dist Width 19.32 % (0.00-20.00) 02/23/24 17: PHA Creatinine Clear 26.28 02/23/24 17:01 Sodium 135 mmol/L (136-145) L 02/23/24 17:01 Potassium 3.4 mmol/L (3.5-5.1) L 02/23/24 17:01 Chloride 96 mmol/L (98-107) L 02/23/24 17:01 Carbon Dioxide 27.1 mmol/L (21.0-31.0) 02/23/24 17:01 Anion Gap 15.3 mEq/L (6.0-15.0) H 02/23/24 17:01 BUN 33 mg/dL (7-25) H 02/23/24 17:01 Creatinine 1.78 mg/dL (0.60-1.20) H 02/23/24 17:01 Est GFR (CKD-EPI) 28.867 mL/Min 02/23/24 17:01 Glucose 190 mg/dL (70-100) H 02/23/24 17:01 Calcium 9.9 mg/dL (8.6-10.3) 02/23/24 17:01 Total Bilirubin 0.9 mg/dl (0.3-1.0) 02/23/24 17:01 AST 22 U/L (13-39) 02/23/24 17:01 ALT 19 U/L (7-52) 02/23/24 17:01 Alkaline Phosphatase 65 U/L (34-104) 02/23/24 17:01 Total Protein 7.2 gm/dL (6.4-8.9) 02/23/24 17:01 Albumin 4.4 gm/dL (3.5-5.7) 02/23/24 17: Globulin 2.8 gm/dL 02/23/24 17:01 Albumin/Globulin Ratio 1.6 02/23/24 17:01 Lipase 22.0 U/L (11.0-82.0) 02/23/24 17:01 Urine Color [place] (Yellow) A 02/23/24 17: Urine Appearance Cloudy (Clear) A 02/23/24 17:01 Urine pH 5.0 (5.0-9.0) 02/23/24 17:01 Ur Specific [place] 1.030 (1.001-1.030) 02/23/24 17:01 Urine Protein 30 mg/dL (Negative) H 02/23/24 17:01 Urine Glucose (UA) Normal mg/dL (Normal) 02/23/24 17:01 Urine Ketones Negative (Negative) 02/23/24 17:01 Urine Occult Blood Negative (Negative) 02/23/24 17:01 Urine Nitrite Negative (Negative) 02/23/24 17:01 Urine Bilirubin 1+ (Negative) H 02/23/24 17:01 Urine Urobilinogen 12 mg/dL (Normal) H 02/23/24 17:01 Ur Leukocyte Esterase Negative (Negative) 02/23/24 17:01 Urine RBC 3-4 /HPF (0-4) 02/23/24 17:01 Urine WBC 1-2 /HPF (0-4) 02/23/24 17:01 Ur Squamous Epith Cells 1-2 /HPF (0-2) 02/23/24 17:01 Urine Bacteria Rare /HPF (None Seen) 02/23/24 17:01 Hyaline Casts 9-19 /LPF (0-8) H 02/23/24 17:01 Urine Mucus Rare /LPF 02/23/24 17:01 Assessment & Plan Assessment/Plan (1) Unable to care for self: (2) Constipation: (3) Hyperlipidemia: (4) Hypothyroidism: (5) Hypertension: (6) Stroke of right basal ganglia: Plan Plan: -Continue on bowel regimen -Continue POA medication.- Aspirin, Plavix, Lipitor, baclofen, amlodipine, losartan -PT and OT consulted Full code -Lovenox for DVT prophylaxis -Heartedly diet IP vs OBS Justification Based on differential dx, clinical care plan, and risk of adverse events, if untreated, in my clinical judgement this patient requires an acute care setting as: OBSERVATION because of an expectation of an under 2 midnight stay. Estimated length of stay (# of days): 1 Documented By: Keven Chaparro MD 02/23/242319 Signed By: <Electronically signed by Keven Chaparro MD> 02/23/24 [address] [facility] Work Phone: [phone] 449-920008-10-2024 Progress note Author Kris Marquez [facility] January 20, 2024 11:47am Note Date/Time January 20, 2024 11 :47am [facility] [address] [place] [address] Physiatry(Rehab) Progress Note Signed Patient: Juan Hernandez MR#: [id number] : 1945 Acct:[id number] Age/Sex: 78 / F Adm Date: 4 Loc: 5T Room: 2L8317-8 Type: ADM IN Attending Dr: Kris Marquez MD Copies to: ~ Date of Service: 01/20/2024 Subjective Subjective Narrative: Ms. Hernandez is a 78 year old female with PMH HTN, hyperlipidemia, left sided CVA in 2020, and severe right internal carotid artery stenosis who presents to the hospital with left sided facial droop, left upper extremity drift, and dysarthria. She had been having dizziness, vertigo, and difficulty with speech prior. She was loaded with aspirin and plavix upon presentation. Her blood pressure was very elevated with SBP 250 and was started on IV medications CTA of the brain demonstrated right basal ganglia hypodensity. MRI on 12/26 showed right basal ganglia infarct and left central semiovale punctate infarct. She underwent cerebral angiography with improvement of left ICA to 45% and rightICA to 40% on 12/27. The patient also had a MBSS on 12/28 revealing moderate-severe oral dysphagia and mild pharyngeal dysphagia with recommendations for a pureed diet with thin liquids, no straws. The patient lives alone although plans to discharge to her daughters house. Interval history: Patient seen today at bedside. Lying in bed. She appears in no distress. She does continue to endorse some general discomfort as well as inability to get comfortable in bed. admits to some bruising near lovenox injection sites. She denies chest pain, SOB, fever, chills. Review of Systems Review of Systems All other systems reviewed & are negative unless noted below or in HPI Exam Physical Exam Vital Signs: Temp Pulse Resp BP Pulse Ox O2 Del Method 98.1 F 62 18 142/77 H 97 Room Air 01/20/24 10:01/20/24 10:01/20/24 10:01/20/24 10:00 01/20/24 10:01/20/24 10:00 Narrative: General: Awake, lethargic, cooperative, well nourished. Lying in bed HENT: NC, AT Eyes: No scleral icterus Neck: Supple Cardio: Extremities well perfused Respiratory: No evidence of respiratory distress GI: Soft, nontender, nondistended Neuro: CN II-XII intact. Strength 5/5 right upper and lower extremities. Strength 0/5 left upper and lower extremities. Extremities: No edema, erythema, cyanosis Psych: Dysarthric. Flat affect. Tearful as not seen daughter in some time Objective Labs 01/16/24 05:58 01/16/24 05:58 Medications and Allergies Allergies and Active Meds: Allergies meperidine [From Demerol] Adverse Reaction (Verified 01/04/24 18:31) Hallucinating Active Medications Generic Name Dose Route Start Last Admin Trade Name Freq PRN Reason Stop Dose Admin Acetaminophen 650 mg 01/10/24 14:00 01/20/24 08:50 Acetaminophen 325 Mg Tablet PO 01/09/25 13:59 650 mg TID MARY Administration Al Hydrox/Mg Hydrox/Simethicone 30 ml 01/04/24 18:13 01/13/24 17:52 Mag Hydrox/Al Hydrox/Simeth 30 Ml Udc PO 01/03/25 18:12 30 ml Q4H PRN Administration Indigestion Amlodipine Besylate 10 mg 01/05/24 09:00 01/20/24 08:50 Amlodipine 10 Mg Tablet PO 01/04/25 08:59 10 mg DAILY MARY Administration Aspirin 81 mg 01/05/24 09:00 01/20/24 08:52 Aspirin 81 Mg Tablet. PO 01/04/25 08:59 81 mg DAILY MARY Administration Atorvastatin Calcium 40 mg 01/05/24 21:00 01/19/24 22:09 Atorvastatin 40 Mg Tablet PO 01/04/25 20:59 40 mg QPM MARY Administration Bisacodyl 10 mg 01/04/24 18:13 01/13/24 05:35 Bisacodyl 10 Mg Supp.Rect ME 01/03/25 18:12 10 mg DAILY PRN Administration Constipation Chlorthalidone 25 mg 01/11/24 16:40 01/20/24 08:51 Chlorthalidone 25 Mg Tablet PO 01/10/25 16:39 25 mg QAM MARY Administration Clopidogrel Bisulfate 75 mg 01/05/24 09:00 01/20/24 08:51 Clopidogrel Bisulfate 75 Mg Tablet PO 01/04/25 08:59 75 mg DAILY MARY Administration Diclofenac Sodium 2 gm 01/04/24 18:41 01/11/24 22:41 Diclofenac Sodium 1% Gel 100 Gm Tube TOPICAL 01/03/25 18:40 2 gm QID PRN Administration muscle pain Docusate Sodium 100 mg 01/04/24 18:13 01/11/24 14:35 Docusate 100 Mg Capsule PO 01/03/25 18:12 100 mg BID PRN Administration Constipation Docusate Sodium 283 mg 01/04/24 18:13 Docusate Enema 283 Mg/5 Ml Enema ME 01/03/25 18:12 DAILY PRN Constipation Enoxaparin Sodium 40 mg 01/06/24 10:00 01/20/24 11:24 Enoxaparin 40 Mg/0.4 Ml Syringe SUBCUT 01/05/25 09:59 Not Given DAILY@1000 MARY Guaifenesin 600 mg 01/19/24 13:10 Guaifenesin 600 Mg Tab.Er.12h PO 01/18/25 13:09 BID PRN Congestion Hydralazine HCl 25 mg 01/08/24 14:00 01/20/24 08:51 Hydralazine 25 Mg Tablet PO 01/07/25 13:59 25 mg QID MARY Administration Lactulose 30 gm 01/04/24 18:13 01/19/24 06:38 Lactulose 20 Gm/30 Ml Udc PO 01/03/25 18:12 30 gm DAILY PRN Administration Constipation Levothyroxine Sodium 50 mcg 01/05/24 06:30 01/20/24 04:54 Levothyroxine 50 Mcg Tablet PO 01/04/25 06:29 50 mcg DAILY.0630 MARY Administration Lidocaine 2 patch 01/13/24 12:35 01/20/24 08:52 Lidocaine 4% Adh..Patch TOPICAL 01/12/25 12:34 2 patch DAILY MARY Administration Losartan Potassium 100 mg 01/05/24 09:00 01/20/24 08:51 Losartan 50 Mg Tablet PO 01/04/25 08:59 100 mg DAILY MARY Administration Melatonin 5 mg 01/06/24 22:00 01/19/24 22:09 Melatonin 5 Mg Tablet PO 01/05/25 21:59 5 mg QHS MARY Administration Menthol 1 applic 01/11/24 21:00 01/20/24 08:52 Menthol 2% Gel 226.8 Gm Jar TOPICAL 01/10/25 20:59 1 applic BID MARY Administration Methocarbamol 500 mg 01/10/24 14:00 01/20/24 04:54 Methocarbamol 500 Mg Tablet PO 01/09/25 13:59 500 mg Q8HR MARY Administration Polyethylene Glycol 17 gm 01/05/24 09:00 01/20/24 08:52 Polyethylene Glycol 3350 17 Gm Powd.Pack PO 01/04/25 08:59 17 gm DAILY MARY Administration Sennosides 2 tab 01/05/24 12:00 01/19/24 06:38 Sennosides 8.6 Mg Tablet PO 01/04/25 11:59 2 tab DAILY@12 PRN Administration If no BM in 2 days Sodium Chloride 0 ml 01/04/24 18:13 01/15/24 23:07 Sodium Chloride 0.9 % 10 Ml Syringe IV-PUSH 01/03/25 18:12 10 ml PRN PRN Administration Flush Sodium Chloride 10 ml 01/16/24 06:00 01/20/24 06:02 Sodium Chloride 0.9 % 10 Ml Syringe IV-PUSH 01/15/25 05:59 10 ml Q8H MARY Administration Trazodone HCl 50 mg 01/13/24 12:35 01/19/24 22:09 Trazodone 50 Mg Tablet PO 01/12/25 12:34 50 mg QHS PRN Administration Insomnia Assessment/Plan Assessment/Plan (1) Stroke of right basal ganglia: (2) Right hemiparesis: (3) Dysphagia: (4) Hypertension: (5) Hypothyroidism: (6) Hyperlipidemia: (7) Impaired mobility and activities of daily living: (8) Throat congestion: Plan This is a 78-year-old female who presents to [facility] IRF due to multifactorial functional decline in the setting of right basal ganglia CVA. She has continued impaired mobility and impaired independence withADLs and IADLs requiring PT/OT/SUPERVISOR VENDOR QUALITY 5-7 days/week 3 hours/day to maximize safety and independence with functional ability and self-care. #. 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 We will also work to improve patient's safety awareness during transfers and ambulation. -OT for basic ADL retraining (bathing, dressing, toileting, continence, grooming, feeding, transferring), to increase activity tolerance and functional mobility to evaluate for adaptive assistive device. We will work to improve patient's endurance and educate patient on fall prevention and energy conservation techniques-pacing strategies and proper breathing techniques duringfunctional tasks. -Patient education -Pressure ulcer prophylaxis; encourage mobilization, frequent postural changes, pressure-relief techniques -DVT prophylaxis -Encourage deep breathing exercise incentive spirometry. -Monitor bladder. Toileting schedule. Continue current bladder management, with scans as needed and CIC if needed. Start bowel care program every day to obtain continence, prevent ileus. -Maintain fall precautions -Gait and balance retraining -Provision of the necessary gait aids and functional adaptive equipment to enhance the patient's a functional restorationism -Encourage deep breathing exercises and incentive spirometry -RD evaluation -Ensure adequate nutrition and hydration -Discharge planning. -Opimize BP. Avoid hypotension. -DAPT -Lipitor 40 mg qhs #. Essential HTN -Continue Norvasc 10 mg daily, Cozaar 100 mg daily, Hydralazine 25 mg BID #. Throat Congestion -Start guaiFENesin LA [Humibid LA]600mg PO BID PRN #. Updates: -No major concerns today, continue to reposition the patient to prevent pressureulcer development and improve posture to support normal room air breathing -Will recheck labs in AM -Continue PT/OT/ST, management as above Hospitalist to assist with management of comorbid medical conditions #. Pain control: Tylenol PRN, Robaxin 500 mg q8hr prn, Votaren 2 g QID #. Bowel and bladder: Bowel/bladder regimen as able #. Skin: (pressure ulcer/surgical site) High risk for pressure injuries given hemiparesis. #. Sleep: Optimize sleep/wake cycle DVT prophylaxis: Lovenox 40 mg daily Functional status: Impaired. Limited by pain, weakness Discharge planning: ELOS 1-2 weeks. Likely will need SNF at discharge Patient was personally seen by me, Dr. Marquez, on the day of encounter, reviewed the history and the relevant portions of the chart, including current orders, allied health and building energy consultant notes, labs/imaging and performed gracia elements of exam and I formulated the plan of care and facilitated the medical decision making. I completed a substantive portion of this encounter, the medical decision makingportion of this note in its entirety, including Allied health note review, nursing note review, building energy consultant note review, discussion with nursing and case management, and more than 50% of my time was spent on counseling and coordination of care, time spent 25 minutes Documented By: Kris Marquez MD [id number] Signed By: <Electronically signed by Kris Marquez MD> 01/20/24 114[address] [facility] Work Phone: [phone]) 843-953108-09-2024 Progress note Author Kris Marquez [facility] January 19, 2024 3:17pm Note Date/Time January 19, 2024 1:2 0pm [facility] [address] [place] [address] Physiatry(Rehab) Progress Note Signed Patient: Juan Hernandez MR#: [id number] : 1945 Acct:[id number] Age/Sex: 78 / F Adm Date: 4 Loc: Room: 2D5878-8 Type: ADM IN Attending Dr: Kris Marquez MD Copies to: ~ <Justino Martinez DO, RES - Last Filed: 01/19/24 13:23> Date of Service: 01/19/2024 Subjective <Justino Martinez DO, RES - Last Filed: 01/19/24 13:23> Subjective Narrative: Ms. Hernandez is a 78 year old female with PMH HTN, hyperlipidemia, left sided CVA in 2020, and severe right internal carotid artery stenosis who presented to the hospital with left sided facial droop, left upper extremity drift, and dysarthria. She had been having dizziness, vertigo, and difficulty with speech prior. She was loaded with aspirin and plavix upon presentation. Her blood pressure was very elevated with SBP 250 and was started on IV medications CTA of the brain demonstrated right basal ganglia hypodensity. MRI on 12/26 showed right basal ganglia infarct and left central semiovale punctate infarct. She underwent cerebral angiography with improvement of left ICA to 45% and rightICA to 40% on 12/27. The patient also had a MBSS on 12/28 revealing moderate-severe oral dysphagia and mild pharyngeal dysphagia with recommendations for a pureed diet with thin liquids, no straws. The patient lives alone although plans to discharge to her daughters house. Interval History: Today in the room the patient complains of frequent belching, acid reflux, and mucus congestion in her throat that has been causing her to gagfrequently. Additionally, she complains feeling sore on her lower pelvis. She notes that her rib pain has decreased from previously. Lastly, Juan remarks that her positioning/posture in her wheelchair occasionally makes it difficult to breath. Review of Systems <Justino Martinez DO, RES - Last Filed: 01/19/24 13:23> Review of Systems All other systems reviewed & are negative unless noted below or in HPI Exam <Justino Martinez DO, RES - Last Filed: 01/19/24 13:23> Physical Exam Vital Signs: Temp Pulse Resp BP Pulse Ox O2 Del Method 97.6 F 60 16 135/73 96 Room Air 01/19/24 06:33 01/19/24 06:33 01/19/24 06:33 01/19/24 06:33 01/19/24 06:33 01/19/24 06:33 Narrative: General: Awake, lethargic, cooperative, well nourished. Sitting in her wheelchair HENT: NC, AT Eyes: No scleral icterus, clear sclera Neck: Supple Cardio: Extremities well perfused Respiratory: No respiratory distress GI: Soft, nontender, nondistended Neuro: CN II-XII grossly intact. Strength 5/5 right upper and lower extremities. Strength 0/5 left upper and lower extremities. Sensation intact bilaterally in upper and lower extremities. Extremities: No edema, erythema, cyanosis Psych: Anxious. Mild dysarthric. Flat affect. Objective <Justino Martinez DO, RES - Last Filed: 01/19/24 13:23> Labs 01/16/24 05:58 01/16/24 05:58 Medications and Allergies Allergies and Active Meds: Allergies meperidine [From Demerol] Adverse Reaction (Verified 01/04/24 18:31) Hallucinating Active Medications Generic Name Dose Route Start Last Admin Trade Name Freq PRN Reason Stop Dose Admin Acetaminophen 650 mg 01/10/24 14:00 01/19/24 08:18 Acetaminophen 325 Mg Tablet PO 01/09/25 13:59 650 mg TID MARY Administration Al Hydrox/Mg Hydrox/Simethicone 30 ml 01/04/24 18:13 01/13/24 17:52 Mag Hydrox/Al Hydrox/Simeth 30 Ml Udc PO 01/03/25 18:12 30 ml Q4H PRN Administration Indigestion Amlodipine Besylate 10 mg 01/05/24 09:00 01/19/24 08:19 Amlodipine 10 Mg Tablet PO 01/04/25 08:59 10 mg DAILY MARY Administration Aspirin 81 mg 01/05/24 09:00 01/19/24 08:18 Aspirin 81 Mg Tablet.Dr PO 01/04/25 08:59 81 mg DAILY MARY Administration Atorvastatin Calcium 40 mg 01/05/24 21:00 01/18/24 21:42 Atorvastatin 40 Mg Tablet PO 01/04/25 20:59 40 mg QPM AMRY Administration Bisacodyl 10 mg 01/04/24 18:13 01/13/24 05:35 Bisacodyl 10 Mg Supp.Rect ME 01/03/25 18:12 10 mg DAILY PRN Administration Constipation Chlorthalidone 25 mg 01/11/24 16:40 01/19/24 08:18 Chlorthalidone 25 Mg Tablet PO 01/10/25 16:39 25 mg QAM MARY Administration Clopidogrel Bisulfate 75 mg 01/05/24 09:00 01/19/24 08:19 Clopidogrel Bisulfate 75 Mg Tablet PO 01/04/25 08:59 75 mg DAILY MARY Administration Diclofenac Sodium 2 gm 01/04/24 18:41 01/11/24 22:41 Diclofenac Sodium 1% Gel 100 Gm Tube TOPICAL 01/03/25 18:40 2 gm QID PRN Administration muscle pain Docusate Sodium 100 mg 01/04/24 18:13 01/11/24 14:35 Docusate 100 Mg Capsule PO 01/03/25 18:12 100 mg BID PRN Administration Constipation Docusate Sodium 283 mg 01/04/24 18:13 Docusate Enema 283 Mg/5 Ml Enema ME 01/03/25 18:12 DAILY PRN Constipation Enoxaparin Sodium 40 mg 01/06/24 10:00 01/18/24 08:19 Enoxaparin 40 Mg/0.4 Ml Syringe SUBCUT 01/05/25 09:59 40 mg DAILY@1000 MARY Administration Hydralazine HCl 25 mg 07/29/24 14:00 01/19/24 08:19 Hydralazine 25 Mg Tablet PO 01/07/25 13:59 25 mg QID MARY Administration Lactulose 30 gm 01/04/24 18:13 01/19/24 06:38 Lactulose 20 Gm/30 Ml Udc PO 01/03/25 18:12 30 gm DAILY PRN Administration Constipation Levothyroxine Sodium 50 mcg 01/05/24 06:30 01/19/24 06:38 Levothyroxine 50 Mcg Tablet PO 01/04/25 06:29 50 mcg DAILY.0630 MARY Administration Lidocaine 2 patch 01/13/24 12:35 01/19/24 10:10 Lidocaine 4% Adh..Patch TOPICAL 01/12/25 12:34 2 patch DAILY MARY Administration Losartan Potassium 100 mg 01/05/24 09:00 01/19/24 08:19 Losartan 50 Mg Tablet PO 01/04/25 08:59 100 mg DAILY MARY Administration Melatonin 5 mg 01/06/24 22:00 01/18/24 21:42 Melatonin 5 Mg Tablet PO 01/05/25 21:59 5 mg QHS MARY Administration Menthol 1 applic 01/11/24 21:00 01/19/24 08:19 Menthol 2% Gel 226.8 Gm Jar TOPICAL 01/10/25 20:59 1 applic BID MARY Administration Methocarbamol 500 mg 01/10/24 14:00 01/19/24 06:38 Methocarbamol 500 Mg Tablet PO 01/09/25 13:59 500 mg Q8HR MARY Administration Polyethylene Glycol 17 gm 01/05/24 09:00 01/19/24 08:18 Polyethylene Glycol 3350 17 Gm Powd.Pack PO 01/04/25 08:59 17 gm DAILY MARY Administration Sennosides 2 tab 01/05/24 12:00 01/19/24 06:38 Sennosides 8.6 Mg Tablet PO 01/04/25 11:59 2 tab DAILY@12 PRN Administration If no BM in 2 days Sodium Chloride 0 ml 01/04/24 18:13 01/15/24 23:07 Sodium Chloride 0.9 % 10 Ml Syringe IV-PUSH 01/03/25 18:12 10 ml PRN PRN Administration Flush Sodium Chloride 10 ml 01/16/24 06:00 01/19/24 06:39 Sodium Chloride 0.9 % 10 Ml Syringe IV-PUSH 01/15/25 05:59 10 ml Q8H MARY Administration Trazodone HCl 50 mg 01/13/24 12:35 01/18/24 21:42 Trazodone 50 Mg Tablet PO 01/12/25 12:34 50 mg QHS PRN Administration Insomnia Assessment/Plan <Justino Martinez, , RES - Last Filed: 01/19/24 13:23> Assessment/Plan (1) Stroke of right basal ganglia: (2) Right hemiparesis: (3) Dysphagia: (4) Hypertension: (5) Hypothyroidism: (6) Hyperlipidemia: (7) Impaired mobility and activities of daily living: (8) Throat congestion: Plan This is a 78-year-old female who presents to [facility] IRF due to multifactorial functional decline in the setting of right basal ganglia CVA. She has continued impaired mobility and impaired independence withADLs and IADLs requiring PT/OT/SUPERVISOR VENDOR QUALITY 5-7 days/week 3 hours/day to maximize safety and independence with functional ability and self-care. #. 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 We will also work to improve patient's safety awareness during transfers and ambulation. -OT for basic ADL retraining (bathing, dressing, toileting, continence, grooming, feeding, transferring), to increase activity tolerance and functional mobility to evaluate for adaptive assistive device. We will work to improve patient's endurance and educate patient on fall prevention and energy conservation techniques-pacing strategies and proper breathing techniques duringfunctional tasks. -Patient education -Pressure ulcer prophylaxis; encourage mobilization, frequent postural changes, pressure-relief techniques -DVT prophylaxis -Encourage deep breathing exercise incentive spirometry. -Monitor bladder. Toileting schedule. Continue current bladder management, with scans as needed and CIC if needed. Start bowel care program every day to obtain continence, prevent ileus. -Maintain fall precautions -Gait and balance retraining -Provision of the necessary gait aids and functional adaptive equipment to enhance the patient's a functional restorationism -Encourage deep breathing exercises and incentive spirometry -RD evaluation -Ensure adequate nutrition and hydration -Discharge planning. -Opimize BP. Avoid hypotension. -DAPT -Lipitor 40 mg qhs #. Essential HTN -Continue Norvasc 10 mg daily, Cozaar 100 mg daily, Hydralazine 25 mg BID #. Throat Congestion -Start guaiFENesin LA [Humibid LA]600mg PO BID PRN #. Updates: -No major concerns today, continue to reposition the patient to prevent pressureulcer development and improve posture to support normal room air breathing -Continue PT/OT/ST, management as above Hospitalist to assist with management of comorbid medical conditions #. Pain control: Tylenol PRN, Robaxin 500 mg q8hr prn, Votaren 2 g QID #. Bowel and bladder: Bowel/bladder regimen as able #. Skin: (pressure ulcer/surgical site) High risk for pressure injuries given hemiparesis. #. Sleep: Optimize sleep/wake cycle DVT prophylaxis: Lovenox 40 mg daily Functional status: Impaired. Limited by pain, weakness Discharge planning: [facility]OS 1-2 weeks. Likely will need SNF at discharge <Kris Marquez MD - Last Filed: 01/19/24 15:17> Assessment/Plan (1) Stroke of right basal ganglia: (2) Right hemiparesis: (3) Dysphagia: (4) Hypertension: (5) Hypothyroidism: (6) Hyperlipidemia: (7) Impaired mobility and activities of daily living: (8) Throat congestion: Plan This is a 78-year-old female who presents to [facility] IRF due to multifactorial functional decline in the setting of right basal ganglia CVA. She has continued impaired mobility and impaired independence withADLs and IADLs requiring PT/OT/SUPERVISOR VENDOR QUALITY 5-7 days/week 3 hours/day to maximize safety and independence with functional ability and self-care. #. 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 We will also work to improve patient's safety awareness during transfers and ambulation. -OT for basic ADL retraining (bathing, dressing, toileting, continence, grooming, feeding, transferring), to increase activity tolerance and functional mobility to evaluate for adaptive assistive device. We will work to improve patient's endurance and educate patient on fall prevention and energy conservation techniques-pacing strategies and proper breathing techniques duringfunctional tasks. -Patient education -Pressure ulcer prophylaxis; encourage mobilization, frequent postural changes, pressure-relief techniques -DVT prophylaxis -Encourage deep breathing exercise incentive spirometry. -Monitor bladder. Toileting schedule. Continue current bladder management, with scans as needed and CIC if needed. Start bowel care program every day to obtain continence, prevent ileus. -Maintain fall precautions -Gait and balance retraining -Provision of the necessary gait aids and functional adaptive equipment to enhance the patient's a functional restorationism -Encourage deep breathing exercises and incentive spirometry -RD evaluation -Ensure adequate nutrition and hydration -Discharge planning. -Opimize BP. Avoid hypotension. -DAPT -Lipitor 40 mg qhs #. Essential HTN -Continue Norvasc 10 mg daily, Cozaar 100 mg daily, Hydralazine 25 mg BID #. Throat Congestion -Start guaiFENesin LA [Humibid LA]600mg PO BID PRN #. Updates: -No major concerns today, continue to reposition the patient to prevent pressureulcer development and improve posture to support normal room air breathing -Continue PT/OT/ST, management as above Hospitalist to assist with management of comorbid medical conditions #. Pain control: Tylenol PRN, Robaxin 500 mg q8hr prn, Votaren 2 g QID #. Bowel and bladder: Bowel/bladder regimen as able #. Skin: (pressure ulcer/surgical site) High risk for pressure injuries given hemiparesis. #. Sleep: Optimize sleep/wake cycle DVT prophylaxis: Lovenox 40 mg daily Functional status: Impaired. Limited by pain, weakness Discharge planning: ELOS 1-2 weeks. Likely will need SNF at discharge Patient was personally seen by me, Dr. Marquez, on the day of encounter, reviewed the history and the relevant portions of the chart, including current orders, allied health and building energy consultant notes, labs/imaging and performed gracia elements of exam and I formulated the plan of care and facilitated the medical decision making. I completed a substantive portion of this encounter, the medical decision makingportion of this note in its entirety, including Allied health note review, nursing note review, building energy consultant note review, discussion with nursing and case management, and more than 50% of my time was spent on counseling and coordination of care, time spent 25 minutes Documented By: Kris Marquez MD 1152 Signed By: <Electronically signed by Kris Marquez MD> 01/19/24 1517 <Electronically signed by DO KIANA Martinez> 01/19/24 1323 [facility] Work Phone: 1(639) 768-227208-08-2024 Progress note Author Kris Marquez [facility] January 18, 2024 4:03pm Note Date/Time January 18, 2024 4:0 3pm [facility] [address] [place] [address] Physiatry(Rehab) Progress Note Signed Patient: Juan Hernandez MR#: [id number] : 1945 Acct:[id number] Age/Sex: 78 / F Adm Date: 4 Loc: Room: [address] [place] [address] Type: ADM IN Attending Dr: Kris Marquez MD Copies to: ~ Date of Service: 01/18/2024 Subjective Subjective Narrative: Ms. Hernandez is a 78 year old female with PMH HTN, hyperlipidemia, left sided CVA in 2020, and severe right internal carotid artery stenosis who presents to the hospital with left sided facial droop, left upper extremity drift, and dysarthria. She had been having dizziness, vertigo, and difficulty with speech prior. She was loaded with aspirin and plavix upon presentation. Her blood pressure was very elevated with SBP 250 and was started on IV medications CTA of the brain demonstrated right basal ganglia hypodensity. MRI on 12/26 showed right basal ganglia infarct and left central semiovale punctate infarct. She underwent cerebral angiography with improvement of left ICA to 45% and rightICA to 40% on 12/27. The patient also had a MBSS on 12/28 revealing moderate-severe oral dysphagia and mild pharyngeal dysphagia with recommendations for a pureed diet with thin liquids, no straws. The patient lives alone although plans to discharge to her daughters house. Interval history: Patient seen briefly today. Resting in bed. Daughter at bedside. Patient is emotional as she has not seen her daughter since her stroke. She has no current concerns. Review of Systems Review of Systems All other systems reviewed & are negative unless noted below or in HPI Exam Physical Exam Vital Signs: Temp Pulse Resp BP Pulse Ox O2 Del Method 97.1 F L 64 18 181/63 H 96 Room Air 01/18/24 14:32 01/18/24 14:32 01/18/24 14:32 01/18/24 14:32 01/18/24 14:32 01/18/24 14:32 Narrative: General: Awake, lethargic, cooperative, well nourished. Lying in bed HENT: NC, AT Eyes: No scleral icterus Neck: Supple Cardio: Extremities well perfused Respiratory: No evidence of respiratory distress GI: Soft, nontender, nondistended Neuro: CN II-XII intact. Strength 5/5 right upper and lower extremities. Strength 0/5 left upper and lower extremities. Extremities: No edema, erythema, cyanosis Psych: Dysarthric. Flat affect. Tearful as not seen daughter in some time Objective Labs 01/16/24 05:58 01/16/24 05:58 Medications and Allergies Allergies and Active Meds: Allergies meperidine [From Demerol] Adverse Reaction (Verified 01/04/24 18:31) Hallucinating Active Medications Generic Name Dose Route Start Last Admin Trade Name Freq PRN Reason Stop Dose Admin Acetaminophen 650 mg 01/10/24 14:00 01/18/24 14:32 Acetaminophen 325 Mg Tablet PO 01/09/25 13:59 650 mg TID MARY Administration Al Hydrox/Mg Hydrox/Simethicone 30 ml 01/04/24 18:13 01/13/24 17:52 Mag Hydrox/Al Hydrox/Simeth 30 Ml Udc PO 01/03/25 18:12 30 ml Q4H PRN Administration Indigestion Amlodipine Besylate 10 mg 01/05/24 09:00 01/18/24 08:19 Amlodipine 10 Mg Tablet PO 01/04/25 08:59 10 mg DAILY MARY Administration Aspirin 81 mg 01/05/24 09:00 01/18/24 08:19 Aspirin 81 Mg Tablet.Dr PO 01/04/25 08:59 81 mg DAILY MARY Administration Atorvastatin Calcium 40 mg 01/05/24 21:00 01/17/24 22:05 Atorvastatin 40 Mg Tablet PO 01/04/25 20:59 40 mg QPM MARY Administration Bisacodyl 10 mg 01/04/24 18:13 01/13/24 05:35 Bisacodyl 10 Mg Supp.Rect ME 01/03/25 18:12 10 mg DAILY PRN Administration Constipation Chlorthalidone 25 mg 01/11/24 16:40 01/18/24 08:19 Chlorthalidone 25 Mg Tablet PO 01/10/25 16:39 25 mg QAM MARY Administration Clopidogrel Bisulfate 75 mg 01/05/24 09:00 01/18/24 08:19 Clopidogrel Bisulfate 75 Mg Tablet PO 01/04/25 08:59 75 mg DAILY MARY Administration Diclofenac Sodium 2 gm 01/04/24 18:41 01/11/24 22:41 Diclofenac Sodium 1% Gel 100 Gm Tube TOPICAL 01/03/25 18:40 2 gm QID PRN Administration muscle pain Docusate Sodium 100 mg 01/04/24 18:13 01/11/24 14:35 Docusate 100 Mg Capsule PO 01/03/25 18:12 100 mg BID PRN Administration Constipation Docusate Sodium 283 mg 01/04/24 18:13 Docusate Enema 283 Mg/5 Ml Enema ME 01/03/25 18:12 DAILY PRN Constipation Enoxaparin Sodium 40 mg 01/06/24 10:00 01/18/24 08:19 Enoxaparin 40 Mg/0.4 Ml Syringe SUBCUT 01/05/25 09:59 40 mg DAILY@1000 MARY Administration Fluconazole 100 mg 01/11/24 17:05 01/18/24 08:19 Fluconazole 100 Mg Tablet PO 01/18/24 17:04 100 mg QAM MARY Administration Hydralazine HCl 25 mg 01/08/24 14:00 01/18/24 14:32 Hydralazine 25 Mg Tablet PO 01/07/25 13:59 25 mg QID MARY Administration Lactulose 30 gm 01/04/24 18:13 01/07/24 08:52 Lactulose 20 Gm/30 Ml Udc PO 01/03/25 18:12 30 gm DAILY PRN Administration Constipation Levothyroxine Sodium 50 mcg 01/05/24 06:30 01/18/24 06:30 Levothyroxine 50 Mcg Tablet PO 01/04/25 06:29 50 mcg DAILY.0630 MARY Administration Lidocaine 2 patch 01/13/24 12:35 01/18/24 08:20 Lidocaine 4% Adh..Patch TOPICAL 01/12/25 12:34 1 patch DAILY MARY Administration Losartan Potassium 100 mg 01/05/24 09:00 01/18/24 08:19 Losartan 50 Mg Tablet PO 01/04/25 08:59 100 mg DAILY MARY Administration Melatonin 5 mg 01/06/24 22:00 01/17/24 22:04 Melatonin 5 Mg Tablet PO 01/05/25 21:59 5 mg QHS MARY Administration Menthol 1 applic 01/11/24 21:00 01/18/24 08:20 Menthol 2% Gel 226.8 Gm Jar TOPICAL 01/10/25 20:59 1 applic BID MARY Administration Methocarbamol 500 mg 01/10/24 14:00 01/18/24 14:32 Methocarbamol 500 Mg Tablet PO 01/09/25 13:59 500 mg Q8HR MARY Administration Polyethylene Glycol 17 gm 01/05/24 09:00 01/18/24 08:20 Polyethylene Glycol 3350 17 Gm Powd.Pack PO 01/04/25 08:59 17 gm DAILY MARY Administration Sennosides 2 tab 01/05/24 12:00 01/18/24 06:30 Sennosides 8.6 Mg Tablet PO 01/04/25 11:59 2 tab DAILY@12 PRN Administration If no BM in 2 days Sodium Chloride 0 ml 01/04/24 18:13 01/15/24 23:07 Sodium Chloride 0.9 % 10 Ml Syringe IV-PUSH 01/03/25 18:12 10 ml PRN PRN Administration Flush Sodium Chloride 10 ml 01/16/24 06:00 01/18/24 14:33 Sodium Chloride 0.9 % 10 Ml Syringe IV-PUSH 01/15/25 05:59 10 ml Q8H MARY Administration Trazodone HCl 50 mg 01/13/24 12:35 01/17/24 22:04 Trazodone 50 Mg Tablet PO 01/12/25 12:34 50 mg QHS PRN Administration Insomnia Assessment/Plan Assessment/Plan (1) Stroke of right basal ganglia: (2) Right hemiparesis: (3) Dysphagia: (4) Hypertension: (5) Hypothyroidism: (6) Hyperlipidemia: (7) Impaired mobility and activities of daily living: Plan This is a 78-year-old female who presents to [facility] due to multifactorial functional decline in the setting of right basal ganglia CVA. She has continued impaired mobility and impaired independence withADLs and IADLs requiring PT/OT/SUPERVISOR VENDOR QUALITY 5-7 days/week 3 hours/day to maximize safety and independence with functional ability and self-care. #. 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 We will also work to improve patient's safety awareness during transfers and ambulation. -OT for basic ADL retraining (bathing, dressing, toileting, continence, grooming, feeding, transferring), to increase activity tolerance and functional mobility to evaluate for adaptive assistive device. We will work to improve patient's endurance and educate patient on fall prevention and energy conservation techniques-pacing strategies and proper breathing techniques duringfunctional tasks. -Patient education -Pressure ulcer prophylaxis; encourage mobilization, frequent postural changes, pressure-relief techniques -DVT prophylaxis -Encourage deep breathing exercise incentive spirometry. -Monitor bladder. Toileting schedule. Continue current bladder management, with scans as needed and CIC if needed. Start bowel care program every day to obtain continence, prevent ileus. -Maintain fall precautions -Gait and balance retraining -Provision of the necessary gait aids and functional adaptive equipment to enhance the patient's a functional restorationism -Encourage deep breathing exercises and incentive spirometry -RD evaluation -Ensure adequate nutrition and hydration -Discharge planning. -Opimize BP. Avoid hypotension. -DAPT -Lipitor 40 mg qhs #. Essential HTN -Continue Norvasc 10 mg daily, Cozaar 100 mg daily, Hydralazine 25 mg BID #. Updates: -No major concerns today -Continue PT/OT/ST, management as above Hospitalist to assist with management of comorbid medical conditions #. Pain control: Tylenol PRN, Robaxin 500 mg q8hr prn, Votaren 2 g QID #. Bowel and bladder: Bowel/bladder regimen as able #. Skin: (pressure ulcer/surgical site) High risk for pressure injuries given hemiparesis. #. Sleep: Optimize sleep/wake cycle DVT prophylaxis: Lovenox 40 mg daily Functional status: Impaired. Limited by pain, weakness Discharge planning: ELOS 1-2 weeks. Likely will need SNF at discharge Patient was personally seen by me, Dr. Marquez, on the day of encounter, reviewed the history and the relevant portions of the chart, including current orders, allied health and building energy consultant notes, labs/imaging and performed gracia elements of exam and I formulated the plan of care and facilitated the medical decision making. I completed a substantive portion of this encounter, the medical decision makingportion of this note in its entirety, including Allied health note review, nursing note review, building energy consultant note review, discussion with nursing and case management, and more than 50% of my time was spent on counseling and coordination of care, time spent 20 mins Documented By: Kris Marquez MD 1601 Signed By: <Electronically signed by Kris Marquez MD> 01/18/24 1603 [facility] Work Phone: 1(100) 583-162608-08-2024 Progress note Author Alysha Victor [facility] January 18, 2024 2:33pm Note Date/Time January 18, 2024 2:2 1pm [facility] [address] [place] [address] Hospitalist Progress Note Signed Patient: Juan Hernandez MR#: [id number] : 1945 Acct:[id number] Age/Sex: 78 / F Adm Date: 4 Loc: Room: [address] [place] [address] Type: ADM IN Attending Dr: Kris Marquez MD Copies to: ~ Date of Service: 01/18/2024 Subjective Subjective Narrative: Seen and examined in follow-up, resting comfortably in bed. Reports that weakness has somewhat improved with physical therapy. Has been having some right flank pain, has a pain patch that has been helping. Currently repeat because she is very grateful for the help that she is getting here Exam Physical Exam Vital Signs: Temp Pulse Resp BP Pulse Ox O2 Del Method 97.6 F 58 L 18 147/64 H 98 Room Air 01/18/24 10:23 01/18/24 06:26 01/18/24 10:23 01/18/24 10:23 01/18/24 10:23 01/18/24 10:23 Narrative: CONST-alert, awake resting comfortably in chair CARDIAC-normal rate, regular rhythm, normal S1 & S2. PULM-CTA bilaterally, RA, no accessory muscle use or cough noted ABD - Soft. Bowel sounds are normal. No distention No tenderness MS- MAEX2 left-sided hemiparesis NEURO- A&Ox3 speech clear and tongue midline, equal facial symmetry no focal motor deficits Objective Lab Results 01/16/24 05:58 01/16/24 05:58 Meds Allergies and Active Meds Allergies meperidine [From Demerol] Adverse Reaction (Verified 01/04/24 18:31) Hallucinating Active Meds: Active Medications Generic Name Dose Route Start Last Admin Trade Name Freq PRN Reason Stop Dose Admin Acetaminophen 650 mg 01/10/24 14:00 01/18/24 08:19 Acetaminophen 325 Mg Tablet PO 01/09/25 13:59 650 mg TID MARY Administration Al Hydrox/Mg Hydrox/Simethicone 30 ml 01/04/24 18:13 01/13/24 17:52 Mag Hydrox/Al Hydrox/Simeth 30 Ml Udc PO 01/03/25 18:12 30 ml Q4H PRN Administration Indigestion Amlodipine Besylate 10 mg 01/05/24 09:00 01/18/24 08:19 Amlodipine 10 Mg Tablet PO 01/04/25 08:59 10 mg DAILY MARY Administration Aspirin 81 mg 01/05/24 09:00 01/18/24 08:19 Aspirin 81 Mg Tablet.Dr PO 01/04/25 08:59 81 mg DAILY MARY Administration Atorvastatin Calcium 40 mg 01/05/24 21:00 01/17/24 22:05 Atorvastatin 40 Mg Tablet PO 01/04/25 20:59 40 mg QPM MARY Administration Bisacodyl 10 mg 01/04/24 18:13 01/13/24 05:35 Bisacodyl 10 Mg Supp.Rect ME 01/03/25 18:12 10 mg DAILY PRN Administration Constipation Chlorthalidone 25 mg 01/11/24 16:40 01/18/24 08:19 Chlorthalidone 25 Mg Tablet PO 01/10/25 16:39 25 mg QAM MARY Administration Clopidogrel Bisulfate 75 mg 01/05/24 09:00 01/18/24 08:19 Clopidogrel Bisulfate 75 Mg Tablet PO 01/04/25 08:59 75 mg DAILY MARY Administration Diclofenac Sodium 2 gm 01/04/24 18:41 01/11/24 22:41 Diclofenac Sodium 1% Gel 100 Gm Tube TOPICAL 01/03/25 18:40 2 gm QID PRN Administration muscle pain Docusate Sodium 100 mg 01/04/24 18:13 01/11/24 14:35 Docusate 100 Mg Capsule PO 01/03/25 18:12 100 mg BID PRN Administration Constipation Docusate Sodium 283 mg 01/04/24 18:13 Docusate Enema 283 Mg/5 Ml Enema ME 01/03/25 18:12 DAILY PRN Constipation Enoxaparin Sodium 40 mg 01/06/24 10:00 01/18/24 08:19 Enoxaparin 40 Mg/0.4 Ml Syringe SUBCUT 01/05/25 09:59 40 mg DAILY@1000 MARY Administration Fluconazole 100 mg 01/11/24 17:05 01/18/24 08:19 Fluconazole 100 Mg Tablet PO 01/18/24 17:04 100 mg QAM MARY Administration Hydralazine HCl 25 mg 01/08/24 14:00 01/18/24 08:19 Hydralazine 25 Mg Tablet PO 01/07/25 13:59 25 mg QID MARY Administration Lactulose 30 gm 01/04/24 18:13 01/07/24 08:52 Lactulose 20 Gm/30 Ml Udc PO 01/03/25 18:12 30 gm DAILY PRN Administration Constipation Levothyroxine Sodium 50 mcg 01/05/24 06:30 01/18/24 06:30 Levothyroxine 50 Mcg Tablet PO 01/04/25 06:29 50 mcg DAILY.0630 MARY Administration Lidocaine 2 patch 01/13/24 12:35 01/18/24 08:20 Lidocaine 4% Adh..Patch TOPICAL 01/12/25 12:34 1 patch DAILY MARY Administration Losartan Potassium 100 mg 01/05/24 09:00 01/18/24 08:19 Losartan 50 Mg Tablet PO 01/04/25 08:59 100 mg DAILY MARY Administration Melatonin 5 mg 01/06/24 22:00 01/17/24 22:04 Melatonin 5 Mg Tablet PO 01/05/25 21:59 5 mg QHS MARY Administration Menthol 1 applic 01/11/24 21:00 01/18/24 08:20 Menthol 2% Gel 226.8 Gm Jar TOPICAL 01/10/25 20:59 1 applic BID MARY Administration Methocarbamol 500 mg 01/10/24 14:00 08/08/24 06:30 Methocarbamol 500 Mg Tablet PO 01/09/25 13:59 500 mg Q8HR MARY Administration Polyethylene Glycol 17 gm 01/05/24 09:00 01/18/24 08:20 Polyethylene Glycol 3350 17 Gm Powd.Pack PO 01/04/25 08:59 17 gm DAILY MARY Administration Sennosides 2 tab 01/05/24 12:00 01/18/24 06:30 Sennosides 8.6 Mg Tablet PO 01/04/25 11:59 2 tab DAILY@12 PRN Administration If no BM in 2 days Sodium Chloride 0 ml 01/04/24 18:13 01/15/24 23:07 Sodium Chloride 0.9 % 10 Ml Syringe IV-PUSH 01/03/25 18:12 10 ml PRN PRN Administration Flush Sodium Chloride 10 ml 01/16/24 06:00 01/18/24 06:30 Sodium Chloride 0.9 % 10 Ml Syringe IV-PUSH 01/15/25 05:59 10 ml Q8H MARY Administration Trazodone HCl 50 mg 01/13/24 12:35 01/17/24 22:04 Trazodone 50 Mg Tablet PO 01/12/25 12:34 50 mg QHS PRN Administration Insomnia A&P - Hospitalist Assessment/Plan (1) Stroke of right basal ganglia: (2) Right hemiparesis: (3) Dysphagia: (4) Hypertension: (5) Thrush of mouth and esophagus: Plan 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 * On dual antiplatelet with aspirin and clopidogrel, atorvastatin for stroke prevention Neck pain -menthol gel, kpad Thrush, possible yeast esophagitis?improved -On Diflucan, stop date today. Nystatin. Continue Biotene Chronic condition: 1.Hypertension?amlodipine, losartan, hydralazine, chlorthalidone, blood pressures reported, improved, continue to monitor. Documented By: Alysha Victor APRN 01/18/24 1419 Signed By: <Electronically signed by ODILON Victor> 01/18/24 1433 <Electronically signed by Renzo Chin MD> 01/18/24 1433 [facility] Work Phone: 1(833) 367-806808-07-2024 Progress note Author Kris Marquez [facility] January 17, 2024 2:24pm Note Date/Time January 16, 2024 9:4 9pm [facility] [address] [place] [address] Physiatry(Rehab) Progress Note Signed Patient: Juan Hernandez MR#: [id number] : 1945 Acct:[id number] Age/Sex: 78 / F Adm Date: 4 Loc: Room: 9W2443-1 Type: ADM IN Attending Dr: Kris Marquez MD Copies to: ~ Date of Service: 01/16/2024 Subjective Subjective Narrative: Ms. Hernandez is a 78 year old female with PMH HTN, hyperlipidemia, left sided CVA in 2020, and severe right internal carotid artery stenosis who presents to the hospital with left sided facial droop, left upper extremity drift, and dysarthria. She had been having dizziness, vertigo, and difficulty with speech prior. She was loaded with aspirin and plavix upon presentation. Her blood pressure was very elevated with SBP 250 and was started on IV medications CTA of the brain demonstrated right basal ganglia hypodensity. MRI on 12/26 showed right basal ganglia infarct and left central semiovale punctate infarct. She underwent cerebral angiography with improvement of left ICA to 45% and rightICA to 40% on 12/27. The patient also had a MBSS on 12/28 revealing moderate-severe oral dysphagia and mild pharyngeal dysphagia with recommendations for a pureed diet with thin liquids, no straws. The patient lives alone although plans to discharge to her [facility] house. Interval history: Patient seen today. sitting up in wheelchair. No distress. States that throat feels better today. Therapy progressing slowly. Remains dependent Discussed at team meeting. Will likely need SNF. Discussed with patient who is agreeable. Review of Systems Review of Systems All other systems reviewed & are negative unless noted below or in HPI Exam Physical Exam Vital Signs: Temp Pulse Resp BP Pulse Ox O2 Del Method 97.7 F 57 L 16 145/70 H 98 Room Air 01/16/24 14:16 01/16/24 20:20 01/16/24 20:20 01/16/24 20:20 01/16/24 20:20 01/16/24 20:20 Narrative: General: Awake, lethargic, cooperative, well nourished. Lying in bed HENT: NC, AT Eyes: No scleral icterus Neck: Supple Cardio: Extremities well perfused Respiratory: No evidence of respiratory distress GI: Soft, nontender, nondistended Neuro: CN II-XII intact. Strength 5/5 right upper and lower extremities. Strength 0/5 left upper and lower extremities. Extremities: No edema, erythema, cyanosis Psych: Affect, speech and movements normal. Mood congruent Objective Labs 01/16/24 05:58 01/16/24 05:58 Labs: Laboratory Results - last 24 hr 01/16/24 05:58 Corrected WBC 4.8 Uncorrected WBC Count 4.8 RBC 3.70 Hgb 11.5 L Hct 33.9 L MCV 91.7 MCH 31.1 MCHC 33.9 RDW 13.5 Plt Count 245 MPV 8.4 Neut % (Auto) 46.3 Lymph % (Auto) 38.5 Barton % (Auto) 10.5 Eos % (Auto) 3.3 Baso % (Auto) 1.4 Nucleat RBC Rel Count 0.1 Neut # (Auto) 2.2 Lymph # (Auto) 1.9 Barton # (Auto) 0.5 Eos # (Auto) 0.2 Baso # (Auto) 0.1 PHA Creatinine Clear 50.46 Sodium 138 Potassium 4.0 Chloride 106 Carbon Dioxide 25.8 Anion Gap 10.2 BUN 33 H Creatinine 0.93 Est GFR (CKD-EPI) > 60.0 Glucose 101 H Calcium 8.6 Medications and Allergies Allergies and Active Meds: Allergies meperidine [From Demerol] Adverse Reaction (Verified 01/04/24 18:31) Hallucinating Active Medications Generic Name Dose Route Start Last Admin Trade Name Freq PRN Reason Stop Dose Admin Acetaminophen 650 mg 01/10/24 14:00 01/16/24 20:23 Acetaminophen 325 Mg Tablet PO 01/09/25 13:59 650 mg TID MARY Administration Al Hydrox/Mg Hydrox/Simethicone 30 ml 01/04/24 18:13 01/13/24 17:52 Mag Hydrox/Al Hydrox/Simeth 30 Ml Udc PO 01/03/25 18:12 30 ml Q4H PRN Administration Indigestion Amlodipine Besylate 10 mg 01/05/24 09:00 01/16/24 09:14 Amlodipine 10 Mg Tablet PO 01/04/25 08:59 10 mg DAILY MARY Administration Aspirin 81 mg 01/05/24 09:00 01/16/24 09:14 Aspirin 81 Mg Tablet.Dr PO 01/04/25 08:59 81 mg DAILY MARY Administration Atorvastatin Calcium 40 mg 01/05/24 21:00 01/16/24 20:22 Atorvastatin 40 Mg Tablet PO 01/04/25 20:59 40 mg QPM MARY Administration Bisacodyl 10 mg 01/04/24 18:13 01/13/24 05:35 Bisacodyl 10 Mg Supp.Rect ME 01/03/25 18:12 10 mg DAILY PRN Administration Constipation Chlorthalidone 25 mg 01/11/24 16:40 01/16/24 09:14 Chlorthalidone 25 Mg Tablet PO 01/10/25 16:39 25 mg QAM MARY Administration Clopidogrel Bisulfate 75 mg 01/05/24 09:00 01/16/24 09:14 Clopidogrel Bisulfate 75 Mg Tablet PO 01/04/25 08:59 75 mg DAILY MARY Administration Diclofenac Sodium 2 gm 01/04/24 18:41 01/11/24 22:41 Diclofenac Sodium 1% Gel 100 Gm Tube TOPICAL 01/03/25 18:40 2 gm QID PRN Administration muscle pain Docusate Sodium 100 mg 01/04/24 18:13 01/11/24 14:35 Docusate 100 Mg Capsule PO 01/03/25 18:12 100 mg BID PRN Administration Constipation Docusate Sodium 283 mg 01/04/24 18:13 Docusate Enema 283 Mg/5 Ml Enema ME 01/03/25 18:12 DAILY PRN Constipation Enoxaparin Sodium 40 mg 01/06/24 10:00 01/16/24 09:14 Enoxaparin 40 Mg/0.4 Ml Syringe SUBCUT 01/05/25 09:59 40 mg DAILY@1000 MARY Administration Fluconazole 100 mg 01/11/24 17:05 01/16/24 09:14 Fluconazole 100 Mg Tablet PO 01/18/24 17:04 100 mg QAM MARY Administration Hydralazine HCl 25 mg 01/08/24 14:00 01/16/24 20:23 Hydralazine 25 Mg Tablet PO 01/07/25 13:59 25 mg QID MARY Administration Lactulose 30 gm 01/04/24 18:13 01/07/24 08:52 Lactulose 20 Gm/30 Ml Udc PO 01/03/25 18:12 30 gm DAILY PRN Administration Constipation Levothyroxine Sodium 50 mcg 01/05/24 06:30 01/16/24 05:55 Levothyroxine 50 Mcg Tablet PO 01/04/25 06:29 50 mcg DAILY.0630 MARY Administration Lidocaine 2 patch 01/13/24 12:35 01/16/24 09:15 Lidocaine 4% Adh..Patch TOPICAL 01/12/25 12:34 2 patch DAILY MARY Administration Losartan Potassium 100 mg 01/05/24 09:00 01/16/24 09:14 Losartan 50 Mg Tablet PO 01/04/25 08:59 100 mg DAILY MARY Administration Melatonin 5 mg 01/06/24 22:00 01/16/24 20:22 Melatonin 5 Mg Tablet PO 01/05/25 21:59 5 mg QHS MARY Administration Menthol 1 applic 01/11/24 21:00 01/16/24 20:23 Menthol 2% Gel 226.8 Gm Jar TOPICAL 01/10/25 20:59 1 applic BID MARY Administration Methocarbamol 500 mg 01/10/24 14:00 01/16/24 20:23 Methocarbamol 500 Mg Tablet PO 01/09/25 13:59 500 mg Q8HR MARY Administration Polyethylene Glycol 17 gm 01/05/24 09:00 01/16/24 09:14 Polyethylene Glycol 3350 17 Gm Powd.Pack PO 01/04/25 08:59 17 gm DAILY MARY Administration Sennosides 2 tab 01/05/24 12:00 01/11/24 14:35 Sennosides 8.6 Mg Tablet PO 01/04/25 11:59 2 tab DAILY@12 PRN Administration If no BM in 2 days Sodium Chloride 0 ml 01/04/24 18:13 01/15/24 23:07 Sodium Chloride 0.9 % 10 Ml Syringe IV-PUSH 01/03/25 18:12 10 ml PRN PRN Administration Flush Sodium Chloride 10 ml 01/16/24 06:00 01/16/24 20:24 Sodium Chloride 0.9 % 10 Ml Syringe IV-PUSH 01/15/25 05:59 10 ml Q8H MARY Administration Trazodone HCl 50 mg 01/13/24 12:35 01/16/24 20:22 Trazodone 50 Mg Tablet PO 01/12/25 12:34 50 mg QHS PRN Administration Insomnia Assessment/Plan Assessment/Plan (1) Stroke of right basal ganglia: (2) Right hemiparesis: (3) Dysphagia: (4) Hypertension: (5) Hypothyroidism: (6) Hyperlipidemia: (7) Impaired mobility and activities of daily living: Plan This is a 78-year-old female who presents to [facility] IRF due to multifactorial functional decline in the setting of right basal ganglia CVA. She has continued impaired mobility and impaired independence withADLs and IADLs requiring PT/OT/SUPERVISOR VENDOR QUALITY 5-7 days/week 3 hours/day to maximize safety and independence with functional ability and self-care. #. 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 We will also work to improve patient's safety awareness during transfers and ambulation. -OT for basic ADL retraining (bathing, dressing, toileting, continence, grooming, feeding, transferring), to increase activity tolerance and functional mobility to evaluate for adaptive assistive device. We will work to improve patient's endurance and educate patient on fall prevention and energy conservation techniques-pacing strategies and proper breathing techniques duringfunctional tasks. -Patient education -Pressure ulcer prophylaxis; encourage mobilization, frequent postural changes, pressure-relief techniques -DVT prophylaxis -Encourage deep breathing exercise incentive spirometry. -Monitor bladder. Toileting schedule. Continue current bladder management, with scans as needed and CIC if needed. Start bowel care program every day to obtain continence, prevent ileus. -Maintain fall precautions -Gait and balance retraining -Provision of the necessary gait aids and functional adaptive equipment to enhance the patient's a functional restorationism -Encourage deep breathing exercises and incentive spirometry -RD evaluation -Ensure adequate nutrition and hydration -Discharge planning. -Opimize BP. Avoid hypotension. -DAPT -Lipitor 40 mg qhs #. Essential HTN -Continue Norvasc 10 mg daily, Cozaar 100 mg daily, Hydralazine 25 mg BID #. Updates: -Patient improved with fluid bolus. Cr 0.93<--1.28 -UA and CXR noninfectious. PAtient without infectious signs -Progressing slowly. Discussed SNF placement which patient is agreeable to. Willprovide patient with information. Likely DC to SNF early next week Hospitalist to assist with management of comorbid medical conditions #. Pain control: Tylenol PRN, Robaxin 500 mg q8hr prn, Votaren 2 g QID #. Bowel and bladder: Bowel/bladder regimen as able #. Skin: (pressure ulcer/surgical site) High risk for pressure injuries given hemiparesis. #. Sleep: Optimize sleep/wake cycle DVT prophylaxis: Lovenox 40 mg daily Functional status: Impaired. Limited by pain, weakness Discharge planning: ELOS 1-2 weeks. Likely will need SNF at discharge Patient was personally seen by me, Dr. Marquez, on the day of encounter, reviewed the history and the relevant portions of the chart, including current orders, allied health and building energy consultant notes, labs/imaging and performed gracia elements of exam and I formulated the plan of care and facilitated the medical decision making. I completed a substantive portion of this encounter, the medical decision makingportion of this note in its entirety, including Allied health note review, nursing note review, building energy consultant note review, discussion with nursing and case management, and more than 50% of my time was spent on counseling and coordination of care, time spent 30 minutes Case reviewed at weekly team conference, discussed progress and goals of care, barriers/problems to date and discharge planning. Documented By: Kris Marquez MD [id number] Signed By: <Electronically signed by Kris Marquez MD> 01/17/24 1420 [facility] Work Phone: [phone]) 761-261108-05-2024 Progress note Author Kris Marquez [facility] January 15, 2024 12:59pm Note Date/Time January 15, 2024 12: 27pm [facility] [address] [place] [address] Physiatry(Rehab) Progress Note Signed Patient: Juan Hernandez MR#: [id number] : 1945 Acct:[id number] Age/Sex: 78 / F Adm Date: 4 Loc: Room: 4U8208-9 Type: ADM IN Attending Dr: Kris Marquez MD Copies to: ~ <Dali Davis APRN - Last Filed: 01/15/24 12:31> Date of Service: 01/15/2024 Subjective <Dali Davis APRN - Last Filed: 01/15/24 12:31> Subjective Narrative: Ms. Hernandez is a 78 year old female with PMH HTN, hyperlipidemia, left sided CVA in 2020, and severe right internal carotid artery stenosis who presents to the hospital with left sided facial droop, left upper extremity drift, and dysarthria. She had been having dizziness, vertigo, and difficulty with speech prior. She was loaded with aspirin and plavix upon presentation. Her blood pressure was very elevated with SBP 250 and was started on IV medications CTA of the brain demonstrated right basal ganglia hypodensity. MRI on 12/26 showed right basal ganglia infarct and left central semiovale punctate infarct. She underwent cerebral angiography with improvement of left ICA to 45% and rightICA to 40% on 12/27. The patient also had a MBSS on 12/28 revealing moderate-severe oral dysphagia and mild pharyngeal dysphagia with recommendations for a pureed diet with thin liquids, no straws. The patient lives alone although plans to discharge to her daughters house. Interval history: Patient was evaluated in her room while sitting up in the wheelchair. She is alert, oriented, answering questions appropriately. Continues to complain of some scratchy throat , cough, some shortness of breath. Admits to some chills, although she is afebrile on assessment. She does have some wheezes to auscultation bilaterally, more so on the right. I will obtain a repeat chest x-ray to rule out acute pathology. Obtain COVID PCR today. Trend vitals. Also, nursing reported some cloudy concentrated urine. I will obtain a UA. Patient is having poor p.o. intake due to sore throat and difficulty swallowing. May consider a small IV fluid bolus. Patient continues to tolerate therapy. Ambulatory a few feet in parallel bars, DEP. Min to mod with transfers. Review of Systems <Dali Davis APRN - Last Filed: 01/15/24 12:31> Review of Systems All other systems reviewed & are negative unless noted below or in HPI Exam <Dali Davis APRN - Last Filed: 01/15/24 12:31> Physical Exam Vital Signs: Temp Pulse Resp BP Pulse Ox O2 Del Method 97.4 F L 61 16 150/69 H 95 Room Air 01/15/24 04:33 01/15/24 04:33 01/15/24 04:33 01/15/24 08:33 01/15/24 04:33 01/15/24 10:12 Narrative: General: Awake, alert, oriented x3 HENT: Normal to inspection, normocephalic, atraumatic. Left facial droop. Eyes: PERRL, normal conjunctiva and sclera Neck: Normal ROM, normal visual inspection. Trachea midline. Cardio: Regular heart rate and rhythm Respiratory: Clear to auscultation bilaterally. Normal respiratory effort. No respiratory distress. GI: Abdomen soft, nontender, nondistended, active bowel sounds x4 quadrants Neuro: CN II-XII intact. Left-sided hemiplegia. Left upper extremity contracted. Extremities: No edema, erythema, cyanosis Psych: Mood and affect appropriate. Normal speech. Objective <Dali Davis, ROUTE SALESPERSON - Last Filed: 01/15/24 12:31> Labs 01/12/24 06:04 01/12/24 10:51 Labs: I reviewed clinical lab tests, radiology reports and obtained and summated medical records and have ordered follow up lab tests and imaging studies as needed for rehabilitation care. Medications and Allergies Allergies and Active Meds: Allergies meperidine [From Demerol] Adverse Reaction (Verified 01/04/24 18:31) Hallucinating Active Medications Generic Name Dose Route Start Last Admin Trade Name Nam PRN Reason Stop Dose Admin Acetaminophen 650 mg 01/10/24 14:00 01/15/24 08:34 Acetaminophen 325 Mg Tablet PO 01/09/25 13:59 650 mg TID MARY Administration Al Hydrox/Mg Hydrox/Simethicone 30 ml 01/04/24 18:13 01/13/24 17:52 Mag Hydrox/Al Hydrox/Simeth 30 Ml Udc PO 01/03/25 18:12 30 ml Q4H PRN Administration Indigestion Amlodipine Besylate 10 mg 01/05/24 09:00 01/15/24 08:33 Amlodipine 10 Mg Tablet PO 01/04/25 08:59 10 mg DAILY MARY Administration Aspirin 81 mg 01/05/24 09:00 01/15/24 08:33 Aspirin 81 Mg Tablet.Dr PO 01/04/25 08:59 81 mg DAILY MARY Administration Atorvastatin Calcium 40 mg 01/05/24 21:00 01/14/24 20:52 Atorvastatin 40 Mg Tablet PO 01/04/25 20:59 40 mg QPM MARY Administration Bisacodyl 10 mg 01/04/24 18:13 01/13/24 05:35 Bisacodyl 10 Mg Supp.Rect ME 01/03/25 18:12 10 mg DAILY PRN Administration Constipation Chlorthalidone 25 mg 01/11/24 16:40 01/15/24 08:33 Chlorthalidone 25 Mg Tablet PO 01/10/25 16:39 25 mg QAM MARY Administration Clopidogrel Bisulfate 75 mg 01/05/24 09:00 01/15/24 08:34 Clopidogrel Bisulfate 75 Mg Tablet PO 01/04/25 08:59 75 mg DAILY MRAY Administration Diclofenac Sodium 2 gm 01/04/24 18:41 01/11/24 22:41 Diclofenac Sodium 1% Gel 100 Gm Tube TOPICAL 01/03/25 18:40 2 gm QID PRN Administration muscle pain Docusate Sodium 100 mg 01/04/24 18:13 01/11/24 14:35 Docusate 100 Mg Capsule PO 01/03/25 18:12 100 mg BID PRN Administration Constipation Docusate Sodium 283 mg 01/04/24 18:13 Docusate Enema 283 Mg/5 Ml Enema ME 01/03/25 18:12 DAILY PRN Constipation Enoxaparin Sodium 40 mg 01/06/24 10:00 01/15/24 08:37 Enoxaparin 40 Mg/0.4 Ml Syringe SUBCUT 01/05/25 09:59 40 mg DAILY@1000 MARY Administration Fluconazole 100 mg 01/11/24 17:05 01/15/24 08:33 Fluconazole 100 Mg Tablet PO 01/18/24 17:04 100 mg QAM MARY Administration Hydralazine HCl 25 mg 01/08/24 14:00 01/15/24 08:33 Hydralazine 25 Mg Tablet PO 01/07/25 13:59 25 mg QID MARY Administration Lactulose 30 gm 01/04/24 18:13 01/07/24 08:52 Lactulose 20 Gm/30 Ml Udc PO 01/03/25 18:12 30 gm DAILY PRN Administration Constipation Levothyroxine Sodium 50 mcg 01/05/24 06:30 01/15/24 06:22 Levothyroxine 50 Mcg Tablet PO 01/04/25 06:29 50 mcg DAILY.0630 MARY Administration Lidocaine 2 patch 01/13/24 12:35 01/15/24 08:34 Lidocaine 4% Adh..Patch TOPICAL 01/12/25 12:34 2 patch DAILY MARY Administration Losartan Potassium 100 mg 01/05/24 09:00 01/15/24 08:34 Losartan 50 Mg Tablet PO 01/04/25 08:59 100 mg DAILY MARY Administration Melatonin 5 mg 01/06/24 22:00 01/14/24 20:52 Melatonin 5 Mg Tablet PO 01/05/25 21:59 5 mg QHS MARY Administration Menthol 1 applic 01/11/24 21:00 01/15/24 08:34 Menthol 2% Gel 226.8 Gm Jar TOPICAL 01/10/25 20:59 1 applic BID MARY Administration Methocarbamol 500 mg 01/10/24 14:00 01/15/24 06:22 Methocarbamol 500 Mg Tablet PO 01/09/25 13:59 500 mg Q8HR MARY Administration Polyethylene Glycol 17 gm 01/05/24 09:00 01/15/24 08:34 Polyethylene Glycol 3350 17 Gm Powd.Pack PO 01/04/25 08:59 17 gm DAILY MARY Administration Sennosides 2 tab 01/05/24 12:00 01/11/24 14:35 Sennosides 8.6 Mg Tablet PO 01/04/25 11:59 2 tab DAILY@12 PRN Administration If no BM in 2 days Sodium Chloride 0 ml 01/04/24 18:13 01/09/24 21:39 Sodium Chloride 0.9 % 10 Ml Syringe IV-PUSH 01/03/25 18:12 10 ml PRN PRN Administration Flush Trazodone HCl 50 mg 01/13/24 12:35 01/14/24 20:52 Trazodone 50 Mg Tablet PO 01/12/25 12:34 50 mg QHS PRN Administration Insomnia Assessment/Plan <Dali Davis, ROUTE SALESPERSON - Last Filed: 01/15/24 12:31> Assessment/Plan (1) Stroke of right basal ganglia: (2) Right hemiparesis: (3) Dysphagia: (4) Hypertension: (5) Hypothyroidism: (6) Hyperlipidemia: (7) Impaired mobility and activities of daily living: Plan This is a 78-year-old female who presents to [facility] IRF due to multifactorial functional decline in the setting of right basal ganglia CVA. She has continued impaired mobility and impaired independence withADLs and IADLs requiring PT/OT/SUPERVISOR VENDOR QUALITY 5-7 days/week 3 hours/day to maximize safety and independence with functional ability and self-care. #. 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 We will also work to improve patient's safety awareness during transfers and ambulation. -OT for basic ADL retraining (bathing, dressing, toileting, continence, grooming, feeding, transferring), to increase activity tolerance and functional mobility to evaluate for adaptive assistive device. We will work to improve patient's endurance and educate patient on fall prevention and energy conservation techniques-pacing strategies and proper breathing techniques duringfunctional tasks. -Patient education -Pressure ulcer prophylaxis; encourage mobilization, frequent postural changes, pressure-relief techniques -DVT prophylaxis -Encourage deep breathing exercise incentive spirometry. -Monitor bladder. Toileting schedule. Continue current bladder management, with scans as needed and CIC if needed. Start bowel care program every day to obtain continence, prevent ileus. -Maintain fall precautions -Gait and balance retraining -Provision of the necessary gait aids and functional adaptive equipment to enhance the patient's a functional restorationism -Encourage deep breathing exercises and incentive spirometry -RD evaluation -Ensure adequate nutrition and hydration -Discharge planning. -Opimize BP. Avoid hypotension. -DAPT -Lipitor 40 mg qhs #. Essential HTN -Continue Norvasc 10 mg daily, Cozaar 100 mg daily, Hydralazine 25 mg BID #. Updates: -Repeat chest x-ray today due to complaints of shortness of breath, right-sided rib cage pain, cough. Suspect aspiration. Wheezy to auscultation R > L. Also COVID PCR. -UA to rule out a UTI. -Repeat CBC and BMP. Consider a small IV bolus Hospitalist to assist with management of comorbid medical conditions #. Pain control: Tylenol PRN, Robaxin 500 mg q8hr prn, Votaren 2 g QID #. Bowel and bladder: Bowel/bladder regimen as able #. Skin: (pressure ulcer/surgical site) High risk for pressure injuries given hemiparesis. #. Sleep: Optimize sleep/wake cycle DVT prophylaxis: Lovenox 40 mg daily Functional status: Impaired. Limited by pain, weakness Discharge planning: OS 1-2 weeks I spent 18 minutes for services, including [id number] encounter with the patient, discussion of the case, plan of care, and exam; and [id number] activities, such as reviewing pertinent building energy consultant documentation, recent therapynotes, laboratory and radiology studies, and discussion of case with care team including physician, nursing, manager of case management, and therapists. More than 50 % of time was spent on patient/family counseling or coordination ofcare. <Kris Marquez MD - Last Filed: 01/15/24 12:59> Assessment/Plan (1) Stroke of right basal ganglia: (2) Right hemiparesis: (3) Dysphagia: (4) Hypertension: (5) Hypothyroidism: (6) Hyperlipidemia: (7) Impaired mobility and activities of daily living: Plan This is a 78-year-old female who presents to [facility] IRF due to multifactorial functional decline in the setting of right basal ganglia CVA. She has continued impaired mobility and impaired independence withADLs and IADLs requiring PT/OT/SUPERVISOR VENDOR QUALITY 5-7 days/week 3 hours/day to maximize safety and independence with functional ability and self-care. #. 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 We will also work to improve patient's safety awareness during transfers and ambulation. -OT for basic ADL retraining (bathing, dressing, toileting, continence, grooming, feeding, transferring), to increase activity tolerance and functional mobility to evaluate for adaptive assistive device. We will work to improve patient's endurance and educate patient on fall prevention and energy conservation techniques-pacing strategies and proper breathing techniques duringfunctional tasks. -Patient education -Pressure ulcer prophylaxis; encourage mobilization, frequent postural changes, pressure-relief techniques -DVT prophylaxis -Encourage deep breathing exercise incentive spirometry. -Monitor bladder. Toileting schedule. Continue current bladder management, with scans as needed and CIC if needed. Start bowel care program every day to obtain continence, prevent ileus. -Maintain fall precautions -Gait and balance retraining -Provision of the necessary gait aids and functional adaptive equipment to enhance the patient's a functional restorationism -Encourage deep breathing exercises and incentive spirometry -RD evaluation -Ensure adequate nutrition and hydration -Discharge planning. -Opimize BP. Avoid hypotension. -DAPT -Lipitor 40 mg qhs #. Essential HTN -Continue Norvasc 10 mg daily, Cozaar 100 mg daily, Hydralazine 25 mg BID #. Updates: -Repeat chest x-ray today due to complaints of shortness of breath, right-sided rib cage pain, cough. Suspect aspiration. Wheezy to auscultation R > L. Also COVID PCR. -UA to rule out a UTI. -Repeat CBC and BMP. Consider a small IV bolus Hospitalist to assist with management of comorbid medical conditions #. Pain control: Tylenol PRN, Robaxin 500 mg q8hr prn, Votaren 2 g QID #. Bowel and bladder: Bowel/bladder regimen as able #. Skin: (pressure ulcer/surgical site) High risk for pressure injuries given hemiparesis. #. Sleep: Optimize sleep/wake cycle DVT prophylaxis: Lovenox 40 mg daily Functional status: Impaired. Limited by pain, weakness Discharge planning: ELOS 1-2 weeks I spent 18 minutes for services, including [id number] encounter with the patient, discussion of the case, plan of care, and exam; and [id number] activities, such as reviewing pertinent building energy consultant documentation, recent therapynotes, laboratory and radiology studies, and discussion of case with care team including physician, nursing, manager of case management, and therapists. More than 50 % of time was spent on patient/family counseling or coordination ofcare. Patient was personally seen by me, Dr. Marquez, on the day of encounter, reviewed the history and the relevant portions of the chart, including current orders, allied health and building energy consultant notes, labs/imaging and performed gracia elements of exam and I formulated the plan of care and facilitated the medical decision making. I completed a substantive portion of this encounter, the medical decision makingportion of this note in its entirety, including Allied health note review, nursing note review, building energy consultant note review, discussion with nursing and case management, and more than 50% of my time was spent on counseling and coordination of care, time spent 25 minutes Agree with above. Patient seen today. Having some increased SOB. Will obtain repeat CXR and COVID PCR. Also UA and repeat labs given dark urine. Patient continues to endorse some nose bleeds as well. Continue to monitor. Documented By: Dali Davis APRN 01/15/24 1 218 Signed By: <Electronically signed by ODILON Davis> 01/15/24 1231 <Electronically signed by Kris Marquez MD> 01/15/24 1256 [facility] Work Phone: 1(664) 135-940408-02-2024 Progress note Author Kris Marquez [facility] January 11, 2024 10:45pm Note Date/Time January 11, 2024 4:1 2pm [facility] [address] [place] [address] Physiatry(Rehab) Progress Note Signed Patient: Juan Hernandez MR#: [id number] : 1945 Acct:[id number] Age/Sex: 78 / F Adm Date: 4 Loc: Room: [address] [place] [address] Type: ADM IN Attending Dr: Kris Marquez MD Copies to: ~ Date of Service: 01/11/2024 Subjective Subjective Narrative: Ms. Hernandez is a 78 year old female with PMH HTN, hyperlipidemia, left sided CVA in 2020, and severe right internal carotid artery stenosis who presents to the hospital with left sided facial droop, left upper extremity drift, and dysarthria. She had been having dizziness, vertigo, and difficulty with speech prior. She was loaded with aspirin and plavix upon presentation. Her blood pressure was very elevated with SBP 250 and was started on IV medications CTA of the brain demonstrated right basal ganglia hypodensity. MRI on 12/26 showed right basal ganglia infarct and left central semiovale punctate infarct. She underwent cerebral angiography with improvement of left ICA to 45% and rightICA to 40% on 12/27. The patient also had a MBSS on 12/28 revealing moderate-severe oral dysphagia and mild pharyngeal dysphagia with recommendations for a pureed diet with thin liquids, no straws. The patient lives alone although plans to discharge to her daughters house. Interval history: Patient seen today at bedside. Report from nursing staff that patient was havingsome shortness of breath although did not appear dyspneic on evaluation. The patient admits to some dry mouth and dry nose. Notes that she had a nose bleed last night. Continues to have significant hypertension. No chest pain, headaches, new neurological deficits. Review of Systems Review of Systems All other systems reviewed & are negative unless noted below or in HPI Exam Physical Exam Vital Signs: Temp Pulse Resp BP Pulse Ox O2 Del Method 96.8 F L 64 14 188/84 H 96 Room Air 01/11/24 15:01/11/24 15:01/11/24 15:01/11/24 15:01/11/24 15:01/11/24 15:09 Narrative: General: Awake, lethargic, cooperative, well nourished. Lying in bed HENT: NC, AT Eyes: No scleral icterus Neck: Supple Cardio: RRR, no murmurs, rubs or gallops. Extremities well perfused Respiratory: CTAB, no wheezes rhonchi or rales. No evidence of respiratory distress GI: Soft, nontender, nondistended Neuro: CN II-XII intact. Strength 5/5 right upper and lower extremities. Strength 0/5 left upper and lower extremities. Extremities: No edema, erythema, cyanosis Psych: Affect, speech and movements normal. Mood congruent Objective Labs 01/07/24 11:53 01/07/24 11:53 Medications and Allergies Allergies and Active Meds: Allergies meperidine [From Demerol] Adverse Reaction (Verified 01/04/24 18:31) Hallucinating Active Medications Generic Name Dose Route Start Last Admin Trade Name Freq PRN Reason Stop Dose Admin Acetaminophen 650 mg 01/10/24 14:00 01/11/24 14:33 Acetaminophen 325 Mg Tablet PO 01/09/25 13:59 650 mg TID MARY Administration Al Hydrox/Mg Hydrox/Simethicone 30 ml 01/04/24 18:13 01/06/24 13:01 Mag Hydrox/Al Hydrox/Simeth 30 Ml Udc PO 01/03/25 18:12 30 ml Q4H PRN Administration Indigestion Amlodipine Besylate 10 mg 01/05/24 09:00 01/11/24 06:23 Amlodipine 10 Mg Tablet PO 01/04/25 08:59 10 mg DAILY MARY Administration Aspirin 81 mg 01/05/24 09:00 01/11/24 09:58 Aspirin 81 Mg Tablet.Dr PO 01/04/25 08:59 81 mg DAILY MARY Administration Atorvastatin Calcium 40 mg 01/05/24 21:00 01/10/24 22:38 Atorvastatin 40 Mg Tablet PO 01/04/25 20:59 40 mg QPM MARY Administration Bisacodyl 10 mg 01/04/24 18:13 01/08/24 05:44 Bisacodyl 10 Mg Supp.Rect ME 01/03/25 18:12 10 mg DAILY PRN Administration Constipation Clopidogrel Bisulfate 75 mg 01/05/24 09:00 01/11/24 09:59 Clopidogrel Bisulfate 75 Mg Tablet PO 01/04/25 08:59 75 mg DAILY MARY Administration Diclofenac Sodium 2 gm 01/04/24 18:41 01/10/24 23:03 Diclofenac Sodium 1% Gel 100 Gm Tube TOPICAL 01/03/25 18:40 2 gm QID PRN Administration muscle pain Docusate Sodium 100 mg 01/04/24 18:13 01/11/24 14:35 Docusate 100 Mg Capsule PO 01/03/25 18:12 100 mg BID PRN Administration Constipation Docusate Sodium 283 mg 01/04/24 18:13 Docusate Enema 283 Mg/5 Ml Enema ME 01/03/25 18:12 DAILY PRN Constipation Enoxaparin Sodium 40 mg 01/06/24 10:00 01/11/24 09:59 Enoxaparin 40 Mg/0.4 Ml Syringe SUBCUT 01/05/25 09:59 40 mg DAILY@1000 MARY Administration Hydralazine HCl 25 mg 01/08/24 14:00 01/11/24 14:35 Hydralazine 25 Mg Tablet PO 01/07/25 13:59 25 mg QID MARY Administration Lactulose 30 gm 01/04/24 18:13 01/07/24 08:52 Lactulose 20 Gm/30 Ml Udc PO 01/03/25 18:12 30 gm DAILY PRN Administration Constipation Levothyroxine Sodium 50 mcg 01/05/24 06:30 01/11/24 06:23 Levothyroxine 50 Mcg Tablet PO 01/04/25 06:29 50 mcg DAILY.0630 MARY Administration Losartan Potassium 100 mg 01/05/24 09:00 01/11/24 09:58 Losartan 50 Mg Tablet PO 01/04/25 08:59 100 mg DAILY MARY Administration Melatonin 5 mg 01/06/24 22:00 01/10/24 22:38 Melatonin 5 Mg Tablet PO 01/05/25 21:59 5 mg QHS MARY Administration Methocarbamol 500 mg 01/10/24 14:00 01/11/24 14:36 Methocarbamol 500 Mg Tablet PO 01/09/25 13:59 500 mg Q8HR MARY Administration Polyethylene Glycol 17 gm 01/05/24 09:00 01/11/24 09:59 Polyethylene Glycol 3350 17 Gm Powd.Pack PO 01/04/25 08:59 17 gm DAILY MARY Administration Sennosides 2 tab 01/05/24 12:00 01/11/24 14:35 Sennosides 8.6 Mg Tablet PO 01/04/25 11:59 2 tab DAILY@12 PRN Administration If no BM in 2 days Sodium Chloride 0 ml 01/04/24 18:13 01/09/24 21:39 Sodium Chloride 0.9 % 10 Ml Syringe IV-PUSH 01/03/25 18:12 10 ml PRN PRN Administration Flush Assessment/Plan Assessment/Plan (1) Stroke of right basal ganglia: (2) Right hemiparesis: (3) Dysphagia: (4) Hypertension: (5) Hypothyroidism: (6) Hyperlipidemia: (7) Impaired mobility and activities of daily living: Plan This is a 78-year-old female who presents to [facility] IRF due to multifactorial functional decline in the setting of right basal ganglia CVA. She has continued impaired mobility and impaired independence withADLs and IADLs requiring PT/OT/SUPERVISOR VENDOR QUALITY 5-7 days/week 3 hours/day to maximize safety and independence with functional ability and self-care. #. 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 We will also work to improve patient's safety awareness during transfers and ambulation. -OT for basic ADL retraining (bathing, dressing, toileting, continence, grooming, feeding, transferring), to increase activity tolerance and functional mobility to evaluate for adaptive assistive device. We will work to improve patient's endurance and educate patient on fall prevention and energy conservation techniques-pacing strategies and proper breathing techniques duringfunctional tasks. -Patient education -Pressure ulcer prophylaxis; encourage mobilization, frequent postural changes, pressure-relief techniques -DVT prophylaxis -Encourage deep breathing exercise incentive spirometry. -Monitor bladder. Toileting schedule. Continue current bladder management, with scans as needed and CIC if needed. Start bowel care program every day to obtain continence, prevent ileus. -Maintain fall precautions -Gait and balance retraining -Provision of the necessary gait aids and functional adaptive equipment to enhance the patient's a functional restorationism -Encourage deep breathing exercises and incentive spirometry -RD evaluation -Ensure adequate nutrition and hydration -Discharge planning. -Opimize BP. Avoid hypotension. -DAPT -Lipitor 40 mg qhs #. Essential HTN -Continue Norvasc 10 mg daily, Cozaar 100 mg daily, Hydralazine 25 mg BID #. Updates: -CXR obtained due to reports of SOB-no acute process -Patient with dry mouth/nose. Nasal saline spray added. Thrush treatment with nystatin and diflucan initiated by hospitalist team -Trend BPs. Chlorthalidone added -Left-sided deficits persist -Slow therapy progress. Dependent with mobility/transfers. Hospitalist to assist with management of comorbid medical conditions #. Pain control: Tylenol PRN, Robaxin 500 mg q8hr prn, Votaren 2 g QID #. Bowel and bladder: Bowel/bladder regimen as able #. Skin: (pressure ulcer/surgical site) High risk for pressure injuries given hemiparesis. #. Sleep: Optimize sleep/wake cycle DVT prophylaxis: Lovenox 40 mg daily Functional status: Impaired. Limited by pain, weakness Discharge planning: ELOS 1-2 weeks Patient was personally seen by me, Dr. Marquez, on the day of encounter, reviewed the history and the relevant portions of the chart, including current orders, allied health and building energy consultant notes, labs/imaging and performed gracia elements of exam and I formulated the plan of care and facilitated the medical decision making. I completed a substantive portion of this encounter, the medical decision makingportion of this note in its entirety, including Allied health note review, nursing note review, building energy consultant note review, discussion with nursing and case management, and more than 50% of my time was spent on counseling and coordination of care, time spent 30 minutes Documented By: Kris Marquez MD [id number] Signed By: <Electronically signed by Kris Marquez MD> 01/11/24 6[address] [facility] Work Phone: 1(401) 166-959308-02-2024 Progress note Author Carlotta Moralez [facility] January 11, 2024 10:01pm Note Date/Time January 11, 2024 4:3 6pm [facility] [address] [place] [address] Hospitalist Progress Note Signed Patient: Juan Hernandez MR#: [id number] : 1945 Acct:[id number] Age/Sex: 78 / F Adm Date: 4 Loc: Room: [address] [place] [address] Type: ADM IN Attending Dr: Kris Marquez MD Copies to: ~ Date of Service: 01/11/2024 Subjective Subjective Narrative: Patient seen and examined at request of Dr Nava, resistant hypertension. Patient in bed, son present. Discussed prior management of BP which she stated was difficult requiring she thinks 6 medications. Moved around and ultimately ran out of meds not obtaining care and refills. Currently denies headache or chest pain/ dyspnea. Continues to work with therapy and feels she is making progress. Complains of some neck pain, repositioned but will offer kpad and menthol gel. Patient also reports burning in throat, upon exam tongue is coatedand with questioning she indicates this is sore as well. Feels as if mouth is dry despite biotene. Is having sensation of burning in esophagus but no regurgitation- probable yeast Exam Physical Exam Vital Signs: Temp Pulse Resp BP Pulse Ox O2 Del Method 96.8 F L 64 14 188/84 H 96 Room Air 01/11/24 15:09 01/11/24 15:09 01/11/24 15:09 01/11/24 15:09 01/11/24 15:09 01/11/24 15:09 Narrative: const- alert, in bed, frail cv- RRR no abnormal heart tones pulm- clear without wheeze or rhonchi, RA, no cough or dyspnea abd- s/nt, nabs, obese extrem- no edema, calves nontender neuro- speech clear, orient x3, tongue midline ms- left u/l flaccid Objective Lab Results 01/07/24 11:53 01/07/24 11:53 Meds Allergies and Active Meds Allergies meperidine [From Demerol] Adverse Reaction (Verified 01/04/24 18:31) Hallucinating Active Meds: Active Medications Generic Name Dose Route Start Last Admin Trade Name Freq PRN Reason Stop Dose Admin Acetaminophen 650 mg 01/10/24 14:00 01/11/24 14:33 Acetaminophen 325 Mg Tablet PO 01/09/25 13:59 650 mg TID MARY Administration Al Hydrox/Mg Hydrox/Simethicone 30 ml 01/04/24 18:13 01/06/24 13:01 Mag Hydrox/Al Hydrox/Simeth 30 Ml Udc PO 01/03/25 18:12 30 ml Q4H PRN Administration Indigestion Amlodipine Besylate 10 mg 01/05/24 09:00 01/11/24 06:23 Amlodipine 10 Mg Tablet PO 01/04/25 08:59 10 mg DAILY MARY Administration Aspirin 81 mg 01/05/24 09:00 01/11/24 09:58 Aspirin 81 Mg Tablet.Dr PO 01/04/25 08:59 81 mg DAILY MARY Administration Atorvastatin Calcium 40 mg 01/05/24 21:00 01/10/24 22:38 Atorvastatin 40 Mg Tablet PO 01/04/25 20:59 40 mg QPM MARY Administration Bisacodyl 10 mg 01/04/24 18:13 01/08/24 05:44 Bisacodyl 10 Mg Supp.Rect ME 01/03/25 18:12 10 mg DAILY PRN Administration Constipation Clopidogrel Bisulfate 75 mg 01/05/24 09:00 01/11/24 09:59 Clopidogrel Bisulfate 75 Mg Tablet PO 01/04/25 08:59 75 mg DAILY MARY Administration Diclofenac Sodium 2 gm 01/04/24 18:41 01/10/24 23:03 Diclofenac Sodium 1% Gel 100 Gm Tube TOPICAL 01/03/25 18:40 2 gm QID PRN Administration muscle pain Docusate Sodium 100 mg 01/04/24 18:13 01/11/24 14:35 Docusate 100 Mg Capsule PO 01/03/25 18:12 100 mg BID PRN Administration Constipation Docusate Sodium 283 mg 01/04/24 18:13 Docusate Enema 283 Mg/5 Ml Enema ME 01/03/25 18:12 DAILY PRN Constipation Enoxaparin Sodium 40 mg 01/06/24 10:00 01/11/24 09:59 Enoxaparin 40 Mg/0.4 Ml Syringe SUBCUT 01/05/25 09:59 40 mg DAILY@1000 MARY Administration Hydralazine HCl 25 mg 01/08/24 14:00 01/11/24 14:35 Hydralazine 25 Mg Tablet PO 01/07/25 13:59 25 mg QID MARY Administration Lactulose 30 gm 01/04/24 18:13 01/07/24 08:52 Lactulose 20 Gm/30 Ml Udc PO 01/03/25 18:12 30 gm DAILY PRN Administration Constipation Levothyroxine Sodium 50 mcg 01/05/24 06:30 01/11/24 06:23 Levothyroxine 50 Mcg Tablet PO 01/04/25 06:29 50 mcg DAILY.0630 MARY Administration Losartan Potassium 100 mg 01/05/24 09:00 01/11/24 09:58 Losartan 50 Mg Tablet PO 01/04/25 08:59 100 mg DAILY MARY Administration Melatonin 5 mg 01/06/24 22:00 01/10/24 22:38 Melatonin 5 Mg Tablet PO 01/05/25 21:59 5 mg QHS MARY Administration Methocarbamol 500 mg 01/10/24 14:00 01/11/24 14:36 Methocarbamol 500 Mg Tablet PO 01/09/25 13:59 500 mg Q8HR MARY Administration Polyethylene Glycol 17 gm 01/05/24 09:00 01/11/24 09:59 Polyethylene Glycol 3350 17 Gm Powd.Pack PO 01/04/25 08:59 17 gm DAILY MARY Administration Sennosides 2 tab 01/05/24 12:00 01/11/24 14:35 Sennosides 8.6 Mg Tablet PO 01/04/25 11:59 2 tab DAILY@12 PRN Administration If no BM in 2 days Sodium Chloride 0 ml 01/04/24 18:13 01/09/24 21:39 Sodium Chloride 0.9 % 10 Ml Syringe IV-PUSH 01/03/25 18:12 10 ml PRN PRN Administration Flush A&P - Hospitalist Assessment/Plan (1) Stroke of right basal ganglia: (2) Right hemiparesis: (3) Dysphagia: (4) Hypertension: (5) Thrush of mouth and esophagus: Plan 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 * On dual antiplatelet with aspirin and clopidogrel, atorvastatin for stroke prevention Neck pain -menthol gel, kpad Thrush, possible yeast esophagitis -Diflucan, nystatin. Continue Biotene Chronic condition: 1.Hypertension?amlodipine, losartan, hydralazine, add chlorthalidone uncontrolled. Echo from [place]- EF 65-70%, mod LA dilation, mod LVH, LVDD. Continue to trend and adjust as indicated 2.Hypothyroidism? Synthroid Documented By: Carlotta Moralez APRN 07/05 1635 Signed By: <Electronically signed by ODILON Moralez> 01/11/24 [address] [facility] Work Phone: 1(968) 788-177608-01-2024 Progress note Author Kris Marquez [facility] January 11, 2024 2:32pm Note Date/Time January 10, 2024 12:4 4pm [facility] [address] [place] [address] Physiatry(Rehab) Progress Note Signed Patient: Juan Hernandez MR#: [id number] : 1945 Acct:[id number] Age/Sex: 78 / F Adm Date: 4 Loc: Room: [address] [place] [address] Type: ADM IN Attending Dr: Kris Marquez MD Copies to: ~ <Dali Davis APRN - Last Filed: 01/10/24 12:51> Date of Service: 01/10/2024 Subjective <Dali Davis APRN - Last Filed: 01/10/24 12:51> Subjective Narrative: Ms. Hernandez is a 78 year old female with PMH HTN, hyperlipidemia, left sided CVA in 2020, and severe right internal carotid artery stenosis who presents to the hospital with left sided facial droop, left upper extremity drift, and dysarthria. She had been having dizziness, vertigo, and difficulty with speech prior. She was loaded with aspirin and plavix upon presentation. Her blood pressure was very elevated with SBP 250 and was started on IV medications CTA of the brain demonstrated right basal ganglia hypodensity. MRI on 12/26 showed right basal ganglia infarct and left central semiovale punctate infarct. She underwent cerebral angiography with improvement of left ICA to 45% and rightICA to 40% on 12/27. The patient also had a MBSS on 12/28 revealing moderate-severe oral dysphagia and mild pharyngeal dysphagia with recommendations for a pureed diet with thin liquids, no straws. The patient lives alone although plans to discharge to her daughters house. Interval history: Patient was seen and evaluated in her room while laying in bed. She is restlessand cannot get comfortable. Complains of right lower extremity muscle spasms. States they are much worse at bedtime. She does have Robaxin ordered as needed but has not been asking for it. I will change it to tid scheduled. Monitor symptoms; changed to a different muscle relaxer if not effective. I will also schedule acetaminophen for pain. She otherwise has no concerns or complaints. Her vital signs are stable. BP slightly elevated despite BP meds, will trend for now. Remains a heavy assist in therapy. Was able to do 6 feet in parallel bars with max assist/DEP. Dependent with transfers. Review of Systems <Dali Davis APRN - Last Filed: 01/10/24 12:51> Review of Systems All other systems reviewed & are negative unless noted below or in HPI Exam <Dali Davis APRN - Last Filed: 01/10/24 12:51> Physical Exam Vital Signs: Temp Pulse Resp BP Pulse Ox O2 Del Method 97.2 F L 62 14 161/63 H 96 Room Air 01/10/24 07:30 01/10/24 07:30 01/10/24 07:30 01/10/24 07:30 01/10/24 07:30 01/10/24 07:30 Narrative: General: Awake, alert, oriented x3 HENT: Normal to inspection, normocephalic, atraumatic. Left facial droop. Eyes: PERRL, normal conjunctiva and sclera Neck: Normal ROM, normal visual inspection. Trachea midline. Cardio: Regular heart rate and rhythm Respiratory: Clear to auscultation bilaterally. Normal respiratory effort. No respiratory distress. GI: Abdomen soft, nontender, nondistended, active bowel sounds x4 quadrants Neuro: CN II-XII intact. Left-sided hemiplegia. Left upper extremity contracted. Extremities: No edema, erythema, cyanosis Psych: Mood and affect appropriate. Normal speech. Objective <Dali Davis, ROUTE SALESPERSON - Last Filed: 01/10/24 12:51> Labs 01/07/24 11:53 01/07/24 11:53 Additional Results Results Comments: I reviewed clinical lab tests, radiology reports and obtained and summated medical records and have ordered follow up lab tests and imaging studies as needed for rehabilitation care. Medications and Allergies Allergies and Active Meds: Allergies meperidine [From Demerol] Adverse Reaction (Verified 01/04/24 18:31) Hallucinating Active Medications Generic Name Dose Route Start Last Admin Trade Name Freq PRN Reason Stop Dose Admin Acetaminophen 500 mg 01/04/24 18:13 01/09/24 21:39 Acetaminophen 500 Mg Tablet PO 01/03/25 18:12 500 mg Q4H PRN Administration Pain Al Hydrox/Mg Hydrox/Simethicone 30 ml 01/04/24 18:13 01/06/24 13:01 Mag Hydrox/Al Hydrox/Simeth 30 Ml Udc PO 01/03/25 18:12 30 ml Q4H PRN Administration Indigestion Amlodipine Besylate 10 mg 01/05/24 09:00 01/10/24 05:58 Amlodipine 10 Mg Tablet PO 01/04/25 08:59 10 mg DAILY MARY Administration Aspirin 81 mg 01/05/24 09:00 01/10/24 09:13 Aspirin 81 Mg Tablet.Dr PO 01/04/25 08:59 81 mg DAILY MARY Administration Atorvastatin Calcium 40 mg 01/05/24 21:00 01/09/24 21:38 Atorvastatin 40 Mg Tablet PO 01/04/25 20:59 40 mg QPM MARY Administration Bisacodyl 10 mg 01/04/24 18:13 01/08/24 05:44 Bisacodyl 10 Mg Supp.Rect ME 01/03/25 18:12 10 mg DAILY PRN Administration Constipation Clopidogrel Bisulfate 75 mg 01/05/24 09:00 01/10/24 09:13 Clopidogrel Bisulfate 75 Mg Tablet PO 01/04/25 08:59 75 mg DAILY MARY Administration Diclofenac Sodium 2 gm 01/04/24 18:41 Diclofenac Sodium 1% Gel 100 Gm Tube TOPICAL 01/03/25 18:40 QID PRN muscle pain Docusate Sodium 100 mg 01/04/24 18:13 01/07/24 21:28 Docusate 100 Mg Capsule PO 01/03/25 18:12 100 mg BID PRN Administration Constipation Docusate Sodium 283 mg 01/04/24 18:13 Docusate Enema 283 Mg/5 Ml Enema ME 01/03/25 18:12 DAILY PRN Constipation Enoxaparin Sodium 40 mg 01/06/24 10:00 01/10/24 09:14 Enoxaparin 40 Mg/0.4 Ml Syringe SUBCUT 01/05/25 09:59 40 mg DAILY@1000 MARY Administration Hydralazine HCl 25 mg 01/08/24 14:00 01/10/24 09:14 Hydralazine 25 Mg Tablet PO 01/07/25 13:59 25 mg QID MARY Administration Lactulose 30 gm 01/04/24 18:13 01/07/24 08:52 Lactulose 20 Gm/30 Ml Udc PO 01/03/25 18:12 30 gm DAILY PRN Administration Constipation Levothyroxine Sodium 50 mcg 01/05/24 06:30 01/10/24 05:58 Levothyroxine 50 Mcg Tablet PO 01/04/25 06:29 50 mcg DAILY.0630 MARY Administration Losartan Potassium 100 mg 01/05/24 09:00 01/10/24 09:14 Losartan 50 Mg Tablet PO 01/04/25 08:59 100 mg DAILY MARY Administration Melatonin 5 mg 01/06/24 22:00 01/09/24 21:38 Melatonin 5 Mg Tablet PO 01/05/25 21:59 5 mg QHS MARY Administration Methocarbamol 500 mg 01/04/24 18:41 Methocarbamol 500 Mg Tablet PO 01/03/25 18:40 Q8HR PRN muscle spasm Polyethylene Glycol 17 gm 01/05/24 09:00 01/10/24 09:14 Polyethylene Glycol 3350 17 Gm Powd.Pack PO 01/04/25 08:59 17 gm DAILY MARY Administration Sennosides 2 tab 01/05/24 12:00 01/06/24 09:47 Sennosides 8.6 Mg Tablet PO 01/04/25 11:59 2 tab DAILY@12 PRN Administration If no BM in 2 days Sodium Chloride 0 ml 01/04/24 18:13 01/09/24 21:39 Sodium Chloride 0.9 % 10 Ml Syringe IV-PUSH 01/03/25 18:12 10 ml PRN PRN Administration Flush Assessment/Plan <Dali Davis APRN - Last Filed: 01/10/24 12:51> Assessment/Plan (1) Stroke of right basal ganglia: (2) Right hemiparesis: (3) Dysphagia: (4) Hypertension: (5) Hypothyroidism: (6) Hyperlipidemia: (7) Impaired mobility and activities of daily living: Plan This is a 78-year-old female who presents to [facility] IRF due to multifactorial functional decline in the setting of right basal ganglia CVA. She has continued impaired mobility and impaired independence withADLs and IADLs requiring PT/OT/SUPERVISOR VENDOR QUALITY 5-7 days/week 3 hours/day to maximize safety and independence with functional ability and self-care. #. 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 We will also work to improve patient's safety awareness during transfers and ambulation. -OT for basic ADL retraining (bathing, dressing, toileting, continence, grooming, feeding, transferring), to increase activity tolerance and functional mobility to evaluate for adaptive assistive device. We will work to improve patient's endurance and educate patient on fall prevention and energy conservation techniques-pacing strategies and proper breathing techniques duringfunctional tasks. -Patient education -Pressure ulcer prophylaxis; encourage mobilization, frequent postural changes, pressure-relief techniques -DVT prophylaxis -Encourage deep breathing exercise incentive spirometry. -Monitor bladder. Toileting schedule. Continue current bladder management, with scans as needed and CIC if needed. Start bowel care program every day to obtain continence, prevent ileus. -Maintain fall precautions -Gait and balance retraining -Provision of the necessary gait aids and functional adaptive equipment to enhance the patient's a functional restorationism -Encourage deep breathing exercises and incentive spirometry -RD evaluation -Ensure adequate nutrition and hydration -Discharge planning. -Opimize BP. Avoid hypotension. -DAPT -Lipitor 40 mg qhs #. Essential HTN -Continue Norvasc 10 mg daily, Cozaar 100 mg daily, Hydralazine 25 mg BID #. Updates: -Change Robaxin to scheduled 3 times daily. Consider switching to Flexeril or tizanidine if not effective. Add scheduled Tylenol 3 times daily for muscle spasms/pain. -Trend BPs. Adjust the regimen if necessary. -Left-sided deficits persist -Slow therapy progress. Dependent with mobility/transfers. Hospitalist to assist with management of comorbid medical conditions #. Pain control: Tylenol PRN, Robaxin 500 mg q8hr prn, Votaren 2 g QID #. Bowel and bladder: Bowel/bladder regimen as able #. Skin: (pressure ulcer/surgical site) High risk for pressure injuries given hemiparesis. #. Sleep: Optimize sleep/wake cycle DVT prophylaxis: Lovenox 40 mg daily Functional status: Impaired. Limited by pain, weakness Discharge planning: ELOS 1-2 weeks I spent 24 minutes for services, including [id number] encounter with the patient, discussion of the case, plan of care, and exam; and [id number] activities, such as reviewing pertinent building energy consultant documentation, recent therapynotes, laboratory and radiology studies, and discussion of case with care team including physician, nursing, manager of case management, and therapists. More than 50 % of time was spent on patient/family counseling or coordination ofcare. <Kris Marquez MD - Last Filed: 01/11/24 14:32> Assessment/Plan (1) Stroke of right basal ganglia: (2) Right hemiparesis: (3) Dysphagia: (4) Hypertension: (5) Hypothyroidism: (6) Hyperlipidemia: (7) Impaired mobility and activities of daily living: Plan This is a 78-year-old female who presents to [facility] IRF due to multifactorial functional decline in the setting of right basal ganglia CVA. She has continued impaired mobility and impaired independence withADLs and IADLs requiring PT/OT/SUPERVISOR VENDOR QUALITY 5-7 days/week 3 hours/day to maximize safety and independence with functional ability and self-care. #. 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 We will also work to improve patient's safety awareness during transfers and ambulation. -OT for basic ADL retraining (bathing, dressing, toileting, continence, grooming, feeding, transferring), to increase activity tolerance and functional mobility to evaluate for adaptive assistive device. We will work to improve patient's endurance and educate patient on fall prevention and energy conservation techniques-pacing strategies and proper breathing techniques duringfunctional tasks. -Patient education -Pressure ulcer prophylaxis; encourage mobilization, frequent postural changes, pressure-relief techniques -DVT prophylaxis -Encourage deep breathing exercise incentive spirometry. -Monitor bladder. Toileting schedule. Continue current bladder management, with scans as needed and CIC if needed. Start bowel care program every day to obtain continence, prevent ileus. -Maintain fall precautions -Gait and balance retraining -Provision of the necessary gait aids and functional adaptive equipment to enhance the patient's a functional restorationism -Encourage deep breathing exercises and incentive spirometry -RD evaluation -Ensure adequate nutrition and hydration -Discharge planning. -Opimize BP. Avoid hypotension. -DAPT -Lipitor 40 mg qhs #. Essential HTN -Continue Norvasc 10 mg daily, Cozaar 100 mg daily, Hydralazine 25 mg BID #. Updates: -Change Robaxin to scheduled 3 times daily. Consider switching to Flexeril or tizanidine if not effective. Add scheduled Tylenol 3 times daily for muscle spasms/pain. -Trend BPs. Adjust the regimen if necessary. -Left-sided deficits persist -Slow therapy progress. Dependent with mobility/transfers. Hospitalist to assist with management of comorbid medical conditions #. Pain control: Tylenol PRN, Robaxin 500 mg q8hr prn, Votaren 2 g QID #. Bowel and bladder: Bowel/bladder regimen as able #. Skin: (pressure ulcer/surgical site) High risk for pressure injuries given hemiparesis. #. Sleep: Optimize sleep/wake cycle DVT prophylaxis: Lovenox 40 mg daily Functional status: Impaired. Limited by pain, weakness Discharge planning: KENDYOS 1-2 weeks I spent 24 minutes for services, including [id number] encounter with the patient, discussion of the case, plan of care, and exam; and [id number] activities, such as reviewing pertinent building energy consultant documentation, recent therapynotes, laboratory and radiology studies, and discussion of case with care team including physician, nursing, manager of case management, and therapists. More than 50 % of time was spent on patient/family counseling or coordination ofcare. Patient was personally seen by me, Dr. Marquez, on the day of encounter, reviewed the history and the relevant portions of the chart, including current orders, allied health and building energy consultant notes, labs/imaging and performed gracia elements of exam and I formulated the plan of care and facilitated the medical decision making. I completed a substantive portion of this encounter, the medical decision makingportion of this note in its entirety, including Allied health note review, nursing note review, building energy consultant note review, discussion with nursing and case management, and more than 50% of my time was spent on counseling and coordination of care, time spent 25 minutes Documented By: Dali Davis APRN 01/10/24 1 244 Signed By: <Electronically signed by ODILON Davis> 01/10/24 1251 <Electronically signed by Kris Marquez MD> 01/11/24 1432 [facility] Work Phone: 1(581) 204-525807-30-2024 Progress note Author Kris Marquez [facility] January 09, 2024 2:44pm Note Date/Time January 09, 2024 2:44 pm [facility] [address] [place] [address] Physiatry(Rehab) Progress Note Signed Patient: Juan Hernandez MR#: [id number] : 1945 Acct:[id number] Age/Sex: 78 / F Adm Date: 4 Loc: Room: 1L0016-9 Type: ADM IN Attending Dr: Kris Marquez MD Copies to: ~ Date of Service: 01/09/2024 Subjective Subjective Narrative: Ms. Hernandez is a 78 year old female with PMH HTN, hyperlipidemia, left sided CVA in 2020, and severe right internal carotid artery stenosis who presents to the hospital with left sided facial droop, left upper extremity drift, and dysarthria. She had been having dizziness, vertigo, and difficulty with speech prior. She was loaded with aspirin and plavix upon presentation. Her blood pressure was very elevated with SBP 250 and was started on IV medications CTA of the brain demonstrated right basal ganglia hypodensity. MRI on 12/26 showed right basal ganglia infarct and left central semiovale punctate infarct. She underwent cerebral angiography with improvement of left ICA to 45% and rightICA to 40% on 12/27. The patient also had a MBSS on 12/28 revealing moderate-severe oral dysphagia and mild pharyngeal dysphagia with recommendations for a pureed diet with thin liquids, no straws. The patient lives alone although plans to discharge to her daughters house. The patient was seen today at bedside. Lying in bed in no distress. She has no major concerns today. Review of Systems Review of Systems All other systems reviewed & are negative unless noted below or in HPI Exam Physical Exam Vital Signs: Temp Pulse Resp BP Pulse Ox O2 Del Method 97.2 F L 62 20 148/70 H 96 Room Air 01/09/24 13:57 01/09/24 13:57 01/09/24 13:57 01/09/24 13:57 01/09/24 13:57 01/09/24 13:57 Narrative: General: Awake, lethargic, cooperative, well nourished. Lying in bed HENT: NC, AT Eyes: No scleral icterus Neck: Supple Cardio: RRR, no murmurs, rubs or gallops. Extremities well perfused Respiratory: CTAB, no wheezes rhonchi or rales. No evidence of respiratory distress GI: Soft, nontender, nondistended Neuro: CN II-XII intact. Strength 5/5 right upper and lower extremities. Strength 0/5 left upper and lower extremities. Extremities: No edema, erythema, cyanosis Psych: Affect, speech and movements normal. Mood congruent Objective Labs 01/07/24 11:53 01/07/24 11:53 Medications and Allergies Allergies and Active Meds: Allergies meperidine [From Demerol] Adverse Reaction (Verified 01/04/24 18:31) Hallucinating Active Medications Generic Name Dose Route Start Last Admin Trade Name Freq PRN Reason Stop Dose Admin Acetaminophen 500 mg 01/04/24 18:13 01/08/24 21:01 Acetaminophen 500 Mg Tablet PO 01/03/25 18:12 500 mg Q4H PRN Administration Pain Al Hydrox/Mg Hydrox/Simethicone 30 ml 01/04/24 18:13 01/06/24 13:01 Mag Hydrox/Al Hydrox/Simeth 30 Ml Udc PO 01/03/25 18:12 30 ml Q4H PRN Administration Indigestion Amlodipine Besylate 10 mg 01/05/24 09:00 01/09/24 06:37 Amlodipine 10 Mg Tablet PO 01/04/25 08:59 10 mg DAILY MARY Administration Aspirin 81 mg 01/05/24 09:00 01/09/24 08:38 Aspirin 81 Mg Tablet.Dr PO 01/04/25 08:59 81 mg DAILY MARY Administration Atorvastatin Calcium 40 mg 01/05/24 21:00 01/08/24 21:01 Atorvastatin 40 Mg Tablet PO 01/04/25 20:59 40 mg QPM MARY Administration Bisacodyl 10 mg 01/04/24 18:13 01/08/24 05:44 Bisacodyl 10 Mg Supp.Rect ME 01/03/25 18:12 10 mg DAILY PRN Administration Constipation Clopidogrel Bisulfate 75 mg 01/05/24 09:00 01/09/24 08:38 Clopidogrel Bisulfate 75 Mg Tablet PO 01/04/25 08:59 75 mg DAILY MARY Administration Diclofenac Sodium 2 gm 01/04/24 18:41 Diclofenac Sodium 1% Gel 100 Gm Tube TOPICAL 01/03/25 18:40 QID PRN muscle pain Docusate Sodium 100 mg 01/04/24 18:13 01/07/24 21:28 Docusate 100 Mg Capsule PO 01/03/25 18:12 100 mg BID PRN Administration Constipation Docusate Sodium 283 mg 01/04/24 18:13 Docusate Enema 283 Mg/5 Ml Enema ME 01/03/25 18:12 DAILY PRN Constipation Enoxaparin Sodium 40 mg 01/06/24 10:00 01/09/24 08:38 Enoxaparin 40 Mg/0.4 Ml Syringe SUBCUT 01/05/25 09:59 40 mg DAILY@1000 MARY Administration Hydralazine HCl 25 mg 01/08/24 14:00 01/09/24 13:57 Hydralazine 25 Mg Tablet PO 01/07/25 13:59 25 mg QID MARY Administration Lactulose 30 gm 01/04/24 18:13 01/07/24 08:52 Lactulose 20 Gm/30 Ml Udc PO 01/03/25 18:12 30 gm DAILY PRN Administration Constipation Levothyroxine Sodium 50 mcg 01/05/24 06:30 01/09/24 06:33 Levothyroxine 50 Mcg Tablet PO 01/04/25 06:29 50 mcg DAILY.0630 MARY Administration Losartan Potassium 100 mg 01/05/24 09:00 01/09/24 08:36 Losartan 50 Mg Tablet PO 01/04/25 08:59 100 mg DAILY MARY Administration Melatonin 5 mg 01/06/24 22:00 01/08/24 21:01 Melatonin 5 Mg Tablet PO 01/05/25 21:59 5 mg QHS MARY Administration Methocarbamol 500 mg 01/04/24 18:41 Methocarbamol 500 Mg Tablet PO 01/03/25 18:40 Q8HR PRN muscle spasm Polyethylene Glycol 17 gm 01/05/24 09:00 01/09/24 08:37 Polyethylene Glycol 3350 17 Gm Powd.Pack PO 01/04/25 08:59 17 gm DAILY MARY Administration Sennosides 2 tab 01/05/24 12:00 01/06/24 09:47 Sennosides 8.6 Mg Tablet PO 01/04/25 11:59 2 tab DAILY@12 PRN Administration If no BM in 2 days Sodium Chloride 0 ml 01/04/24 18:13 Sodium Chloride 0.9 % 10 Ml Syringe IV-PUSH 01/03/25 18:12 PRN PRN Flush Assessment/Plan Assessment/Plan (1) Stroke of right basal ganglia: (2) Right hemiparesis: (3) Dysphagia: (4) Hypertension: (5) Hypothyroidism: (6) Hyperlipidemia: (7) Impaired mobility and activities of daily living: Plan This is a 78-year-old female who presents to [facility] IRF due to multifactorial functional decline in the setting of right basal ganglia CVA. She has continued impaired mobility and impaired independence withADLs and IADLs requiring PT/OT/SUPERVISOR VENDOR QUALITY 5-7 days/week 3 hours/day to maximize safety and independence with functional ability and self-care. #. 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 We will also work to improve patient's safety awareness during transfers and ambulation. -OT for basic ADL retraining (bathing, dressing, toileting, continence, grooming, feeding, transferring), to increase activity tolerance and functional mobility to evaluate for adaptive assistive device. We will work to improve patient's endurance and educate patient on fall prevention and energy conservation techniques-pacing strategies and proper breathing techniques duringfunctional tasks. -Patient education -Pressure ulcer prophylaxis; encourage mobilization, frequent postural changes, pressure-relief techniques -DVT prophylaxis -Encourage deep breathing exercise incentive spirometry. -Monitor bladder. Toileting schedule. Continue current bladder management, with scans as needed and CIC if needed. Start bowel care program every day to obtain continence, prevent ileus. -Maintain fall precautions -Gait and balance retraining -Provision of the necessary gait aids and functional adaptive equipment to enhance the patient's a functional restorationism -Encourage deep breathing exercises and incentive spirometry -RD evaluation -Ensure adequate nutrition and hydration -Discharge planning. -Opimize BP. Avoid hypotension. -DAPT -Lipitor 40 mg qhs #. Essential HTN -Continue Norvasc 10 mg daily, Cozaar 100 mg daily, Hydralazine 25 mg BID #. Updates: -No major concerns today -Discussed during team meeting. Will reevaluate at next weeks teams meeting Hospitalist to assist with management of comorbid medical conditions #. Pain control: Tylenol PRN, Robaxin 500 mg q8hr prn, Votaren 2 g QID #. Bowel and bladder: Bowel/bladder regimen as able #. Skin: (pressure ulcer/surgical site) High risk for pressure injuries given hemiparesis. #. Sleep: Optimize sleep/wake cycle DVT prophylaxis: Lovenox 40 mg daily Functional status: Impaired. Limited by pain, weakness Discharge planning: ELOS 1-2 weeks Patient was personally seen by me, Dr. Marquez, on the day of encounter, reviewed the history and the relevant portions of the chart, including current orders, allied health and building energy consultant notes, labs/imaging and performed gracia elements of exam and I formulated the plan of care and facilitated the medical decision making. I completed a substantive portion of this encounter, the medical decision makingportion of this note in its entirety, including Allied health note review, nursing note review, building energy consultant note review, discussion with nursing and case management, and more than 50% of my time was spent on counseling and coordination of care, time spent 28 minutes Documented By: Kris Marquez MD 144 Signed By: <Electronically signed by Kris Marquez MD> 01/09/24 1444 [facility] Work Phone: [phone]) 811-978607-29-2024 Progress note Author Kris Marquez [facility] January 08, 2024 1:03pm Note Date/Time January 08, 2024 1:03 pm [facility] [address] [place] [address] Physiatry(Rehab) Progress Note Signed Patient: Juan Hernandez MR#: [id number] : 1945 Acct:[id number] Age/Sex: 78 / F Adm Date: 4 Loc: Room: [address] [place] [address] Type: ADM IN Attending Dr: Kris Marquez MD Copies to: ~ Date of Service: 01/08/2024 Subjective Subjective Narrative: Ms. Hernandez is a 78 year old female with PMH HTN, hyperlipidemia, left sided CVA in 2020, and severe right internal carotid artery stenosis who presents to the hospital with left sided facial droop, left upper extremity drift, and dysarthria. She had been having dizziness, vertigo, and difficulty with speech prior. She was loaded with aspirin and plavix upon presentation. Her blood pressure was very elevated with SBP 250 and was started on IV medications CTA of the brain demonstrated right basal ganglia hypodensity. MRI on 12/26 showed right basal ganglia infarct and left central semiovale punctate infarct. She underwent cerebral angiography with improvement of left ICA to 45% and rightICA to 40% on 12/27. The patient also had a MBSS on 12/28 revealing moderate-severe oral dysphagia and mild pharyngeal dysphagia with recommendations for a pureed diet with thin liquids, no straws. The patient lives alone although plans to discharge to her daughters house. The patient was seen today at bedside. Sitting up in her wheelchair. She appearsin no distress. She denies major concerns today. Remains heavy assist with therapy. DEP for mobility. BP has been persistently elevated. Review of Systems Review of Systems All other systems reviewed & are negative unless noted below or in HPI Exam Physical Exam Vital Signs: Temp Pulse Resp BP Pulse Ox O2 Del Method 97.4 F L 53 L 18 163/61 H 95 Room Air 01/08/24 05:00 01/08/24 05:00 01/08/24 05:00 01/08/24 05:00 01/08/24 05:00 01/08/24 05:00 Narrative: General: Awake, lethargic, cooperative, well nourished. Working with therapy HENT: NC, AT Eyes: No scleral icterus Neck: Supple Cardio: RRR, no murmurs, rubs or gallops. Extremities well perfused Respiratory: CTAB, no wheezes rhonchi or rales. No evidence of respiratory distress GI: Soft, nontender, nondistended Neuro: CN II-XII intact. Strength 5/5 right upper and lower extremities. Strength 0/5 left upper and lower extremities. Extremities: No edema, erythema, cyanosis Psych: Affect, speech and movements normal. Mood congruent Objective Labs 01/07/24 11:53 01/07/24 11:53 Medications and Allergies Allergies and Active Meds: Allergies meperidine [From Demerol] Adverse Reaction (Verified 01/04/24 18:31) Hallucinating Active Medications Generic Name Dose Route Start Last Admin Trade Name Freq PRN Reason Stop Dose Admin Acetaminophen 500 mg 01/04/24 18:13 01/06/24 20:44 Acetaminophen 500 Mg Tablet PO 01/03/25 18:12 500 mg Q4H PRN Administration Pain Al Hydrox/Mg Hydrox/Simethicone 30 ml 01/04/24 18:13 01/06/24 13:01 Mag Hydrox/Al Hydrox/Simeth 30 Ml Udc PO 01/03/25 18:12 30 ml Q4H PRN Administration Indigestion Amlodipine Besylate 10 mg 01/05/24 09:00 01/08/24 05:43 Amlodipine 10 Mg Tablet PO 01/04/25 08:59 10 mg DAILY MARY Administration Aspirin 81 mg 01/05/24 09:00 01/08/24 09:46 Aspirin 81 Mg Tablet. PO 01/04/25 08:59 81 mg DAILY MARY Administration Atorvastatin Calcium 40 mg 01/05/24 21:00 01/07/24 21:28 Atorvastatin 40 Mg Tablet PO 01/04/25 20:59 40 mg QPM MARY Administration Bisacodyl 10 mg 01/04/24 18:13 01/08/24 05:44 Bisacodyl 10 Mg Supp.Rect ME 01/03/25 18:12 10 mg DAILY PRN Administration Constipation Clopidogrel Bisulfate 75 mg 01/05/24 09:00 01/08/24 09:46 Clopidogrel Bisulfate 75 Mg Tablet PO 01/04/25 08:59 75 mg DAILY MARY Administration Diclofenac Sodium 2 gm 01/04/24 18:41 Diclofenac Sodium 1% Gel 100 Gm Tube TOPICAL 01/03/25 18:40 QID PRN muscle pain Docusate Sodium 100 mg 01/04/24 18:13 01/07/24 21:28 Docusate 100 Mg Capsule PO 01/03/25 18:12 100 mg BID PRN Administration Constipation Docusate Sodium 283 mg 01/04/24 18:13 Docusate Enema 283 Mg/5 Ml Enema ME 01/03/25 18:12 DAILY PRN Constipation Enoxaparin Sodium 40 mg 01/06/24 10:00 01/08/24 09:47 Enoxaparin 40 Mg/0.4 Ml Syringe SUBCUT 01/05/25 09:59 40 mg DAILY@1000 MARY Administration Hydralazine HCl 25 mg 01/07/24 14:07 01/08/24 09:46 Hydralazine 25 Mg Tablet PO 01/06/25 14:05 25 mg BID MARY Administration Lactulose 30 gm 01/04/24 18:13 01/07/24 08:52 Lactulose 20 Gm/30 Ml Udc PO 01/03/25 18:12 30 gm DAILY PRN Administration Constipation Levothyroxine Sodium 50 mcg 01/05/24 06:30 01/08/24 05:48 Levothyroxine 50 Mcg Tablet PO 01/04/25 06:29 50 mcg DAILY.0630 MARY Administration Losartan Potassium 100 mg 01/05/24 09:00 01/08/24 09:46 Losartan 50 Mg Tablet PO 01/04/25 08:59 100 mg DAILY MARY Administration Melatonin 5 mg 01/06/24 22:00 01/07/24 21:28 Melatonin 5 Mg Tablet PO 01/05/25 21:59 5 mg QHS MARY Administration Methocarbamol 500 mg 01/04/24 18:41 Methocarbamol 500 Mg Tablet PO 01/03/25 18:40 Q8HR PRN muscle spasm Polyethylene Glycol 17 gm 01/05/24 09:00 01/08/24 09:47 Polyethylene Glycol 3350 17 Gm Powd.Pack PO 01/04/25 08:59 17 gm DAILY MARY Administration Sennosides 2 tab 01/05/24 12:00 01/06/24 09:47 Sennosides 8.6 Mg Tablet PO 01/04/25 11:59 2 tab DAILY@12 PRN Administration If no BM in 2 days Sodium Chloride 0 ml 01/04/24 18:13 Sodium Chloride 0.9 % 10 Ml Syringe IV-PUSH 01/03/25 18:12 PRN PRN Flush Sodium Chloride 10 ml 01/07/24 06:00 01/08/24 05:48 Sodium Chloride 0.9 % 10 Ml Syringe IV-PUSH 01/06/25 05:59 10 ml Q8H MARY Administration Assessment/Plan Assessment/Plan (1) Stroke of right basal ganglia: (2) Right hemiparesis: (3) Dysphagia: (4) Hypertension: (5) Hypothyroidism: (6) Hyperlipidemia: (7) Impaired mobility and activities of daily living: Plan This is a 78-year-old female who presents to [facility] IRF due to multifactorial functional decline in the setting of right basal ganglia CVA. She has continued impaired mobility and impaired independence withADLs and IADLs requiring PT/OT/SUPERVISOR VENDOR QUALITY 5-7 days/week 3 hours/day to maximize safety and independence with functional ability and self-care. #. 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 We will also work to improve patient's safety awareness during transfers and ambulation. -OT for basic ADL retraining (bathing, dressing, toileting, continence, grooming, feeding, transferring), to increase activity tolerance and functional mobility to evaluate for adaptive assistive device. We will work to improve patient's endurance and educate patient on fall prevention and energy conservation techniques-pacing strategies and proper breathing techniques duringfunctional tasks. -Patient education -Pressure ulcer prophylaxis; encourage mobilization, frequent postural changes, pressure-relief techniques -DVT prophylaxis -Encourage deep breathing exercise incentive spirometry. -Monitor bladder. Toileting schedule. Continue current bladder management, with scans as needed and CIC if needed. Start bowel care program every day to obtain continence, prevent ileus. -Maintain fall precautions -Gait and balance retraining -Provision of the necessary gait aids and functional adaptive equipment to enhance the patient's a functional restorationism -Encourage deep breathing exercises and incentive spirometry -RD evaluation -Ensure adequate nutrition and hydration -Discharge planning. -Opimize BP. Avoid hypotension. -DAPT -Lipitor 40 mg qhs #. Essential HTN -Continue Norvasc 10 mg daily, Cozaar 100 mg daily, Hydralazine 25 mg BID #. Updates: -BP remains elevated. Will increase hydralazine to QID -Remains heavy assist with therapy although continues to be more alert and participatory Hospitalist to assist with management of comorbid medical conditions #. Pain control: Tylenol PRN, Robaxin 500 mg q8hr prn, Votaren 2 g QID #. Bowel and bladder: Bowel/bladder regimen as able #. Skin: (pressure ulcer/surgical site) High risk for pressure injuries given hemiparesis. #. Sleep: Optimize sleep/wake cycle DVT prophylaxis: Lovenox 40 mg daily Functional status: Impaired. Limited by pain, weakness Discharge planning: ELOS 1-2 weeks Patient was personally seen by me, Dr. Marquez, on the day of encounter, reviewed the history and the relevant portions of the chart, including current orders, allied health and building energy consultant notes, labs/imaging and performed gracia elements of exam and I formulated the plan of care and facilitated the medical decision making. I completed a substantive portion of this encounter, the medical decision makingportion of this note in its entirety, including Allied health note review, nursing note review, building energy consultant note review, discussion with nursing and case management, and more than 50% of my time was spent on counseling and coordination of care, time spent 30 minutes Documented By: Kris Marquez MD [id number] Signed By: <Electronically signed by Kris Marquez MD> 01/08/24 9435 [facility] Work Phone: 1(395) 250-572207-27-2024 Progress note Author Kris Marquez [facility] January 06, 2024 11:27am Note Date/Time January 06, 2024 11:2 7am [facility] [address] [place] [address] Physiatry(Rehab) Progress Note Signed Patient: Juan Hernandez MR#: [id number] : 1945 Acct:[id number] Age/Sex: 78 / F Adm Date: 4 Loc: Room: 5T9044-4 Type: ADM IN Attending Dr: Kris Marquez MD Copies to: ~ Date of Service: 01/06/2024 Subjective Subjective Narrative: Ms. Hernandez is a 78 year old female with PMH HTN, hyperlipidemia, left sided CVA in 2020, and severe right internal carotid artery stenosis who presents to the hospital with left sided facial droop, left upper extremity drift, and dysarthria. She had been having dizziness, vertigo, and difficulty with speech prior. She was loaded with aspirin and plavix upon presentation. Her blood pressure was very elevated with SBP 250 and was started on IV medications CTA of the brain demonstrated right basal ganglia hypodensity. MRI on 12/26 showed right basal ganglia infarct and left central semiovale punctate infarct. She underwent cerebral angiography with improvement of left ICA to 45% and rightICA to 40% on 12/27. The patient also had a MBSS on 12/28 revealing moderate-severe oral dysphagia and mild pharyngeal dysphagia with recommendations for a pureed diet with thin liquids, no straws. The patient lives alone although plans to discharge to her [facility]. The patient was seen and evaluated today at bedside. Sitting up in wheelchair. In no distress. States that she did not sleep well overnight. Bed is uncomfortably. Patient endorsing some numbness in the right foot. No other focal deficits. Review of Systems Review of Systems All other systems reviewed & are negative unless noted below or in HPI Exam Physical Exam Vital Signs: Temp Pulse Resp BP Pulse Ox O2 Del Method 97.6 F 53 L 16 178/93 H 95 Room Air 01/06/24 05:00 01/06/24 05:00 01/06/24 05:00 01/06/24 05:00 01/06/24 05:00 01/06/24 05:00 Narrative: General: Awake, lethargic, cooperative, well nourished. Working with therapy HENT: NC, AT Eyes: No scleral icterus Neck: Supple Cardio: RRR, no murmurs, rubs or gallops. Extremities well perfused Respiratory: CTAB, no wheezes rhonchi or rales. No evidence of respiratory distress GI: Soft, nontender, nondistended Neuro: CN II-XII intact. Strength 5/5 right upper and lower extremities. Strength 0/5 left upper and lower extremities. Extremities: No edema, erythema, cyanosis Psych: Affect, speech and movements normal. Mood congruent Objective Labs 01/05/24 05:26 01/05/24 05:26 Labs: Laboratory Results - last 24 hr 01/05/24 05:26 Prealbumin 22.6 Medications and Allergies Allergies and Active Meds: Allergies meperidine [From Demerol] Adverse Reaction (Verified 01/04/24 18:31) Hallucinating Active Medications Generic Name Dose Route Start Last Admin Trade Name Freq PRN Reason Stop Dose Admin Acetaminophen 500 mg 01/04/24 18:13 01/06/24 06:10 Acetaminophen 500 Mg Tablet PO 01/03/25 18:12 500 mg Q4H PRN Administration Pain Al Hydrox/Mg Hydrox/Simethicone 30 ml 01/04/24 18:13 Mag Hydrox/Al Hydrox/Simeth 30 Ml Udc PO 01/03/25 18:12 Q4H PRN Indigestion Amlodipine Besylate 10 mg 01/05/24 09:00 01/06/24 09:47 Amlodipine 10 Mg Tablet PO 01/04/25 08:59 10 mg DAILY MARY Administration Aspirin 81 mg 01/05/24 09:00 01/06/24 09:47 Aspirin 81 Mg Tablet.Dr PO 01/04/25 08:59 81 mg DAILY MARY Administration Atorvastatin Calcium 40 mg 01/05/24 21:00 01/05/24 21:37 Atorvastatin 40 Mg Tablet PO 01/04/25 20:59 40 mg QPM MARY Administration Bisacodyl 10 mg 01/04/24 18:13 Bisacodyl 10 Mg Supp.Rect ME 01/03/25 18:12 DAILY PRN Constipation Clopidogrel Bisulfate 75 mg 01/05/24 09:00 01/06/24 09:47 Clopidogrel Bisulfate 75 Mg Tablet PO 01/04/25 08:59 75 mg DAILY MARY Administration Diclofenac Sodium 2 gm 01/04/24 18:41 Diclofenac Sodium 1% Gel 100 Gm Tube TOPICAL 01/03/25 18:40 QID PRN muscle pain Docusate Sodium 100 mg 01/04/24 18:13 01/06/24 09:47 Docusate 100 Mg Capsule PO 01/03/25 18:12 100 mg BID PRN Administration Constipation Docusate Sodium 283 mg 01/04/24 18:13 Docusate Enema 283 Mg/5 Ml Enema ME 01/03/25 18:12 DAILY PRN Constipation Enoxaparin Sodium 40 mg 01/06/24 10:00 01/06/24 09:53 Enoxaparin 40 Mg/0.4 Ml Syringe SUBCUT 01/05/25 09:59 40 mg DAILY@1000 MARY Administration Lactulose 30 gm 01/04/24 18:13 Lactulose 20 Gm/30 Ml Udc PO 01/03/25 18:12 DAILY PRN Constipation Levothyroxine Sodium 50 mcg 01/05/24 06:30 01/06/24 06:06 Levothyroxine 50 Mcg Tablet PO 01/04/25 06:29 50 mcg DAILY.0630 MARY Administration Losartan Potassium 100 mg 01/05/24 09:00 01/06/24 09:47 Losartan 50 Mg Tablet PO 01/04/25 08:59 100 mg DAILY MARY Administration Melatonin 5 mg 01/06/24 22:00 Melatonin 5 Mg Tablet PO 01/05/25 21:59 QHS MARY Methocarbamol 500 mg 01/04/24 18:41 Methocarbamol 500 Mg Tablet PO 01/03/25 18:40 Q8HR PRN muscle spasm Polyethylene Glycol 17 gm 01/05/24 09:00 01/06/24 09:53 Polyethylene Glycol 3350 17 Gm Powd.Pack PO 01/04/25 08:59 Not Given DAILY MARY Sennosides 2 tab 01/05/24 12:00 01/06/24 09:47 Sennosides 8.6 Mg Tablet PO 01/04/25 11:59 2 tab DAILY@12 PRN Administration If no BM in 2 days Sodium Chloride 0 ml 01/04/24 18:13 Sodium Chloride 0.9 % 10 Ml Syringe IV-PUSH 01/03/25 18:12 PRN PRN Flush Assessment/Plan Assessment/Plan (1) Stroke of right basal ganglia: (2) Right hemiparesis: (3) Dysphagia: (4) Hypertension: (5) Hypothyroidism: (6) Hyperlipidemia: (7) Impaired mobility and activities of daily living: Plan This is a 78-year-old female who presents to [facility] IRF due to multifactorial functional decline in the setting of right basal ganglia CVA. She has continued impaired mobility and impaired independence withADLs and IADLs requiring PT/OT/SUPERVISOR VENDOR QUALITY 5-7 days/week 3 hours/day to maximize safety and independence with functional ability and self-care. #. 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 We will also work to improve patient's safety awareness during transfers and ambulation. -OT for basic ADL retraining (bathing, dressing, toileting, continence, grooming, feeding, transferring), to increase activity tolerance and functional mobility to evaluate for adaptive assistive device. We will work to improve patient's endurance and educate patient on fall prevention and energy conservation techniques-pacing strategies and proper breathing techniques duringfunctional tasks. -Patient education -Pressure ulcer prophylaxis; encourage mobilization, frequent postural changes, pressure-relief techniques -DVT prophylaxis -Encourage deep breathing exercise incentive spirometry. -Monitor bladder. Toileting schedule. Continue current bladder management, with scans as needed and CIC if needed. Start bowel care program every day to obtain continence, prevent ileus. -Maintain fall precautions -Gait and balance retraining -Provision of the necessary gait aids and functional adaptive equipment to enhance the patient's a functional restorationism -Encourage deep breathing exercises and incentive spirometry -RD evaluation -Ensure adequate nutrition and hydration -Discharge planning. -Opimize BP. Avoid hypotension. -DAPT -Lipitor 40 mg qhs #. Essential HTN -Continue Norvasc 10 mg daily, Cozaar 100 mg daily #. Updates: -Adding melatonin for sleep -Patient more alert today. Doing OK Hospitalist to assist with management of comorbid medical conditions #. Pain control: Tylenol PRN, Robaxin 500 mg q8hr prn, Votaren 2 g QID #. Bowel and bladder: Bowel/bladder regimen as able #. Skin: (pressure ulcer/surgical site) High risk for pressure injuries given hemiparesis. #. Sleep: Optimize sleep/wake cycle DVT prophylaxis: Lovenox 40 mg daily Functional status: Impaired. Limited by pain, weakness Discharge planning: ELOS 1-2 weeks Patient was personally seen by me, Dr. Marquez, on the day of encounter, reviewed the history and the relevant portions of the chart, including current orders, allied health and building energy consultant notes, labs/imaging and performed gracia elements of exam and I formulated the plan of care and facilitated the medical decision making. I completed a substantive portion of this encounter, the medical decision makingportion of this note in its entirety, including Allied health note review, nursing note review, building energy consultant note review, discussion with nursing and case management, and more than 50% of my time was spent on counseling and coordination of care, time spent 25 minutes Documented By: Kris Marquez MD [id number] Signed By: <Electronically signed by Kris Marquez MD> 01/06/[address] [place] [address] Work Phone: [phone] 281-127707-27-2024 Consult note Author Abel Phan [facility] January 06, 2024 6:50am Note Date/Time January 05, 2024 2:48 pm [facility] [address] [place] [address] Hospitalist Consult Note Signed Patient: Juan Hernandez MR#: [id number] : 1945 Acct:[id number] Age/Sex: 78 / F Adm Date: 4 Loc: Room: 7H8242-0 Type: ADM IN Attending Dr: Kris Marquez MD Copies to: MD Alysha Xavier APRN Mazhar Rahman, MD NO FAMILY PHYSICIAN~ HPI DATE OF CONSULTATION: 01/05/24 REQUESTING PROVIDER: Kris Marquez Consult Narrative Reason for Consult: Hypertension HPI: Ms. Hernandez is a 78 year old female with PMH HTN, hyperlipidemia, left sided CVA in 2020, and severe right internal carotid artery stenosis who presented to the emergency department with left sided facial droop, left upper extremity drift, and dysarthria. She had been having dizziness, vertigo, and difficulty with speech prior to presentation. Her blood pressure was also found to be severely elevated with SBP 250 and was started on IV medications. CTA of the brain demonstrated right basal ganglia hypodensity. MRI brain without contrast showed right basal ganglia infarct and left central semiovale punctate infarct. She underwent cerebral angiography with improvement of left ICA to 45% and rightICA to 40% on 12/27. She also underwent a modified barium swallow which revealedmoderate to severe oral dysphagia and mild pharyngeal dysphagia and was recommended a pur?ed diet with thin liquids. Physical therapy and Occupational Therapy recommended acute inpatient rehabilitation . The hospitalist team is being consulted for medical management of hypertension. Patient seen and examined, out of bed and sitting in chair. Reports that she was able to participate in physical therapy well, continues with left-sided flaccidness. Denies chest pain or palpitation. No cough, dyspnea, or pain with inspiration. No abdominal pain or indigestion, constipation or diarrhea, nausea or vomiting. No dysuria or retention. No headache or dizziness. No fevers Review of Systems Review of Systems Review of systems: 10 point review of systems obtained, negative unless noted in the HPI below [facility] Medical History (Updated 01/05/24 @ 14:08 by Kris Marquez MD) Cerebrovascular accident (CVA) of left thalamus Social History Smoking Status: Former smoker Substance Use Type: None Meds Medications and Allergies Allergies meperidine [From Demerol] Adverse Reaction (Verified 01/04/24 18:31) Hallucinating Home Medications amlodipine 10 mg tablet 10 mg PO DAILY 01/04/24 [History Confirmed 01/04/24] aspirin 81 mg tablet,delayed release (Adult Aspirin Regimen) 81 mg PO DAILY 01/04/24 [History Confirmed 01/04/24] atorvastatin 40 mg tablet 40 mg PO DAILY 01/04/24 [History Confirmed 01/04/24] clopidogrel 75 mg tablet 75 mg PO DAILY 01/04/24 [History Confirmed 01/04/24] diclofenac sodium 1 % topical gel 2 g topical QID PRN muscle pain 01/04/24 [History Confirmed 01/04/24] levothyroxine 50 mcg tablet 50 mcg PO DAILY.0630 01/04/24 [History Confirmed 01/04/24] losartan 100 mg tablet 100 mg PO DAILY 01/04/24 [History Confirmed 01/04/24] methocarbamol 500 mg tablet 500 mg PO Q8HR PRN muscle spasm 01/04/24 [History Confirmed 01/04/24] polyethylene glycol 3350 17 gram/dose oral powder (Miralax) 17 g PO DAILY 01/04/24 [History Confirmed 01/04/24] Active Medications: Active Medications Generic Name Dose Route Start Last Admin Trade Name Freq PRN Reason Stop Dose Admin Acetaminophen 500 mg 01/04/24 18:13 Acetaminophen 500 Mg Tablet PO 01/03/25 18:12 Q4H PRN Pain Al Hydrox/Mg Hydrox/Simethicone 30 ml 01/04/24 18:13 Mag Hydrox/Al Hydrox/Simeth 30 Ml Udc PO 01/03/25 18:12 Q4H PRN Indigestion Amlodipine Besylate 10 mg 01/05/24 09:00 01/05/24 10:02 Amlodipine 10 Mg Tablet PO 01/04/25 08:59 10 mg DAILY MARY Administration Aspirin 81 mg 01/05/24 09:00 01/05/24 10:02 Aspirin 81 Mg Tablet.Dr PO 01/04/25 08:59 81 mg DAILY MARY Administration Atorvastatin Calcium 40 mg 01/05/24 21:00 Atorvastatin 40 Mg Tablet PO 01/04/25 20:59 QPM MARY Bisacodyl 10 mg 01/04/24 18:13 Bisacodyl 10 Mg Supp.Rect ME 01/03/25 18:12 DAILY PRN Constipation Clopidogrel Bisulfate 75 mg 01/05/24 09:00 01/05/24 10:02 Clopidogrel Bisulfate 75 Mg Tablet PO 01/04/25 08:59 75 mg DAILY MARY Administration Diclofenac Sodium 2 gm 01/04/24 18:41 Diclofenac Sodium 1% Gel 100 Gm Tube TOPICAL 01/03/25 18:40 QID PRN muscle pain Docusate Sodium 100 mg 01/04/24 18:13 Docusate 100 Mg Capsule PO 01/03/25 18:12 BID PRN Constipation Docusate Sodium 283 mg 01/04/24 18:13 Docusate Enema 283 Mg/5 Ml Enema ME 01/03/25 18:12 DAILY PRN Constipation Enoxaparin Sodium 40 mg 01/06/24 10:00 Enoxaparin 40 Mg/0.4 Ml Syringe SUBCUT 01/05/25 09:59 DAILY@1000 MARY Lactulose 30 gm 01/04/24 18:13 Lactulose 20 Gm/30 Ml Udc PO 01/03/25 18:12 DAILY PRN Constipation Levothyroxine Sodium 50 mcg 01/05/24 06:30 01/05/24 06:39 Levothyroxine 50 Mcg Tablet PO 01/04/25 06:29 50 mcg DAILY.0630 MARY Administration Losartan Potassium 100 mg 01/05/24 09:00 01/05/24 10:02 Losartan 50 Mg Tablet PO 01/04/25 08:59 100 mg DAILY MARY Administration Methocarbamol 500 mg 01/04/24 18:41 Methocarbamol 500 Mg Tablet PO 01/03/25 18:40 Q8HR PRN muscle spasm Polyethylene Glycol 17 gm 01/05/24 09:00 01/05/24 10:02 Polyethylene Glycol 3350 17 Gm Powd.Pack PO 01/04/25 08:59 Not Given DAILY MARY Sennosides 2 tab 01/05/24 12:00 Sennosides 8.6 Mg Tablet PO 01/04/25 11:59 DAILY@12 PRN If no BM in 2 days Sodium Chloride 0 ml 01/04/24 18:13 Sodium Chloride 0.9 % 10 Ml Syringe IV-PUSH 01/03/25 18:12 PRN PRN Flush Exam Physical Exam Vital Signs: Temp Pulse Resp BP Pulse Ox O2 Del Method 98.7 F 52 L 18 152/72 H 97 Room Air 01/05/24 05:00 01/05/24 05:00 01/05/24 05:00 01/05/24 05:00 01/05/24 05:00 01/05/24 07:30 Narrative: CONST-alert, awake resting comfortably in chair HEAD - Normocephalic and atraumatic EENT-Sclera nonicteric and conjunctive are nonerythemic, moist oral mucosa, pharynx clear NECK-Supple, no cervical lymphadenopathy CARDIAC-normal rate, regular rhythm, normal S1 & S2. PULM-CTA bilaterally, RA, no accessory muscle use or cough noted ABD - Soft. Bowel sounds are normal. No distention No tenderness EXTREM-no edema BLE calves nontender SKIN- W/D good turgor MS- MAEX2 left-sided hemiparesis NEURO- A&Ox3 speech clear and tongue midline, equal facial symmetry no focal motor deficits PSYCH-Mood, affect and behavior appropriate Results - Hospitalist Consult Lab Results Labs: Laboratory Results - last 72 hr 01/05/24 05:26: Corrected WBC 6.1, Uncorrected WBC Count 6.1, RBC 4.02, Hgb 12.6, Hct 36.8, MCV 91.6, MCH 31.2, MCHC 34.1, RDW 13.4, Plt Count 258, MPV 8.3,Neut % (Auto) 50.3, Lymph % (Auto) 33.1, Barton % (Auto) 12.6, Eos % (Auto) 2.9, Baso % (Auto) 1.1, Nucleat RBC Rel Count 0.2, Neut # (Auto) 3.1, Lymph # (Auto) 2.0, Barton # (Auto) 0.8, Eos # (Auto) 0.2, Baso # (Auto) 0.1, PHA Creatinine Clear 45.50, Sodium 142, Potassium 4.4, Chloride 109 H, Carbon Dioxide 26.8, Anion Gap 10.6, BUN 42 H, Creatinine 1.03, Est GFR (CKD-EPI) 55.655, Glucose 103H, Calcium 9.1, Total Bilirubin 0.5, AST 31, ALT 58 H, Alkaline Phosphatase 65, Total Protein 6.1 L, Albumin 3.8, Globulin 2.3, Albumin/Globulin Ratio 1.7, Prealbumin 22.6 Assessment & Plan Assessment/Plan (1) Stroke of right basal ganglia: (2) Right hemiparesis: (3) Dysphagia: (4) Hypertension: (5) Impaired mobility and activities of daily living: Plan 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 * On dual antiplatelet with aspirin and Plavix, Lipitor for stroke prevention Chronic condition: 1.Hypertension?on amlodipine, losartan, uncontrolled, slightly bradycardic, willmonitor for now?avoid hypotension 2.Hypothyroidism?on Synthroid Documented By: Alysha Victor APRN 01/05/24 1440 Signed By: <Electronically signed by ODILON Victor> 01/05/24 1535 <Electronically signed by Abel Phan MD> 01/06/24 0650 [facility] Work Phone: 1(624) 337-863707-26-2024 History and physical note Author Kris Marquez [facility] January 05, 2024 2:17pm Note Date/Time January 05, 2024 10:4 0am [facility] [address] [place] [address] Physiatry (Rehab) H&P Signed Patient: Juan Hernandez MR#: [id number] : 1945 Acct:[id number] Age/Sex: 78 / F Adm Date: 4 Loc: Room: 7M5032-9 Type: ADM IN Attending Dr: Kris Marquez MD Copies to: Kris Marquez MD NO FAMILY PHYSICIAN~ Date of Service: 01/05/2024 HPI The patient was seen and examined on: 01/05/24 Chief complaint: weakness History of Present Illness: Ms. Hernandez is a 78 year old female with PMH HTN, hyperlipidemia, left sided CVA in 2020, and severe right internal carotid artery stenosis who presents to the hospital with left sided facial droop, left upper extremity drift, and dysarthria. She had been having dizziness, vertigo, and difficulty with speech prior. She was loaded with aspirin and plavix upon presentation. Her blood pressure was very elevated with SBP 250 and was started on IV medications CTA of the brain demonstrated right basal ganglia hypodensity. MRI on 12/26 showed right basal ganglia infarct and left central semiovale punctate infarct. She underwent cerebral angiography with improvement of left ICA to 45% and rightICA to 40% on 12/27. The patient also had a MBSS on 12/28 revealing moderate-severe oral dysphagia and mild pharyngeal dysphagia with recommendations for a pureed diet with thin liquids, no straws. The patient lives alone although plans to discharge to her [facility]. The patient was seen upon admission to rehab. Very tired. Does not participate much in exam although does answer questions appropriately. Moves right side but unable to move left side. Has not complaints of pain today. . [facility] Medical History (Updated 01/05/24 @ 14:08 by Kris Marquez MD) Cerebrovascular accident (CVA) of left thalamus Social History Smoking Status: Former smoker Substance Use Type: None Meds Medications and Allergies Allergies meperidine [From Demerol] Adverse Reaction (Verified 01/04/24 18:31) Hallucinating Home and Active Meds: Home Medications amlodipine 10 mg tablet 10 mg PO DAILY 01/04/24 [History Confirmed 01/04/24] aspirin 81 mg tablet,delayed release (Adult Aspirin Regimen) 81 mg PO DAILY 01/04/24 [History Confirmed 01/04/24] atorvastatin 40 mg tablet 40 mg PO DAILY 01/04/24 [History Confirmed 01/04/24] clopidogrel 75 mg tablet 75 mg PO DAILY 01/04/24 [History Confirmed 01/04/24] diclofenac sodium 1 % topical gel 2 g topical QID PRN muscle pain 01/04/24 [History Confirmed 01/04/24] levothyroxine 50 mcg tablet 50 mcg PO DAILY.0630 01/04/24 [History Confirmed 01/04/24] losartan 100 mg tablet 100 mg PO DAILY 01/04/24 [History Confirmed 01/04/24] methocarbamol 500 mg tablet 500 mg PO Q8HR PRN muscle spasm 01/04/24 [History Confirmed 01/04/24] polyethylene glycol 3350 17 gram/dose oral powder (Miralax) 17 g PO DAILY 01/04/24 [History Confirmed 01/04/24] Active Medications Acetaminophen (Acetaminophen 500 Mg Tablet) 500 mg PO Q4H PRN PRN Reason: Pain Stop: 01/03/25 18:12 Al Hydrox/Mg Hydrox/Simethicone (Mag Hydrox/Al Hydrox/Simeth 30 Ml Udc) 30 ml PO Q4H PRN PRN Reason: Indigestion Stop: 01/03/25 18:12 Amlodipine Besylate (Amlodipine 10 Mg Tablet) 10 mg PO DAILY [facility] Stop: 01/04/25 08:59 Last Admin: 01/05/24 10:02 Dose: 10 mg Aspirin (Aspirin 81 Mg Tablet.) 81 mg PO DAILY MARY Stop: 01/04/25 08:59 Last Admin: 01/05/24 10:02 Dose: 81 mg Atorvastatin Calcium (Atorvastatin 40 Mg Tablet) 40 mg PO QPM MARY Stop: 01/04/25 20:59 Bisacodyl (Bisacodyl 10 Mg Supp.Rect) 10 mg ME DAILY PRN PRN Reason: Constipation Stop: 01/03/25 18:12 Clopidogrel Bisulfate (Clopidogrel Bisulfate 75 Mg Tablet) 75 mg PO DAILY MARY Stop: 01/04/25 08:59 Last Admin: 01/05/24 10:02 Dose: 75 mg Diclofenac Sodium (Diclofenac Sodium 1% Gel 100 Gm Tube) 2 gm TOPICAL QID PRN PRN Reason: muscle pain Stop: 01/03/25 18:40 Docusate Sodium (Docusate 100 Mg Capsule) 100 mg PO BID PRN PRN Reason: Constipation Stop: 01/03/25 18:12 Docusate Sodium (Docusate Enema 283 Mg/5 Ml Enema) 283 mg ME DAILY PRN PRN Reason: Constipation Stop: 01/03/25 18:12 Lactulose (Lactulose 20 Gm/30 Ml Udc) 30 gm PO DAILY PRN PRN Reason: Constipation Stop: 01/03/25 18:12 Levothyroxine Sodium (Levothyroxine 50 Mcg Tablet) 50 mcg PO DAILY.629 MARY Stop: 01/04/25 06:29 Last Admin: 01/05/24 06:39 Dose: 50 mcg Losartan Potassium (Losartan 50 Mg Tablet) 100 mg PO DAILY MARY Stop: 01/04/25 08:59 Last Admin: 01/05/24 10:02 Dose: 100 mg Methocarbamol (Methocarbamol 500 Mg Tablet) 500 mg PO Q8HR PRN PRN Reason: muscle spasm Stop: 01/03/25 18:40 Polyethylene Glycol (Polyethylene Glycol 3350 17 Gm Powd.Pack) 17 gm PO DAILY MARY Stop: 01/04/25 08:59 Last Admin: 01/05/24 10:02 Dose: Not Given Sennosides (Sennosides 8.6 Mg Tablet) 2 tab PO DAILY@12 PRN PRN Reason: If no BM in 2 days Stop: 01/04/25 11:59 Sodium Chloride (Sodium Chloride 0.9 % 10 Ml Syringe) 0 ml IV-PUSH PRN PRN PRN Reason: Flush Stop: 01/03/25 18:12 Exam Physical Exam Vital Signs: Temp Pulse Resp BP Pulse Ox O2 Del Method 98.7 F 52 L 18 152/72 H 97 Room Air 01/05/24 05:00 01/05/24 05:00 01/05/24 05:00 01/05/24 05:00 01/05/24 05:00 01/05/24 07:30 Narrative: General: Awake, lethargic, cooperative, well nourished. Resting comfortably in bed HENT: NC, AT Eyes: No scleral icterus Neck: Supple Cardio: RRR, no murmurs, rubs or gallops. Extremities well perfused Respiratory: CTAB, no wheezes rhonchi or rales. No evidence of respiratory distress GI: Soft, nontender, nondistended Neuro: CN II-XII intact. Strength 5/5 right upper and lower extremities. Strength 0/5 left upper and lower extremities. Extremities: No edema, erythema, cyanosis Psych: Affect, speech and movements normal. Mood congruent Results - Phys. Rehab Labs Labs: Laboratory Results - last 24 hr 01/05/24 05:26 Corrected WBC 6.1 Uncorrected WBC Count 6.1 RBC 4.02 Hgb 12.6 Hct 36.8 MCV 91.6 MCH 31.2 MCHC 34.1 RDW 13.4 Plt Count 258 MPV 8.3 Neut % (Auto) 50.3 Lymph % (Auto) 33.1 Barton % (Auto) 12.6 Eos % (Auto) 2.9 Baso % (Auto) 1.1 Nucleat RBC Rel Count 0.2 Neut # (Auto) 3.1 Lymph # (Auto) 2.0 Barton # (Auto) 0.8 Eos # (Auto) 0.2 Baso # (Auto) 0.1 PHA Creatinine Clear 45.50 Sodium 142 Potassium 4.4 Chloride 109 H Carbon Dioxide 26.8 Anion Gap 10.6 BUN 42 H Creatinine 1.03 Est GFR (CKD-EPI) 55.655 Glucose 103 H Calcium 9.1 Total Bilirubin 0.5 AST 31 ALT 58 H Alkaline Phosphatase 65 Total Protein 6.1 L Albumin 3.8 Globulin 2.3 Albumin/Globulin Ratio 1.7 Individualized Plan of Care Individualized Plan of Care Plan of Care: Individualized Overall Plan of Care: Admit Date/Time: 01/04/24 Expected LOS: 2 weeks Expected Discharge Destination: Home Rehabilitation IGC: 1.1 Primary Diagnosis: CVA To have patient become more independent and to return home. Medical/ Functional Prognosis: Good Anticipated Functional Outcomes/Goals and Interventions: -Therapy Functional Outcome/Goal: Mobility/Locomotion: Patient likely to be Min A with ambulation with assistive device. Anticipated interventions: Physician management, PT, OT, Dietitian, Rehab Nursing - Therapy Functional Outcome/Goal: Self Care: Patient likely to be functionally Min A for activities of daily living using assistive / adaptive equipment as needed. Anticipated interventions: Physician management, PT, OT, Dietitian, Rehab Nursing - Therapy Functional Outcome/Goal: Bladder/Bowel Management: Patient likely to be SBA with bladder care and independent with bowel care. Anticipated interventions: Physician management, PT, OT, Dietitian, Rehab Nursing -Therapy Functional Outcome/Goal: Communication/Cognition: Patient will be able to communicate fully and be safe cognitively. Anticipated interventions: Physician management, PT, OT,SUPERVISOR VENDOR QUALITY Dietitian, Rehab Nursing -Therapy Functional Outcome/Goal: Patient will be Min A for bed mobility and transfers Anticipated interventions: Physician management, PT, OT, Dietitian, Rehab Nursing -Therapy Functional Outcome/Goal: Patient will improve endurance to be able to tolerate all daily self care activities and avocational activities. Anticipated interventions: Physician management, PT, OT, Nutrition, Rehab Nursing -Therapy Functional Outcome/Goal: Patient will understand and assimilate / integrate education regarding management of their medical conditions to maintainhealth and wellbeing. Anticipated interventions: Physician management, PT, OT, Dietitian, Rehab Nursing Required Therapy PT: 1 hour per day at least 5 days per week with additional therapy on as neededbasis. Comments: PT to improve pt's strength, endurance, bed mobility, transfers (sit-stand), standing balance, gait quality on level surfaces and stairs, coordination and functional ADL skills. Will also work to improve pt's safety awareness during transfers and ambulation. OT: 1 hour per day at least 5 days per week with additional therapy on as neededbasis. Comments: OT for basic ADL re-training (bathing, dressing, toileting, continence, grooming, feeding, transferring), to increase activity tolerance andfunctional mobility and to evaluate for adaptive and assistive devices. Will work to improve pt's endurance and educate pt on fall prevention and energy conservation techniques-pacing strategies and proper breathing techniques duringfunctional tasks. Speech/Language - 1 hour per day at least 5 days per week with additional therapy on as needed basis. Comments: SUPERVISOR VENDOR QUALITY to evaluate and treat patient?s cognition, language and communication skills, assess swallow function. Other: Dietitian, Rehab nursing, Wound, P&O, Neuropsychology as needed RATIONALE FOR IRF ADMISSION: Patient has both medical and functional complexities that require 24 hour daily monitoring and intervention from Improvement Nurse as well as other consulting physicians including internal medicine as well as 24 hour daily accounts receivable accountant nursing - for medical safe / optimal management. Patient requires interdisciplinary therapy team rehabilitation care including OT, PT, SUPERVISOR VENDOR QUALITY, SW, Psychology, Rehab Nursing, requires and can tolerate at least 3 hours of daily OT and PT therapy at least 5 days weekly. The following medical conditions significantly impact the rehabilitation process andare being addressed daily and can not be managed at home or in a lesser intense medical setting: Refer to above problem oriented plan of care Assessment/Plan (1) Stroke of right basal ganglia: (2) Right hemiparesis: (3) Dysphagia: (4) Hypertension: (5) Hypothyroidism: (6) Hyperlipidemia: (7) Impaired mobility and activities of daily living: Plan This is a 78-year-old female who presents to [facility] IRF due to multifactorial functional decline in the setting of right basal ganglia CVA. She has continued impaired mobility and impaired independence withADLs and IADLs requiring PT/OT/SUPERVISOR VENDOR QUALITY 5-7 days/week 3 hours/day to maximize safety and independence with functional ability and self-care. #. 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 We will also work to improve patient's safety awareness during transfers and ambulation. -OT for basic ADL retraining (bathing, dressing, toileting, continence, grooming, feeding, transferring), to increase activity tolerance and functional mobility to evaluate for adaptive assistive device. We will work to improve patient's endurance and educate patient on fall prevention and energy conservation techniques-pacing strategies and proper breathing techniques duringfunctional tasks. -Patient education -Pressure ulcer prophylaxis; encourage mobilization, frequent postural changes, pressure-relief techniques -DVT prophylaxis -Encourage deep breathing exercise incentive spirometry. -Monitor bladder. Toileting schedule. Continue current bladder management, with scans as needed and CIC if needed. Start bowel care program every day to obtain continence, prevent ileus. -Maintain fall precautions -Gait and balance retraining -Provision of the necessary gait aids and functional adaptive equipment to enhance the patient's a functional restorationism -Encourage deep breathing exercises and incentive spirometry -RD evaluation -Ensure adequate nutrition and hydration -Discharge planning. -Opimize BP. Avoid hypotension. -DAPT -Lipitor 40 mg qhs #. Essential HTN -Continue Norvasc 10 mg daily, Cozaar 100 mg daily #. Updates: -Patient very sleepy today on exam. Admission labs wnl. Hypertensive with SBP inthe 150s. OK in the subacute CVA phase but continue to optimize Hospitalist to assist with management of comorbid medical conditions #. Pain control: Tylenol PRN, Robaxin 500 mg q8hr prn, Votaren 2 g QID #. Bowel and bladder: Bowel/bladder regimen as able #. Skin: (pressure ulcer/surgical site) High risk for pressure injuries given hemiparesis. #. Sleep: Optimize sleep/wake cycle DVT prophylaxis: Lovenox 40 mg daily Functional status: Impaired. Limited by pain, weakness Discharge planning: ELOS 1-2 weeks Patient was personally seen by me, Dr. Marquez, on the day of encounter, within 24 hours of rehab admission, reviewed the history and the relevant portions of the chart, including current orders, allied health and building energy consultant notes, labs/imaging and performed gracia elements of exam and I formulated the planof care and facilitated the medical decision making. I completed a substantive portion of this encounter, the medical decision makingportion of this note in its entirety, including Allied health note review, nursing note review, building energy consultant note review, discussion with nursing and case management, and more than 50% of my time was spent on counseling and coordination of care, time spent 75 minutes Documented By: Kris Marquez MD [id number] Signed By: <Electronically signed by Kris Marquez MD> 01/05/24 1417 [facility] Work Phone: [phone] 731-213802-22-2024 Miscellaneous Notes* Telephone Encounter - Mary Bell CMA - 08/03/2023 9:31 AM EST Fax received from [employer] to refill patients medication. Upon review of chart pt's last office visit was 08/17/2021, phoned pt and lm on to contact office to schedule appt for refills. [facility] in [facility] HospitalNat[facility] [id number] Telephone encounter Note* Telephone Encounter - Mary Bell CMA - 08/03/2023 9:31 AM EST Fax received from [employer] to refill patients medication. Upon review of chart pt's last office visit was 08/17/2021, phoned pt and lm on to contact office to schedule appt for refills. [facility] SystemEvaluation + Plan note No data available for this section [facility] Evaluation note* Diagnosis Onset Date Resolution Status Dysphagia acute Hyperlipidemia acute Hypertension acute Hypothyroidism acute Impaired mobility and activities of daily living acute Right hemiparesis acute Stroke of right basal ganglia acute Throat congestion acute Thrush of mouth and esophagus acute [facility] Work Phone: Evaluation note* Diagnosis Onset Date Resolution Status Dysphagia acute Hyperlipidemia acute Hypertension acute Hypothyroidism acute Impaired mobility and activities of daily living acute Right hemiparesis acute Stroke of right basal ganglia acute Throat congestion acute Thrush of mouth and esophagus resolved Constipation acute Dehydration acute Hyperlipidemia acute Hypertension acute Hypothyroidism acute Stroke of right basal ganglia acute Unable to care for self acut [facility] Work Phone: Evaluation note* Diagnosis Onset Date Resolution Status Dysphagia acute Hyperlipidemia acute Hypertension acute Hypothyroidism acute Impaired mobility and activities of daily living acute Stroke of right basal ganglia acute Throat congestion acute Right hemiparesis resolved Thrush of mouth and esophagus resolved Abdominal pain acute Acute kidney injury superimposed on CKD acute Constipation acute Dehydration acute Delirium acute Dysphagia acute GERD (gastroesophageal reflux disease) acute History of stroke acute Hyperlipidemia acute Hypertension acute Hypothyroidism acute Left hemiparesis acute Leukocytosis acute Sleep disturbance acute Stroke of right basal ganglia acute Thrush acute Unable to care for self acut e [facility] Work Phone: Hospital Discharge instructions No data available for this section [facility] InstructionsNot on filedocumented in this encounter [facility] filedocumented in this encounter [facility] No data available for this section [facility] Summary Purpose Family History No Family History Records FoundNo Family History Records FoundNo Family History Records Found No data available for this section No Family History Records FoundNo Family History Records FoundNo Family History Records Found Advance Directives No Advanced Directives Records Found Advance Directive Response Recorded Date/ Time Advance Directives No January 03 12:29pm Chief Complaint and Reason for Visit Chief Complaint Right basal ganglia CVA Right basal ganglia CVA Right basal ganglia CVA Reason for Visit Dysphagia Hyperlipidemia Hypertension Hypothyroidism Impaired mobility and activities of daily living Right hemiparesis Stroke of right basal ganglia Throat congestion Thrush of mouth and esophagus Chief Complaint Right basal ganglia CVA Right basal ganglia CVA Right basal ganglia CVA Right basal ganglia CVA abdominal pain Reason for Visit Dysphagia Hyperlipidemia Hypertension Hypothyroidism Impaired mobility and activities of daily living Right hemiparesis Stroke of right basal ganglia Throat congestion Thrush of mouth and esophagus Constipation Dehydration Hyperlipidemia Hypertension Hypothyroidism Stroke of right basal ganglia Unable to care for self Chief Complaint Right basal ganglia CVA Right basal ganglia CVA Right basal ganglia CVA Right basal ganglia CVA abdominal pain abdominal pain Reason for Visit Dysphagia Hyperlipidemia Hypertension Hypothyroidism Impaired mobility and activities of daily living Stroke of right basal ganglia Throat congestion Right hemiparesis Thrush of mouth and esophagus Abdominal pain Acute kidney injury superimposed on CKD Constipation Dehydration Delirium Dysphagia GERD (gastroesophageal reflux disease) History of stroke Hyperlipidemia Hypertension Hypothyroidism Left hemiparesis Leukocytosis Sleep disturbance Stroke of right basal ganglia Thrush Unable to care for self Additional Source Comments Care Teams (unrecognized sec tion and content) Team Status: Active Member Role Status Dates Jose Roberto Hernandez DO Primary Care Provider Active Team Status: Inactive Member Role Status Dates PHYSICIAN NO FAMILY Primary Care Provider Active Start: January 04, 2024 End: January 23, 2024 Kris Marquez MD Admit Provid er, Attending Provider Active Start: January 04, 2024 End: January 23, 2024 Serena Fernandez RN Other Provider Active Star t: January 04, 2024 End: January 23, 2024 Kaya Shi RN Other Provider Active Start : January 04, 2024 End: January 23, 2024 Ayah Love , BEBO Other Provider Active Star t: January 04, 2024 End: January 23, 2024 Myrna Milan RN Other Provider Active Start: J eric 2023 End: January 23, 2024 Alexsandra Thurman RN Other Provider Active Start: Trang ly 2023 End: January 23, 2024 Gilma Llanes MD Other Provider Active Start: January 04, 2024 End: January 23, 2024 Edin Lomas DO Other Provider Active Start : January 04, 2024 End: January 23, 2024 Jeff Hollis MD Other Provider Active Start : January 04, 2024 End: January 23, 2024 Andrew Brown DO Other Provider Active Start: January 04, 2024 End: January 23, 2024 Renzo Chin MD Other Provider Active Start: January 04, 2024 End: January 23, 2024 Janine Rosa MD Other Provider Active Start : January 04, 2024 End: January 23, 2024 Doug Avelar MD Other Provider Active Start: Cesar eric 2023 End: January 23, 2024 Carlotta Moralez APRN Other Provider Active Start: January 04, 2024 End: January 23, 2024 Debora Crook MD Other Provider Active Start: January 04, 2024 End: January 23, 2024 Brayan Matt MD Other Provider Active Start: Cesar eric 2023 End: January 23, 2024 Abel Phan MD Other Provider Active Start: January 04, 2024 End: January 23, 2024 Lyubov Acevedo MD Other Provider Active Start: January 04, 2024 End: January 23, 2024 Armando Miller DO Other Provider Active Start: January 04, 2024 End: January 23, 2024 Dayna Leigh MD Other Provider Active Start: Trang ly 2023 End: January 23, 2024 Kristopher Hernandez MD Other Provider Active Start: Dec End: January 23, 2024 Jessica Berkowitz NP-C Other Provider Active St art: January 04, 2024 End: January 23, 2024 Annalee Reveles APRN Other Provider Active Star t: January 04, 2024 End: January 23, 2024 Jon Alcala MD Other Provider Active Start: January 04, 2024 End: January 23, 2024 Sonu Cherry MD Other Provider Active Start: Ju ly 2023 End: January 23, 2024 Stanford Romero MD Other Provider Active Start: Dec End: January 23, 2024 Amber Rothman MD Other Provider Active Star t: January 04, 2024 End: January 23, 2024 Antione Cuevas MD Other Provider Active Start: Cesar brighty 2023 End: January 23, 2024 Joya Will DO Other Provider Active Start: Trang ly 2023 End: January 23, 2024 Kirby Wooten DO Other Provider Active Start : January 04, 2024 End: January 23, 2024 Alysha Victor APRN Other Provider Active Start: January 04, 2024 End: January 23, 2024 Zay Jasmine DO Other Provider Active Start: January 04, 2024 End: January 23, 2024 Paul Muse MD Other Provider Active Sta rt: January 04, 2024 End: January 23, 2024 Airam Peraza APRN Other Provider Active Start : January 04, 2024 End: January 23, 2024 Emiliana Rodrigues APRN Other Provider Active St art: January 04, 2024 End: January 23, 2024 Fatoumata Randhawa MD Other Provider Active Start: Cesar reyes 2023 End: January 23, 2024 Jose Roberto Neves MD Other Provider Active S tart: January 04, 2024 End: January 23, 2024 Esequiel Cedeño , Other Provider Active Star t: January 04, 2024 End: January 23, 2024 Christal Ratliff DO Other Provider Active Start: January 04, 2024 End: January 23, 2024 Felix Romero MD Other Provider Active Start: January 04, 2024 End: January 23, 2024 Roger Fields MD Other Provider Active Start: January 03 End: January 23, 2024 Felicita Hackett APRN Other Provider Active Star t: January 04, 2024 End: January 23, 2024 Dada Horn MD Other Provider Active Start: 2023 End: January 23, 2024 Keven Chaparro MD Other Provider Active Start: 2023 End: January 23, 2024 Solange Blank RN Other Provider Active Start: 2023 End: January 23, 2024 Team Status: Active Member Role Status Dates PHYSICIAN NO FAMILY Primary Care Provider Active Start: January 05, 2024 Kris Marquez MD Admit Provid er, Attending Provider, Other Provider Active Start: January 05, 2024 Serena Fernandez , BEBO Other Provider Active Star t: January 05, 2024 Kaya Shi , BEBO Other Provider Active Start : January 05, 2024 Ayah Love , BEBO Other Provider Active Star t: January 05, 2024 Myrna Milan RN Other Provider Active Start: 2023 Alexsandra Thurman RN Other Provider Active Start: 2023 Gilma Llanes MD Other Provider Active Start: January 05, 2024 Edin Lomas DO Other Provider Active Start : January 05, 2024 Jeff Hollis MD Other Provider Active Start : January 05, 2024 Andrew Brown DO Other Provider Active Start: January 05, 2024 Renzo Chin MD Other Provider Active Start: January 05, 2024 Janine Rosa MD Other Provider Active Start : January 05, 2024 Doug Avelar MD Other Provider Active Start: 2023 Carlotta Moralez APRN Other Provider Active Start: January 05, 2024 Debora Crook MD Other Provider Active Start: January 05, 2024 Brayan Matt MD Other Provider Active Start: 2023 Abel Phan MD Other Provider Active Start: January 05, 2024 Lyubov Acevedo MD Other Provider Active Start: January 05, 2024 Armando Miller DO Other Provider Active Start: January 05, 2024 Dayna Leigh MD Other Provider Active Start: 2023 Kristopher Hernandez MD Other Provider Active Start: Dec Jessica Berkowitz EGG TESTER-C Other Provider Active St art: January 05, 2024 Annalee Reveles APRN Other Provider Active Star t: January 05, 2024 Jon Alcala MD Other Provider Active Start: January 05, 2024 Sonu Cherry MD Other Provider Active Start: 2023 Stanford Romero MD Other Provider Active Start: Dec Amber Rothman MD Other Provider Active Star t: January 05, 2024 Antione Cuevas MD Other Provider Active Start: 2023 Joya Will DO Other Provider Active Start: 2023 Kirby Wooten DO Other Provider Active Start : January 05, 2024 Alysha Victor APRN Other Provider Active Start: January 05, 2024 Zay Jasmine DO Other Provider Active Start: January 05, 2024 Paul Muse MD Other Provider Active Sta rt: January 05, 2024 Airam Peraza APRN Other Provider Active Start : January 05, 2024 Emiliana Rodrigues APRN Other Provider Active St art: January 05, 2024 Fatoumata Randhawa MD Other Provider Active Start: 2023 Jose Roberto Neves MD Other Provider Active S tart: January 05, 2024 Esequiel Cedeño , Other Provider Active Star t: January 05, 2024 Christal Ratliff DO Other Provider Active Start: January 05, 2024 Felix Romero MD Other Provider Active Start: January 05, 2024 Roger Fields MD Other Provider Active Start: January 04 Felicita Hackett APRN Other Provider Active Star t: January 05, 2024 Dada Horn MD Other Provider Active Start: 2023 Keven Chaparro MD Other Provider Active Start: 2023 Solange Blank RN Other Provider Active Start: 2023 Team Status: Active Member Role Status Dates PHYSICIAN NO FAMILY Primary Care Provider Active Start: January 15, 2024 Kris Marquez MD Admit Provid er, Other Provider Active Start: January 15, 2024 Serena Fernandez , BEBO Other Provider Active Star t: January 15, 2024 Kaya Shi , BEBO Other Provider Active Start : January 15, 2024 Ayah Love , BEBO Other Provider Active Star t: January 15, 2024 Myrna Milan , BEBO Other Provider Active Start: 2023 Alexsandra Thurman RN Other Provider Active Start: 2023 Gilma Llanes MD Other Provider Active Start: January 15, 2024 Edin Lomas DO Other Provider Active Start : January 15, 2024 Jeff Hollis MD Other Provider Active Start : January 15, 2024 Andrew Brown DO Other Provider Active Start: January 15, 2024 Renzo Chin MD Other Provider Active Start: January 15, 2024 Janine Rosa MD Other Provider Active Start : January 15, 2024 Doug Avelar MD Other Provider Active Start: A 2023 Carlotta Moralez APRN Other Provider Active Start: January 15, 2024 Debora Crook MD Other Provider Active Start: January 15, 2024 Brayan Matt MD Other Provider Active Start: 2023 Abel Phan MD Other Provider Active Start: January 15, 2024 Lyubov Acevedo MD Other Provider Active Start: January 15, 2024 Armando Miller DO Other Provider Active Start: January 15, 2024 Dayna Leigh MD Other Provider Active Start: 2023 Kristopher Hernandez MD Other Provider Active Start: Jan Jessica Berkowitz NP-C Other Provider Active St art: January 15, 2024 Annalee Reveles APRN Other Provider Active Star t: January 15, 2024 Jon Alcala MD Other Provider Active Start: January 15, 2024 Sonu Cherry MD Other Provider Active Start: 2023 Stanford Romero MD Other Provider Active Start: Jan Amber Rothman MD Other Provider Active Star t: January 15, 2024 Antione Cuevas MD Other Provider Active Start: [facility] 2023 Joya Will , DO Other Provider Active Start: [facility] 2023 Kirby Wooten , DO Other Provider Active Start : January 15, 2024 Alysha Victor , ROUTE SALESPERSON Other Provider Active Start: January 15, 2024 Zay Jasmine , DO Other Provider Active Start: January 15, 2024 Paul Muse MD Other Provider Active Sta rt: January 15, 2024 Airam Peraza ROUTE SALESPERSON Other Provider Active Start : January 15, 2024 Emiliana Rodrigues , ROUTE SALESPERSON Other Provider Active St art: January 15, 2024 Fatoumata Randhawa MD Other Provider Active Start: [facility] 2023 Jose Roberto Neves MD Other Provider Active S tart: January 15, 2024 Esequiel Cedeño , DO Other Provider Active Star t: January 15, 2024 Christal Ratliff , DO Other Provider Active Start: January 15, 2024 Felix Romero MD Other Provider Active Start: January 15, 2024 Roger Fields MD Other Provider Active Start: January 14 Felicita Hackett ROUTE SALESPERSON Other Provider Active Star t: January 15, 2024 Dada Horn MD Other Provider Active Start: [facility] 2023 Keven Chaparro MD Other Provider Active Start: [facility] 2023 Solange Blank RN Other Provider Active Start: [facility] 2023 Dali Davis APRN Attending Provider Active Start: January 15, 2024 Team Status: Active Member Role Status Dates PHYSICIAN NO FAMILY Primary Care Provider Active Start: January 23, 2024 Kris Marquez MD Admit Provid er, Attending Provider, Other Provider Active Start: January 23, 2024 Serena Fernandez RN Other Provider Active Star t: January 23, 2024 Kaya Shi RN Other Provider Active Start : January 23, 2024 Ayah Love RN Other Provider Active Star t: January 23, 2024 Myrna Milan RN Other Provider Active Start: [facility] 2023 Alexsandra Thurman RN Other Provider Active Start: [facility] 2023 Gilma Llanes MD Other Provider Active Start: January 23, 2024 Edin Lomas , Other Provider Active Start : January 23, 2024 Jeff Hollis MD Other Provider Active Start : January 23, 2024 Andrew Brown DO Other Provider Active Start: January 23, 2024 Renzo Chin MD Other Provider Active Start: January 23, 2024 Janine Rosa MD Other Provider Active Start : January 23, 2024 Doug Avelar MD Other Provider Active Start: [facility] 2023 Carlotta Moralez APRN Other Provider Active Start: January 23, 2024 Debora Crook MD Other Provider Active Start: January 23, 2024 Brayan Matt MD Other Provider Active Start: ust 2023 Abel Phan MD Other Provider Active Start: January 23, 2024 Lyubov Acevedo MD Other Provider Active Start: January 23, 2024 Armando Miller DO Other Provider Active Start: January 23, 2024 Dayna Leigh MD Other Provider [facility] Start[facility] Kristopher Hernandez MD Other Provider Active Start: Jan Jessica Berkowitz NP-Kelsey Other Provider Active St art: January 23, 2024 Annalee Reveles APRN Other Provider Active Star t: January 23, 2024 Jon Alcala MD Other Provider Active Start: January 23, 2024 Sonu Cherry MD Other Provider Active Start: [facility] Stanford Romero MD Other Provider Active Start: Jan Amber Rothman MD Other Provider Active Star t: January 23, 2024 Antione Cuevas MD Other Provider Active Start: [facility] 2023 Joya Will DO Other Provider Active Start: [place] 2023 Kirby Wooten DO Other Provider Active Start : January 23, 2024 Alysha Victor APRN Other Provider Active Start: January 23, 2024 Zay Jasmine DO Other Provider Active Start: January 23, 2024 Paul Muse MD Other Provider Active Sta rt: January 23, 2024 Airam Peraza APRN Other Provider Active Start : January 23, 2024 Emiliana Rodrigues APRN Other Provider Active St art: January 23, 2024 Fatoumata Randhawa MD Other Provider Active Start: [facility] 2023 oJse Roberto Neves MD Other Provider Active S tart: January 23, 2024 Esequiel Cedeño , DO Other Provider Active Star t: January 23, 2024 Christal Ratliff DO Other Provider Active Start: January 23, 2024 Felix Romero MD Other Provider Active Start: January 23, 2024 Roger Fields MD Other Provider Active Start: January 23, 2024 Felicita Hackett APRN Other Provider Active Star t: January 23, 2024 Dada Horn MD Other Provider Active Start: A [facility] 2023 Keven Chaparro MD Other Provider Active Start: [place] 2023 Solange Blank RN Other Provider Active Start: A [facility] 2023 Team Status: Active Member Role Status Dates Gabby Walker APRN Emergency Provider Active Start: February 23, 2024 Jose Roberto Hernandez DO Primary Care Provider Active Start: February 23, 2024 Keven Chaparro MD Admit Provider, Atte nding Provider Active Start: February 23, 2024 Tomb Maker Helper Relationship Specialty Start Date End Date Steve Heard MD [address] [place] [address], [address] [place] [address] PCP - General Pediatrics 06/15/21 Tomb Maker Helper Relationship Specialty Start Date End Date Steve Heard MD [address] [place] [address], [address] [place], [place] [id number] PCP - General Pediatrics 06/15/21 Team Status: Active Member Role Status Dates PHYSICIAN NO FAMILY Primary Care Provider Active Team Status: Inactive Member Role Status Dates Gabby Walker APRN Emergency Provider Active Start: February 24, 2024 End: March 01, 2024 Jose Roberto Hernandez DO Primary Care Provider Active Start: February 24, 2024 End: March 01, 2024 Keven Chaparro MD Admit Provider Active Start: Se ptember 2023 End: March 01, 2024 Di Trejo , DO Other Provider Active Start: February 24, 2024 End: March 01, 2024 Dada Horn MD Attending Provider Active Star t: February 24, 2024 End: March 01, 2024 Team Status: Active Member Role Status Dates Gabby Walker APRN Emergency Provider Active Start: February 24, 2024 Jose Roberto Hernandez DO Primary Care Provider Active Start: February 24, 2024 Keven Chaparro MD Admit Provider Active Start: Se ptember 2023 Zay Jasmine DO Other Provider Active Start: February 24, 2024 Di Trejo , DO Attending Provider, Other Provider Active Start: February 24, 2024 Reason for Visit (unrecogniz ed section and content) Reason Onset Date Comments Med Refill 08/03/2023 INFORMATION SOURCE (unrecogn ized section and content) DATE CREATED AUTHOR 10/03/2023 [facility] DATE CREATED AUTHOR AUTHOR'S ORGANIZ ATION 01/05/[address] [facility] DATE CREATED AUTHOR AUTHOR'S ORGANIZ ATION 03/07/2024 [facility] DATE CREATED AUTHOR AUTHOR'S ORGANIZ ATION 03/23/2024 [facility] DATE CREATED AUTHOR AUTHOR'S ORGANIZ ATION 03/25/2024 [facility] DATE CREATED AUTHOR AUTHOR'S ORGANIZ ATION 03/26/2024 [facility] FOR RECORDS PERTAINING TO PATIENTS WHO ARE OR HAVE BEEN ENROLLED IN A CHEMICAL DEPENDENCY/SUBSTANCEABUSE PROGRAM, SOME INFORMATION MAY BE OMITTED. This clinical summary was aggregated from multiple sources. Caution should be exercised in using it in the provision of clinical care. This summary normalizes information from multiple sources, and as a consequence, information in this document may materially change the coding, format and clinical context of patient data. In addition, data may be omitted in some cases. CLINICAL DECISIONS SHOULD BE BASED ON THE PRIMARY CLINICAL RECORDS. [employer] [facility] [employer] provides no warranty or guarantee of the accuracy or completeness of information in this document.
[2024-03-28 10:03] LABS: Basophils Absolute Auto 0.1 10^3/uL (0.0-0.1); Basophils Percent Auto 1.6 % (0.2-2.0); Eosinophils Absolute Auto 0.6 10^3/uL (0.0-0.7); Eosinophils Percent Auto 8.2 % (0.9-7.0); Hematocrit 30.6 % (36.0-48.0); Hemoglobin 10.2 g/dL (12.0-16.0); Lymphocytes Absolute Auto 2.1 10^3/uL (1.2-3.8); Lymphocytes Percent Auto 30.8 % (20.5-60.0); Mean Corpuscular HGB Conc 33.3 g/dL (29.9-35.2); Mean Corpuscular Hemoglobin 31.8 pg (26.7-34.0); Mean Corpuscular Volume 95.3 fL (81.0-99.0); Mean Platelet Volume 9.2 fL (9.5-13.5); Monocytes Absolute Auto 0.7 10^3/uL (0.3-0.8); Monocytes Percent Auto 10.6 % (1.7-12.0); Neutrophils Absolute Auto 3.3 10^3/uL (1.4-6.5); Neutrophils Percent Auto 48.8 % (43.0-75.0); Platelet Count 327 10^3/uL (150-450); Red Blood Count 3.21 10^6/uL (4.20-5.40); Red Cell Distribution Width 13.5 % (11.0-15.0); White Blood Count 6.7 10^3/uL (4.0-11.0)
[2024-03-28 10:22] LABS: Alanine Aminotransferase 18 U/L (14-59); Albumin Globulin Ratio 0.9; Albumin Level 3.1 g/dL (3.4-5.0); Alkaline Phosphatase 70 U/L (46-116); Anion Gap 12.9; Aspartate Amino Transferase 14 U/L (15-37); BUN Creatinine Ratio 20.3; Bilirubin Total 0.5 mg/dL (0.2-1.0); Calcium 8.8 mg/dL (8.5-10.1); Carbon Dioxide 31.4 mmol/L (21.0-32.0); Chloride 99 mmol/L (98-107); Estimated GFR (African America 49 (>=60 mL/min/1.73m^2); Estimated GFR (Non-African Ame 40 (>=60 mL/min/1.73m^2); Globulin 3.6 g/dL; Glucose 124 mg/dL (74-106); Potassium 3.3 mmol/L (3.5-5.1); Sodium 140 mmol/L (136-145); Total Protein 6.7 g/dL (6.4-8.2)
--- NOTE | 2024-03-28 10:26 | ED.ABDPAIN1 ---
HPI - Abdominal Pain General Chief Complaint: Abdominal Pain Stated Complaint: ABDOMINAL PAIN Time Seen by Provider: 03/28/24 09:20 Mode of arrival: ambulance History of Present Illness HPI narrative: The patient is a 78-year-old female with a history of a recent stroke and she is a bedbound, coming to us with a history of constipation for the last 9 days, she has been having only liquid diet because of her dysphagia that she developed after her stroke The patient denies any nausea but she mentioned that she feels that sometimes the reflux of the food in the back of her throat, also the patient denies any abdominal pain she is only complaining of left hip pain due to her position in the bed and that why she have to change her position frequently The patient denies any fever chills or any other complaints Related Data Home Medications ?Medication ?Instructions ?Recorded ?Confirmed Biotene Dry Mouth 1 spray Not Applicable QID 02/08/24 02/08/24 acetaminophen 325 mg capsule 650 mg PO .Q 8 hours 02/08/24 02/08/24 (Tylenol) amlodipine 5 mg tablet 10 mg PO DAILY 02/08/24 02/08/24 aspirin 81 mg chewable tablet 81 mg PO DAILY 02/08/24 02/08/24 atorvastatin 40 mg tablet 40 mg PO DAILY 02/08/24 02/08/24 baclofen 10 mg tablet 10 mg PO BID 02/08/24 02/08/24 buspirone 5 mg tablet 5 mg PO BID 02/08/24 02/08/24 chlorthalidone 25 mg tablet 25 mg PO DAILY 02/08/24 02/08/24 clopidogrel 75 mg tablet 75 mg PO DAILY 02/08/24 02/08/24 diclofenac sodium 1 % topical gel 2 g topical QID PRN pain 02/08/24 02/08/24 (Arthritis Pain (diclofenac)) hydralazine 25 mg tablet 25 mg PO QID 02/08/24 02/08/24 levothyroxine 50 mcg tablet 50 mcg PO DAILY 02/08/24 02/08/24 (Euthyrox) lidocaine 4 % topical patch 2 patch topical DAILY 02/08/24 02/08/24 (Aspercreme (lidocaine)) losartan 100 mg tablet (Cozaar) 100 mg PO DAILY 02/08/24 02/08/24 melatonin 5 mg tablet 5 mg PO DAILY 02/08/24 02/08/24 ondansetron HCl 4 mg tablet 4 mg PO Q6H PRN nausea and vomiting 02/08/24 02/08/24 quaifenesin 600 mg PO BID PRN cough 02/08/24 02/08/24 tramadol 50 mg tablet 50 mg PO DAILY PRN pain 02/08/24 02/08/24 trazodone 50 mg tablet 50 mg PO DAILY PRN sleep 02/08/24 02/08/24 Previous Rx's ?Medication ?Instructions ?Recorded famotidine 20 mg tablet (Pepcid) 20 mg PO BID #20 tabs 02/08/24 nystatin 100,000 unit/mL oral 400,000 unit (4 mL) buccal QID 14 02/08/24 suspension days #224 mL pantoprazole 40 mg tablet,delayed 40 mg PO DAILY #30 tabs 02/08/24 release (Protonix) bisacodyl 10 mg rectal suppository 10 mg MS DAILY PRN constipation 03/28/24 (Dulcolax (bisacodyl)) #12 ea bisacodyl 10 mg/30 mL enema (Fleet 10 mg (30 mL) MS DAILY PRN 03/28/24 Bisacodyl) constipation #37 mL polyethylene glycol 3350 17 17 g PO DAILY PRN constipation 03/28/24 gram/dose oral powder (Miralax) #238 grams Allergies Allergy/AdvReac Type Severity Reaction Status Date / Time meperidine (From Demerol) Allergy Unknown Unknown Verified 02/08/24 17:50 Review of Systems ROS Status of ROS 10 or more systems reviewed and unremarkable except as noted in history and below Exam Narrative Exam Narrative: Nurses notes and vital signs reviewed and patient is not hypoxic. General: Well-appearing and in no apparent distress. Skin: Warm, dry, no pallor noted. No rash. Head: Normocephalic, atraumatic. Neck: Supple, non-tender. Eye: Pupils are equal, round and EOMI. No scleral icterus. Ears, Nose, Mouth, and Throat: TM are clear, no nasal mucosal hypertrophy. Oral mucosa is moist, no posterior oropharynx erythema, uvula is mid-line Cardiovascular: Regular Rate and Rhythm without murmur, gallop or rub. Respiratory: No accessory muscle use or respiratory distress. Lungs are clear to auscultation, no wheezing, rales or rhonchi Chest Wall: no tenderness Back: No midline thoracic or lumbar vertebral tenderness. No CVA tenderness Musculoskeletal: normal ROM, no calf or popliteal tenderness, no lower extremity edema/swelling GI: Abdomen is soft, non-distended. Normal bowel sounds. No masses appreciated. No tenderness to palpation. No rebound, guarding, or rigidity noted. Neurological: A&O x4. No cranial nerve dysfunction observed. The patient have a left-sided weakness due to her recent history of stroke no acute symptoms Constitutional Vital Signs, click to edit/add: Last Vital Signs Temp 98.2 F 03/28/24 09:13 Pulse 66 03/28/24 10:50 Resp 18 03/28/24 10:50 BP 136/86 03/28/24 10:50 Pulse Ox 98 03/28/24 10:50 O2 Del Method Room Air 03/28/24 09:13 Course Vital Signs Vital signs: Vital Signs Temperature 98.2 F 03/28/24 09:13 Pulse Rate 65 03/28/24 09:13 Respiratory Rate 18 03/28/24 09:13 Blood Pressure 150/66 H 03/28/24 09:13 Pulse Oximetry 97 03/28/24 09:13 Oxygen Delivery Method Room Air 03/28/24 09:13 Temperature 98.2 F 03/28/24 09:13 Pulse Rate 66 03/28/24 10:50 Respiratory Rate 18 03/28/24 10:50 Blood Pressure 136/86 03/28/24 10:50 Pulse Oximetry 98 03/28/24 10:50 Oxygen Delivery Method Room Air 03/28/24 09:13 MDM - Abdominal Pain MDM Narrative Medical decision making narrative: The patient presented to us with a constipation although the family at the bedside was concerned about her not having a bowel movement The patient had no abdominal distention she did mention that she has some nausea over the last month and a half since she had the stroke But there is no acute complaint of any abdominal pain or any nausea or vomiting right now The patient CBC and chemistry showed no acute pathology except for mild hypokalemia Right now I did change the patient regimen today the MiraLAX in addition to Dulcolax suppository and enema The patient family were more concerned that the patient herself does not have any symptoms they were just worried and they had many questions that they had to answer extensively including the fact that she have some moderate constipation on the CAT scan but there is no obstruction The patient family instructed about the proper care at home and the proper monitoring symptoms The patient family instructed about monitoring the symptoms they are to come back to the ER in case of any concerns follow-up with the primary care within a week Lab Data Labs: Lab Results 03/28/24 Range/Units 09:52 WBC 6.7 (4.0-11.0) 10^3/uL RBC 3.21 L (4.20-5.40) 10^6/uL Hgb 10.2 L (12.0-16.0) g/dL Hct 30.6 L (36.0-48.0) % MCV 95.3 (81.0-99.0) fL MCH 31.8 (26.7-34.0) pg MCHC 33.3 (29.9-35.2) g/dL RDW 13.5 (11.0-15.0) % Plt Count 327 (150-450) 10^3/uL MPV 9.2 L (9.5-13.5) fL Neut % (Auto) 48.8 (43.0-75.0) % Lymph % (Auto) 30.8 (20.5-60.0) % Storey % (Auto) 10.6 (1.7-12.0) % Eos % (Auto) 8.2 H (0.9-7.0) % Baso % (Auto) 1.6 (0.2-2.0) % Neut # (Auto) 3.3 (1.4-6.5) 10^3/uL Lymph # (Auto) 2.1 (1.2-3.8) 10^3/uL Storey # (Auto) 0.7 (0.3-0.8) 10^3/uL Eos # (Auto) 0.6 (0.0-0.7) 10^3/uL Baso # (Auto) 0.1 (0.0-0.1) 10^3/uL Abs Immat Gran (auto) 0.00 (0.00-0.03) 10^3/uL Imm/Tot Granulo (auto) 0.0 (0.0-0.5) % Sodium 140 (136-145) mmol/L Potassium 3.3 L (3.5-5.1) mmol/L Chloride 99 (98-107) mmol/L Carbon Dioxide 31.4 (21.0-32.0) mmol/L Anion Gap 12.9 BUN 26.0 H (7.0-18.0) mg/dL Creatinine 1.28 H (0.55-1.02) mg/dL Est GFR ( Amer) 49 L (>=60 mL/min/1.73m^2) Est GFR (Non-Af Amer) 40 L (>=60 mL/min/1.73m^2) BUN/Creatinine Ratio 20.3 Glucose 124 H (74-106) mg/dL Calcium 8.8 (8.5-10.1) mg/dL Total Bilirubin 0.5 (0.2-1.0) mg/dL AST 14 L (15-37) U/L ALT 18 (14-59) U/L Alkaline Phosphatase 70 (46-116) U/L Total Protein 6.7 (6.4-8.2) g/dL Albumin 3.1 L (3.4-5.0) g/dL Globulin 3.6 g/dL Albumin/Globulin Ratio 0.9 Discharge Plan Discharge Chief Complaint: Abdominal Pain Clinical Impression: Constipation Patient Disposition: Home, Self-Care Time of Disposition Decision: 11:46 Condition: Good Prescriptions / Home Meds: New bisacodyl [Dulcolax (bisacodyl)] 10 mg suppository 10 mg MS DAILY PRN (Reason: constipation) Qty: 12 0RF polyethylene glycol 3350 [Miralax] 17 gram/dose powder 17 g PO DAILY PRN (Reason: constipation) Qty: 238 0RF Fleet Bisacodyl 10 mg/30 mL enema 10 mg MS DAILY PRN (Reason: constipation) Qty: 37 0RF Discontinued polyethylene glycol 3350 [ClearLax] 17 gram/dose powder 17 g PO DAILY calcium carbonate [Antacid (calcium carbonate)] 200 mg calcium (500 mg) tablet,chewable 200 mg PO TID PRN (Reason: dyspepsia) alum-mag hydroxide-simeth [Gretchen-Mox Antacid-[place]as] 200-200-20 mg/5 mL suspension 10 ml PO Q6H PRN (Reason: dyspepsia) Rx Instructions: 400-400-40 docusate sodium [Colace] 100 mg capsule 100 mg PO BID PRN (Reason: constipation) No Action amlodipine 5 mg tablet 10 mg PO DAILY aspirin 81 mg tablet,chewable 81 mg PO DAILY atorvastatin 40 mg tablet 40 mg PO DAILY chlorthalidone 25 mg tablet 25 mg PO DAILY clopidogrel 75 mg tablet 75 mg PO DAILY hydralazine 25 mg tablet 25 mg PO QID acetaminophen [Tylenol] 325 mg capsule 650 mg PO .Q 8 hours levothyroxine [Euthyrox] 50 mcg tablet 50 mcg PO DAILY losartan [Cozaar] 100 mg tablet 100 mg PO DAILY melatonin 5 mg tablet 5 mg PO DAILY Rx Instructions: HS lidocaine [Aspercreme (lidocaine)] 4 % adhesive patch,medicated 2 patch topical DAILY Rx Instructions: may leave on for up to 12 hrs baclofen 10 mg tablet 10 mg PO BID buspirone 5 mg tablet 5 mg PO BID Biotene Dry Mouth 1 spray Not Applicable QID Rx Instructions: For dry mouth diclofenac sodium [Arthritis Pain (diclofenac)] 1 % gel 2 g topical QID PRN (Reason: pain) Rx Instructions: apply to single elbow, wrist or hand; for hand includes palm/fingers/back of hand trazodone 50 mg tablet 50 mg PO DAILY PRN (Reason: sleep) quaifenesin 600 mg PO BID PRN (Reason: cough) ondansetron HCl 4 mg tablet 4 mg PO Q6H PRN (Reason: nausea and vomiting) tramadol 50 mg tablet 50 mg PO DAILY PRN (Reason: pain) Rx Instructions: Pain 7-10 pantoprazole [Protonix] 40 mg tablet,delayed release (DR/EC) 40 mg PO DAILY Qty: 30 0RF famotidine [Pepcid] 20 mg tablet 20 mg PO BID Qty: 20 0RF nystatin 100,000 unit/mL suspension 400,000 unit buccal QID 14 Days Qty: 224 0RF Rx Instructions: administer 1/2 of dose in each side of the mouth Print Language: Pashto Instructions: Constipation (DC) Referrals: Physician,Non-Staff, MD [Primary Care Provider] - 1 week
[2024-03-28 10:50] VITALS: BP 136/86; PULSE 66; O2SAT 98
== END 2024-03-28 14:10 | disposition home or self-care (01) ==
PROVIDERS: Emergency Provider Emergency Medicine
DX: K59.00 Constipation, unspecified (principal); Z86.73 Personal history of transient ischemic attack (TIA), and cerebral infarction without residual deficits; Z74.01 Bed confinement status
CPT/HCPCS: 36415; 74176; 80053; 85025; 99284